=== PATIENT | male | born 1950 | race Caucasian/White ===

== ENCOUNTER → 2016-10-06 | Outpatient (CLI) | payer MEDICARE, OTHER ==
[~2016-10-06] MED LIST: /AMLO25TA PO; /MOXI40TA PO; ADV250INH INH; AMLO10TA2 PO; ASPI32ECTA PO; ASPI81TA85 PO; FISH1000 PO; FISH100035 PO; GING250C2 PO; LEVA12INH INH; LIPI10TA PO; LOPR50TA PO; METAPKT PO; METO-346 PO; MSM750CA PO; NYST10PW TOP; PRED1TAB32 PO; TYLE325T5 PO; [UNRECOGNIZED DRUG - OTHER]; [UNRECOGNIZED DRUG - OTHER] PO; [UNRECOGNIZED DRUG - OTHER] PO; [UNRECOGNIZED DRUG - OTHER] PO; [UNRECOGNIZED DRUG - OTHER] TOP; spiriva INH
[2016-10-06 13:06] LABS: BASO % 0.4 % (0.0-1.0); EOS # 0.1 K/mm3 (0.0-0.50); EOS % 1.2 % (0.0-3.0); LYMPH # 0.8 K/mm3 (1.5-4.5); LYMPH % 9.3 % (24.0-44.0); MEAN CORPUSCULAR HEMOGLOBIN 30.4 pg (27.0-33.0); MEAN CORPUSCULAR HGB CONC 33.6 g/dl (32.0-36.5); MEAN CORPUSCULAR VOLUME 90.4 fl (80.0-96.0); MONO # 0.6 K/mm3 (0.0-0.8); MONO % 6.7 % (0.0-5.0); NEUTROPHILS # 7.2 K/mm3 (1.8-7.7); NEUTROPHILS % 80.8 % (36.0-66.0); RED CELL DISTRIBUTION WIDTH 13.9 % (11.5-14.5); WHITE BLOOD COUNT 8.9 K/mm3 (4.0-10.0)
[2016-10-06 13:31] LABS: ALBUMIN 3.8 GM/DL (3.2-5.2); CALCIUM LEVEL 9.1 MG/DL (8.8-10.2); CREATININE FOR GFR 1.36 MG/DL (0.70-1.30); GLOMERULAR FILTRATION RATE 55.6 (>49); MAGNESIUM LEVEL 2.6 MG/DL (1.8-2.4); PHOSPHORUS LEVEL 2.8 MG/DL (2.5-4.9); POTASSIUM SERUM 4.1 MEQ/L (3.5-5.1)
== END ==
LOC: M LAB 12:13
PROVIDERS: ATTEND Internal Medicine Cardiovascular Disease
DX: R06.00 Dyspnea, unspecified (principal)

== ENCOUNTER → 2016-10-13 | Outpatient (REF) | payer MEDICARE ==
[2016-10-13 20:11] LABS: BASO # 0.2 K/mm3 (0.0-0.2); EOS # 0.1 K/mm3 (0.0-0.50); EOS % 1.3 % (0.0-3.0); LARGE UNSTAINED CELL # 0.1 K/mm3 (0.0-0.4); LARGE UNSTAINED CELL % 0.9 % (0.0-4.0); LYMPH # 1.1 K/mm3 (1.5-4.5); LYMPH % 11.7 % (24.0-44.0); MEAN CORPUSCULAR HEMOGLOBIN 28.9 pg (27.0-33.0); MEAN CORPUSCULAR VOLUME 90.3 fl (80.0-96.0); MONO # 0.5 K/mm3 (0.0-0.8); MONO % 5.2 % (0.0-5.0); NEUTROPHILS # 7.1 K/mm3 (1.8-7.7); NEUTROPHILS % 78.9 % (36.0-66.0); PLATELET COUNT, AUTOMATED 231 k/mm3 (150-450)
[2016-10-13 20:46] LABS: ERYTHROCYTE SEDIMENTATION RATE 3 mm/hr (0-20)
== END ==
LOC: M LAB REF 16:41
PROVIDERS: ATTEND Internal Medicine Medical Oncology
DX: Z01.812 Encounter for preprocedural laboratory examination (principal); D75.1 Secondary polycythemia; I50.32 Chronic diastolic (congestive) heart failure; R06.02 Shortness of breath

== ENCOUNTER → 2016-10-13 | Outpatient (CLI) | payer MEDICARE ==
[2016-10-13 13:32] LABS: ABG BASE EXCESS 1.8 (-2.0-2.0); ABG HCO3 26.8 MEQ/L (22.0-26.0); ABG PARTIAL PRESSURE CO2 42.6 mmHg (35.0-45.0); ABG PARTIAL PRESSURE O2 57.9 mmHg (75.0-100.0); ABG STANDARD HCO3 25.8 MEQ/L (22.0-26.0); ABG TOTAL CO2 28.1 MEQ/L (23.0-31.0); ABG pH (ARTERIAL) 7.416 UNITS (7.350-7.450)
[2016-10-13 19:25] LABS: CREATININE FOR GFR 1.51 MG/DL (0.70-1.30); GLOMERULAR FILTRATION RATE 49.3 (>49)
== END ==
LOC: M LAB 13:19
PROVIDERS: ATTEND Internal Medicine Cardiovascular Disease
DX: Z01.812 Encounter for preprocedural laboratory examination (principal); I50.32 Chronic diastolic (congestive) heart failure; R06.02 Shortness of breath

== ENCOUNTER → 2016-10-17 | Outpatient (CLI) | payer MEDICARE, OTHER ==
[~2016-10-17] MED LIST changes: +ISOVUE-370 76% 100ML VIAL (Q9967) As Ordered ONE
--- NOTE | 2016-10-17 13:04 | REP ---
CT of the chest with intravenous contrast: Comparisons are 04/28/2016 and 01/25/2015. The patient has mediastinal and bilateral hilar adenopathy. There are thyroid nodules in the left lobe of the thyroid gland appears enlarged. This is unchanged from the prior studies. Radionuclide thyroid scan and / or thyroid ultrasound might be considered. There are multiple enlarged mediastinal lymph nodes. one of the largest lymph nodes is in aorticopulmonic node today measuring 9 mm short axis. (16 mm of 04/28/2016, 11 mm on 01/25/2015. The other nodes demonstrate similar characteristics having enlarged from 01/25/2015 to 04/28/2016 and today decreased compared 05/10/2016. There are bilateral hilar nodes with similar size considerations. They have increased from 01/25/2015, 05/10/2016 and decreased from 05/10/2016 to 09/27/2016. On 05/10/2016. there were bilateral pleural effusions. These have resolved. There are no lung masses or nodules. There are no infiltrates or effusions. There are numerous bulla scattered throughout the lung silva bilaterally, unchanged, compatible with bullous emphysema. The thoracic aorta is unremarkable except for occasional calcified atheroma. Cardiac size is normal. There is no pericardial effusion. There are multiple eccentric filling defects in the right subclavian vein, the intravenous injection being in the right upper extremity. These may represent thrombi, possibly chronic. Upper abdomen: There is a 3.5 cm cyst posteriorly in the right lobe of the liver, unchanged. The visualized portions of the gallbladder, pancreas and spleen are unremarkable. There is no adrenal mass. The renal upper poles are unremarkable. Impression: Mediastinal and bilateral hilar adenopathy as described. Numerous thyroid multiple nodules. This is unchanged. There are filling defects, nonocclusive, in the right subclavian vein, the intravenous injection being into the right upper extremity. These may represent thrombi, possibly chronic. Signed by Sai Carpenter MD 10/17/2016 12:55 P
== END ==
LOC: M RAD 11:29
PROVIDERS: ATTEND Internal Medicine Pulmonary Disease
DX: R91.8 Other nonspecific abnormal finding of lung field (principal)
CPT/HCPCS: 71260; Q9967

== ENCOUNTER → 2016-10-21 | Outpatient (REF) | payer MEDICARE ==
[~2016-10-21] MED LIST changes: -ISOVUE-370 76% 100ML VIAL (Q9967) As Ordered ONE
== END ==
LOC: M LAB REF 12:49
PROVIDERS: ATTEND Internal Medicine Medical Oncology
DX: D75.1 Secondary polycythemia (principal)

== ENCOUNTER → 2016-12-12 | Outpatient (CLI) | payer MEDICARE, OTHER ==
[~2016-12-12] MED LIST changes: +ISOVUE-370 76% 100ML VIAL (Q9967) As Ordered ONE
--- NOTE | 2016-12-12 12:18 | REP ---
Clinical: Erythrocytosis. Renal mass. Technique: Axial contrast enhanced images from the lung bases to the pubic symphysis using 100 ml Isovue 370 intravenous contrast material with precontrast, arterial phase, and delayed phase images of the abdomen as well as coronal and sagittal re-formations. Findings: Lung bases demonstrate chronic bronchiectasis and mild to moderate emphysematous changes. Visualized portions of the heart and pericardium are normal. Liver is normal and demonstrates 3.8 cm cyst in the posterior segment right lobe. Spleen, pancreas, gallbladder, bilateral adrenal glands, and kidneys are normal. Specifically, there is no perinephric stranding, hydroureteronephrosis, nephrolithiasis, cystic or renal mass lesion. The enteric system is without obstruction or acute inflammatory process. Pelvis demonstrates normal bladder. The prostate gland is moderately enlarged measuring up to approximately 5.4 cm transverse diameter. No ascites. No free air. No intraperitoneal or retroperitoneal adenopathy. Age-related atherosclerotic changes of the aorta and branch vessels noted without aneurysm or dissection. Musculoskeletal structures demonstrate age-related changes without focal osseous abnormality. 2 cm fat containing periumbilical hernia noted. Impression: 1. Normal appearance of the kidneys and urinary tract system. 2. 3.8 cm simple hepatic cyst. 3. Moderately enlarged prostate gland. 4. 2 cm fat containing periumbilical hernia. Signed by Luis Daniel Beltre MD 12/12/2016 12:09 P
== END ==
LOC: M RAD 11:21
PROVIDERS: ATTEND Internal Medicine Medical Oncology
DX: D75.1 Secondary polycythemia (principal)
CPT/HCPCS: 74178; Q9967

== ENCOUNTER → 2017-07-23 | Outpatient (REF) | payer MEDICARE, OTHER ==
[~2017-07-23] MED LIST changes: +ASPI325T24 PO; -ASPI32ECTA PO; -ISOVUE-370 76% 100ML VIAL (Q9967) As Ordered ONE
[2017-07-23 19:39] LABS: BASO # 0.1 10^3/uL (0.0-0.2); BASO % 0.5 % (0.0-1.0); EOS # 0.1 10^3/uL (0.0-0.50); EOS % 1.4 % (0.0-3.0); IMMATURE GRANULOCYTE % 0.5 % (0-0); LYMPH # 1.1 10^3/uL (1.5-4.5); LYMPH % 10.7 % (24.0-44.0); MEAN CORPUSCULAR HEMOGLOBIN 29.1 pg (27.0-33.0); MEAN CORPUSCULAR HGB CONC 31.6 g/dl (32.0-36.5); MEAN CORPUSCULAR VOLUME 92.2 fl (80.0-96.0); MONO # 0.5 10^3/uL (0.0-0.8); MONO % 5.3 % (0.0-5.0); NEUTROPHILS # 8.4 10^3/uL (1.8-7.7); NEUTROPHILS % 81.6 % (36.0-66.0); PLATELET COUNT, AUTOMATED 252 10^3/uL (150-450); RED CELL DISTRIBUTION WIDTH 16.7 % (11.5-14.5); WHITE BLOOD COUNT 10.3 10^3/uL (4.0-10.0)
== END ==
LOC: M LABDRWCV 16:26
PROVIDERS: ATTEND Internal Medicine Medical Oncology
DX: D45 Polycythemia vera (principal)

== ENCOUNTER → 2017-08-24 | Outpatient (REF) | payer MEDICARE, OTHER ==
[2017-08-24 20:37] LABS: ALBUMIN 3.8 GM/DL (3.2-5.2); ALBUMIN/GLOBULIN RATIO 0.95 (1.00-1.93); BILIRUBIN,TOTAL 0.8 MG/DL (0.2-1.0); CREATININE FOR GFR 1.44 MG/DL (0.70-1.30); GLOMERULAR FILTRATION RATE 51.9 (>49); POTASSIUM SERUM 3.9 MEQ/L (3.5-5.1); TOTAL PROTEIN 7.8 GM/DL (6.4-8.2)
[2017-08-24 20:57] LABS: BASO # 0.1 10^3/uL (0.0-0.2); BASO % 0.6 % (0.0-1.0); EOS # 0.2 10^3/uL (0.0-0.50); EOS % 1.8 % (0.0-3.0); IMMATURE GRANULOCYTE % 0.3 % (0-0); LYMPH # 0.9 10^3/uL (1.5-4.5); MEAN CORPUSCULAR HEMOGLOBIN 29.1 pg (27.0-33.0); MEAN CORPUSCULAR HGB CONC 30.9 g/dl (32.0-36.5); MEAN CORPUSCULAR VOLUME 94.1 fl (80.0-96.0); MONO # 0.5 10^3/uL (0.0-0.8); NEUTROPHILS # 7.3 10^3/uL (1.8-7.7); NEUTROPHILS % 82.3 % (36.0-66.0); PLATELET COUNT, AUTOMATED 271 10^3/uL (150-450); RED CELL DISTRIBUTION WIDTH 15.1 % (11.5-14.5); WHITE BLOOD COUNT 8.9 10^3/uL (4.0-10.0)
== END ==
LOC: M SFHCCAPE 09:37
PROVIDERS: ATTEND Physician Assistant
DX: D75.1 Secondary polycythemia (principal); I10 Essential (primary) hypertension; E78.5 Hyperlipidemia, unspecified; E11.8 Type 2 diabetes mellitus with unspecified complications

== ENCOUNTER → 2017-09-07 | Outpatient (REF) | payer MEDICARE, OTHER ==
[2017-09-07 17:52] LABS: ALBUMIN 3.6 GM/DL (3.2-5.2); ALBUMIN/GLOBULIN RATIO 0.9 (1.00-1.93); BILIRUBIN,TOTAL 0.9 MG/DL (0.2-1.0); CALCIUM LEVEL 9.6 MG/DL (8.8-10.2); CREATININE FOR GFR 1.33 MG/DL (0.70-1.30); GLOMERULAR FILTRATION RATE 56.9 (>49); POTASSIUM SERUM 4.4 MEQ/L (3.5-5.1); TOTAL PROTEIN 7.6 GM/DL (6.4-8.2)
== END ==
LOC: M SFHCCAPE 10:33
PROVIDERS: ATTEND Physician Assistant
DX: R97.20 Elevated prostate specific antigen [PSA] (principal)

== ENCOUNTER 2017-12-10 14:42 | Inpatient (IN) | payer MEDICARE, OTHER ==
[2017-12-10] MEDS: IPRATROPIUM 0.5MG/ALBUTEROL 2.5MG INH SOL UD 3ML (DUONEB)(J7620) NEB ×3 (15:10→20:00)
[2017-12-10] MEDS: ALBUTEROL SULFATE 2.5 MG/0.5 ML INH NEB SOLN INH ×2 (15:10→17:13)
[2017-12-10] MEDS: methylPREDNISolone INJ 125 MG/2 ML VIAL (J2930) IV ×2 (15:12→22:53)
[2017-12-10 15:14] LABS: BASO % 0.3 % (0.0-1.0); EOS # 0.2 10^3/uL (0.0-0.50); EOS % 1.7 % (0.0-3.0); HEMATOCRIT 49.6 % (42.0-52.0); HEMOGLOBIN 15.4 g/dl (14.0-18.0); IMMATURE GRANULOCYTE % 0.5 % (0-3.0); LYMPH # 0.8 10^3/uL (1.5-4.5); MEAN CORPUSCULAR HEMOGLOBIN 28.7 pg (27.0-33.0); MEAN CORPUSCULAR VOLUME 92.5 fl (80.0-96.0); MONO # 0.7 10^3/uL (0.0-0.8); MONO % 7.1 % (0.0-5.0); NEUTROPHILS # 7.9 10^3/uL (1.8-7.7); NEUTROPHILS % 82.4 % (36.0-66.0); PLATELET COUNT, AUTOMATED 247 10^3/uL (150-450); RED BLOOD COUNT 5.36 10^6/uL (4.30-6.10); RED CELL DISTRIBUTION WIDTH 18.2 % (11.5-14.5); WHITE BLOOD COUNT 9.6 10^3/uL (4.0-10.0)
[2017-12-10 15:17] LABS: ABG BASE EXCESS 4.3 (-2.0-2.0); ABG HCO3 31.2 MEQ/L (22.0-26.0); ABG O2 SATURATION 90.9 % (95.0-99.0); ABG PARTIAL PRESSURE CO2 54.8 mmHg (35.0-45.0); ABG PARTIAL PRESSURE O2 65.7 mmHg (75.0-100.0); ABG STANDARD HCO3 28.2 MEQ/L (22.0-26.0); ABG TOTAL CO2 32.9 MEQ/L (23.0-31.0); ABG pH (ARTERIAL) 7.373 UNITS (7.350-7.450)
[2017-12-10 15:24] LABS: INR 1.19; PROTHROMBIN TIME 15.3 SECONDS (12.4-14.5)
[2017-12-10 15:27] LABS: D-DIMER QUANT 1027.8 ng/ml (<500)
[2017-12-10 15:41] LABS: ALBUMIN 3.3 GM/DL (3.2-5.2); ALBUMIN/GLOBULIN RATIO 0.97 (1.00-1.93); ALKALINE PHOSPHATASE 66 U/L (45-117); ALT/SGPT 49 U/L (12-78); ANION GAP 5 MEQ/L (8-16); AST/SGOT 38 U/L (7-37); BILIRUBIN,DIRECT 0.4 MG/DL (0.0-0.2); BILIRUBIN,TOTAL 1.1 MG/DL (0.2-1.0); BLOOD UREA NITROGEN 33 MG/DL (7-18); CALCIUM LEVEL 8.1 MG/DL (8.8-10.2); CARBON DIOXIDE LEVEL 32 MEQ/L (21-32); CHLORIDE LEVEL 103 MEQ/L (98-107); CPK CREATINE PHOSPHOKINASE 173 U/L (39-308); CREATININE FOR GFR 1.58 MG/DL (0.70-1.30); GLOMERULAR FILTRATION RATE 46.7 (>49); GLUCOSE, FASTING 93 MG/DL (70-100); POTASSIUM SERUM 4.2 MEQ/L (3.5-5.1); SODIUM LEVEL 140 MEQ/L (136-145); THYROXINE (T4) 8.4 UG/DL (4.5-12.0); TOTAL PROTEIN 6.7 GM/DL (6.4-8.2); TROPONIN I < 0.02 NG/ML (< 0.10)
[2017-12-10 15:47] LABS: CK-MB VALUE MASS 2.7 NG/ML (<3.6); MB/CK RELATIVE INDEX 1.56 (< OR =4); NT-PRO BNP 4914 PG/ML (<125)
[2017-12-10 15:49] LABS: INFLUENZA A AMPLIFICATION NEGATIVE (NEGATIVE); INFLUENZA B AMPLIFICATION NEGATIVE (NEGATIVE)
[2017-12-10 15:51] LABS: LACTIC ACID SEPSIS PROTOCOL 1.4 MMOL/L (0.4-2.0)
[2017-12-10] MEDS ORDERED: ISOVUE-370 76% 100ML VIAL (Q9967) As Ordered (16:02)
[2017-12-10] MEDS: FUROSEMIDE 100 MG/10 ML VIAL (J1940) IV (17:15)
[2017-12-10] MEDS ORDERED: ONDANSETRON 4MG/2ML VIAL (J2405) IV (18:00)
[2017-12-10 18:50] LABS: TROPONIN I 0.02 NG/ML (< 0.10)
[2017-12-10 19:05] LABS: ANION GAP 9 MEQ/L (8-16); BLOOD UREA NITROGEN 32 MG/DL (7-18); CALCIUM LEVEL 8.4 MG/DL (8.8-10.2); CARBON DIOXIDE LEVEL 29 MEQ/L (21-32); CHLORIDE LEVEL 102 MEQ/L (98-107); CREATININE FOR GFR 1.69 MG/DL (0.70-1.30); GLOMERULAR FILTRATION RATE 43.2 (>49); GLUCOSE, FASTING 126 MG/DL (70-100); POTASSIUM SERUM 4.2 MEQ/L (3.5-5.1); SODIUM LEVEL 140 MEQ/L (136-145)
[2017-12-10] MEDS: HEPARIN SOD (PORCINE) 5000 UNITS/ML VIAL SC (22:54)
[2017-12-11 00:25] LABS: TROPONIN I 0.02 NG/ML (< 0.10)
[2017-12-11] MEDS: FUROSEMIDE 100 MG/10 ML VIAL (J1940) IV ×4 (00:36→16:56)
[2017-12-11] MEDS: methylPREDNISolone INJ 125 MG/2 ML VIAL (J2930) IV ×4 (02:08→20:44)
[2017-12-11] MEDS: IPRATROPIUM 0.5MG/ALBUTEROL 2.5MG INH SOL UD 3ML (DUONEB)(J7620) NEB ×4 (02:24→19:33)
[2017-12-11] MEDS: HEPARIN SOD (PORCINE) 5000 UNITS/ML VIAL SC ×3 (05:16→21:53)
[2017-12-11 06:24] LABS: HEMATOCRIT 50.3 % (42.0-52.0); HEMOGLOBIN 15.6 g/dl (14.0-18.0); MEAN CORPUSCULAR HEMOGLOBIN 28.3 pg (27.0-33.0); MEAN CORPUSCULAR VOLUME 91.1 fl (80.0-96.0); PLATELET COUNT, AUTOMATED 235 10^3/uL (150-450); RED BLOOD COUNT 5.52 10^6/uL (4.30-6.10); RED CELL DISTRIBUTION WIDTH 18.1 % (11.5-14.5); WHITE BLOOD COUNT 5.9 10^3/uL (4.0-10.0)
[2017-12-11 06:48] LABS: ANION GAP 7 MEQ/L (8-16); BLOOD UREA NITROGEN 35 MG/DL (7-18); CALCIUM LEVEL 8.5 MG/DL (8.8-10.2); CARBON DIOXIDE LEVEL 34 MEQ/L (21-32); CHLORIDE LEVEL 99 MEQ/L (98-107); GLOMERULAR FILTRATION RATE 40.1 (>49); GLUCOSE, FASTING 151 MG/DL (70-100); NT-PRO BNP 3883 PG/ML (<125); POTASSIUM SERUM 4.1 MEQ/L (3.5-5.1); SODIUM LEVEL 140 MEQ/L (136-145); TROPONIN I < 0.02 NG/ML (< 0.10)
[2017-12-11] MEDS ORDERED: CHLORTHALIDONE 12.5MG PER 1/2 TABLET PO (09:00)
[2017-12-11] MEDS: SPIRONOLACTONE 12.5MG PER 1/2 TABLET PO (09:52)
[2017-12-11] MEDS: BISOPROLOL FUMARATE 5 MG TAB PO (09:52)
[2017-12-11 16:16] LABS: APPEARANCE, URINE CLEAR (CLEAR); BACTERIA, URINE AUTO NEGATIVE (NEGATIVE); BILIRUBIN, URINE AUTO NEGATIVE (NEGATIVE); BLOOD, URINE BLOOD NEGATIVE (NEGATIVE); COLOR, URINE YELLOW (YELLOW); GLUCOSE, URINE (UA) AUTO NEGATIVE (NEGATIVE); KETONE, URINE AUTO NEGATIVE (NEGATIVE); LEUKOCYTE ESTERASE, URINE AUTO TRACE (NEGATIVE); MUCUS, URINE SMALL (NEGATIVE); NITRITE, URINE AUTO NEGATIVE (NEGATIVE); PROTEIN, URINE AUTO NEGATIVE (NEGATIVE); RBC, URINE AUTO 3 /HPF (0-3); SPECIFIC GRAVITY URINE AUTO 1.012 (1.002-1.035); SQUAMOUS EPITHELIAL CELL UR AU 0 /HPF (0-6); UROBILINOGEN, URINE AUTO 0.2 mg/dL (0.0-2.0); WBC, URINE AUTO 3 /HPF (0-3)
[2017-12-11] MEDS: VANCOMYCIN HCL 1,000 MG, VIAL MATE ADAPTER 1 EACH in D5W 250 ML IV (16:56)
[2017-12-12] MEDS: FUROSEMIDE 100 MG/10 ML VIAL (J1940) IV ×2 (01:56→09:27)
[2017-12-12] MEDS: IPRATROPIUM 0.5MG/ALBUTEROL 2.5MG INH SOL UD 3ML (DUONEB)(J7620) NEB ×4 (02:13→19:40)
[2017-12-12] MEDS: methylPREDNISolone INJ 125 MG/2 ML VIAL (J2930) IV ×2 (03:20→09:28)
[2017-12-12 04:08] LABS: HEMATOCRIT 50.2 % (42.0-52.0); HEMOGLOBIN 15.4 g/dl (14.0-18.0); MEAN CORPUSCULAR HEMOGLOBIN 28.3 pg (27.0-33.0); MEAN CORPUSCULAR HGB CONC 30.7 g/dl (32.0-36.5); MEAN CORPUSCULAR VOLUME 92.3 fl (80.0-96.0); PLATELET COUNT, AUTOMATED 239 10^3/uL (150-450); RED BLOOD COUNT 5.44 10^6/uL (4.30-6.10); RED CELL DISTRIBUTION WIDTH 18.3 % (11.5-14.5); WHITE BLOOD COUNT 12.4 10^3/uL (4.0-10.0)
[2017-12-12 04:31] LABS: ANION GAP 5 MEQ/L (8-16); BLOOD UREA NITROGEN 50 MG/DL (7-18); CALCIUM LEVEL 8.4 MG/DL (8.8-10.2); CARBON DIOXIDE LEVEL 37 MEQ/L (21-32); CHLORIDE LEVEL 99 MEQ/L (98-107); CREATININE FOR GFR 1.68 MG/DL (0.70-1.30); GLOMERULAR FILTRATION RATE 43.5 (>49); GLUCOSE, FASTING 142 MG/DL (70-100); NT-PRO BNP 2033 PG/ML (<125); POTASSIUM SERUM 3.7 MEQ/L (3.5-5.1); SODIUM LEVEL 141 MEQ/L (136-145)
[2017-12-12] MEDS: VANCOMYCIN HCL 1,000 MG, VIAL MATE ADAPTER 1 EACH in D5W 250 ML IV (06:34)
[2017-12-12] MEDS: HEPARIN SOD (PORCINE) 5000 UNITS/ML VIAL SC (06:34)
[2017-12-12 08:32] LABS: ABG BASE EXCESS 9.7 (-2.0-2.0); ABG HCO3 36.9 MEQ/L (22.0-26.0); ABG PARTIAL PRESSURE O2 74.5 mmHg (75.0-100.0); ABG STANDARD HCO3 33.4 MEQ/L (22.0-26.0); ABG TOTAL CO2 38.6 MEQ/L (23.0-31.0); ABG pH (ARTERIAL) 7.421 UNITS (7.350-7.450)
[2017-12-12 09:12] LABS: C REACTIVE PROTEIN QUANTITATIV 0.85 MG/DL (0.00-0.30)
[2017-12-12] MEDS: SPIRONOLACTONE 12.5MG PER 1/2 TABLET PO (09:26)
[2017-12-12] MEDS: BISOPROLOL FUMARATE 5 MG TAB PO (09:27)
[2017-12-12] MEDS: TIOTROPIUM INHALER/CAPSULE (SPIRIVA) INH (09:31)
[2017-12-12] MEDS: ADVAIR HFA 230/21MCG INHALER INH ×2 (09:32→21:00)
[2017-12-12] MEDS: LevoFLOXacin IV 500 MG in APPROPRIATE DILUENT 1 EA IV (09:58)
[2017-12-12 13:44] LABS: PARTIAL THROMBOPLASTIN TIME 28.6 SECONDS (26.8-37.9)
[2017-12-12] MEDS: methylPREDNISolone INJ 40 MG/1 ML VIAL (J2920) IV ×2 (14:40→20:38)
[2017-12-12] MEDS: MULTIVITAMINS/MINERALS THERAP 1 TAB PO (14:40)
[2017-12-12] MEDS: DIGOXIN 0.25 MG TAB PO ×2 (14:41→20:38)
[2017-12-12] MEDS: HEPARIN SOD (PORCINE) 5000 UNITS/ML VIAL IV ×2 (14:52→20:38)
[2017-12-12] MEDS: HEPARIN DRIP 25,000 UNITS in APPROPRIATE DILUENT 1 EA IV ×2 (14:54→20:34)
[2017-12-12] MEDS: WARFARIN SOD 5 MG TAB PO (17:22)
[2017-12-12 20:04] LABS: PARTIAL THROMBOPLASTIN TIME 53.4 SECONDS (26.8-37.9)
[2017-12-13] MEDS: IPRATROPIUM 0.5MG/ALBUTEROL 2.5MG INH SOL UD 3ML (DUONEB)(J7620) NEB ×4 (02:04→18:32)
[2017-12-13 03:15] LABS: MEAN CORPUSCULAR HEMOGLOBIN 28.5 pg (27.0-33.0); MEAN CORPUSCULAR HGB CONC 31.4 g/dl (32.0-36.5); MEAN CORPUSCULAR VOLUME 90.9 fl (80.0-96.0); PLATELET COUNT, AUTOMATED 234 10^3/uL (150-450); RED BLOOD COUNT 5.61 10^6/uL (4.30-6.10); RED CELL DISTRIBUTION WIDTH 17.9 % (11.5-14.5); WHITE BLOOD COUNT 12.7 10^3/uL (4.0-10.0)
[2017-12-13 03:31] LABS: PARTIAL THROMBOPLASTIN TIME 76.3 SECONDS (26.8-37.9)
[2017-12-13 03:38] LABS: ANION GAP 6 MEQ/L (8-16); BLOOD UREA NITROGEN 55 MG/DL (7-18); CALCIUM LEVEL 8.3 MG/DL (8.8-10.2); CARBON DIOXIDE LEVEL 36 MEQ/L (21-32); CHLORIDE LEVEL 97 MEQ/L (98-107); CREATININE FOR GFR 1.47 MG/DL (0.70-1.30); GLOMERULAR FILTRATION RATE 50.7 (>49); GLUCOSE, FASTING 151 MG/DL (70-100); NT-PRO BNP 879 PG/ML (<125); POTASSIUM SERUM 3.8 MEQ/L (3.5-5.1); SODIUM LEVEL 139 MEQ/L (136-145)
[2017-12-13] MEDS: methylPREDNISolone INJ 40 MG/1 ML VIAL (J2920) IV ×4 (03:56→20:26)
[2017-12-13] MEDS: TIOTROPIUM INHALER/CAPSULE (SPIRIVA) INH (07:54)
[2017-12-13] MEDS: ADVAIR HFA 230/21MCG INHALER INH ×2 (07:54→18:32)
[2017-12-13] MEDS: MULTIVITAMINS/MINERALS THERAP 1 TAB PO (08:06)
[2017-12-13] MEDS: DIGOXIN 0.25 MG TAB PO (08:06)
[2017-12-13 09:23] LABS: PARTIAL THROMBOPLASTIN TIME 60.7 SECONDS (26.8-37.9)
[2017-12-13] MEDS ORDERED: LevoFLOXacin IV 250 MG in APPROPRIATE DILUENT 1 EA IV (10:00)
[2017-12-13] MEDS: HEPARIN SOD (PORCINE) 5000 UNITS/ML VIAL IV (10:05)
[2017-12-13] MEDS: PANTOPRAZOLE 40MG TAB (PROTONIX) PO (10:05)
[2017-12-13 10:34] LABS: ABG HCO3 37.1 MEQ/L (22.0-26.0); ABG PARTIAL PRESSURE CO2 57.9 mmHg (35.0-45.0); ABG PARTIAL PRESSURE O2 91.4 mmHg (75.0-100.0); ABG STANDARD HCO3 33.8 MEQ/L (22.0-26.0); ABG TOTAL CO2 38.8 MEQ/L (23.0-31.0); ABG pH (ARTERIAL) 7.424 UNITS (7.350-7.450)
[2017-12-13] MEDS: HEPARIN DRIP 25,000 UNITS in APPROPRIATE DILUENT 1 EA IV (10:50)
[2017-12-13 16:25] LABS: PARTIAL THROMBOPLASTIN TIME 92.6 SECONDS (26.8-37.9)
[2017-12-13] MEDS: WARFARIN SOD 5 MG TAB PO (17:37)
[2017-12-13 22:12] LABS: PARTIAL THROMBOPLASTIN TIME 80.5 SECONDS (26.8-37.9)
[2017-12-14] MEDS: HEPARIN DRIP 25,000 UNITS in APPROPRIATE DILUENT 1 EA IV ×2 (01:57→19:22)
[2017-12-14] MEDS: methylPREDNISolone INJ 40 MG/1 ML VIAL (J2920) IV ×4 (02:34→20:34)
[2017-12-14] MEDS: IPRATROPIUM 0.5MG/ALBUTEROL 2.5MG INH SOL UD 3ML (DUONEB)(J7620) NEB ×4 (02:45→20:00)
[2017-12-14 04:27] LABS: HEMATOCRIT 49.3 % (42.0-52.0); HEMOGLOBIN 15.3 g/dl (14.0-18.0); MEAN CORPUSCULAR HEMOGLOBIN 28.1 pg (27.0-33.0); MEAN CORPUSCULAR VOLUME 90.6 fl (80.0-96.0); PLATELET COUNT, AUTOMATED 203 10^3/uL (150-450); RED BLOOD COUNT 5.44 10^6/uL (4.30-6.10); RED CELL DISTRIBUTION WIDTH 17.1 % (11.5-14.5); WHITE BLOOD COUNT 9.7 10^3/uL (4.0-10.0)
[2017-12-14 04:38] LABS: PARTIAL THROMBOPLASTIN TIME 88.2 SECONDS (26.8-37.9)
[2017-12-14 04:39] LABS: INR 1.25
[2017-12-14 04:57] LABS: ANION GAP 2 MEQ/L (8-16); BLOOD UREA NITROGEN 45 MG/DL (7-18); CARBON DIOXIDE LEVEL 37 MEQ/L (21-32); CHLORIDE LEVEL 99 MEQ/L (98-107); CREATININE FOR GFR 1.34 MG/DL (0.70-1.30); DIGOXIN LEVEL 0.6 NG/ML (0.5-2.0); GLOMERULAR FILTRATION RATE 56.4 (>49); GLUCOSE, FASTING 155 MG/DL (70-100); POTASSIUM SERUM 3.8 MEQ/L (3.5-5.1); SODIUM LEVEL 138 MEQ/L (136-145)
[2017-12-14] MEDS: TIOTROPIUM INHALER/CAPSULE (SPIRIVA) INH (08:09)
[2017-12-14] MEDS: ADVAIR HFA 230/21MCG INHALER INH ×2 (08:09→20:31)
[2017-12-14] MEDS: MULTIVITAMINS/MINERALS THERAP 1 TAB PO (09:19)
[2017-12-14] MEDS: PANTOPRAZOLE 40MG TAB (PROTONIX) PO (09:20)
[2017-12-14] MEDS: DIGOXIN 0.25 MG TAB PO (09:20)
[2017-12-14] MEDS: WARFARIN SOD 5 MG TAB PO (16:55)
[2017-12-15] MEDS: IPRATROPIUM 0.5MG/ALBUTEROL 2.5MG INH SOL UD 3ML (DUONEB)(J7620) NEB ×4 (01:24→21:33)
[2017-12-15] MEDS: methylPREDNISolone INJ 40 MG/1 ML VIAL (J2920) IV ×4 (03:12→20:16)
[2017-12-15 04:42] LABS: HEMATOCRIT 50.3 % (42.0-52.0); HEMOGLOBIN 15.8 g/dl (14.0-18.0); MEAN CORPUSCULAR HGB CONC 31.4 g/dl (32.0-36.5); MEAN CORPUSCULAR VOLUME 89.2 fl (80.0-96.0); PLATELET COUNT, AUTOMATED 202 10^3/uL (150-450); RED BLOOD COUNT 5.64 10^6/uL (4.30-6.10); RED CELL DISTRIBUTION WIDTH 17.2 % (11.5-14.5); WHITE BLOOD COUNT 9.4 10^3/uL (4.0-10.0)
[2017-12-15 04:57] LABS: INR 1.22; PROTHROMBIN TIME 15.7 SECONDS (12.4-14.5)
[2017-12-15 04:58] LABS: PARTIAL THROMBOPLASTIN TIME 72.6 SECONDS (26.8-37.9)
[2017-12-15 05:17] LABS: ANION GAP 3 MEQ/L (8-16); BLOOD UREA NITROGEN 39 MG/DL (7-18); CALCIUM LEVEL 8.5 MG/DL (8.8-10.2); CARBON DIOXIDE LEVEL 35 MEQ/L (21-32); CHLORIDE LEVEL 101 MEQ/L (98-107); GLOMERULAR FILTRATION RATE > 60.0 (>49); GLUCOSE, FASTING 159 MG/DL (70-100); POTASSIUM SERUM 3.9 MEQ/L (3.5-5.1); SODIUM LEVEL 139 MEQ/L (136-145)
[2017-12-15] MEDS: ADVAIR HFA 230/21MCG INHALER INH ×2 (08:57→21:32)
[2017-12-15] MEDS: TIOTROPIUM INHALER/CAPSULE (SPIRIVA) INH (08:58)
[2017-12-15] MEDS: MULTIVITAMINS/MINERALS THERAP 1 TAB PO (09:01)
[2017-12-15] MEDS: PANTOPRAZOLE 40MG TAB (PROTONIX) PO (09:01)
[2017-12-15] MEDS: DIGOXIN 0.25 MG TAB PO (09:01)
[2017-12-15] MEDS: HEPARIN DRIP 25,000 UNITS in APPROPRIATE DILUENT 1 EA IV (13:39)
[2017-12-15] MEDS: WARFARIN SOD 5 MG TAB PO (17:11)
[2017-12-16] MEDS: IPRATROPIUM 0.5MG/ALBUTEROL 2.5MG INH SOL UD 3ML (DUONEB)(J7620) NEB ×4 (01:03→20:00)
[2017-12-16] MEDS: methylPREDNISolone INJ 40 MG/1 ML VIAL (J2920) IV ×4 (04:09→21:00)
[2017-12-16 04:42] LABS: HEMATOCRIT 50.5 % (42.0-52.0); HEMOGLOBIN 15.9 g/dl (14.0-18.0); MEAN CORPUSCULAR HEMOGLOBIN 28.3 pg (27.0-33.0); MEAN CORPUSCULAR HGB CONC 31.5 g/dl (32.0-36.5); MEAN CORPUSCULAR VOLUME 89.9 fl (80.0-96.0); PLATELET COUNT, AUTOMATED 188 10^3/uL (150-450); RED BLOOD COUNT 5.62 10^6/uL (4.30-6.10); RED CELL DISTRIBUTION WIDTH 17.4 % (11.5-14.5); WHITE BLOOD COUNT 9.2 10^3/uL (4.0-10.0)
[2017-12-16 04:52] LABS: PARTIAL THROMBOPLASTIN TIME 81.3 SECONDS (26.8-37.9)
[2017-12-16 04:53] LABS: ANION GAP 5 MEQ/L (8-16); BLOOD UREA NITROGEN 40 MG/DL (7-18); CALCIUM LEVEL 8.2 MG/DL (8.8-10.2); CARBON DIOXIDE LEVEL 33 MEQ/L (21-32); CHLORIDE LEVEL 101 MEQ/L (98-107); CREATININE FOR GFR 1.14 MG/DL (0.70-1.30); GLOMERULAR FILTRATION RATE > 60.0 (>49); GLUCOSE, FASTING 172 MG/DL (70-100); POTASSIUM SERUM 4.1 MEQ/L (3.5-5.1); SODIUM LEVEL 139 MEQ/L (136-145)
[2017-12-16 07:40] LABS: INR 1.75; PROTHROMBIN TIME 20.9 SECONDS (12.4-14.5)
[2017-12-16] MEDS: DIGOXIN 0.25 MG TAB PO (08:06)
[2017-12-16] MEDS: MULTIVITAMINS/MINERALS THERAP 1 TAB PO (08:06)
[2017-12-16] MEDS: PANTOPRAZOLE 40MG TAB (PROTONIX) PO (08:06)
[2017-12-16] MEDS: TIOTROPIUM INHALER/CAPSULE (SPIRIVA) INH (11:48)
[2017-12-16] MEDS: ADVAIR HFA 230/21MCG INHALER INH ×2 (11:48→22:53)
[2017-12-16] MEDS ORDERED: SLF 3 ML SYR IV (15:45)
[2017-12-16] MEDS: WARFARIN SOD 4 MG TAB PO (17:17)
[2017-12-16] MEDS: SLF 3 ML SYR IV (21:01)
[2017-12-17] MEDS: IPRATROPIUM 0.5MG/ALBUTEROL 2.5MG INH SOL UD 3ML (DUONEB)(J7620) NEB ×5 (00:21→20:00)
[2017-12-17] MEDS: methylPREDNISolone INJ 40 MG/1 ML VIAL (J2920) IV ×2 (02:34→08:56)
[2017-12-17] MEDS: SLF 3 ML SYR IV ×3 (02:35→22:00)
[2017-12-17 05:39] LABS: HEMATOCRIT 49.1 % (42.0-52.0); HEMOGLOBIN 15.5 g/dl (14.0-18.0); MEAN CORPUSCULAR HEMOGLOBIN 28.3 pg (27.0-33.0); MEAN CORPUSCULAR HGB CONC 31.6 g/dl (32.0-36.5); MEAN CORPUSCULAR VOLUME 89.8 fl (80.0-96.0); PLATELET COUNT, AUTOMATED 204 10^3/uL (150-450); RED BLOOD COUNT 5.47 10^6/uL (4.30-6.10); RED CELL DISTRIBUTION WIDTH 17.2 % (11.5-14.5); WHITE BLOOD COUNT 10.4 10^3/uL (4.0-10.0)
[2017-12-17 05:51] LABS: ANION GAP 4 MEQ/L (8-16); BLOOD UREA NITROGEN 39 MG/DL (7-18); CALCIUM LEVEL 8.2 MG/DL (8.8-10.2); CARBON DIOXIDE LEVEL 34 MEQ/L (21-32); CHLORIDE LEVEL 102 MEQ/L (98-107); GLOMERULAR FILTRATION RATE > 60.0 (>49); GLUCOSE, FASTING 163 MG/DL (70-100); INR 2.13; MAGNESIUM LEVEL 2.8 MG/DL (1.8-2.4); POTASSIUM SERUM 4.4 MEQ/L (3.5-5.1); PROTHROMBIN TIME 24.6 SECONDS (12.4-14.5); SODIUM LEVEL 140 MEQ/L (136-145)
[2017-12-17] MEDS: TIOTROPIUM INHALER/CAPSULE (SPIRIVA) INH (07:42)
[2017-12-17] MEDS: ADVAIR HFA 230/21MCG INHALER INH ×2 (07:42→21:11)
[2017-12-17] MEDS: DIGOXIN 0.25 MG TAB PO (08:56)
[2017-12-17] MEDS: PANTOPRAZOLE 40MG TAB (PROTONIX) PO (08:56)
[2017-12-17] MEDS: MULTIVITAMINS/MINERALS THERAP 1 TAB PO (08:56)
[2017-12-17] MEDS ORDERED: K-PHOS NEUTRAL 250MG TABLET (SOD.PHOSPHATE/POT.PHOSPHATE) PO (16:00)
[2017-12-17] MEDS: WARFARIN SOD 5 MG TAB PO (17:31)
[2017-12-18] MEDS: IPRATROPIUM 0.5MG/ALBUTEROL 2.5MG INH SOL UD 3ML (DUONEB)(J7620) NEB ×4 (00:55→20:00)
[2017-12-18 05:56] LABS: HEMATOCRIT 50.8 % (42.0-52.0); HEMOGLOBIN 16.1 g/dl (13.5-17.5); MEAN CORPUSCULAR HEMOGLOBIN 28.1 pg (27.0-33.0); MEAN CORPUSCULAR HGB CONC 31.7 g/dl (32.0-36.5); MEAN CORPUSCULAR VOLUME 88.7 fl (80.0-96.0); PLATELET COUNT, AUTOMATED 226 10^3/uL (150-450); RED BLOOD COUNT 5.73 10^6/uL (4.30-6.10); RED CELL DISTRIBUTION WIDTH 17.6 % (11.5-14.5); WHITE BLOOD COUNT 15.5 10^3/uL (4.0-10.0)
[2017-12-18 06:07] LABS: INR 2.31; PROTHROMBIN TIME 26.2 SECONDS (12.4-14.5)
[2017-12-18 06:16] LABS: ANION GAP 3 MEQ/L (8-16); BLOOD UREA NITROGEN 42 MG/DL (7-18); CARBON DIOXIDE LEVEL 35 MEQ/L (21-32); CHLORIDE LEVEL 103 MEQ/L (98-107); CREATININE FOR GFR 1.09 MG/DL (0.70-1.30); GLOMERULAR FILTRATION RATE > 60.0 (>49); GLUCOSE, FASTING 114 MG/DL (70-100); POTASSIUM SERUM 4.4 MEQ/L (3.5-5.1); SODIUM LEVEL 141 MEQ/L (136-145)
[2017-12-18] MEDS: SLF 3 ML SYR IV ×3 (07:04→21:49)
[2017-12-18 07:49] LABS: C REACTIVE PROTEIN QUANTITATIV < 0.30 MG/DL (0.00-0.30)
[2017-12-18 08:11] LABS: ERYTHROCYTE SEDIMENTATION RATE 1 mm/hr (0-20)
[2017-12-18] MEDS: MULTIVITAMINS/MINERALS THERAP 1 TAB PO (08:29)
[2017-12-18] MEDS: predniSONE 20 MG TAB PO (08:29)
[2017-12-18] MEDS: DIGOXIN 0.25 MG TAB PO (08:29)
[2017-12-18] MEDS: PANTOPRAZOLE 40MG TAB (PROTONIX) PO (08:29)
[2017-12-18] MEDS: TIOTROPIUM INHALER/CAPSULE (SPIRIVA) INH (09:15)
[2017-12-18] MEDS: ADVAIR HFA 230/21MCG INHALER INH ×2 (09:15→20:39)
[2017-12-18] MEDS: WARFARIN SOD 5 MG TAB PO (17:02)
[2017-12-19] MEDS: IPRATROPIUM 0.5MG/ALBUTEROL 2.5MG INH SOL UD 3ML (DUONEB)(J7620) NEB ×4 (02:10→20:00)
[2017-12-19 03:49] LABS: BASO # 0.1 10^3/uL (0.0-0.2); BASO % 0.3 % (0.0-1.0); EOS # 0.1 10^3/uL (0.0-0.50); EOS % 0.6 % (0.0-3.0); HEMATOCRIT 50.8 % (42.0-52.0); IMMATURE GRANULOCYTE % 3.4 % (0-3.0); LYMPH # 0.9 10^3/uL (1.5-4.5); MEAN CORPUSCULAR HGB CONC 31.5 g/dl (32.0-36.5); MEAN CORPUSCULAR VOLUME 88.8 fl (80.0-96.0); MONO # 1.2 10^3/uL (0.0-0.8); MONO % 8.7 % (0.0-5.0); NEUTROPHILS # 11.6 10^3/uL (1.8-7.7); PLATELET COUNT, AUTOMATED 215 10^3/uL (150-450); RED BLOOD COUNT 5.72 10^6/uL (4.30-6.10); RED CELL DISTRIBUTION WIDTH 18.3 % (11.5-14.5); WHITE BLOOD COUNT 14.3 10^3/uL (4.0-10.0)
[2017-12-19 04:00] LABS: INR 2.34; PROTHROMBIN TIME 26.5 SECONDS (12.4-14.5)
[2017-12-19 04:04] LABS: ANION GAP 5 MEQ/L (8-16); BLOOD UREA NITROGEN 45 MG/DL (7-18); CALCIUM LEVEL 7.8 MG/DL (8.8-10.2); CARBON DIOXIDE LEVEL 32 MEQ/L (21-32); CHLORIDE LEVEL 105 MEQ/L (98-107); CREATININE FOR GFR 1.02 MG/DL (0.70-1.30); GLOMERULAR FILTRATION RATE > 60.0 (>49); GLUCOSE, FASTING 107 MG/DL (70-100); MAGNESIUM LEVEL 2.6 MG/DL (1.8-2.4); POTASSIUM SERUM 3.8 MEQ/L (3.5-5.1); SODIUM LEVEL 142 MEQ/L (136-145)
[2017-12-19 04:42] LABS: CK-MB VALUE MASS 2.8 NG/ML (<3.6); CPK CREATINE PHOSPHOKINASE 149 U/L (39-308); MB/CK RELATIVE INDEX 1.87 (< OR =4); TROPONIN I 0.04 NG/ML (< 0.10)
[2017-12-19] MEDS: SLF 3 ML SYR IV ×3 (06:00→21:16)
[2017-12-19] MEDS: TIOTROPIUM INHALER/CAPSULE (SPIRIVA) INH (08:00)
[2017-12-19] MEDS: ADVAIR HFA 230/21MCG INHALER INH ×2 (08:01→21:03)
[2017-12-19] MEDS: PANTOPRAZOLE 40MG TAB (PROTONIX) PO (08:18)
[2017-12-19] MEDS: MULTIVITAMINS/MINERALS THERAP 1 TAB PO (08:18)
[2017-12-19] MEDS: predniSONE 20 MG TAB PO (08:18)
[2017-12-19] MEDS: SIMETHICONE 80 MG CHEW TAB PO ×3 (08:18→21:00)
[2017-12-19] MEDS: DIGOXIN 0.25 MG TAB PO (08:18)
[2017-12-19 10:57] LABS: CK-MB VALUE MASS 2.6 NG/ML (<3.6); CPK CREATINE PHOSPHOKINASE 184 U/L (39-308); MB/CK RELATIVE INDEX 1.41 (< OR =4); TROPONIN I 0.03 NG/ML (< 0.10)
[2017-12-19] MEDS: WARFARIN SOD 5 MG TAB PO (17:28)
[2017-12-20] MEDS: IPRATROPIUM 0.5MG/ALBUTEROL 2.5MG INH SOL UD 3ML (DUONEB)(J7620) NEB ×4 (01:55→20:00)
[2017-12-20 04:04] LABS: HEMATOCRIT 49.4 % (42.0-52.0); HEMOGLOBIN 15.6 g/dl (13.5-17.5); MEAN CORPUSCULAR HEMOGLOBIN 27.9 pg (27.0-33.0); MEAN CORPUSCULAR HGB CONC 31.6 g/dl (32.0-36.5); MEAN CORPUSCULAR VOLUME 88.2 fl (80.0-96.0); PLATELET COUNT, AUTOMATED 180 10^3/uL (150-450); RED CELL DISTRIBUTION WIDTH 17.3 % (11.5-14.5); WHITE BLOOD COUNT 13.4 10^3/uL (4.0-10.0)
[2017-12-20 04:16] LABS: INR 2.05; PROTHROMBIN TIME 23.9 SECONDS (12.4-14.5)
[2017-12-20 04:26] LABS: ANION GAP 3 MEQ/L (8-16); BLOOD UREA NITROGEN 34 MG/DL (7-18); CALCIUM LEVEL 7.9 MG/DL (8.8-10.2); CARBON DIOXIDE LEVEL 32 MEQ/L (21-32); CHLORIDE LEVEL 107 MEQ/L (98-107); CREATININE FOR GFR 1.02 MG/DL (0.70-1.30); GLOMERULAR FILTRATION RATE > 60.0 (>49); GLUCOSE, FASTING 113 MG/DL (70-100); MAGNESIUM LEVEL 2.7 MG/DL (1.8-2.4); POTASSIUM SERUM 3.9 MEQ/L (3.5-5.1); SODIUM LEVEL 142 MEQ/L (136-145)
[2017-12-20] MEDS: SLF 3 ML SYR IV ×3 (06:32→20:50)
[2017-12-20] MEDS: SIMETHICONE 80 MG CHEW TAB PO (08:04)
[2017-12-20] MEDS: DIGOXIN 0.25 MG TAB PO (08:06)
[2017-12-20] MEDS: predniSONE 20 MG TAB PO (08:06)
[2017-12-20] MEDS: MULTIVITAMINS/MINERALS THERAP 1 TAB PO (08:06)
[2017-12-20] MEDS: PANTOPRAZOLE 40MG TAB (PROTONIX) PO (08:06)
[2017-12-20] MEDS: TIOTROPIUM INHALER/CAPSULE (SPIRIVA) INH (08:15)
[2017-12-20] MEDS: ADVAIR HFA 230/21MCG INHALER INH ×2 (08:16→21:00)
[2017-12-20] MEDS ORDERED: SIMETHICONE 80 MG CHEW TAB PO (15:00)
[2017-12-20] MEDS: WARFARIN SOD 5 MG TAB PO (16:43)
[2017-12-20] MEDS: WARFARIN SOD 2.5 MG TAB PO (17:59)
[2017-12-21] MEDS: IPRATROPIUM 0.5MG/ALBUTEROL 2.5MG INH SOL UD 3ML (DUONEB)(J7620) NEB ×3 (00:51→14:00)
[2017-12-21 05:22] LABS: HEMOGLOBIN 15.3 g/dl (13.5-17.5); MEAN CORPUSCULAR HGB CONC 31.2 g/dl (32.0-36.5); MEAN CORPUSCULAR VOLUME 89.6 fl (80.0-96.0); PLATELET COUNT, AUTOMATED 187 10^3/uL (150-450); RED BLOOD COUNT 5.47 10^6/uL (4.30-6.10); RED CELL DISTRIBUTION WIDTH 17.5 % (11.5-14.5); WHITE BLOOD COUNT 13.2 10^3/uL (4.0-10.0)
[2017-12-21 05:35] LABS: PROTHROMBIN TIME 22.4 SECONDS (12.4-14.5)
[2017-12-21 05:45] LABS: ANION GAP 4 MEQ/L (8-16); BLOOD UREA NITROGEN 35 MG/DL (7-18); CALCIUM LEVEL 8.1 MG/DL (8.8-10.2); CARBON DIOXIDE LEVEL 32 MEQ/L (21-32); CHLORIDE LEVEL 107 MEQ/L (98-107); CREATININE FOR GFR 1.09 MG/DL (0.70-1.30); GLOMERULAR FILTRATION RATE > 60.0 (>49); GLUCOSE, FASTING 92 MG/DL (70-100); MAGNESIUM LEVEL 2.6 MG/DL (1.8-2.4); POTASSIUM SERUM 4.1 MEQ/L (3.5-5.1); SODIUM LEVEL 143 MEQ/L (136-145)
[2017-12-21] MEDS: SLF 3 ML SYR IV ×2 (05:51→13:31)
[2017-12-21 06:35] LABS: DIGOXIN LEVEL 0.8 NG/ML (0.5-2.0)
[2017-12-21] MEDS: TIOTROPIUM INHALER/CAPSULE (SPIRIVA) INH (08:35)
[2017-12-21] MEDS: ADVAIR HFA 230/21MCG INHALER INH (08:35)
[2017-12-21] MEDS: MULTIVITAMINS/MINERALS THERAP 1 TAB PO (08:44)
[2017-12-21] MEDS: PANTOPRAZOLE 40MG TAB (PROTONIX) PO (08:44)
[2017-12-21] MEDS: predniSONE 20 MG TAB PO (08:44)
[2017-12-21] MEDS: DIGOXIN 0.25 MG TAB PO (08:45)
[2017-12-21] MEDS: SODIUM CHLORIDE NASAL 0.65% SPRAY BTL (OCEAN) (13:35)
[2017-12-21] MEDS: WARFARIN SOD 7.5 MG TAB PO (16:21)
[2017-12-21] MEDS: TORSEMIDE 20 MG TAB PO (16:21)
== END 2017-12-21 19:38 | disposition home health service (06) | DRG 291 ==
LOC: M ICU 12-12 13:32 → M PCU 12-16 15:43 → M ED 14:42 → M ED INP 16:46 → M PCU 22:31
DX: I13.0 Hypertensive heart and chronic kidney disease with heart failure and stage 1 through stage 4 chronic kidney disease, or unspecified chronic kidney disease (principal); I50.33 Acute on chronic diastolic (congestive) heart failure; J96.21 Acute and chronic respiratory failure with hypoxia; N17.9 Acute kidney failure, unspecified; J43.9 Emphysema, unspecified; I48.91 Unspecified atrial fibrillation; I27.20 Pulmonary hypertension, unspecified; N18.3 Chronic kidney disease, stage 3 (moderate); J84.10 Pulmonary fibrosis, unspecified; D75.1 Secondary polycythemia; I27.81 Cor pulmonale (chronic); Z79.899 Other long term (current) drug therapy; Z88.0 Allergy status to penicillin; Z88.6 Allergy status to analgesic agent; Z87.891 Personal history of nicotine dependence; E66.01 Morbid (severe) obesity due to excess calories; I36.0 Nonrheumatic tricuspid (valve) stenosis

== ENCOUNTER → 2017-12-21 | Outpatient (CLI) | payer MEDICARE, OTHER | LOC: M SLEEP 20:26 | DX: R40.0 Somnolence (principal); I27.23 Pulmonary hypertension due to lung diseases and hypoxia; D75.1 Secondary polycythemia; G47.61 Periodic limb movement disorder | CPT/HCPCS: 95810 ==

== ENCOUNTER → 2017-12-31 | Outpatient (REF) | payer MEDICARE, OTHER ==
[2017-12-31 16:46] LABS: INR 3.32; PROTHROMBIN TIME 35.3 SECONDS (12.4-14.5)
== END ==
LOC: M SFHCCAPE 13:30
DX: Z51.81 Encounter for therapeutic drug level monitoring (principal); Z79.01 Long term (current) use of anticoagulants
CPT/HCPCS: 85610

== ENCOUNTER → 2018-01-04 | Outpatient (REF) | payer MEDICARE, OTHER ==
[2018-01-04 17:57] LABS: BASO % 0.3 % (0.0-1.0); EOS # 0.2 10^3/uL (0.0-0.50); EOS % 1.8 % (0.0-3.0); HEMATOCRIT 53.5 % (42.0-52.0); IMMATURE GRANULOCYTE % 0.6 % (0-3.0); LYMPH # 1.1 10^3/uL (1.5-4.5); MEAN CORPUSCULAR HEMOGLOBIN 27.8 pg (27.0-33.0); MEAN CORPUSCULAR HGB CONC 31.8 g/dl (32.0-36.5); MEAN CORPUSCULAR VOLUME 87.6 fl (80.0-96.0); MONO % 9.7 % (0.0-5.0); NEUTROPHILS # 7.5 10^3/uL (1.8-7.7); NEUTROPHILS % 76.6 % (36.0-66.0); PLATELET COUNT, AUTOMATED 241 10^3/uL (150-450); RED BLOOD COUNT 6.11 10^6/uL (4.30-6.10); RED CELL DISTRIBUTION WIDTH 17.5 % (11.5-14.5); WHITE BLOOD COUNT 9.8 10^3/uL (4.0-10.0)
[2018-01-04 18:08] LABS: INR 3.59; PROTHROMBIN TIME 37.6 SECONDS (12.4-14.5)
[2018-01-04 18:16] LABS: ALBUMIN 3.3 GM/DL (3.2-5.2); ALBUMIN/GLOBULIN RATIO 0.92 (1.00-1.93); ALKALINE PHOSPHATASE 79 U/L (45-117); ALT/SGPT 49 U/L (12-78); ANION GAP 11 MEQ/L (8-16); AST/SGOT 33 U/L (7-37); BILIRUBIN,TOTAL 0.9 MG/DL (0.2-1.0); BLOOD UREA NITROGEN 30 MG/DL (7-18); CALCIUM LEVEL 8.5 MG/DL (8.8-10.2); CARBON DIOXIDE LEVEL 28 MEQ/L (21-32); CHLORIDE LEVEL 101 MEQ/L (98-107); GLUCOSE, FASTING 114 MG/DL (70-100); POTASSIUM SERUM 3.4 MEQ/L (3.5-5.1); SODIUM LEVEL 140 MEQ/L (136-145); TOTAL PROTEIN 6.9 GM/DL (6.4-8.2)
== END ==
LOC: M SFHCCAPE 10:37
DX: I10 Essential (primary) hypertension (principal); R97.20 Elevated prostate specific antigen [PSA]; Z51.81 Encounter for therapeutic drug level monitoring; Z79.01 Long term (current) use of anticoagulants
CPT/HCPCS: 80053

== ENCOUNTER → 2018-01-11 | Outpatient (REF) | payer MEDICARE, OTHER ==
[2018-01-11 17:05] LABS: ALBUMIN 2.8 GM/DL (3.2-5.2); ANION GAP 10 MEQ/L (8-16); BLOOD UREA NITROGEN 16 MG/DL (7-18); CALCIUM LEVEL 8.4 MG/DL (8.8-10.2); CARBON DIOXIDE LEVEL 29 MEQ/L (21-32); CHLORIDE LEVEL 99 MEQ/L (98-107); CREATININE FOR GFR 1.62 MG/DL (0.70-1.30); GLOMERULAR FILTRATION RATE 45.3 (>49); GLUCOSE, FASTING 144 MG/DL (70-100); PHOSPHORUS LEVEL 2.5 MG/DL (2.5-4.9); POTASSIUM SERUM 3.3 MEQ/L (3.5-5.1); SODIUM LEVEL 138 MEQ/L (136-145)
== END ==
LOC: M LABDRWCV 16:23
DX: I50.32 Chronic diastolic (congestive) heart failure (principal)
CPT/HCPCS: 80069

== ENCOUNTER → 2018-01-11 | Outpatient (REF) | payer MEDICARE, OTHER ==
[2018-01-11 17:07] LABS: INR 3.38; PROTHROMBIN TIME 35.8 SECONDS (12.4-14.5)
== END ==
LOC: M SFHCCAPE 11:23
DX: I48.91 Unspecified atrial fibrillation (principal); Z51.81 Encounter for therapeutic drug level monitoring; Z79.01 Long term (current) use of anticoagulants
CPT/HCPCS: 85610

== ENCOUNTER 2018-01-12 14:22 | Inpatient (IN) | payer MEDICARE, OTHER ==
[2018-01-12] MEDS: ADVAIR HFA 230/21MCG INHALER INH (01:24)
[2018-01-12 15:26] LABS: BASO % 0.4 % (0.0-1.0); EOS # 0.1 10^3/uL (0.0-0.50); EOS % 1.5 % (0.0-3.0); HEMATOCRIT 47.2 % (42.0-52.0); HEMOGLOBIN 15.3 g/dl (13.5-17.5); IMMATURE GRANULOCYTE % 1.5 % (0-3.0); LYMPH # 1.2 10^3/uL (1.5-4.5); LYMPH % 12.1 % (24.0-44.0); MEAN CORPUSCULAR HEMOGLOBIN 27.5 pg (27.0-33.0); MEAN CORPUSCULAR HGB CONC 32.4 g/dl (32.0-36.5); MEAN CORPUSCULAR VOLUME 84.9 fl (80.0-96.0); MONO # 0.9 10^3/uL (0.0-0.8); MONO % 9.8 % (0.0-5.0); NEUTROPHILS # 7.2 10^3/uL (1.8-7.7); NEUTROPHILS % 74.7 % (36.0-66.0); PLATELET COUNT, AUTOMATED 264 10^3/uL (150-450); RED BLOOD COUNT 5.56 10^6/uL (4.30-6.10); WHITE BLOOD COUNT 9.6 10^3/uL (4.0-10.0)
[2018-01-12 15:36] LABS: ABG BASE EXCESS 4.2 (-2.0-2.0); ABG HCO3 26.9 MEQ/L (22.0-26.0); ABG O2 SATURATION 82.4 % (95.0-99.0); ABG PARTIAL PRESSURE CO2 34.7 mmHg (35.0-45.0); ABG STANDARD HCO3 27.8 MEQ/L (22.0-26.0); ABG pH (ARTERIAL) 7.508 UNITS (7.350-7.450)
[2018-01-12 15:39] LABS: ABG PARTIAL PRESSURE O2 46.1 mmHg (75.0-100.0)
[2018-01-12 15:44] LABS: INR 3.59; PROTHROMBIN TIME 37.6 SECONDS (12.4-14.5)
[2018-01-12 15:45] LABS: PARTIAL THROMBOPLASTIN TIME 78.1 SECONDS (26.8-37.9)
[2018-01-12] MEDS: methylPREDNISolone INJ 125 MG/2 ML VIAL (J2930) IV (15:48)
[2018-01-12 15:51] LABS: ANION GAP 8 MEQ/L (8-16); BLOOD UREA NITROGEN 18 MG/DL (7-18); CALCIUM LEVEL 8.8 MG/DL (8.8-10.2); CARBON DIOXIDE LEVEL 30 MEQ/L (21-32); CHLORIDE LEVEL 98 MEQ/L (98-107); CPK CREATINE PHOSPHOKINASE 157 U/L (39-308); CREATININE FOR GFR 1.65 MG/DL (0.70-1.30); GLOMERULAR FILTRATION RATE 44.4 (>49); GLUCOSE, FASTING 108 MG/DL (70-100); POTASSIUM SERUM 3.2 MEQ/L (3.5-5.1); SODIUM LEVEL 136 MEQ/L (136-145); TROPONIN I 0.05 NG/ML (< 0.10)
[2018-01-12 16:03] LABS: DIGOXIN LEVEL 1.5 NG/ML (0.5-2.0); MB/CK RELATIVE INDEX 1.27 (< OR =4); NT-PRO BNP 5978 PG/ML (<125)
[2018-01-12] MEDS: IPRATROPIUM 0.5MG/ALBUTEROL 2.5MG INH SOL UD 3ML (DUONEB)(J7620) NEB ×4 (17:11→18:10)
[2018-01-12] MEDS ORDERED: WARFARIN SOD 5 MG TAB PO (17:30)
[2018-01-12] MEDS ORDERED: WARFARIN SOD 3 MG TAB PO (17:45)
[2018-01-12] MEDS ORDERED: POTASSIUM CHLORIDE 10 MEQ SR TABLET PO (18:00)
[2018-01-12 19:32] LABS: CPK CREATINE PHOSPHOKINASE 150 U/L (39-308); TROPONIN I 0.04 NG/ML (< 0.10)
[2018-01-12 19:33] LABS: CK-MB VALUE MASS 2.1 NG/ML (<3.6)
[2018-01-12] MEDS: POTASSIUM CHLORIDE 10 MEQ SR TABLET PO (20:51)
[2018-01-12] MEDS: FUROSEMIDE 40 MG/4 ML VIAL (J1940) IV (20:55)
[2018-01-12] MEDS ORDERED: SALMETEROL DISKUS 50MCG INHALER (SEREVENT) INH (21:00)
[2018-01-13] MEDS: IPRATROPIUM 0.5MG/ALBUTEROL 2.5MG INH SOL UD 3ML (DUONEB)(J7620) NEB ×5 (00:06→22:39)
[2018-01-13] MEDS: POTASSIUM CHLORIDE 10 MEQ SR TABLET PO (00:39)
[2018-01-13] MEDS: FUROSEMIDE 40 MG/4 ML VIAL (J1940) IV ×3 (01:29→17:31)
[2018-01-13] MEDS: methylPREDNISolone INJ 125 MG/2 ML VIAL (J2930) IV ×2 (02:04→14:45)
[2018-01-13 02:28] LABS: BASO % 0.1 % (0.0-1.0); HEMATOCRIT 46.3 % (42.0-52.0); HEMOGLOBIN 15.2 g/dl (13.5-17.5); IMMATURE GRANULOCYTE % 1.2 % (0-3.0); LYMPH # 0.6 10^3/uL (1.5-4.5); LYMPH % 8.3 % (24.0-44.0); MEAN CORPUSCULAR HEMOGLOBIN 27.8 pg (27.0-33.0); MEAN CORPUSCULAR HGB CONC 32.8 g/dl (32.0-36.5); MEAN CORPUSCULAR VOLUME 84.8 fl (80.0-96.0); MONO # 0.1 10^3/uL (0.0-0.8); MONO % 1.2 % (0.0-5.0); NEUTROPHILS # 6.1 10^3/uL (1.8-7.7); NEUTROPHILS % 89.2 % (36.0-66.0); PLATELET COUNT, AUTOMATED 269 10^3/uL (150-450); RED BLOOD COUNT 5.46 10^6/uL (4.30-6.10); RED CELL DISTRIBUTION WIDTH 17.5 % (11.5-14.5); WHITE BLOOD COUNT 6.8 10^3/uL (4.0-10.0)
[2018-01-13 02:40] LABS: INR 3.44; PROTHROMBIN TIME 36.4 SECONDS (12.4-14.5)
[2018-01-13 02:45] LABS: ANION GAP 8 MEQ/L (8-16); BLOOD UREA NITROGEN 26 MG/DL (7-18); CALCIUM LEVEL 8.4 MG/DL (8.8-10.2); CARBON DIOXIDE LEVEL 30 MEQ/L (21-32); CHLORIDE LEVEL 99 MEQ/L (98-107); CREATININE FOR GFR 2.09 MG/DL (0.70-1.30); GLOMERULAR FILTRATION RATE 33.8 (>49); GLUCOSE, FASTING 260 MG/DL (70-100); POTASSIUM SERUM 3.7 MEQ/L (3.5-5.1); SODIUM LEVEL 137 MEQ/L (136-145)
[2018-01-13 02:47] LABS: CK-MB VALUE MASS 2.5 NG/ML (<3.6); CPK CREATINE PHOSPHOKINASE 126 U/L (39-308); MB/CK RELATIVE INDEX 1.98 (< OR =4); TROPONIN I 0.03 NG/ML (< 0.10)
[2018-01-13] MEDS: ADVAIR HFA 230/21MCG INHALER INH ×2 (07:36→21:33)
[2018-01-13] MEDS: TIOTROPIUM INHALER/CAPSULE (SPIRIVA) INH (07:37)
[2018-01-13] MEDS: DIGOXIN 0.25 MG TAB PO (08:37)
[2018-01-13] MEDS: PANTOPRAZOLE 40MG TAB (PROTONIX) PO (08:37)
[2018-01-13 10:30] LABS: CK-MB VALUE MASS 3.3 NG/ML (<3.6); CPK CREATINE PHOSPHOKINASE 131 U/L (39-308); MB/CK RELATIVE INDEX 2.51 (< OR =4); TROPONIN I 0.02 NG/ML (< 0.10)
[2018-01-13] MEDS ORDERED: SLF 3 ML SYR IV (11:30)
[2018-01-13] MEDS: SLF 3 ML SYR IV ×2 (14:00→22:00)
[2018-01-13] MEDS ORDERED: WARFARIN SOD 5 MG TAB PO (17:00)
[2018-01-14] MEDS: IPRATROPIUM 0.5MG/ALBUTEROL 2.5MG INH SOL UD 3ML (DUONEB)(J7620) NEB ×4 (00:34→20:00)
[2018-01-14] MEDS: methylPREDNISolone INJ 125 MG/2 ML VIAL (J2930) IV ×2 (03:58→17:55)
[2018-01-14 05:47] LABS: BASO % 0.1 % (0.0-1.0); HEMATOCRIT 44.2 % (42.0-52.0); HEMOGLOBIN 14.2 g/dl (13.5-17.5); IMMATURE GRANULOCYTE % 0.8 % (0-3.0); LYMPH # 0.6 10^3/uL (1.5-4.5); LYMPH % 4.3 % (24.0-44.0); MEAN CORPUSCULAR HEMOGLOBIN 27.7 pg (27.0-33.0); MEAN CORPUSCULAR HGB CONC 32.1 g/dl (32.0-36.5); MEAN CORPUSCULAR VOLUME 86.2 fl (80.0-96.0); MONO # 0.6 10^3/uL (0.0-0.8); MONO % 3.9 % (0.0-5.0); NEUTROPHILS # 12.8 10^3/uL (1.8-7.7); NEUTROPHILS % 90.9 % (36.0-66.0); PLATELET COUNT, AUTOMATED 273 10^3/uL (150-450); RED BLOOD COUNT 5.13 10^6/uL (4.30-6.10); RED CELL DISTRIBUTION WIDTH 17.5 % (11.5-14.5); WHITE BLOOD COUNT 14.1 10^3/uL (4.0-10.0)
[2018-01-14 05:57] LABS: INR 4.01; PROTHROMBIN TIME 41.1 SECONDS (12.4-14.5)
[2018-01-14] MEDS: SLF 3 ML SYR IV ×3 (06:00→21:31)
[2018-01-14 06:05] LABS: ESTIMATED AVERAGE GLUCOSE 148 MG/DL (60-110); HEMOGLOBIN A1c 6.8 %
[2018-01-14 06:10] LABS: ANION GAP 8 MEQ/L (8-16); BLOOD UREA NITROGEN 33 MG/DL (7-18); CALCIUM LEVEL 8.4 MG/DL (8.8-10.2); CARBON DIOXIDE LEVEL 31 MEQ/L (21-32); CHLORIDE LEVEL 103 MEQ/L (98-107); CREATININE FOR GFR 1.61 MG/DL (0.70-1.30); GLOMERULAR FILTRATION RATE 45.7 (>49); GLUCOSE, FASTING 159 MG/DL (70-100); POTASSIUM SERUM 3.7 MEQ/L (3.5-5.1); SODIUM LEVEL 142 MEQ/L (136-145)
[2018-01-14] MEDS: TIOTROPIUM INHALER/CAPSULE (SPIRIVA) INH (07:24)
[2018-01-14] MEDS: ADVAIR HFA 230/21MCG INHALER INH ×2 (07:24→20:20)
[2018-01-14 08:06] LABS: ALPHA 1 ANTITRYPSIN 234 mg/dL (90-200)
[2018-01-14] MEDS: FUROSEMIDE 40 MG TAB PO (08:56)
[2018-01-14] MEDS: PANTOPRAZOLE 40MG TAB (PROTONIX) PO (08:56)
[2018-01-14] MEDS: DIGOXIN 0.25 MG TAB PO (08:58)
[2018-01-14] MEDS: POTASSIUM CHLORIDE 10 MEQ SR TABLET PO (21:31)
[2018-01-14] MEDS: VERAPAMIL 40 MG TAB PO (21:31)
[2018-01-15] MEDS: IPRATROPIUM 0.5MG/ALBUTEROL 2.5MG INH SOL UD 3ML (DUONEB)(J7620) NEB ×4 (01:48→20:00)
[2018-01-15] MEDS: methylPREDNISolone INJ 125 MG/2 ML VIAL (J2930) IV ×2 (03:34→14:13)
[2018-01-15] MEDS: NYSTATIN 100,000 UNITS/GM TOPICAL PWD 15 GM TOP (03:34)
[2018-01-15] MEDS: SLF 3 ML SYR IV ×3 (03:35→22:00)
[2018-01-15 05:12] LABS: BASO % 0.2 % (0.0-1.0); HEMATOCRIT 44.9 % (42.0-52.0); HEMOGLOBIN 14.3 g/dl (13.5-17.5); IMMATURE GRANULOCYTE % 1.4 % (0-3.0); LYMPH # 0.6 10^3/uL (1.5-4.5); LYMPH % 4.7 % (24.0-44.0); MEAN CORPUSCULAR HGB CONC 31.8 g/dl (32.0-36.5); MEAN CORPUSCULAR VOLUME 87.9 fl (80.0-96.0); MONO # 0.4 10^3/uL (0.0-0.8); MONO % 2.9 % (0.0-5.0); NEUTROPHILS # 12.1 10^3/uL (1.8-7.7); NEUTROPHILS % 90.8 % (36.0-66.0); PLATELET COUNT, AUTOMATED 282 10^3/uL (150-450); RED BLOOD COUNT 5.11 10^6/uL (4.30-6.10); RED CELL DISTRIBUTION WIDTH 17.4 % (11.5-14.5); WHITE BLOOD COUNT 13.3 10^3/uL (4.0-10.0)
[2018-01-15 05:20] LABS: INR 3.37; PROTHROMBIN TIME 35.7 SECONDS (12.4-14.5)
[2018-01-15 05:22] LABS: ANION GAP 5 MEQ/L (8-16); BLOOD UREA NITROGEN 35 MG/DL (7-18); CALCIUM LEVEL 8.7 MG/DL (8.8-10.2); CARBON DIOXIDE LEVEL 32 MEQ/L (21-32); CHLORIDE LEVEL 104 MEQ/L (98-107); CREATININE FOR GFR 1.41 MG/DL (0.70-1.30); GLOMERULAR FILTRATION RATE 53.2 (>49); GLUCOSE, FASTING 172 MG/DL (70-100); POTASSIUM SERUM 4.3 MEQ/L (3.5-5.1); SODIUM LEVEL 141 MEQ/L (136-145)
[2018-01-15] MEDS: VERAPAMIL 40 MG TAB PO (06:32)
[2018-01-15] MEDS: TIOTROPIUM INHALER/CAPSULE (SPIRIVA) INH (07:49)
[2018-01-15] MEDS: ADVAIR HFA 230/21MCG INHALER INH ×2 (07:49→20:32)
[2018-01-15] MEDS: SPIRONOLACTONE 12.5MG PER 1/2 TABLET PO (09:22)
[2018-01-15] MEDS: PANTOPRAZOLE 40MG TAB (PROTONIX) PO (09:23)
[2018-01-15] MEDS: POTASSIUM CHLORIDE 10 MEQ SR TABLET PO ×4 (09:23→21:05)
[2018-01-15] MEDS: TORSEMIDE 20 MG TAB PO (09:23)
[2018-01-15] MEDS: VERAPAMIL 80 MG TAB PO ×2 (17:03→21:06)
[2018-01-16] MEDS: IPRATROPIUM 0.5MG/ALBUTEROL 2.5MG INH SOL UD 3ML (DUONEB)(J7620) NEB ×4 (01:59→20:00)
[2018-01-16] MEDS: methylPREDNISolone INJ 125 MG/2 ML VIAL (J2930) IV ×2 (03:06→14:32)
[2018-01-16 04:07] LABS: BASO % 0.2 % (0.0-1.0); HEMATOCRIT 43.8 % (42.0-52.0); HEMOGLOBIN 13.9 g/dl (13.5-17.5); IMMATURE GRANULOCYTE % 2.3 % (0-3.0); LYMPH # 0.6 10^3/uL (1.5-4.5); LYMPH % 4.6 % (24.0-44.0); MEAN CORPUSCULAR HEMOGLOBIN 28.1 pg (27.0-33.0); MEAN CORPUSCULAR HGB CONC 31.7 g/dl (32.0-36.5); MEAN CORPUSCULAR VOLUME 88.5 fl (80.0-96.0); MONO # 0.6 10^3/uL (0.0-0.8); MONO % 4.4 % (0.0-5.0); NEUTROPHILS # 11.3 10^3/uL (1.8-7.7); NEUTROPHILS % 88.5 % (36.0-66.0); PLATELET COUNT, AUTOMATED 258 10^3/uL (150-450); RED BLOOD COUNT 4.95 10^6/uL (4.30-6.10); RED CELL DISTRIBUTION WIDTH 17.3 % (11.5-14.5); WHITE BLOOD COUNT 12.8 10^3/uL (4.0-10.0)
[2018-01-16 04:17] LABS: INR 2.89; PROTHROMBIN TIME 31.5 SECONDS (12.4-14.5)
[2018-01-16 04:20] LABS: ANION GAP 4 MEQ/L (8-16); BLOOD UREA NITROGEN 38 MG/DL (7-18); CALCIUM LEVEL 8.6 MG/DL (8.8-10.2); CARBON DIOXIDE LEVEL 34 MEQ/L (21-32); CHLORIDE LEVEL 105 MEQ/L (98-107); CREATININE FOR GFR 1.35 MG/DL (0.70-1.30); GLUCOSE, FASTING 171 MG/DL (70-100); POTASSIUM SERUM 4.6 MEQ/L (3.5-5.1); SODIUM LEVEL 143 MEQ/L (136-145)
[2018-01-16] MEDS: SLF 3 ML SYR IV ×3 (06:00→22:00)
[2018-01-16] MEDS: ADVAIR HFA 230/21MCG INHALER INH ×2 (07:58→20:11)
[2018-01-16] MEDS: TIOTROPIUM INHALER/CAPSULE (SPIRIVA) INH (07:58)
[2018-01-16] MEDS: TORSEMIDE 20 MG TAB PO (08:05)
[2018-01-16] MEDS: SPIRONOLACTONE 12.5MG PER 1/2 TABLET PO (08:05)
[2018-01-16] MEDS: PANTOPRAZOLE 40MG TAB (PROTONIX) PO (08:06)
[2018-01-16] MEDS: VERAPAMIL 80 MG TAB PO ×3 (08:06→21:17)
[2018-01-16] MEDS: POTASSIUM CHLORIDE 10 MEQ SR TABLET PO (08:57)
[2018-01-17] MEDS: IPRATROPIUM 0.5MG/ALBUTEROL 2.5MG INH SOL UD 3ML (DUONEB)(J7620) NEB ×4 (02:07→19:31)
[2018-01-17] MEDS: methylPREDNISolone INJ 125 MG/2 ML VIAL (J2930) IV ×2 (03:00→15:30)
[2018-01-17] MEDS: SLF 3 ML SYR IV ×3 (04:03→22:20)
[2018-01-17 05:17] LABS: INR 2.37; PROTHROMBIN TIME 26.9 SECONDS (12.4-14.5)
[2018-01-17 05:23] LABS: BASO # 0.1 10^3/uL (0.0-0.2); BASO % 0.6 % (0.0-1.0); HEMATOCRIT 43.3 % (42.0-52.0); HEMOGLOBIN 13.7 g/dl (13.5-17.5); LYMPH # 0.5 10^3/uL (1.5-4.5); LYMPH % 3.7 % (24.0-44.0); MEAN CORPUSCULAR HGB CONC 31.6 g/dl (32.0-36.5); MEAN CORPUSCULAR VOLUME 88.4 fl (80.0-96.0); MONO # 0.5 10^3/uL (0.0-0.8); MONO % 3.7 % (0.0-5.0); NEUTROPHILS # 12.1 10^3/uL (1.8-7.7); PLATELET COUNT, AUTOMATED 255 10^3/uL (150-450); WHITE BLOOD COUNT 13.9 10^3/uL (4.0-10.0)
[2018-01-17 05:27] LABS: ANION GAP 4 MEQ/L (8-16); BLOOD UREA NITROGEN 37 MG/DL (7-18); CALCIUM LEVEL 8.5 MG/DL (8.8-10.2); CARBON DIOXIDE LEVEL 32 MEQ/L (21-32); CHLORIDE LEVEL 106 MEQ/L (98-107); CREATININE FOR GFR 1.38 MG/DL (0.70-1.30); GLOMERULAR FILTRATION RATE 54.5 (>49); GLUCOSE, FASTING 164 MG/DL (70-100); POTASSIUM SERUM 4.4 MEQ/L (3.5-5.1); SODIUM LEVEL 142 MEQ/L (136-145)
[2018-01-17] MEDS: TIOTROPIUM INHALER/CAPSULE (SPIRIVA) INH (07:27)
[2018-01-17] MEDS: ADVAIR HFA 230/21MCG INHALER INH ×2 (07:27→19:31)
[2018-01-17] MEDS: VERAPAMIL 80 MG TAB PO ×3 (08:01→22:19)
[2018-01-17] MEDS: TORSEMIDE 20 MG TAB PO (08:01)
[2018-01-17] MEDS: SPIRONOLACTONE 12.5MG PER 1/2 TABLET PO (08:01)
[2018-01-17] MEDS: PANTOPRAZOLE 40MG TAB (PROTONIX) PO (08:02)
[2018-01-18] MEDS: IPRATROPIUM 0.5MG/ALBUTEROL 2.5MG INH SOL UD 3ML (DUONEB)(J7620) NEB ×4 (01:54→20:00)
[2018-01-18] MEDS: methylPREDNISolone INJ 125 MG/2 ML VIAL (J2930) IV ×2 (02:24→15:16)
[2018-01-18] MEDS: SLF 3 ML SYR IV ×3 (05:11→22:00)
[2018-01-18 06:20] LABS: BASO # 0.1 10^3/uL (0.0-0.2); BASO % 0.4 % (0.0-1.0); HEMATOCRIT 45.3 % (42.0-52.0); HEMOGLOBIN 14.5 g/dl (13.5-17.5); LYMPH # 0.4 10^3/uL (1.5-4.5); LYMPH % 2.8 % (24.0-44.0); MEAN CORPUSCULAR HEMOGLOBIN 27.8 pg (27.0-33.0); MEAN CORPUSCULAR VOLUME 86.9 fl (80.0-96.0); MONO # 0.3 10^3/uL (0.0-0.8); MONO % 2.1 % (0.0-5.0); NEUTROPHILS # 13.2 10^3/uL (1.8-7.7); NEUTROPHILS % 89.7 % (36.0-66.0); PLATELET COUNT, AUTOMATED 289 10^3/uL (150-450); RED BLOOD COUNT 5.21 10^6/uL (4.30-6.10); WHITE BLOOD COUNT 14.7 10^3/uL (4.0-10.0)
[2018-01-18 06:34] LABS: ANION GAP 5 MEQ/L (8-16); BLOOD UREA NITROGEN 39 MG/DL (7-18); CALCIUM LEVEL 8.8 MG/DL (8.8-10.2); CARBON DIOXIDE LEVEL 33 MEQ/L (21-32); CHLORIDE LEVEL 103 MEQ/L (98-107); CREATININE FOR GFR 1.42 MG/DL (0.70-1.30); GLOMERULAR FILTRATION RATE 52.8 (>49); GLUCOSE, FASTING 180 MG/DL (70-100); POTASSIUM SERUM 4.2 MEQ/L (3.5-5.1); SODIUM LEVEL 141 MEQ/L (136-145)
[2018-01-18 06:59] LABS: INR 1.88; PROTHROMBIN TIME 22.2 SECONDS (12.4-14.5)
[2018-01-18] MEDS: TIOTROPIUM INHALER/CAPSULE (SPIRIVA) INH (07:24)
[2018-01-18] MEDS: ADVAIR HFA 230/21MCG INHALER INH ×2 (07:24→20:20)
[2018-01-18] MEDS: TORSEMIDE 20 MG TAB PO ×2 (09:00→17:01)
[2018-01-18] MEDS: SPIRONOLACTONE 12.5MG PER 1/2 TABLET PO (09:00)
[2018-01-18] MEDS: PANTOPRAZOLE 40MG TAB (PROTONIX) PO (09:00)
[2018-01-18] MEDS: VERAPAMIL 80 MG TAB PO (09:00)
[2018-01-18] MEDS: VERAPAMIL 120 MG SR TAB PO (17:02)
[2018-01-19] MEDS: IPRATROPIUM 0.5MG/ALBUTEROL 2.5MG INH SOL UD 3ML (DUONEB)(J7620) NEB ×4 (00:58→20:00)
[2018-01-19 05:21] LABS: HEMATOCRIT 45.6 % (42.0-52.0); MEAN CORPUSCULAR HEMOGLOBIN 28.4 pg (27.0-33.0); MEAN CORPUSCULAR HGB CONC 32.9 g/dl (32.0-36.5); MEAN CORPUSCULAR VOLUME 86.4 fl (80.0-96.0); PLATELET COUNT, AUTOMATED 274 10^3/uL (150-450); RED BLOOD COUNT 5.28 10^6/uL (4.30-6.10); RED CELL DISTRIBUTION WIDTH 16.8 % (11.5-14.5); WHITE BLOOD COUNT 14.8 10^3/uL (4.0-10.0)
[2018-01-19 05:22] LABS: ADD MANUAL DIFFER YES; DIFF SLIDE NUMBER 8; POS COUNT POS FLAG; POSITIVE MORPH POS FLAG
[2018-01-19] MEDS: SLF 3 ML SYR IV ×3 (05:23→21:34)
[2018-01-19 05:39] LABS: ANION GAP 8 MEQ/L (8-16); BLOOD UREA NITROGEN 45 MG/DL (7-18); CALCIUM LEVEL 8.3 MG/DL (8.8-10.2); CARBON DIOXIDE LEVEL 33 MEQ/L (21-32); CHLORIDE LEVEL 102 MEQ/L (98-107); CREATININE FOR GFR 1.48 MG/DL (0.70-1.30); GLOMERULAR FILTRATION RATE 50.3 (>49); GLUCOSE, FASTING 166 MG/DL (70-100); MAGNESIUM LEVEL 2.8 MG/DL (1.8-2.4); SODIUM LEVEL 143 MEQ/L (136-145)
[2018-01-19 05:41] LABS: INR 1.57; PROTHROMBIN TIME 19.2 SECONDS (12.4-14.5)
[2018-01-19 06:35] LABS: BANDS 2 % (< 11); LYMPHOCYTES 4 % (16-52); METAMYELOCYTES 1 % (0-0); MONOCYTES 1 % (0-8); MYELOCYTES 5 % (0-0); NEUTROPHILS 87 % (35-75)
[2018-01-19 06:36] LABS: PLATELET ESTIMATE NORMAL (NORMAL)
[2018-01-19] MEDS: ADVAIR HFA 230/21MCG INHALER INH ×2 (07:20→20:51)
[2018-01-19] MEDS: TIOTROPIUM INHALER/CAPSULE (SPIRIVA) INH (07:20)
[2018-01-19] MEDS: PANTOPRAZOLE 40MG TAB (PROTONIX) PO (08:40)
[2018-01-19] MEDS: VERAPAMIL 120 MG SR TAB PO (08:40)
[2018-01-19] MEDS: TORSEMIDE 20 MG TAB PO ×2 (08:40→18:15)
[2018-01-19] MEDS: SPIRONOLACTONE 25 MG TAB PO (08:40)
[2018-01-19] MEDS: APIXABAN 5 MG TAB (ELIQUIS) PO ×2 (11:55→21:34)
[2018-01-19] MEDS ORDERED: GLUCAGON FOR INJ 1 MG VIAL (J1610) SC (16:15)
[2018-01-19] MEDS ORDERED: DEXTROSE 50% 50 ML SYRINGE IV (16:15)
[2018-01-19] MEDS ORDERED: GLUCOSE 4 GM CHEW TABLET PO (16:15)
[2018-01-19] MEDS: HumaLOG INSULIN (NovoLOG) PER UNIT SC ×2 (17:30→21:00)
[2018-01-19 18:57] LABS: BEDSIDE GLUCOSE 169 MG/DL (80-115)
[2018-01-19 21:40] LABS: BEDSIDE GLUCOSE 125 MG/DL (80-115)
[2018-01-20] MEDS: IPRATROPIUM 0.5MG/ALBUTEROL 2.5MG INH SOL UD 3ML (DUONEB)(J7620) NEB ×4 (02:37→20:00)
[2018-01-20] MEDS: SLF 3 ML SYR IV ×3 (05:01→20:39)
[2018-01-20 05:47] LABS: HEMATOCRIT 48.1 % (42.0-52.0); HEMOGLOBIN 15.5 g/dl (13.5-17.5); MEAN CORPUSCULAR HEMOGLOBIN 28.1 pg (27.0-33.0); MEAN CORPUSCULAR HGB CONC 32.2 g/dl (32.0-36.5); MEAN CORPUSCULAR VOLUME 87.3 fl (80.0-96.0); PLATELET COUNT, AUTOMATED 219 10^3/uL (150-450); RED BLOOD COUNT 5.51 10^6/uL (4.30-6.10); RED CELL DISTRIBUTION WIDTH 17.1 % (11.5-14.5); WHITE BLOOD COUNT 13.7 10^3/uL (4.0-10.0)
[2018-01-20 06:00] LABS: ANION GAP 5 MEQ/L (8-16); BLOOD UREA NITROGEN 50 MG/DL (7-18); CALCIUM LEVEL 8.4 MG/DL (8.8-10.2); CARBON DIOXIDE LEVEL 34 MEQ/L (21-32); CHLORIDE LEVEL 98 MEQ/L (98-107); CREATININE FOR GFR 1.56 MG/DL (0.70-1.30); GLOMERULAR FILTRATION RATE 47.4 (>49); GLUCOSE, FASTING 120 MG/DL (70-100); MAGNESIUM LEVEL 2.8 MG/DL (1.8-2.4); POTASSIUM SERUM 3.8 MEQ/L (3.5-5.1); SODIUM LEVEL 137 MEQ/L (136-145)
[2018-01-20] MEDS: HumaLOG INSULIN (NovoLOG) PER UNIT SC (07:30)
[2018-01-20] MEDS: ADVAIR HFA 230/21MCG INHALER INH ×2 (07:55→21:23)
[2018-01-20] MEDS: TIOTROPIUM INHALER/CAPSULE (SPIRIVA) INH (07:55)
[2018-01-20] MEDS: PANTOPRAZOLE 40MG TAB (PROTONIX) PO (08:21)
[2018-01-20] MEDS: APIXABAN 5 MG TAB (ELIQUIS) PO ×2 (08:21→20:39)
[2018-01-20] MEDS: VERAPAMIL 120 MG SR TAB PO (08:21)
[2018-01-20] MEDS: METAMUCIL (PSYLLIUM) PACKET PO (16:13)
[2018-01-21] MEDS: IPRATROPIUM 0.5MG/ALBUTEROL 2.5MG INH SOL UD 3ML (DUONEB)(J7620) NEB ×4 (01:33→19:28)
[2018-01-21 05:10] LABS: HEMATOCRIT 48.3 % (42.0-52.0); HEMOGLOBIN 15.7 g/dl (13.5-17.5); MEAN CORPUSCULAR HEMOGLOBIN 28.1 pg (27.0-33.0); MEAN CORPUSCULAR HGB CONC 32.5 g/dl (32.0-36.5); MEAN CORPUSCULAR VOLUME 86.6 fl (80.0-96.0); PLATELET COUNT, AUTOMATED 213 10^3/uL (150-450); RED BLOOD COUNT 5.58 10^6/uL (4.30-6.10); RED CELL DISTRIBUTION WIDTH 16.8 % (11.5-14.5); WHITE BLOOD COUNT 11.7 10^3/uL (4.0-10.0)
[2018-01-21 05:19] LABS: ANION GAP 3 MEQ/L (8-16); BLOOD UREA NITROGEN 43 MG/DL (7-18); CALCIUM LEVEL 8.4 MG/DL (8.8-10.2); CARBON DIOXIDE LEVEL 37 MEQ/L (21-32); CHLORIDE LEVEL 98 MEQ/L (98-107); CREATININE FOR GFR 1.35 MG/DL (0.70-1.30); GLUCOSE, FASTING 109 MG/DL (70-100); POTASSIUM SERUM 3.6 MEQ/L (3.5-5.1); SODIUM LEVEL 138 MEQ/L (136-145)
[2018-01-21] MEDS: SLF 3 ML SYR IV ×3 (06:00→20:13)
[2018-01-21] MEDS: TIOTROPIUM INHALER/CAPSULE (SPIRIVA) INH (07:38)
[2018-01-21] MEDS: ADVAIR HFA 230/21MCG INHALER INH ×2 (07:39→20:23)
[2018-01-21] MEDS: FUROSEMIDE 40 MG/4 ML VIAL (J1940) IV ×2 (08:53→17:36)
[2018-01-21] MEDS: VERAPAMIL 120 MG SR TAB PO (08:55)
[2018-01-21] MEDS: APIXABAN 5 MG TAB (ELIQUIS) PO ×2 (08:55→20:13)
[2018-01-21] MEDS: PANTOPRAZOLE 40MG TAB (PROTONIX) PO (08:55)
[2018-01-21] MEDS ORDERED: TORSEMIDE 10 MG TABLET PO (09:00)
[2018-01-21] MEDS: BISACODYL 10 MG SUPP PR (12:00)
[2018-01-21] MEDS: SENOKOT S TAB PO ×2 (12:34→20:13)
[2018-01-21] MEDS: FLEET ENEMA PR (13:15)
[2018-01-22] MEDS: IPRATROPIUM 0.5MG/ALBUTEROL 2.5MG INH SOL UD 3ML (DUONEB)(J7620) NEB ×3 (01:24→13:37)
[2018-01-22 05:25] LABS: HEMATOCRIT 48.3 % (42.0-52.0); HEMOGLOBIN 15.6 g/dl (13.5-17.5); MEAN CORPUSCULAR HEMOGLOBIN 27.8 pg (27.0-33.0); MEAN CORPUSCULAR HGB CONC 32.3 g/dl (32.0-36.5); MEAN CORPUSCULAR VOLUME 86.1 fl (80.0-96.0); PLATELET COUNT, AUTOMATED 189 10^3/uL (150-450); RED BLOOD COUNT 5.61 10^6/uL (4.30-6.10); RED CELL DISTRIBUTION WIDTH 17.1 % (11.5-14.5); WHITE BLOOD COUNT 10.8 10^3/uL (4.0-10.0)
[2018-01-22 05:41] LABS: ANION GAP 6 MEQ/L (8-16); BLOOD UREA NITROGEN 38 MG/DL (7-18); CALCIUM LEVEL 8.1 MG/DL (8.8-10.2); CARBON DIOXIDE LEVEL 34 MEQ/L (21-32); CHLORIDE LEVEL 98 MEQ/L (98-107); CREATININE FOR GFR 1.37 MG/DL (0.70-1.30); GLUCOSE, FASTING 103 MG/DL (70-100); MAGNESIUM LEVEL 2.9 MG/DL (1.8-2.4); POTASSIUM SERUM 3.4 MEQ/L (3.5-5.1); SODIUM LEVEL 138 MEQ/L (136-145)
[2018-01-22] MEDS: SLF 3 ML SYR IV (06:05)
[2018-01-22] MEDS: TIOTROPIUM INHALER/CAPSULE (SPIRIVA) INH (08:05)
[2018-01-22] MEDS: ADVAIR HFA 230/21MCG INHALER INH (08:06)
[2018-01-22] MEDS: SENOKOT S TAB PO (09:00)
[2018-01-22] MEDS: FUROSEMIDE 40 MG/4 ML VIAL (J1940) IV (09:18)
[2018-01-22] MEDS: PANTOPRAZOLE 40MG TAB (PROTONIX) PO (09:19)
[2018-01-22] MEDS: VERAPAMIL 120 MG SR TAB PO (09:19)
[2018-01-22] MEDS: POTASSIUM CHLORIDE 10 MEQ SR TABLET PO (09:19)
[2018-01-22] MEDS: APIXABAN 5 MG TAB (ELIQUIS) PO (09:19)
== END 2018-01-22 14:30 | disposition home health service (06) | DRG 291 ==
LOC: M ED 14:22 → M ED INP 19:33 → M PCU 22:05
DX: I13.0 Hypertensive heart and chronic kidney disease with heart failure and stage 1 through stage 4 chronic kidney disease, or unspecified chronic kidney disease (principal); J96.21 Acute and chronic respiratory failure with hypoxia; I50.33 Acute on chronic diastolic (congestive) heart failure; I48.2 Chronic atrial fibrillation; Z51.81 Encounter for therapeutic drug level monitoring; Z79.01 Long term (current) use of anticoagulants; N18.3 Chronic kidney disease, stage 3 (moderate); E11.9 Type 2 diabetes mellitus without complications; J44.9 Chronic obstructive pulmonary disease, unspecified; N40.0 Benign prostatic hyperplasia without lower urinary tract symptoms; E04.9 Nontoxic goiter, unspecified; E78.5 Hyperlipidemia, unspecified; Z79.899 Other long term (current) drug therapy; Z88.0 Allergy status to penicillin; Z88.6 Allergy status to analgesic agent; E87.6 Hypokalemia; I27.81 Cor pulmonale (chronic); E66.9 Obesity, unspecified; J84.10 Pulmonary fibrosis, unspecified

== ENCOUNTER 2018-02-13 20:35 | Emergency (ER) | payer MEDICARE, OTHER | END 2018-02-13 22:01 | disposition home or self-care (01) | LOC: M ED 20:35 | DX: R04.0 Epistaxis (principal); I48.91 Unspecified atrial fibrillation; I10 Essential (primary) hypertension; J44.9 Chronic obstructive pulmonary disease, unspecified; Z87.448 Personal history of other diseases of urinary system; Z87.891 Personal history of nicotine dependence; Z88.8 Allergy status to other drugs, medicaments and biological substances; Z88.0 Allergy status to penicillin; Z79.01 Long term (current) use of anticoagulants; Z79.51 Long term (current) use of inhaled steroids; Z79.899 Other long term (current) drug therapy | CPT/HCPCS: 99283 ==

== ENCOUNTER → 2018-02-18 | Outpatient (REF) | payer MEDICARE, OTHER | LOC: M SMT 17:58 | DX: R97.20 Elevated prostate specific antigen [PSA] (principal); Z79.899 Other long term (current) drug therapy | CPT/HCPCS: 87086 ==

== ENCOUNTER → 2018-04-20 | Outpatient (REF) | payer MEDICARE, OTHER ==
[2018-04-20 16:41] LABS: BASO % 0.5 % (0.0-1.0); EOS # 0.3 10^3/uL (0.0-0.50); EOS % 3.5 % (0.0-3.0); HEMATOCRIT 54.5 % (42.0-52.0); HEMOGLOBIN 16.9 g/dl (13.5-17.5); IMMATURE GRANULOCYTE % 0.6 % (0-3.0); LYMPH # 1.5 10^3/uL (1.5-4.5); LYMPH % 18.6 % (24.0-44.0); MEAN CORPUSCULAR HEMOGLOBIN 28.5 pg (27.0-33.0); MEAN CORPUSCULAR VOLUME 91.8 fl (80.0-96.0); MONO # 0.6 10^3/uL (0.0-0.8); MONO % 7.8 % (0.0-5.0); NEUTROPHILS # 5.7 10^3/uL (1.8-7.7); PLATELET COUNT, AUTOMATED 259 10^3/uL (150-450); RED BLOOD COUNT 5.94 10^6/uL (4.30-6.10); RED CELL DISTRIBUTION WIDTH 16.8 % (11.5-14.5); WHITE BLOOD COUNT 8.2 10^3/uL (4.0-10.0)
[2018-04-20 16:42] LABS: ESTIMATED AVERAGE GLUCOSE 123 MG/DL (60-110); HEMOGLOBIN A1c 5.9 %
[2018-04-20 16:43] LABS: ANION GAP 10 MEQ/L (8-16); AST/SGOT 17 U/L (7-37); BLOOD UREA NITROGEN 22 MG/DL (7-18); CALCIUM LEVEL 8.9 MG/DL (8.8-10.2); CARBON DIOXIDE LEVEL 29 MEQ/L (21-32); CHLORIDE LEVEL 102 MEQ/L (98-107); CREATININE FOR GFR 1.54 MG/DL (0.70-1.30); GLOMERULAR FILTRATION RATE 48.1 (>49); GLUCOSE, FASTING 96 MG/DL (70-100); POTASSIUM SERUM 4.1 MEQ/L (3.5-5.1); SODIUM LEVEL 141 MEQ/L (136-145)
[2018-04-20 16:44] LABS: ALBUMIN 3.6 GM/DL (3.2-5.2); ALBUMIN/GLOBULIN RATIO 0.77 (1.00-1.93); ALKALINE PHOSPHATASE 74 U/L (45-117); ALT/SGPT 18 U/L (12-78); BILIRUBIN,TOTAL 0.7 MG/DL (0.2-1.0); CHOLESTEROL LEVEL 214 MG/DL (<200); CHOLESTEROL RISK RATIO 5.095 (<5); HDL CHOLESTEROL 42 MG/DL (>40); LDL CHOLESTEROL 144.4 MG/DL (<100); NON-HDL-C 172 MG/DL; THYROID STIMULATING HORMONE 0.467 uIU/ML (0.358-3.740); TOTAL PROTEIN 8.3 GM/DL (6.4-8.2); TRIGLYCERIDES LEVEL 138 MG/DL (<150)
[2018-04-20 17:15] LABS: MALB URINE SIEMENS 13.5 MG/L; MAU/CREAT RATIO 10.5 MCG/MG (0.0-30.0)
== END ==
LOC: M SFHCCAPE 09:36
DX: E11.8 Type 2 diabetes mellitus with unspecified complications (principal)
CPT/HCPCS: 84443

== ENCOUNTER → 2018-11-30 | Outpatient (REF) | payer MEDICARE, OTHER ==
[~2018-11-30] MED LIST changes: +ADVA230A INH; +ALBU83IN INH; -AMLO10TA2 PO; +AMLO10TA5 PO; -ASPI325T24 PO; +ASPI325T25 PO; +BISO5TAB5 PO; +CHLO125TA PO; +COUM7.5T PO; +DEMA20TA6 PO; +DIGO0.25 PO; +ELIQ5TAB PO; +FLAX100012 PO; +GARLCAP PO; +HAWT150C PO; +LISI-542 PO; +NYST1POW9 TOP; +PANT40TA3 PO; +POTA10CA32 OR; +PRED10TA2 PO; +SPIR-10 PO; +SPIR1CAP INH; +TIOT18INH INH; +TORS10TA3 PO; +VENTAER IN; +VERA24TASA PO; +WARF-21 PO; +WARF-23 PO; +WARF-60 PO
[2018-11-30 17:17] LABS: MALB URINE SIEMENS 11.2 MG/L; MAU/CREAT RATIO 7.5 MCG/MG (0.0-30.0)
[2018-11-30 17:25] LABS: BASO # 0.1 10^3/uL (0.0-0.2); BASO % 0.7 % (0.0-1.0); EOS # 0.3 10^3/uL (0.0-0.50); EOS % 3.1 % (0.0-3.0); HEMATOCRIT 54.9 % (42.0-52.0); HEMOGLOBIN 17.3 g/dl (13.5-17.5); LYMPH % 21.5 % (24.0-44.0); MEAN CORPUSCULAR HEMOGLOBIN 27.9 pg (27.0-33.0); MEAN CORPUSCULAR HGB CONC 31.5 g/dl (32.0-36.5); MEAN CORPUSCULAR VOLUME 88.5 fl (80.0-96.0); MONO # 0.8 10^3/uL (0.0-0.8); MONO % 8.7 % (0.0-5.0); NEUTROPHILS % 65.2 % (36.0-66.0); PLATELET COUNT, AUTOMATED 272 10^3/uL (150-450); WHITE BLOOD COUNT 9.2 10^3/uL (4.0-10.0)
[2018-11-30 17:27] LABS: ALBUMIN 3.8 GM/DL (3.2-5.2); BILIRUBIN,TOTAL 1.2 MG/DL (0.2-1.0); CALCIUM LEVEL 8.9 MG/DL (8.8-10.2); CHOLESTEROL RISK RATIO 5.068 (<5); CREATININE FOR GFR 1.52 MG/DL (0.70-1.30); GLOMERULAR FILTRATION RATE 48.6 (>49); POTASSIUM SERUM 4.1 MEQ/L (3.5-5.1); PROSTATIC SPECIFIC AG MONITOR 33.8 NG/ML (< 4.00); TOTAL PROTEIN 8.2 GM/DL (6.4-8.2)
[2018-11-30 17:45] LABS: HEMOGLOBIN A1c 6.2 %
== END ==
LOC: M SFHCCAPE 07:20
PROVIDERS: ATTEND Physician Assistant
DX: E11.8 Type 2 diabetes mellitus with unspecified complications (principal); R97.20 Elevated prostate specific antigen [PSA]

== ENCOUNTER → 2019-01-18 | Outpatient (CLI) | payer MEDICARE, OTHER ==
[~2019-01-18] MED LIST changes: -/AMLO25TA PO; -/MOXI40TA PO; +ASPI-255 PO; -ASPI325T25 PO; +AVEL1TAB2 PO; +CVS7.6LO MT; +DIGO0.12 PO; +INDO50CA11 PO; +KONS100P4 PO; -METAPKT PO; +NORV2TAB PO; +NYST-15 TOP; -NYST10PW TOP; -POTA10CA32 OR; +POTA10CA32 PO; +PRED20TA PO; +TORS20TA2 PO; +VENTAER INH; +VERA240C3 PO
--- NOTE | 2019-01-18 12:02 | REP ---
Right lower extremity Duplex Doppler venous ultrasound: Real time compression and duplex Doppler interrogation of the right lower extremity deep venous system is performed. The right common femoral, superficial femoral and popliteal veins are fully compressible with transducer pressure and demonstrate normal spontaneous and phasic flow, without evidence of deep venous thrombosis. Impression: No evidence of deep venous thrombosis of the right lower extremity femoral popliteal venous system. Electronically Signed by Sai Matta MD 01/18/2019 11:54 A
== END ==
LOC: M RAD 11:01
PROVIDERS: ATTEND Physician Assistant
DX: I83.891 Varicose veins of right lower extremity with other complications (principal); S80.11XA Contusion of right lower leg, initial encounter; X58.XXXA Exposure to other specified factors, initial encounter; Y92.9 Unspecified place or not applicable
CPT/HCPCS: 93971; G0463

== ENCOUNTER → 2019-01-19 | Outpatient (REF) | payer MEDICARE, OTHER ==
[2019-01-19 19:19] LABS: BASO % 0.2 % (0.0-1.0); EOS # 0.2 10^3/uL (0.0-0.50); EOS % 1.7 % (0.0-3.0); HEMATOCRIT 48.5 % (42.0-52.0); HEMOGLOBIN 15.2 g/dl (13.5-17.5); LYMPH # 1.2 10^3/uL (1.5-4.5); LYMPH % 9.8 % (24.0-44.0); MEAN CORPUSCULAR HEMOGLOBIN 27.7 pg (27.0-33.0); MEAN CORPUSCULAR HGB CONC 31.3 g/dl (32.0-36.5); MEAN CORPUSCULAR VOLUME 88.3 fl (80.0-96.0); MONO # 0.8 10^3/uL (0.0-0.8); MONO % 6.7 % (0.0-5.0); NEUTROPHILS # 9.8 10^3/uL (1.8-7.7); NEUTROPHILS % 80.6 % (36.0-66.0); PLATELET COUNT, AUTOMATED 208 10^3/uL (150-450); RED BLOOD COUNT 5.49 10^6/uL (4.30-6.10); WHITE BLOOD COUNT 12.1 10^3/uL (4.0-10.0)
[2019-01-19 19:30] LABS: BILIRUBIN,TOTAL 1.2 MG/DL (0.2-1.0); CALCIUM LEVEL 8.4 MG/DL (8.8-10.2); CREATININE FOR GFR 1.48 MG/DL (0.70-1.30); FREE T4 1.35 NG/DL (0.76-1.46); GLOMERULAR FILTRATION RATE 50.2 (>49); POTASSIUM SERUM 4.4 MEQ/L (3.5-5.1); THYROID STIMULATING HORMONE 0.349 uIU/ML (0.358-3.740); TOTAL PROTEIN 6.3 GM/DL (6.4-8.2)
== END ==
LOC: M SFHCCAPE 07:18
PROVIDERS: ATTEND Physician Assistant
DX: R94.6 Abnormal results of thyroid function studies (principal)

== ENCOUNTER 2019-01-28 18:36 | Emergency (ER) | payer MEDICARE, OTHER ==
[~2019-01-28] VITALS: Ht 180.3 cm; Wt 112.3 kg
[~2019-01-28 18:36] MED LIST changes: -CVS7.6LO MT; -INDO50CA11 PO; -TORS20TA2 PO; -VENTAER INH
[2019-01-28 19:06] LABS: BASO % 0.2 % (0.0-1.0); EOS # 0.4 10^3/uL (0.0-0.50); HEMATOCRIT 46.5 % (42.0-52.0); HEMOGLOBIN 14.8 g/dl (13.5-17.5); LYMPH # 1.2 10^3/uL (1.5-4.5); LYMPH % 13.8 % (24.0-44.0); MEAN CORPUSCULAR HEMOGLOBIN 28.4 pg (27.0-33.0); MEAN CORPUSCULAR HGB CONC 31.8 g/dl (32.0-36.5); MEAN CORPUSCULAR VOLUME 89.1 fl (80.0-96.0); MONO % 11.7 % (0.0-5.0); NEUTROPHILS # 5.9 10^3/uL (1.8-7.7); NEUTROPHILS % 68.6 % (36.0-66.0); PLATELET COUNT, AUTOMATED 277 10^3/uL (150-450); RED BLOOD COUNT 5.22 10^6/uL (4.30-6.10); WHITE BLOOD COUNT 8.6 10^3/uL (4.0-10.0)
[2019-01-28 19:25] LABS: INR 1.19; PROTHROMBIN TIME 15.3 SECONDS (12.1-14.4)
--- NOTE | 2019-01-28 19:28 | ECGEPIP ---
Stationary ECG Study [facility] - ED Test Date: 2019-01-28 Pat Name: SPENCER POLO Department: Room: - Gender: M Postpartum Rn: luis : 1950 Requested By: Audrey Barbosa Order Number: [id number] Reading MD: Sonido De Leon Measurements Intervals [place] Rate: 105 P: MA: 0 QRS: 58 QRSD: 88 T: 240 QT: 259 QTc: 343 Interpretive Statements ATRIAL FIBRILLATION WITH RAPID VENTRICULAR RESPONSE LOW QRS VOLTAGE IN PRECORDIAL LEADS NSTTW ABNORMALITIES SIMILAR TO 12/30/18 Electronically Signed On 01-28-2019 19:28:05 EDT by Sonido De Leon
[2019-01-28 19:38] LABS: ALBUMIN 3.2 GM/DL (3.2-5.2); ALT/SGPT 26 U/L (12-78); BILIRUBIN,DIRECT 0.3 MG/DL (0.0-0.2); BILIRUBIN,TOTAL 0.9 MG/DL (0.2-1.0); BLOOD UREA NITROGEN 23 MG/DL (7-18); CALCIUM LEVEL 8.2 MG/DL (8.8-10.2); CARBON DIOXIDE LEVEL 27 MEQ/L (21-32); CHLORIDE LEVEL 105 MEQ/L (98-107); CPK CREATINE PHOSPHOKINASE 55 U/L (39-308); CREATININE FOR GFR 1.35 MG/DL (0.70-1.30); GLOMERULAR FILTRATION RATE 55.8 (>49); GLUCOSE, FASTING 103 MG/DL (70-100); MB/CK RELATIVE INDEX 1.82 (< OR =4); NT-PRO BNP 1851 PG/ML (<125); POTASSIUM SERUM 4.1 MEQ/L (3.5-5.1); SODIUM LEVEL 139 MEQ/L (136-145); THYROID STIMULATING HORMONE 0.341 uIU/ML (0.358-3.740); TOTAL PROTEIN 6.8 GM/DL (6.4-8.2); TROPONIN I < 0.02 NG/ML (< 0.10)
[2019-01-28 19:44] LABS: VENOUS HCO3 26.2 MEQ/L (23.0-27.0); VENOUS PARTIAL PRESSURE CO2 52.7 mmHg (38.0-50.0); VENOUS PARTIAL PRESSURE O2 35.8 mmHg (30.0-50.0); VENOUS PH 7.314 UNITS (7.330-7.430); VENOUS STANDARD HCO3 22.7 MEQ/L; VENOUS TOTAL CO2 27.8 MEQ/L (24.0-28.0)
[2019-01-28] MEDS ORDERED: dexameTHASONE 20 MG/5 ML VIAL (J1100) IV ONE (19:45)
[2019-01-28] MEDS ORDERED: FUROSEMIDE 100 MG/10 ML VIAL (J1940) IV ONE (19:45)
[2019-01-28 20:00] VITALS: O2SAT 94
[2019-01-28] MEDS: IPRATROPIUM 0.5MG/ALBUTEROL 2.5MG INH SOL UD 3ML (DUONEB)(J7620) NEB SCH ×2 (20:07→20:29)
[2019-01-28] MEDS ORDERED: INDOMETHACIN 25 MG CAP PO ONE (21:45)
[2019-01-28] MEDS ORDERED: INDO50CA11 PO (22:29)
[2019-01-28] MEDS ORDERED: PRED20TA PO (22:29)
[2019-01-28 23:10] VITALS: BP 113/55
--- NOTE | 2019-01-28 23:21 | REP ---
Portable chest x-ray: Two views. History: Dyspnea and cough. Comparison chest x-ray: December 30, 2018. Findings: EKG monitoring electrodes overlie the chest. Oxygen delivery tubing is seen. Mild cardiomegaly is observed unchanged. Interstitial markings remain prominent in the bases bilaterally. This is consistent with diffuse mild interstitial fibrosis pattern. Pulmonary vasculature is cephalized. No focal infiltrate is seen. Impression: Interstitial fibrosis pattern. Mild cardiomegaly and cephalization. No evidence of pleural effusion or acute pulmonary edema. Electronically Signed by Logan Castillo MD 01/29/2019 09:50 A
== END 2019-01-28 23:11 | disposition home or self-care (01) ==
LOC: M ED 18:36
DX: J96.10 Chronic respiratory failure, unspecified whether with hypoxia or hypercapnia (principal); I50.9 Heart failure, unspecified; I11.0 Hypertensive heart disease with heart failure; M19.079 Primary osteoarthritis, unspecified ankle and foot; I48.91 Unspecified atrial fibrillation; J44.9 Chronic obstructive pulmonary disease, unspecified; E78.5 Hyperlipidemia, unspecified; K21.9 Gastro-esophageal reflux disease without esophagitis; Z79.01 Long term (current) use of anticoagulants; Z79.51 Long term (current) use of inhaled steroids; Z79.52 Long term (current) use of systemic steroids; Z79.899 Other long term (current) drug therapy; Z87.891 Personal history of nicotine dependence; Z88.0 Allergy status to penicillin; Z88.6 Allergy status to analgesic agent; Z99.81 Dependence on supplemental oxygen
CPT/HCPCS: 71045; 80048; 80076; 80162; 82550; 82553; 82803; 83605; 83880; 84443; 84484; 85025; 85610; 87040; 93005; 93041; 94640; 96374; 96375; 99285; J1100; J1940

== ENCOUNTER 2019-02-10 14:03 | Inpatient (IN) | payer MEDICARE, OTHER ==
[~2019-02-10] VITALS: Ht 180.3 cm; Wt 110.6 kg
[~2019-02-10 14:03] MED LIST changes: +INDO50CA11 PO
[2019-02-10 14:32] LABS: BASO # 0.1 10^3/uL (0.0-0.2); BASO % 0.4 % (0.0-1.0); EOS % 0.1 % (0.0-3.0); HEMOGLOBIN 14.8 g/dl (13.5-17.5); LYMPH % 4.9 % (24.0-44.0); MEAN CORPUSCULAR HEMOGLOBIN 28.2 pg (27.0-33.0); MEAN CORPUSCULAR HGB CONC 32.2 g/dl (32.0-36.5); MEAN CORPUSCULAR VOLUME 87.6 fl (80.0-96.0); MONO # 1.9 10^3/uL (0.0-0.8); MONO % 8.9 % (0.0-5.0); NEUTROPHILS # 17.8 10^3/uL (1.8-7.7); NEUTROPHILS % 83.7 % (36.0-66.0); PLATELET COUNT, AUTOMATED 222 10^3/uL (150-450); RED BLOOD COUNT 5.25 10^6/uL (4.30-6.10); WHITE BLOOD COUNT 21.3 10^3/uL (4.0-10.0)
[2019-02-10 14:36] LABS: ABG BASE EXCESS 0.5 (-2.0-2.0); ABG HCO3 23.6 MEQ/L (22.0-26.0); ABG O2 SATURATION 99.1 % (95.0-99.0); ABG PARTIAL PRESSURE CO2 33.8 mmHg (35.0-45.0); ABG PARTIAL PRESSURE O2 148.6 mmHg (75.0-100.0); ABG TOTAL CO2 24.6 MEQ/L (23.0-31.0); ABG pH (ARTERIAL) 7.462 UNITS (7.350-7.450)
--- NOTE | 2019-02-10 14:58 | REP ---
Clinical: Shortness of breath. Comparison: 01/28/2019. Findings: Mediastinum and cardiac silhouette are stable with mild cardiomegaly again suggested. Lung silva demonstrate diffuse chronic interstitial changes and fibrosis. No focal consolidation. No effusion. No pneumothorax. Skeletal structures stable. Impression: Chronic changes. No acute cardiopulmonary process identified. Electronically Signed by Luis Daniel Beltre MD 02/10/2019 02:50 P
[2019-02-10 15:03] LABS: ALBUMIN 2.7 GM/DL (3.2-5.2); CREATININE FOR GFR 1.56 MG/DL (0.70-1.30); GLOMERULAR FILTRATION RATE 47.2 (>49); POTASSIUM SERUM 3.9 MEQ/L (3.5-5.1)
[2019-02-10] MEDS ORDERED: TORS20TA2 PO (15:08)
[2019-02-10] MEDS ORDERED: VENTAER INH (15:08)
[2019-02-10] MEDS ORDERED: DIGO0.12 PO (15:08)
[2019-02-10] MEDS ORDERED: CVS7.6LO MT (15:08)
[2019-02-10 15:15] LABS: CK-MB VALUE MASS < 1.0 NG/ML (<3.6); CPK CREATINE PHOSPHOKINASE 56 U/L (39-308); DIGOXIN LEVEL 1.1 NG/ML (0.5-2.0); MB/CK RELATIVE INDEX 1.79 (< OR =4); TROPONIN I < 0.02 NG/ML (< 0.10)
[2019-02-10] MEDS ORDERED: IPRATROPIUM 0.5MG/ALBUTEROL 2.5MG INH SOL UD 3ML (DUONEB)(J7620) NEB PRN (16:30)
[2019-02-10] MEDS ORDERED: ACETAMINOPHEN TAB 650MG DOSE (2X325MG) PO PRN (16:30)
[2019-02-10] MEDS: IPRATROPIUM 0.5MG/ALBUTEROL 2.5MG INH SOL UD 3ML (DUONEB)(J7620) NEB SCH ×2 (17:00→20:00)
[2019-02-10 18:05] VITALS: BP 142/88
[2019-02-10] MEDS: TORSEMIDE 10 MG TABLET PO SCH (18:22)
[2019-02-10] MEDS: cefTRIAXone SOD 1 GM in D5W MINI-BAG PLUS 50 ML IV SCH (18:22)
[2019-02-10] MEDS: methylPREDNISolone INJ 40 MG/1 ML VIAL (J2920) IV SCH ×2 (18:22→23:56)
[2019-02-10 20:00] VITALS: BP 141/75
--- NOTE | 2019-02-10 20:49 | ECGEPIP ---
[facility] - ED Test Date: 2019-02-10 Pat Name: SPENCER POLO Department: Room: - Gender: Male [employer]: : 1950 Requested By: Audrey Barbosa Order Number: [id number] Reading MD: Audrey Barbosa Measurements Intervals [place] Rate: 120 P: CO: -1 QRS: 64 QRSD: 84 T: QT: 232 QTc: 328 Interpretive Statements ATRIAL FIBRILLATION WITH RAPID VENTRICULAR RESPONSE LOW QRS VOLTAGE IN PRECORDIAL LEADS ST DEVIATION AND MODERATE T-WAVE ABNORMALITY, CONSIDER ISCHEMIA INCREASED RATE 01/28/19 Electronically Signed on 02-10-2019 20:48:57 EDT by Audrey Barbosa
[2019-02-10] MEDS: ADVAIR HFA 230/21MCG INHALER INH SCH (21:13)
[2019-02-10] MEDS: APIXABAN 5 MG TAB (ELIQUIS) PO SCH (21:15)
[2019-02-10] MEDS: DOXYCYCLINE HYCLATE 100 MG TAB PO SCH (21:15)
[2019-02-10 23:59] VITALS: BP 116/72
[2019-02-11 04:00] VITALS: BP 123/80
[2019-02-11 05:45] LABS: HEMATOCRIT 45.7 % (42.0-52.0); HEMOGLOBIN 14.1 g/dl (13.5-17.5); MEAN CORPUSCULAR HEMOGLOBIN 27.8 pg (27.0-33.0); MEAN CORPUSCULAR HGB CONC 30.9 g/dl (32.0-36.5); MEAN CORPUSCULAR VOLUME 90.1 fl (80.0-96.0); PLATELET COUNT, AUTOMATED 183 10^3/uL (150-450); RED BLOOD COUNT 5.07 10^6/uL (4.30-6.10); WHITE BLOOD COUNT 8.6 10^3/uL (4.0-10.0)
[2019-02-11] MEDS: methylPREDNISolone INJ 40 MG/1 ML VIAL (J2920) IV SCH ×4 (05:47→23:30)
[2019-02-11 06:17] LABS: CALCIUM LEVEL 8.4 MG/DL (8.8-10.2); CREATININE FOR GFR 1.5 MG/DL (0.70-1.30); GLOMERULAR FILTRATION RATE 49.4 (>49); POTASSIUM SERUM 3.9 MEQ/L (3.5-5.1)
--- NOTE | 2019-02-11 07:29 | HPE ---
DATE OF ADMISSION: 02/10/2019 PRIMARY CARE PROVIDER: MYNOR Delatorre LIGHT BULB REPLACER: Dr. Han CUTTER GRINDER OPERATOR: Dr. Sexton ATTENDING PHYSICIAN: Dr. Young CHIEF COMPLAINT: Worsening shortness of breath. HISTORY OF PRESENT ILLNESS: The patient is a 68-year-old white male with history of chronic obstructive pulmonary disease (COPD) who presented to the hospital for evaluation of worsening shortness of breath. History is provided by himself as well as by review of the chart. He was a heavy smoker in the past but has quit a few years now. He has COPD. He was using 3-4 liters of oxygen during the day and up to 7-8 liters at night. He had multiple recent admissions for COPD exacerbation. The most recent one was back to 12/30/2018 and he was in the hospital for about 10 days and discharged home on 01/08/2019. He states after discharge from the hospital he was doing okay. However, in the last couple of days, he has worsening shortness of breath and he tried to increase his oxygen supplement which did not help him. Also yesterday, he stated he had some fever and chills but he did not check his temperature. Today, he really can not breathe so 911 was called[address] the way to the hospital, he was put on the continuous positive airway pressure (CPAP) machine in the ambulance. After he arrived in the emergency room (ER), he needed 100% nonrebreather to keep his oxygen saturation more than 90%. Otherwise, his workup in the ER was in his baseline. Medicine service was called for admission. REVIEW OF SYSTEMS: Positive fever and chills but no headache. No blurry vision. Positive for cough with phlegm. No hemoptysis. No chest pain. No abdominal pain. No nausea. No vomiting. No diarrhea. No tingling, numbness or weakness in the arms or lower extremities. All other systems reviewed and are negative. PAST MEDICAL HISTORY: 1. Chronic obstructive pulmonary disease (COPD), on 3-4 liters of oxygen during the day and 7-8 liters at night. He is followed with Dr. Sexton. 2. Secondary polycythemia. 3. Hypothyroidism. 4. Hypertension. 5. Dyslipidemia. 6. Chronic diastolic congestive heart failure (CHF). 7. Chronic kidney disease (CKD), stage III. 8. Chronic atrial fibrillation, on Eliquis. 9. Acid reflux. SURGICAL HISTORY: none SOCIAL HISTORY: He had an 80-pack tobacco use and quit a few years ago. No alcohol abuse. No illicit drug abuse. He is living at home. He is a DO NOT RESUSCITATE/DO NOT INTUBATE. FAMILY HISTORY: Both parents . No family history of chronic obstructive pulmonary disease (COPD) and diabetes or chronic disease. ALLERGIES: He is allergic to PENICILLIN and ASPIRIN. MEDICATIONS: Reviewed. PHYSICAL EXAMINATION: VITAL SIGNS: Temperature 99.6, heart rate is 117, respiratory rate 20, blood pressure 124/69, oxygen saturation is 85% on 15 liters 100% nonrebreather. GENERAL: He is alert and oriented times three. He is in acute moderate respiratory distress. HEENT: Atraumatic. Pupils are equal, round, and react to light. No jaundice. Extraocular muscles intact. Ears, nose and throat are normal. Mouth: Mucous not dry. NECK: No jugular venous distention (JVD). No bruits. LUNGS: Decreased breath sounds with rhonchi, minor wheezing. HEART: S1, S2, irregular, mild tachycardia. No murmur. ABDOMEN: Soft. Bowel sounds are positive. Nontender. EXTREMITIES: Lower extremities: No edema in bilateral lower extremities. SKIN: No rash. NEUROLOGIC: Nonfocal. PSYCHOLOGIC: No acute psychosis. DIAGNOSTIC LABORATORY DATA: Include the following: CBC and differential showed WBC 21.3, hemoglobin and hematocrit 14.8/46, platelets 222. Sodium is 137, potassium 3.9, chloride 102, anion gap 27, BUN 26, creatinine 1.3, BNP is 3928. IMPRESSION: 1. Acute on chronic respiratory failure with hypoxia. 2. Chronic obstructive pulmonary disease (COPD) exacerbation with possible pneumonia. 3. COPD exacerbation and possible pneumonia. 4. Hypertension. 5. Chronic atrial fibrillation. 6. Chronic diastolic congestive heart failure (CHF). PLAN: The patient will be admitted to the progressive care unit (PCU). We will treat him with IV Solu-Medrol, DuoNeb, and antibiotics including doxycycline and ceftriaxone. We will followup cultures. His other medical conditions are chronic and stable and we will continue with most home medications. He does not have a congestive heart failure (CHF) exacerbation. He is on Eliquis so he does not need any extra deep vein thrombosis (DVT) prophylaxis. [facility]
[2019-02-11] MEDS: ADVAIR HFA 230/21MCG INHALER INH SCH ×2 (07:33→20:01)
[2019-02-11] MEDS: IPRATROPIUM 0.5MG/ALBUTEROL 2.5MG INH SOL UD 3ML (DUONEB)(J7620) NEB SCH ×4 (07:34→20:00)
[2019-02-11 08:00] VITALS: BP 135/84
[2019-02-11] MEDS: DOXYCYCLINE HYCLATE 100 MG TAB PO SCH ×2 (08:54→20:05)
[2019-02-11] MEDS: PANTOPRAZOLE 40MG TAB (PROTONIX) PO SCH (08:54)
[2019-02-11] MEDS: DIGOXIN 0.125 MG TAB PO SCH (08:55)
[2019-02-11] MEDS: SPIRONOLACTONE 12.5MG PER 1/2 TABLET PO SCH (08:55)
[2019-02-11] MEDS: POTASSIUM CHLORIDE 10 MEQ SR TABLET PO SCH (08:55)
[2019-02-11] MEDS: APIXABAN 5 MG TAB (ELIQUIS) PO SCH ×2 (08:55→20:05)
[2019-02-11] MEDS: VERAPAMIL 120 MG SR TAB PO SCH (08:56)
[2019-02-11 12:00] VITALS: BP 140/78
--- NOTE | 2019-02-11 14:12 | IPNPDOC ---
Date Seen The patient was seen on 02/11/19. Progress Note Subjective 68 Y male, history of COPD presents with worsening sob feels better no events overnight Review of systems no fever no chills no KATZ +sob +cough no chest pain no abdominal pain PHYSICAL EXAMINATION: GENERAL: AA Ox3, in moderate respiratory distress respiratory distress.HEENT: Atraumatic. Pupils are equal, round, and react to light. No jaundice. Extraocular muscles intact. Ears, nose and throat are normal. Mouth: Mucous not dry. NECK: No jugular venous distention (JVD). No bruits. LUNGS: Decreased breath sounds with rhonchi, minor wheezing. HEART: S1, S2, irregular, mild tachycardia. No murmur. ABDOMEN: Soft. Bowel sounds are positive. Nontender. EXTREMITIES: Lower extremities: No edema in bilateral lower extremities. SKIN: No rash. NEUROLOGIC: Nonfocal. IMPRESSION and Plans: 1. Acute on chronic respiratory failure with hypoxia, he is using O2 @3-4 L at home, now on 10L will continue to wean 2. Chronic obstructive pulmonary disease (COPD) exacerbation with possible pneumonia. will continue IV abx, steroid, nebs and follow cultures 3. Hypertension, BP stable] 4. Chronic atrial fibrillation, rate control, on Eliquis 5. Chronic diastolic congestive heart failure (CHF), compensated 6. no extra for DVT prophylaxis VS, I&O, 24H, Fishbone Vital Signs/I&O Vital Signs Date Time Temp Pulse Resp B/P (MAP) Pulse Ox O2 Delivery O2 Flow Rate FiO2 02/11/19 12:00 97.3 101 22 140/78 (98) 93 10.0 02/10/19 17:48 Non-Rebreather I&O- Last 24 Hours up to 6 AM 02/11/19 05:59 Intake Total 150 ml Output Total 400 ml Balance -250 ml Laboratory Data 24H LABS Laboratory Tests 2 02/10/19 14:16: Immature Granulocyte % (Auto) 2.0, White Blood Count 21.3H, Red Blood Count 5.25, Hemoglobin 14.8, Hematocrit 46.0, Mean Corpuscular Volume 87.6, Mean Corpuscular Hemoglobin 28.2, Mean Corpuscular Hemoglobin Concent 32.2, Red Cell Distribution Width 17.3H, Platelet Count 222, Neutrophils (%) (Auto) 83.7H, Lymphocytes (%) (Auto) 4.9L, Monocytes (%) (Auto) 8.9H, Eosinophils (%) (Auto) 0.1, Basophils (%) (Auto) 0.4, Neutrophils # (Auto) 17.8H, Lymphocytes # (Auto) 1.0L, Monocytes # (Auto) 1.9H, Eosinophils # (Auto) 0.0, Basophils # (Auto) 0.1, Nucleated Red Blood Cells % (auto) 0.0, Lactic Acid Level 2.6*H 02/10/19 14:17: Anion Gap 8, Glomerular Filtration Rate 47.2L, Blood Urea Nitrogen 26H, Creatinine 1.56H, Sodium Level 137, Potassium Level 3.9, Chloride Level 102, Carbon Dioxide Level 27, Calcium Level 9.0, Aspartate Amino Transf (AST/SGOT) 25, Alanine Aminotransferase (ALT/SGPT) 32, Alkaline Phosphatase 63, Total Bilirubin 1.0, Total Protein 7.0, Albumin 2.7L, Total Creatine Kinase 56, Creatine Kinase MB < 1.0, Creatine Kinase MB Relative Index 1.79, Troponin I < 0.02, HE-Bpl-S-Type Natriuretic Peptide 3928H, Albumin/Globulin Ratio 0.63L, Digoxin Level 1.1 02/10/19 14:24: Blood Gas Bicarbonate Standard 25.0, Arterial Blood pH 7.462H, Arterial Blood Partial Pressure CO2 33.8L, Arterial Blood Partial Pressure O2 148.6H, Arterial Blood Total CO2 24.6, Arterial Blood HCO3 23.6, Arterial Blood Base Excess 0.5, Arterial Blood Oxygen Saturation 99.1H 02/10/19 18:32: Lactic Acid Followup at 4 Hours 1.7 02/11/19 05:14: Nucleated Red Blood Cells % (auto) 0.0, Anion Gap 6L, Glomerular Filtration Rate 49.4, Blood Urea Nitrogen 29H, Creatinine 1.50H, Sodium Level 138, Potassium Level 3.9, Chloride Level 106, Carbon Dioxide Level 26, Calcium Level 8.4L CBC/BMP Laboratory Tests 02/10/19 14:16 Red Blood Count 5.25, Mean Corpuscular Volume 87.6, Mean Corpuscular Hemoglobin 28.2, Mean Corpuscular Hemoglobin Concent 32.2, Red Cell Distribution Width 17.3 H, Neutrophils (%) (Auto) 83.7 H, Lymphocytes (%) (Auto) 4.9 L, Monocytes (%) (Auto) 8.9 H, Eosinophils (%) (Auto) 0.1, Basophils (%) (Auto) 0.4, Neutrophils # (Auto) 17.8 H, Lymphocytes # (Auto) 1.0 L, Monocytes # (Auto) 1.9 H, Eosinophils # (Auto) 0.0, Basophils # (Auto) 0.1 02/10/19 14:17 Calcium Level 9.0, Aspartate Amino Transf (AST/SGOT) 25, Alanine Aminotransferas e (ALT/SGPT) 32, Alkaline Phosphatase 63, Total Bilirubin 1.0, Total Protein 7.0, Albumin 2.7 L 02/11/19 05:14 Red Blood Count 5.07, Mean Corpuscular Volume 90.1, Mean Corpuscular Hemoglobin 27.8, Mean Corpuscular Hemoglobin Concent 30.9 L, Red Cell Distribution Width 17.3 H, Calcium Level 8.4 L Microbiology Microbiology 02/10/19 Blood Culture, Received Pending 02/10/19 Blood Culture, Received Pending 02/10/19 Respiratory Virus Panel (PCR) ([facility]) - Final, Complete ESCOBAR PUENTES MD February 11, 2019 14:12
[2019-02-11 16:00] VITALS: BP 142/80
[2019-02-11] MEDS: cefTRIAXone SOD 1 GM in D5W MINI-BAG PLUS 50 ML IV SCH (17:52)
[2019-02-11] MEDS: TORSEMIDE 10 MG TABLET PO SCH (17:52)
[2019-02-11 20:00] VITALS: BP 147/78
[2019-02-12] VITALS (8 sets, daily range): BP systolic 120–149; BP diastolic 71–76; O2SAT 90–98
[2019-02-12] MEDS: methylPREDNISolone INJ 40 MG/1 ML VIAL (J2920) IV SCH (05:42)
[2019-02-12] MEDS: ADVAIR HFA 230/21MCG INHALER INH SCH ×2 (07:57→21:31)
[2019-02-12] MEDS: IPRATROPIUM 0.5MG/ALBUTEROL 2.5MG INH SOL UD 3ML (DUONEB)(J7620) NEB SCH ×4 (08:00→20:00)
[2019-02-12] MEDS: PANTOPRAZOLE 40MG TAB (PROTONIX) PO SCH (08:45)
[2019-02-12] MEDS: SPIRONOLACTONE 12.5MG PER 1/2 TABLET PO SCH (08:45)
[2019-02-12] MEDS: VERAPAMIL 120 MG SR TAB PO SCH (08:45)
[2019-02-12] MEDS: POTASSIUM CHLORIDE 10 MEQ SR TABLET PO SCH (08:46)
[2019-02-12] MEDS: DIGOXIN 0.125 MG TAB PO SCH (08:46)
[2019-02-12] MEDS: DOXYCYCLINE HYCLATE 100 MG TAB PO SCH ×2 (08:46→20:28)
[2019-02-12] MEDS: APIXABAN 5 MG TAB (ELIQUIS) PO SCH ×2 (08:46→20:29)
--- NOTE | 2019-02-12 09:25 | IPNPDOC ---
Date Seen The patient was seen on 02/12/19. Progress Note Subjective 68 Y male, history of COPD presents with worsening sob doing much better, O2 down to 7 L now no events overnight Review of systems no fever no chills no KATZ +sob no chest pain no abdominal pain PHYSICAL EXAMINATION: GENERAL: AA Ox3, no in respiratory distress respiratory distress.HEENT: Atraumatic. Pupils are equal, round, and react to light. No jaundice. Extraocular muscles intact. Ears, nose and throat are normal. Mouth: Mucous not dry. NECK: No jugular venous distention (JVD). No bruits. LUNGS: Decreased breath sounds with rhonchi, minor wheezing. HEART: S1, S2, irregular, mild tachycardia. No murmur. ABDOMEN: Soft. Bowel sounds are positive. Nontender. EXTREMITIES: Lower extremities: No edema in bilateral lower extremities. SKIN: No rash. NEUROLOGIC: Nonfocal. IMPRESSION and Plans: 1. Acute on chronic respiratory failure with hypoxia, he is using O2 @3-4 L at home, now is down to 7L, will continue to wean 2. Chronic obstructive pulmonary disease (COPD) exacerbation with possible pneumonia. he is afebrile, leucocytosis resolved, no positive culture so far, will d/c IV ceftriaxone and continue oral doxy will d/c IV steroid and start Oral prednisone 3. Hypertension, BP stable] 4. Chronic atrial fibrillation, rate control, on Eliquis 5. Chronic diastolic congestive heart failure (CHF), compensated 6. Dispo: likely discharge home in 1-2 days VS, I&O, 24H, Fishbone Vital Signs/I&O Vital Signs Date Time Temp Pulse Resp B/P (MAP) Pulse Ox O2 Delivery O2 Flow Rate FiO2 02/12/19 08:46 89 02/12/19 08:45 126/75 02/12/19 08:00 97.0 20 92 10.0 02/12/19 07:59 Nasal Cannula I&O- Last 24 Hours up to 6 AM 02/12/19 06:00 Intake Total 1980 ml Output Total 1200 ml Balance 780 ml Laboratory Data Microbiology Microbiology 02/10/19 Blood Culture - Preliminary, Resulted No growth after 24 hours . All specim... 02/10/19 Blood Culture - Preliminary, Resulted No growth after 24 hours . All specim... 02/10/19 Respiratory Virus Panel (PCR) ([facility]) - Final, Complete POLISH,XIANJIN MD February 12, 2019 09:25
[2019-02-12] MEDS: TORSEMIDE 10 MG TABLET PO SCH (16:54)
[2019-02-13] VITALS (8 sets, daily range): BP systolic 106–141; BP diastolic 63–95; O2SAT 90
[2019-02-13] MEDS: IPRATROPIUM 0.5MG/ALBUTEROL 2.5MG INH SOL UD 3ML (DUONEB)(J7620) NEB SCH ×4 (08:00→21:49)
[2019-02-13] MEDS: ADVAIR HFA 230/21MCG INHALER INH SCH ×2 (08:02→21:50)
[2019-02-13] MEDS: APIXABAN 5 MG TAB (ELIQUIS) PO SCH ×2 (09:52→20:26)
[2019-02-13] MEDS: PANTOPRAZOLE 40MG TAB (PROTONIX) PO SCH (09:52)
[2019-02-13] MEDS: DIGOXIN 0.125 MG TAB PO SCH (09:53)
[2019-02-13] MEDS: DOXYCYCLINE HYCLATE 100 MG TAB PO SCH ×2 (09:53→20:26)
[2019-02-13] MEDS: POTASSIUM CHLORIDE 10 MEQ SR TABLET PO SCH (09:54)
[2019-02-13] MEDS: VERAPAMIL 120 MG SR TAB PO SCH (09:54)
[2019-02-13] MEDS: predniSONE 10 MG TAB PO SCH (09:54)
[2019-02-13] MEDS: SPIRONOLACTONE 12.5MG PER 1/2 TABLET PO SCH (09:54)
--- NOTE | 2019-02-13 10:58 | IPNPDOC ---
Date Seen The patient was seen on 02/13/19. Progress Note Subjective 68 Y male, history of COPD presents with worsening sob doing much better no events overnight Review of systems no fever no chills no KATZ no chest pain no abdominal pain PHYSICAL EXAMINATION: GENERAL: AA Ox3, no in respiratory distress respiratory distress.HEENT: Atraumatic. Pupils are equal, round, and react to light. No jaundice. Extraocular muscles intact. Ears, nose and throat are normal. Mouth: Mucous not dry. NECK: No jugular venous distention (JVD). No bruits. LUNGS: Decreased breath sounds with rhonchi, minor wheezing. HEART: S1, S2, irregular, mild tachycardia. No murmur. ABDOMEN: Soft. Bowel sounds are positive. Nontender. EXTREMITIES: Lower extremities: No edema in bilateral lower extremities. SKIN: No rash. NEUROLOGIC: Nonfocal. IMPRESSION and Plans: 1. Acute on chronic respiratory failure with hypoxia, he is using O2 @3-4 L at home, now is down to 7-8L, will continue to wean 2. Chronic obstructive pulmonary disease (COPD) exacerbation with possible pneumonia. he is afebrile, leucocytosis resolved, no positive culture so far, will continue oral prednisone/doxy and nebs 3. Hypertension, BP stable] 4. Chronic atrial fibrillation, rate control, on Eliquis 5. Chronic diastolic congestive heart failure (CHF), compensated 6. Dispo: january discharge home in tomorrow VS, I&O, 24H, Fishbone Vital Signs/I&O Vital Signs Date Time Temp Pulse Resp B/P (MAP) Pulse Ox O2 Delivery O2 Flow Rate FiO2 02/13/19 09:54 112 141/95 02/13/19 09:00 91 6.0 02/13/19 08:07 Nasal Cannula 02/13/19 08:00 97.5 22 I&O- Last 24 Hours up to 6 AM 02/13/19 06:00 Intake Total 2295 ml Output Total 875 ml Balance 1420 ml Laboratory Data Microbiology Microbiology 02/10/19 Blood Culture - Preliminary, Resulted No Growth after 48 hours. All Specime... 02/10/19 Blood Culture - Preliminary, Resulted No Growth after 48 hours. All Specime... 02/10/19 Respiratory Virus Panel (PCR) ([facility]) - Final, Complete ESCOBAR PUENTES MD February 13, 2019 10:58
[2019-02-13] MEDS: TORSEMIDE 10 MG TABLET PO SCH (17:04)
[2019-02-14 02:00] VITALS: BP 110/64
[2019-02-14 06:00] VITALS: BP 131/83
[2019-02-14 06:20] LABS: HEMOGLOBIN 14.8 g/dl (13.5-17.5); MEAN CORPUSCULAR HGB CONC 31.5 g/dl (32.0-36.5); MEAN CORPUSCULAR VOLUME 88.8 fl (80.0-96.0); PLATELET COUNT, AUTOMATED 259 10^3/uL (150-450); RED BLOOD COUNT 5.29 10^6/uL (4.30-6.10); WHITE BLOOD COUNT 14.8 10^3/uL (4.0-10.0)
[2019-02-14 06:54] LABS: CALCIUM LEVEL 8.8 MG/DL (8.8-10.2); CREATININE FOR GFR 1.48 MG/DL (0.70-1.30); GLOMERULAR FILTRATION RATE 50.2 (>49); POTASSIUM SERUM 4.7 MEQ/L (3.5-5.1)
[2019-02-14] MEDS: IPRATROPIUM 0.5MG/ALBUTEROL 2.5MG INH SOL UD 3ML (DUONEB)(J7620) NEB SCH (07:19)
[2019-02-14] MEDS: ADVAIR HFA 230/21MCG INHALER INH SCH (07:19)
[2019-02-14 08:19] VITALS: BP 120/78
[2019-02-14] MEDS: SPIRONOLACTONE 12.5MG PER 1/2 TABLET PO SCH (08:19)
[2019-02-14] MEDS: POTASSIUM CHLORIDE 10 MEQ SR TABLET PO SCH (08:19)
[2019-02-14] MEDS: predniSONE 10 MG TAB PO SCH (08:19)
[2019-02-14] MEDS: VERAPAMIL 120 MG SR TAB PO SCH (08:19)
[2019-02-14] MEDS: DIGOXIN 0.125 MG TAB PO SCH (08:21)
[2019-02-14] MEDS: DOXYCYCLINE HYCLATE 100 MG TAB PO SCH (08:22)
[2019-02-14] MEDS: APIXABAN 5 MG TAB (ELIQUIS) PO SCH (08:22)
[2019-02-14] MEDS: PANTOPRAZOLE 40MG TAB (PROTONIX) PO SCH (08:22)
[2019-02-14] MEDS ORDERED: DOXY100T PO (09:11)
[2019-02-14] MEDS ORDERED: SPIR-10 PO (09:11)
[2019-02-14] MEDS ORDERED: ELIQ5TAB PO (09:11)
[2019-02-14] MEDS ORDERED: PRED10TA2 PO (09:11)
[2019-02-14] MEDS ORDERED: POTA10CA32 PO (09:11)
[2019-02-14] MEDS ORDERED: VERA240C3 PO (09:11)
--- NOTE | 2019-02-14 09:13 | DS.PDOC ---
Discharge Summary General Date of Admission February 10, 2019 at 16:19 Date of Discharge February 14, 2019 Primary Care Physician: MARCELO TRUJILLO PA-C Attending Physician: ESCOBAR PUENTES MD Discharge Summary PROCEDURES PERFORMED DURING STAY: none ADMITTING DIAGNOSES: 1. acute on chronic respiratory failure with hypoxia 2. COPD exacerbation/Pneumonia DISCHARGE DIAGNOSES: 1. Acute on chronic respiratory failure on home O2 @3-4L NC 2. COPD exacerbation 3. Pneumonia 4. Afib on Eliquis 5. Chronic diastolic CHF COMPLICATIONS/CHIEF COMPLAINT: Copd With Acute Exacerbation. HISTORY OF PRESENT ILLNESS: The patient is a 68-year-old white male with history of chronic obstructive pulmonary disease (COPD) who presented to the hospital for evaluation of worsening shortness of breath. History is provided by himself as well as by review of the chart. He was a heavy smoker in the past but has quit a few years now. He has COPD. He was using 3-4 liters of oxygen during the day and up to 7-8 liters at night. He had multiple recent admissions for COPD exacerbation. The most recent one was back to 12/30/2018 and he was in the hospital for about 10 days and discharged home on 01/08/2019. He states after discharge from the hospital he was doing okay. However, in the last couple of days, he has worsening shortness of breath and he tried to increase his oxygen supplement which did not help him. Also yesterday, he stated he had some fever and chills but he did not check his temperature. Today, he really can not breathe, so 911 was called. On the way to the hospital, he was put on the continuous positive airway pressure (CPAP) machine in the ambulance. After he arrived in the emergency room (ER), he needed 100% nonrebreather to keep his oxygen saturation more than 90%. Otherwise, his workup in the ER was in his baseline. Medicine service was called for admission. HOSPITAL COURSE: He was admitted on 02/10/2019. In the ER, he need 100% non-rebreather mask to maintain his O2 sat . He was treated with IV steroid, IV abx and nebs; his O2 need was tapering down gradually and eventually coming down to his baseline at 4L NC. there is no positive cultures. He will be discharged home with oral doxycycline, tapering down prednisone and nebs. DISCHARGE MEDICATIONS: Please see below. ALLERGIES: Please see below. PHYSICAL EXAMINATION ON DISCHARGE: VITAL SIGNS: Please see below. GENERAL: AA Ox3, not in acute distress HEENT:Atraumatic NECK: No JVD CARDIOVASCULAR EXAMINATION: S1 S2 irregular not tachycardia RESPIRATORY EXAMINATION: diminished breath sound, no rales no wheezing ABDOMINAL EXAMINATION: soft, BS positive, non tender EXTREMITIES: no edema SKIN: no rash NEUROLOGICAL EXAMINATION: non focal PSYCHIATRIC EXAMINATION: normal mood LABORATORY DATA: Please see below. PROGNOSIS: fair ACTIVITY: as tolerated DIET: low salt diet DISPOSITION: home ITEMS TO FOLLOWUP ON ON OUTPATIENT: 1. PCP in 1-2 weeks DISCHARGE CONDITION: stable TIME SPENT ON DISCHARGE: Greater than 35 minutes. Vital Signs/I&Os Vital Signs Date Time Temp Pulse Resp B/P (MAP) Pulse Ox O2 Delivery O2 Flow Rate FiO2 02/14/19 08:21 135 02/14/19 08:19 120/78 02/14/19 07:29 90 5.0 02/14/19 06:00 97.5 20 02/13/19 08:07 Nasal Cannula I&O- Last 24 Hours up to 6 AM 02/14/19 06:00 Intake Total 900 ml Output Total 1275 ml Balance -375 ml Laboratory Data Labs 24H Laboratory Tests 2 02/14/19 05:57: Nucleated Red Blood Cells % (auto) 0.0, Anion Gap 6L, Glomerular Filtration Rate 50.2, Blood Urea Nitrogen 42H, Creatinine 1.48H, Sodium Level 142, Potassium Level 4.7, Chloride Level 106, Carbon Dioxide Level 30, Calcium Level 8.8 CBC/BMP Laboratory Tests 02/14/19 05:57 Red Blood Count 5.29, Mean Corpuscular Volume 88.8, Mean Corpuscular Hemoglobin 28.0, Mean Corpuscular Hemoglobin Concent 31.5 L, Red Cell Distribution Width 17.6 H, Calcium Level 8.8 Microbiology Microbiology 02/10/19 Blood Culture - Preliminary, Resulted No Growth after 72 hours. All specime... 02/10/19 Blood Culture - Preliminary, Resulted No Growth after 72 hours. All specime... 02/10/19 Respiratory Virus Panel (PCR) ([facility]) - Final, Complete Discharge Medications Scheduled Apixaban (Eliquis) 5 Mg Tablet, 5 MG PO BID Digoxin (Digoxin) 125 Mcg Tablet, 125 MCG PO DAILY, (Reported) Doxycycline Hyclate (Doxycycline Hyclate) 100 Mg Tablet, 100 MG PO BID Fluticasone Propion/Salmeterol (Advair Hfa 230-21 Mcg Inhaler) 12 Gm Hfa.aer.ad, 2 PUFF INH BID, (Reported) Pantoprazole Sodium (Pantoprazole Sodium) 40 Mg Tablet.dr, 40 MG PO DAILY, (Reported) Potassium Chloride (Potassium Chloride) 10 Meq Cap, 10 MEQ PO DAILY Prednisone (Prednisone) 10 Mg Tablet, 10 MG PO DAILY 30 mg daily for 3 days then 20 mg daily for 3 days then 10 mg for 5 days the stop Spironolactone (Spironolactone) 25 Mg Tablet, 12.5 MG PO DAILY Torsemide (Torsemide) 20 Mg Tablet, 10 MG PO QPM, (Reported) TAKES AT 1700 Verapamil HCl (Verapamil Sr) 240 Mg Cap24h.pel, 240 MG PO DAILY Scheduled PRN Albuterol Sulfate (Ventolin Hfa) 18 Gm Hfa.aer.ad, 2 PUFF INH Q4H PRN for SHORTNESS OF BREATH, (Reported) Menthol (Cough Drops) 7.6 Mg Lozenge, 7.6 MG MT Q4H PRN for COUGH, (Reported) Allergies Coded Allergies: aspirin (Verified Adverse Reaction, Intermediate, bleeding, 12/21/18) Penicillins (Verified Adverse Reaction, Mild, gi upset, 12/21/18) ESCOBAR PUENTES MD February 14, 2019 09:13
[2019-02-14 10:00] VITALS: BP 115/76
== END 2019-02-14 11:57 | disposition home or self-care (01) | DRG 193 ==
LOC: EDBD 14:03 → M ED 14:03 → M ED INP 16:19 → M PCU 18:07 → M MSPAV 02-13 12:28
PROVIDERS: ADMIT Hospitalist; ATTEND Hospitalist
DX: J18.9 Pneumonia, unspecified organism (principal); J96.21 Acute and chronic respiratory failure with hypoxia; J44.1 Chronic obstructive pulmonary disease with (acute) exacerbation; I50.32 Chronic diastolic (congestive) heart failure; I48.2 Chronic atrial fibrillation; Z79.01 Long term (current) use of anticoagulants; Z79.899 Other long term (current) drug therapy; Z88.0 Allergy status to penicillin; Z88.6 Allergy status to analgesic agent; E03.9 Hypothyroidism, unspecified; I11.0 Hypertensive heart disease with heart failure; K21.9 Gastro-esophageal reflux disease without esophagitis; E78.5 Hyperlipidemia, unspecified; D75.1 Secondary polycythemia; Z87.891 Personal history of nicotine dependence; Z66 Do not resuscitate

== ENCOUNTER 2019-02-28 16:30 | Inpatient (IN) | payer MEDICARE, OTHER ==
[~2019-02-28] VITALS: Ht 180.3 cm; Wt 112.4 kg
[~2019-02-28 16:30] MED LIST changes: +CVS7.6LO MT; +DOXY100T PO; +TORS20TA2 PO; +VENTAER INH
[2019-02-28] MEDS ORDERED: SPIR1CAP INH (16:52)
[2019-02-28] MEDS ORDERED: ADVA230A INH (16:52)
[2019-02-28] MEDS: IPRATROPIUM 0.5MG/ALBUTEROL 2.5MG INH SOL UD 3ML (DUONEB)(J7620) NEB PRN ×2 (18:10→18:22)
[2019-02-28 18:16] LABS: ABG BASE EXCESS 0.3 (-2.0-2.0); ABG HCO3 24.2 MEQ/L (22.0-26.0); ABG O2 SATURATION 93.6 % (95.0-99.0); ABG PARTIAL PRESSURE O2 69.3 mmHg (75.0-100.0); ABG STANDARD HCO3 24.6 MEQ/L (22.0-26.0); ABG TOTAL CO2 25.3 MEQ/L (23.0-31.0); ABG pH (ARTERIAL) 7.433 UNITS (7.350-7.450)
[2019-02-28 18:19] LABS: BASO % 0.3 % (0.0-1.0); EOS # 0.1 10^3/uL (0.0-0.50); EOS % 0.6 % (0.0-3.0); HEMATOCRIT 42.9 % (42.0-52.0); HEMOGLOBIN 13.9 g/dl (13.5-17.5); LYMPH # 0.5 10^3/uL (1.5-4.5); LYMPH % 4.2 % (24.0-44.0); MEAN CORPUSCULAR HEMOGLOBIN 28.3 pg (27.0-33.0); MEAN CORPUSCULAR HGB CONC 32.4 g/dl (32.0-36.5); MEAN CORPUSCULAR VOLUME 87.4 fl (80.0-96.0); MONO # 0.5 10^3/uL (0.0-0.8); MONO % 3.8 % (0.0-5.0); NEUTROPHILS # 11.4 10^3/uL (1.8-7.7); NEUTROPHILS % 89.1 % (36.0-66.0); PLATELET COUNT, AUTOMATED 176 10^3/uL (150-450); RED BLOOD COUNT 4.91 10^6/uL (4.30-6.10); WHITE BLOOD COUNT 12.7 10^3/uL (4.0-10.0)
[2019-02-28 18:34] LABS: INR 1.68; PROTHROMBIN TIME 20.1 SECONDS (12.1-14.4)
[2019-02-28 18:35] LABS: PARTIAL THROMBOPLASTIN TIME 44.3 SECONDS (25.4-37.6)
[2019-02-28 18:51] LABS: ALBUMIN 2.5 GM/DL (3.2-5.2); ALT/SGPT 25 U/L (12-78); BILIRUBIN,DIRECT 0.5 MG/DL (0.0-0.2); BILIRUBIN,TOTAL 1.2 MG/DL (0.2-1.0); BLOOD UREA NITROGEN 25 MG/DL (7-18); CALCIUM LEVEL 7.8 MG/DL (8.8-10.2); CARBON DIOXIDE LEVEL 25 MEQ/L (21-32); CHLORIDE LEVEL 105 MEQ/L (98-107); CK-MB VALUE MASS < 1.0 NG/ML (<3.6); CPK CREATINE PHOSPHOKINASE 38 U/L (39-308); FREE T4 1.14 NG/DL (0.76-1.46); GLOMERULAR FILTRATION RATE 45.9 (>49); GLUCOSE, FASTING 143 MG/DL (70-100); MB/CK RELATIVE INDEX 2.63 (< OR =4); POTASSIUM SERUM 4.2 MEQ/L (3.5-5.1); SODIUM LEVEL 139 MEQ/L (136-145); THYROID STIMULATING HORMONE 0.333 uIU/ML (0.358-3.740); TOTAL PROTEIN 5.9 GM/DL (6.4-8.2); TROPONIN I 0.06 NG/ML (< 0.10)
[2019-02-28] MEDS ORDERED: ISOVUE-370 76% 100ML VIAL (Q9967) As Ordered ONE (19:10)
--- NOTE | 2019-02-28 19:30 | REP ---
This x-ray: Two views: History: Chest pain. Comparison study: February 10, 2019. Findings: Interstitial markings are somewhat prominent diffusely unchanged from prior study. No acute infiltrate is seen. Pleural angles are sharp. The heart is not felt to be enlarged. Pulmonary vasculature is somewhat cephalized but unchanged. The aorta is calcific and tortuous. Impression: Chronic changes including mild bibasilar interstitial fibrosis and pulmonary vascular cephalization. No acute abnormality. Electronically Signed by Logan Castillo MD 02/28/2019 07:45 P
[2019-02-28 19:32] LABS: DIGOXIN LEVEL 1.2 NG/ML (0.5-2.0)
[2019-02-28] MEDS ORDERED: POTA10CA32 PO (22:04)
[2019-02-28] MEDS ORDERED: ELIQ5TAB PO (22:04)
[2019-02-28] MEDS ORDERED: TIOT18INH INH ×2 (22:04→22:05)
[2019-02-28] MEDS ORDERED: SPIR-10 PO (22:04)
[2019-02-28] MEDS ORDERED: VERA240C PO (22:05)
--- NOTE | 2019-02-28 23:09 | HPEPDOC ---
[facility] Medical History & Physical Date of Admission Mar 01, 2019 Date of Service: Mar 01, 2019 History and Physical CHIEF COMPLAINT: SOB HISTORY OF PRESENT ILLNESS: Patient is a 68-year-old male with past medical history of severe COPD on 4L home O2 daytime and 7-8L nighttime, HTN, Abib, Hypothyroidism, HFpEF, CKD III presented to ER with complains of worsening SOB for the past few days. He normally follows with Dr. Sexton. He denies any other complaints apart from SOB. Patient noted to be hypoxic in ER requiring NRB. ABG noted pO2 69 on facemask. He reports feeling slightly better now but still SOB. Otherwise no other complaints. PAST MEDICAL HISTORY: Refer to [facility] PAST SURGICAL HISTORY: None SOCIAL HISTORY: Former smoker. Denies alcohol or illicit drug use. FAMILY HISTORY: None he can recall ALLERGIES: Please see below. REVIEW OF SYSTEMS: 10 point review of system negative except as stated in HPI HOME MEDICATIONS: Please see below. PHYSICAL EXAMINATION: General: Lethargic, weak. Mild respiratory distress. Eyes: Normal sclera, EOMI, LARA HENT: Atraumatic, neck supple, moist mucous membranes Cardiovascular: Normal rate. No murmurs appreciated. Pulmonary: Decrease breath sounds with b/l diffuse wheezing. GI: Soft, nontender, nondistended Skin: Warm and dry Neuro: CN grossly intact. No focal deficits. Strengths equal b/l. Psych: oriented x 3 LABORATORY DATA: See below. IMAGING: CXR- Impression: Chronic changes including mild bibasilar interstitial fibrosis and pulmonary vascular cephalization. No acute abnormality. CT chest Angio- f/u report MICROBIOLOGY: Please see below. ASSESSMENT AND PLAN: 1. COPD exacerbation - No significant CO2 retention on ABG but hypoxic. - O2 support via NRB. Titrate to NC if able. - May need Pulm consult in AM. - c/w solumedrol. - Duonebs standing and PRN for SOB. Wheezing still noted but patient reports feeling better already. - CXR and CT scan noted. No evidence of PE. 2. Afib - c/w AC and home meds. - Hold CCB and any antihypertensive. Patient currently hypotensive. 3. Hypotension - No clear evidence of sepsis but has been flucutating around MAP of 65. - Obtain LA. If elevated, will draw blood cultures and may start on blood spectrum abx. - Low threshold to be aggressive. - Will admit to ICU. 4. HTN? - Hypotensive at this time. - Hold all pressure meds. - IVF if needed. 5. Hypothyroid - Resume home meds. DVT ppx: Eliquis and SCD Code status: DNR Vital Signs Vital Signs Date Time Temp Pulse Resp B/P (MAP) Pulse Ox O2 Delivery O2 Flow Rate FiO2 02/28/19 21:30 94 89 Venturi Mask 15.0 50 02/28/19 21:00 115/68 (84) 02/28/19 16:58 97.1 02/28/19 16:38 20 Laboratory Data Labs 24H Laboratory Tests 2 02/28/19 17:43: Immature Granulocyte % (Auto) 2.0, White Blood Count 12.7H, Red Blood Count 4.91, Hemoglobin 13.9, Hematocrit 42.9, Mean Corpuscular Volume 87.4, Mean Corpuscular Hemoglobin 28.3, Mean Corpuscular Hemoglobin Concent 32.4, Red Cell Distribution Width 17.9H, Platelet Count 176, Neutrophils (%) (Auto) 89.1H, Lymphocytes (%) (Auto) 4.2L, Monocytes (%) (Auto) 3.8, Eosinophils (%) (Auto) 0.6, Basophils (%) (Auto) 0.3, Neutrophils # (Auto) 11.4H, Lymphocytes # (Auto) 0.5L, Monocytes # (Auto) 0.5, Eosinophils # (Auto) 0.1, Basophils # (Auto) 0.0, Nucleated Red Blood Cells % (auto) 0.0, Prothrombin Time 20.1H, Prothromb Time International Ratio 1.68, Activated Partial Thromboplast Time 44.3H, Anion Gap 9, Glomerular Filtration Rate 45.9L, Calcium Level 7.8L, Aspartate Amino Transf (AST/SGOT) 18, Alanine Aminotransferase (ALT/SGPT) 25, Alkaline Phosphatase 59, Total Bilirubin 1.2H, Direct Bilirubin 0.5H, Total Creatine Kinase 38L, Creatine Kinase MB < 1.0, Creatine Kinase MB Relative Index 2.63, Troponin I 0.06, Total Protein 5.9L, Albumin 2.5L, Albumin/Globulin Ratio 0.74L, Thyroid Stimulating Hormone (TSH) 0.333L, Free Thyroxine 1.14, Digoxin Level 1.2 02/28/19 18:05: Blood Gas Bicarbonate Standard 24.6, Arterial Blood pH 7.433, Arterial Blood Partial Pressure CO2 37.0, Arterial Blood Partial Pressure O2 69.3L, Arterial Blood Total CO2 25.3, Arterial Blood HCO3 24.2, Arterial Blood Base Excess 0.3, Arterial Blood Oxygen Saturation 93.6L CBC/BMP Laboratory Tests 02/28/19 17:43 Red Blood Count 4.91, Mean Corpuscular Volume 87.4, Mean Corpuscular Hemoglobin 28.3, Mean Corpuscular Hemoglobin Concent 32.4, Red Cell Distribution Width 17.9 H, Neutrophils (%) (Auto) 89.1 H, Lymphocytes (%) (Auto) 4.2 L, Monocytes (%) (Auto) 3.8, Eosinophils (%) (Auto) 0.6, Basophils (%) (Auto) 0.3, Neutrophils # (Auto) 11.4 H, Lymphocytes # (Auto) 0.5 L, Monocytes # (Auto) 0.5, Eosinophils # (Auto) 0.1, Basophils # (Auto) 0.0 Home Medications Scheduled Apixaban (Eliquis) 5 Mg Tablet, 5 MG PO BID Digoxin (Digoxin) 125 Mcg Tablet, 125 MCG PO DAILY Fluticasone Propion/Salmeterol (Advair Hfa 230-21 Mcg Inhaler) 12 Gm Hfa.aer.ad, 2 PUFF INH BID Pantoprazole Sodium (Pantoprazole Sodium) 40 Mg Tablet.dr, 40 MG PO DAILY Potassium Chloride (Potassium Chloride) 10 Meq Capsule.er, 10 MEQ PO DAILY 1200 Spironolactone (Spironolactone) 25 Mg Tablet, 12.5 MG PO DAILY Tiotropium [place] Monohydrate (Spiriva) 18 Mcg Cap.w.dev, 1 INHALATION INH DAILY 1500 Torsemide (Torsemide) 20 Mg Tablet, 10 MG PO QPM TAKES AT 1700 Verapamil HCl (Verapamil ER) 240 Mg Cap24h.pel, 240 MG PO DAILY Allergies Coded Allergies: aspirin (Verified Adverse Reaction, Intermediate, bleeding, 12/21/18) Penicillins (Verified Adverse Reaction, Mild, gi upset, 12/21/18) A-FIB/CHADSVASC A-FIB History Current/History of A-Fib/PAF?: Yes Current PO Anticoag Therapy: Yes RANI GOMEZ MD Feb 28, 2019 23:09
[2019-03-01] VITALS (7 sets, daily range): BP systolic 90–142; BP diastolic 57–81
[2019-03-01] MEDS ORDERED: IPRATROPIUM 0.5MG/ALBUTEROL 2.5MG INH SOL UD 3ML (DUONEB)(J7620) NEB PRN (01:30)
[2019-03-01] MEDS ORDERED: ACETAMINOPHEN TAB 650MG DOSE (2X325MG) PO PRN (01:30)
[2019-03-01] MEDS ORDERED: methylPREDNISolone INJ 125 MG/2 ML VIAL (J2930) IV ONE (01:45)
[2019-03-01] MEDS: NYSTATIN OINTMENT 15 GM TOP SCH ×3 (04:30→20:56)
[2019-03-01 04:57] LABS: HEMATOCRIT 42.5 % (42.0-52.0); HEMOGLOBIN 13.6 g/dl (13.5-17.5); MEAN CORPUSCULAR HEMOGLOBIN 27.4 pg (27.0-33.0); MEAN CORPUSCULAR VOLUME 85.7 fl (80.0-96.0); PLATELET COUNT, AUTOMATED 185 10^3/uL (150-450); RED BLOOD COUNT 4.96 10^6/uL (4.30-6.10); WHITE BLOOD COUNT 8.3 10^3/uL (4.0-10.0)
[2019-03-01] MEDS: IPRATROPIUM 0.5MG/ALBUTEROL 2.5MG INH SOL UD 3ML (DUONEB)(J7620) NEB SCH ×4 (05:04→20:00)
[2019-03-01 05:22] LABS: CALCIUM LEVEL 8.5 MG/DL (8.8-10.2); CREATININE FOR GFR 1.68 MG/DL (0.70-1.30); GLOMERULAR FILTRATION RATE 43.3 (>49); POTASSIUM SERUM 4.2 MEQ/L (3.5-5.1)
--- NOTE | 2019-03-01 07:13 | REP ---
CT pulmonary angiogram: With IV contrast. History: Shortness of breath. Hypoxia. A Comparison studies: Comparison chest CT study January 12, [address] done without [address]. [address] CT pulmonary angiogram December 10, 2017. Contrast dose: 75 ML of Isovue [address] technique: Helical scanning is acquired and overlapping 1.5 mm and contiguous 3 mm axial images are reformatted. In addition, maximum intensity projection and multiplanar re-formation images are generated in sagittal and coronal imaging projections. CT pulmonary angiographic findings: There is good opacification of the pulmonary arterial tree. There is no CT evidence of pulmonary embolism. Thoracic aorta enhances homogeneously and is normal in course and caliber. There is atherosclerotic plaquing in the descending thoracic aorta. No pleural or pericardial effusion is seen. There is mild bilateral hilar and mediastinal lymphadenopathy again noted unchanged from the comparison CT study of December 10, 2017. Some nodular enlargement of the thyroid extends into the mediastinum as well also unchanged. There are extensive emphysematous changes bilaterally. Bullous disease affects the lower lobes predominantly. This pattern of pulmonary parenchymal changes unchanged from the prior CT study of December 10, 2017. Maximal intensity projection images show no filling defect or vessel cutoff. No significant pulmonary nodule is appreciated. No bony destructive lesion is seen. There is a 4.1 cm low density lesion in the right lobe of the liver consistent with a cyst. This is unchanged from the comparison CT study of December 10, 2017. There is a subcentimeter cyst in the left lobe of the liver also unchanged. No adrenal abnormality is observed. The visualized upper abdominal structures are otherwise unremarkable. Impression: No CT evidence of pulmonary embolism. Stable mediastinal lymphadenopathy. Radiographically stable COPD changes. Hepatic cysts again noted. Electronically Signed by Logan Castillo MD 03/01/2019 09:43 A
--- NOTE | 2019-03-01 08:04 | ECGEPIP ---
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
--- NOTE | 2019-03-01 08:14 | ECGEPIP ---
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
[2019-03-01] MEDS: PANTOPRAZOLE 40MG TAB (PROTONIX) PO SCH (08:45)
[2019-03-01] MEDS: APIXABAN 5 MG TAB (ELIQUIS) PO SCH ×2 (08:46→20:56)
[2019-03-01] MEDS: POTASSIUM CHLORIDE 10 MEQ SR TABLET PO SCH (08:46)
[2019-03-01] MEDS: methylPREDNISolone INJ 125 MG/2 ML VIAL (J2930) IV SCH ×2 (11:32→20:56)
[2019-03-01] MEDS: SPIRONOLACTONE 12.5MG PER 1/2 TABLET PO SCH (12:47)
[2019-03-01] MEDS: DIGOXIN 0.125 MG TAB PO SCH (12:47)
--- NOTE | 2019-03-01 12:50 | IPNPDOC ---
Date Seen The patient was seen on 03/01/19. Progress Note SUBJECTIVE: Patient reports feeling much better at this time, he is breathing more easily but not back to normal otherwise patient denies chest pain, nausea, vomiting, fevers, chills OBJECTIVE PHYSICAL EXAMINATION: VITAL SIGNS: Please see below. GENERAL: Pleasant sleeping peacefully on left side, easily awoken, awake alert oriented speaking in complete sentences no acute distress, no dyspnea HEENT: Moist mucous membranes no appreciable elevation and CVP CARDIOVASCULAR: S1 S2 regular no additional heart sounds appreciated mildly tachycardic. RESPIRATORY: Clear to auscultation bilaterally.Barrel chested, prolonged expiratory phase, no audible wheeze. ABDOMINAL: Bowel sounds present abdomen soft and nontender EXTREMITIES: No clubbing cyanosis , trace b/l edema NEUROLOGICAL: Spontaneously moves all 4 extremities cranial 2 through 12 grossly intact no gross focal deficits appreciated PSYCHOLOGICAL: Appropriate LABORATORY DATA, MICROBIOLOGY: Please see below. IMAGING STUDIES: CTA Chest: No CT evidence of pulmonary embolism. Stable mediastinal lymphadenopathy. Radiographically stable COPD changes. Hepatic cysts again noted. ASSESSMENT AND PLAN: This is a 68-year-old man with shortness of breath. PROBLEMS: 1. Acute on chronic hypoxic respiratory failure: Recurrent hospitalizations, this is his 3rd admit within the last 2 months related to same chief complaint. First visit was related to a documented rhinovirus infection, since then PNA. At this time he does not appear to be grossly septic, afebrile, stable BP, no leukocytosis today, feels improved. As such no antibiotics provided at this time. Patient at baseline 4L O2 while awake and 8L at night, presently on 10L while awake. Likely secondary to decompensated .COPD and possibly pulmonary hypertension. Patient with known history of cor pulmonale and pulm HTN secondary to long standing hypoxia. Continue with IV solumedrol, torsemide, duonebs, he ap pears to be improving with these measure. His symptoms worsened on the outpatient as he tapered off of his prednisone soon after discharge. Given his advanced disease I suspect he would benefit from daily 10mg PO Prednisone continuously after a taper this time and close follow up in the pulmonary cl inic. 2. Chronic kidney disease, stable. I will resume his home torsemide, monitor daily 3. Polycythemia. Controlled Hemoglobin is less than 18, no need for intervention at this time. 4. Goiter. This is being followed by endocrinology as an outpatient. 5. Atrial fibrillation. He is anticoagulated with Eliquis. rate controlled with digoxin and verapmil 7. Gastroesophageal reflux disease (GERD). Continue with pantoprazole. 8. Diastolic congestive heart failure: As outlined above. Continue to check daily weighs, input and output. Mild peripheral edema more likely related to cor pulmonale 9. Hypertension. Continue with verapamil torsemide and spironolactone. 10. Obesity, complicating care. DISPOSITION: Pending clinical improvement given his poor baseline respiratory status his prognosis is certainly guarded will order PTOT DVT prophylaxis: Eliquis VS, I&O, 24H, Fishbone Vital Signs/I&O Vital Signs Date Time Temp Pulse Resp B/P (MAP) Pulse Ox O2 Delivery O2 Flow Rate FiO2 03/01/19 09:00 89 90 9.0 03/01/19 08:00 96.8 22 112/78 (89) 03/01/19 02:50 50 03/01/19 02:30 Venturi Mask I&O- Last 24 Hours up to 6 AM 03/01/19 06:00 Intake Total 0 ml Output Total 200 ml Balance -200 ml Laboratory Data 24H LABS Laboratory Tests 2 02/28/19 17:43: Immature Granulocyte % (Auto) 2.0, White Blood Count 12.7H, Red Blood Count 4.91, Hemoglobin 13.9, Hematocrit 42.9, Mean Corpuscular Volume 87.4, Mean Corpuscular Hemoglobin 28.3, Mean Corpuscular Hemoglobin Concent 32.4, Red Cell Distribution Width 17.9H, Platelet Count 176, Neutrophils (%) (Auto) 89.1H, Lymphocytes (%) (Auto) 4.2L, Monocytes (%) (Auto) 3.8, Eosinophils (%) (Auto) 0.6, Basophils (%) (Auto) 0.3, Neutrophils # (Auto) 11.4H, Lymphocytes # (Auto) 0.5L, Monocytes # (Auto) 0.5, Eosinophils # (Auto) 0.1, Basophils # (Auto) 0.0, Nucleated Red Blood Cells % (auto) 0.0, Prothrombin Time 20.1H, Prothromb Time International Ratio 1.68, Activated Partial Thromboplast Time 44.3H, Anion Gap 9, Glomerular Filtration Rate 45.9L, Calcium Level 7.8L, Aspartate Amino Transf (AST/SGOT) 18, Alanine Aminotransferase (ALT/SGPT) 25, Alkaline Phosphatase 59, Total Bilirubin 1.2H, Direct Bilirubin 0.5H, Total Creatine Kinase 38L, Creatine Kinase MB < 1.0, Creatine Kinase MB Relative Index 2.63, Troponin I 0.06, Total Protein 5.9L, Albumin 2.5L, Albumin/Globulin Ratio 0.74L, Thyroid Stimulating Hormone (TSH) 0.333L, Free Thyroxine 1.14, Digoxin Level 1.2 02/28/19 18:05: Blood Gas Bicarbonate Standard 24.6, Arterial Blood pH 7.433, Arterial Blood Partial Pressure CO2 37.0, Arterial Blood Partial Pressure O2 69.3L, Arterial Blood Total CO2 25.3, Arterial Blood HCO3 24.2, Arterial Blood Base Excess 0.3, Arterial Blood Oxygen Saturation 93.6L 03/01/19 01:51: Lactic Acid Level 1.9 03/01/19 04:28: Nucleated Red Blood Cells % (auto) 0.0, Anion Gap 7L, Glomerular Filtration Rate 43.3L, Calcium Level 8.5L, Blood Urea Nitrogen 30H, Creatinine 1.68H, Sodium Level 141, Potassium Level 4.2, Chloride Level 106, Carbon Dioxide Level 28 CBC/BMP Laboratory Tests 02/28/19 17:43 Red Blood Count 4.91, Mean Corpuscular Volume 87.4, Mean Corpuscular Hemoglobin 28.3, Mean Corpuscular Hemoglobin Concent 32.4, Red Cell Distribution Width 17.9 H, Neutrophils (%) (Auto) 89.1 H, Lymphocytes (%) (Auto) 4.2 L, Monocytes (%) (Auto) 3.8, Eosinophils (%) (Auto) 0.6, Basophils (%) (Auto) 0.3, Neutrophils # (Auto) 11.4 H, Lymphocytes # (Auto) 0.5 L, Monocytes # (Auto) 0.5, Eosinophils # (Auto) 0.1, Basophils # (Auto) 0.0 03/01/19 04:28 Red Blood Count 4.96, Mean Corpuscular Volume 85.7, Mean Corpuscular Hemoglobin 27.4, Mean Corpuscular Hemoglobin Concent 32.0, Red Cell Distribution Width 17.6 H, Calcium Level 8.5 L RANDAL FERRARI MD Mar 01, 2019 12:50
[2019-03-01] MEDS: TIOTROPIUM INHALER/CAPSULE (SPIRIVA) INH SCH (13:22)
[2019-03-01] MEDS: ADVAIR HFA 230/21MCG INHALER INH SCH ×2 (13:23→19:29)
[2019-03-01] MEDS: VERAPAMIL 120 MG SR TAB PO SCH (16:13)
[2019-03-01] MEDS: TORSEMIDE 10 MG TABLET PO SCH (16:14)
[2019-03-02] VITALS (8 sets, daily range): BP systolic 110–127; BP diastolic 55–76
[2019-03-02] MEDS: IPRATROPIUM 0.5MG/ALBUTEROL 2.5MG INH SOL UD 3ML (DUONEB)(J7620) NEB SCH ×4 (02:07→20:00)
[2019-03-02] MEDS: methylPREDNISolone INJ 125 MG/2 ML VIAL (J2930) IV SCH ×3 (04:08→20:38)
[2019-03-02 04:54] LABS: HEMATOCRIT 39.1 % (42.0-52.0); HEMOGLOBIN 12.4 g/dl (13.5-17.5); MEAN CORPUSCULAR HEMOGLOBIN 27.7 pg (27.0-33.0); MEAN CORPUSCULAR HGB CONC 31.7 g/dl (32.0-36.5); MEAN CORPUSCULAR VOLUME 87.5 fl (80.0-96.0); PLATELET COUNT, AUTOMATED 194 10^3/uL (150-450); RED BLOOD COUNT 4.47 10^6/uL (4.30-6.10); WHITE BLOOD COUNT 15.2 10^3/uL (4.0-10.0)
[2019-03-02 05:15] LABS: CALCIUM LEVEL 8.9 MG/DL (8.8-10.2); CREATININE FOR GFR 1.5 MG/DL (0.70-1.30); GLOMERULAR FILTRATION RATE 49.4 (>49); POTASSIUM SERUM 4.1 MEQ/L (3.5-5.1)
[2019-03-02] MEDS: ADVAIR HFA 230/21MCG INHALER INH SCH ×2 (07:28→19:48)
[2019-03-02] MEDS: TIOTROPIUM INHALER/CAPSULE (SPIRIVA) INH SCH (07:28)
[2019-03-02] MEDS: PANTOPRAZOLE 40MG TAB (PROTONIX) PO SCH (09:11)
[2019-03-02] MEDS: APIXABAN 5 MG TAB (ELIQUIS) PO SCH ×2 (09:12→20:38)
[2019-03-02] MEDS: POTASSIUM CHLORIDE 10 MEQ SR TABLET PO SCH (09:12)
[2019-03-02] MEDS: DIGOXIN 0.125 MG TAB PO SCH (09:12)
[2019-03-02] MEDS: NYSTATIN OINTMENT 15 GM TOP SCH ×2 (09:13→21:00)
[2019-03-02] MEDS: SPIRONOLACTONE 12.5MG PER 1/2 TABLET PO SCH (09:14)
[2019-03-02] MEDS: VERAPAMIL 120 MG SR TAB PO SCH (09:15)
--- NOTE | 2019-03-02 12:08 | IPNPDOC ---
Date Seen The patient was seen on 03/02/19. Progress Note SUBJECTIVE: Patient reports feeling better at this time, he is breathing more easily but not back to normal, he was able to use the bathroom this AM and recovered quickly otherwise patient denies chest pain, nausea, vomiting, fevers, chills OBJECTIVE PHYSICAL EXAMINATION: VITAL SIGNS: Please see below. GENERAL: Pleasant man, sitting up in bed awake alert oriented speaking in complete sentences no acute distress, no dyspnea no excessive muscle use HEENT: Moist mucous membranes no appreciable elevation and CVP CARDIOVASCULAR: S1 S2 regular no additional heart sounds appreciated he is not tachycardic at the time of my exam RESPIRATORY: Clear to auscultation bilaterally.Barrel chested, prolonged expiratory phase, no audible wheeze. ABDOMINAL: Bowel sounds present abdomen soft and nontender, obese EXTREMITIES: No clubbing cyanosis , trace b/l edema improved from previous days exam NEUROLOGICAL: Spontaneously moves all 4 extremities cranial 2 through 12 grossly intact no gross focal deficits appreciated PSYCHOLOGICAL: Appropriate LABORATORY DATA, MICROBIOLOGY: Please see below. IMAGING STUDIES: CTA Chest: No CT evidence of pulmonary embolism. Stable mediastinal lymphadenopathy. Radiographically stable COPD changes. Hepatic cysts again noted. ASSESSMENT AND PLAN: This is a 68-year-old man with shortness of breath. PROBLEMS: 1. Acute on chronic hypoxic respiratory failure: Recurrent hospitalizations, this is his 3rd admit within the last 2 months related to same chief complaint. First visit was related to a documented rhinovirus infection, since then PNA. At this time he does not appear to be grossly septic, afebrile, stable BP, no leukocytosis today, feels improved. As such no antibiotics provided at this time. Patient at baseline 4-5L O2 while awake and 8L at night, presently on 10L while awake but improving clinically. Likely secondary to decompensated COPD and possibly pulmonary hypertension. Patient with known history of cor pulmonale and pulm HTN secondary to long standing hypoxia. Continue with IV solumedrol, torsemide, duonebs, he appears to be improving with these measures, . His symptoms worsened on the outpatient as he tapered off of his prednisone soon after discharge. Given his advanced disease I suspect he would benefit from daily 10mg PO Prednisone continuously after a taper this time and close follow up in the pulmonary clinic. 2. Chronic kidney disease, stable. I have resumed his home torsemide, monitor daily 3. Polycythemia. Controlled Hemoglobin is less than 18, no need for intervention at this time. 4. Goiter. This is being followed by endocrinology as an outpatient. 5. Atrial fibrillation. He is anticoagulated with Eliquis. rate controlled with digoxin and verapmil 7. Gastroesophageal reflux disease (GERD). Continue with pantoprazole. 8. Diastolic congestive heart failure: As outlined above. Continue to check daily weighs, input and output. Mild peripheral edema but improving more likely related to cor pulmonale 9. Hypertension. Continue with verapamil torsemide and spironolactone. 10. Obesity, complicating care. DISPOSITION: Pending clinical improvement given his poor baseline respiratory status his prognosis is certainly guarded will order PTOT DVT prophylaxis: Eliquis VS, I&O, 24H, Fishbone Vital Signs/I&O Vital Signs Date Time Temp Pulse Resp B/P (MAP) Pulse Ox O2 Delivery O2 Flow Rate FiO2 03/02/19 09:50 10.0 03/02/19 09:39 96.2 101 24 126/75 (92) 95 03/01/19 02:50 50 03/01/19 02:30 Venturi Mask I&O- Last 24 Hours up to 6 AM 03/02/19 06:00 Intake Total 2280 ml Output Total 1950 ml Balance 330 ml Laboratory Data 24H LABS Laboratory Tests 2 03/02/19 04:42: Nucleated Red Blood Cells % (auto) 0.0, Anion Gap 7L, Glomerular Filtration Rate 49.4, Blood Urea Nitrogen 35H, Creatinine 1.50H, Sodium Level 141, Potassium Level 4.1, Chloride Level 108H, Carbon Dioxide Level 26, Calcium Level 8.9 CBC/BMP Laboratory Tests 03/02/19 04:42 Red Blood Count 4.47, Mean Corpuscular Volume 87.5, Mean Corpuscular Hemoglobin 27.7, Mean Corpuscular Hemoglobin Concent 31.7 L, Red Cell Distribution Width 17.5 H, Calcium Level 8.9 RANDAL FERRARI MD Mar 02, 2019 12:08
[2019-03-02] MEDS: TORSEMIDE 10 MG TABLET PO SCH (16:07)
[2019-03-03 02:00] VITALS: BP 103/57
[2019-03-03] MEDS: IPRATROPIUM 0.5MG/ALBUTEROL 2.5MG INH SOL UD 3ML (DUONEB)(J7620) NEB SCH ×4 (02:00→20:00)
[2019-03-03] MEDS: methylPREDNISolone INJ 125 MG/2 ML VIAL (J2930) IV SCH ×3 (04:14→20:28)
[2019-03-03 06:00] VITALS: BP 128/73
[2019-03-03] MEDS: ADVAIR HFA 230/21MCG INHALER INH SCH ×2 (07:45→20:18)
[2019-03-03] MEDS: TIOTROPIUM INHALER/CAPSULE (SPIRIVA) INH SCH (07:45)
[2019-03-03] MEDS: POTASSIUM CHLORIDE 10 MEQ SR TABLET PO SCH (08:27)
[2019-03-03] MEDS: PANTOPRAZOLE 40MG TAB (PROTONIX) PO SCH (08:27)
[2019-03-03] MEDS: VERAPAMIL 120 MG SR TAB PO SCH (08:27)
[2019-03-03] MEDS: APIXABAN 5 MG TAB (ELIQUIS) PO SCH ×2 (08:27→20:28)
[2019-03-03] MEDS: SPIRONOLACTONE 12.5MG PER 1/2 TABLET PO SCH (08:27)
[2019-03-03] MEDS: DIGOXIN 0.125 MG TAB PO SCH (08:28)
[2019-03-03] MEDS: NYSTATIN OINTMENT 15 GM TOP SCH ×2 (08:28→20:28)
[2019-03-03 08:37] LABS: HEMATOCRIT 43.6 % (42.0-52.0); HEMOGLOBIN 13.6 g/dl (13.5-17.5); MEAN CORPUSCULAR HGB CONC 31.2 g/dl (32.0-36.5); MEAN CORPUSCULAR VOLUME 89.9 fl (80.0-96.0); PLATELET COUNT, AUTOMATED 214 10^3/uL (150-450); RED BLOOD COUNT 4.85 10^6/uL (4.30-6.10); WHITE BLOOD COUNT 15.7 10^3/uL (4.0-10.0)
[2019-03-03 08:56] LABS: CALCIUM LEVEL 9.1 MG/DL (8.8-10.2); CREATININE FOR GFR 1.49 MG/DL (0.70-1.30); GLOMERULAR FILTRATION RATE 49.8 (>49); POTASSIUM SERUM 4.3 MEQ/L (3.5-5.1)
[2019-03-03 10:00] VITALS: BP 116/64
[2019-03-03 14:00] VITALS: BP 113/62
--- NOTE | 2019-03-03 16:56 | IPNPDOC ---
Date Seen The patient was seen on 03/03/19. Progress Note SUBJECTIVE: Patient reports that he continues to feel little bit better each day and that his breathing is easier. He tells me that his oxygen saturation was in the high 90s last night while sleeping but drops down quickly with any speaking or moving. He is not back to his normal but certainly better from when he presented he states. otherwise patient denies chest pain, nausea, vomiting, fev ers, chills OBJECTIVE PHYSICAL EXAMINATION: VITAL SIGNS: Please see below. GENERAL: Pleasant man, sitting up in bed awake alert oriented speaking in complete sentences no acute distress, no dyspnea no accessory muscle use HEENT: Moist mucous membranes no appreciable elevation and CVP. CARDIOVASCULAR: S1 S2 regular no additional heart sounds appreciated he is not tachycardic RESPIRATORY: Clear to auscultation bilaterally.Barrel chested, prolonged expiratory phase, mild end expiratory wheeze ABDOMINAL: Bowel sounds present abdomen soft and nontender, obese EXTREMITIES: No clubbing cyanosis , trace b/l edema persists NEUROLOGICAL: Spontaneously moves all 4 extremities cranial 2 through 12 grossly intact no gross focal deficits appreciated PSYCHOLOGICAL: Appropriate LABORATORY DATA, MICROBIOLOGY: Please see below. IMAGING STUDIES: CTA Chest: No CT evidence of pulmonary embolism. Stable mediastinal lymphadenopathy. Radiographically stable COPD changes. Hepatic cysts again noted. ASSESSMENT AND PLAN: This is a 68-year-old man with shortness of breath. PROBLEMS: 1. Acute on chronic hypoxic respiratory failure: Recurrent hospitalizations, I suspect that he is had disease progression in his new baseline is worse than his previously known. I suspected benefit from long-standing daily steroid use. I will continue to monitor him additional day I suspect he may be plateauing we have reached his new baseline. He is likely undergoing a decompensation of COPD and possibly worsening of his pulmonary hypertension.Continue with IV solumedrol, torsemide, duonebs, he appears to be improving with these measures, . His symptoms worsened on the outpatient as he tapered off of his prednisone soon after discharge. Given his advanced disease I suspect he would benefit from daily 10mg PO Prednisone continuously after a taper this time and close follow up in the pulmonary clinic. 2. Chronic kidney disease, stable. I have resumed his home torsemide, monitor daily 3. Polycythemia. Controlled Hemoglobin is less than 18, no need for intervention at this time. 4. Goiter. This is being followed by endocrinology as an outpatient. 5. Atrial fibrillation. He is anticoagulated with Eliquis. rate controlled with digoxin and verapmil 7. Gastroesophageal reflux disease (GERD). Continue with pantoprazole. 8. Diastolic congestive heart failure: As outlined above. Continue to check daily weighs, input and output. Mild peripheral edema but stable and likely related to cor pulmonale 9. Hypertension. Continue with verapamil torsemide and spironolactone. 10. Obesity, complicating care. DISPOSITION: Pending clinical improvement given his poor baseline respiratory status his prognosis is certainly guarded will order PTOT DVT prophylaxis: Eliquis VS, I&O, 24H, Fishbone Vital Signs/I&O Vital Signs Date Time Temp Pulse Resp B/P (MAP) Pulse Ox O2 Delivery O2 Flow Rate FiO2 03/03/19 14:00 96.1 85 20 113/62 (79) 91 10.0 03/01/19 02:50 50 03/01/19 02:30 Venturi Mask I&O- Last 24 Hours up to 6 AM 03/03/19 06:00 Intake Total 1770 ml Output Total 1075 ml Balance 695 ml Laboratory Data 24H LABS Laboratory Tests 2 03/03/19 08:08: Nucleated Red Blood Cells % (auto) 0.1H, Anion Gap 8, Glomerular Filtration Rate 49.8, Blood Urea Nitrogen 32H, Creatinine 1.49H, Sodium Level 141, Potassium Level 4.3, Chloride Level 106, Carbon Dioxide Level 27, Calcium Level 9.1 CBC/BMP Laboratory Tests 03/03/19 08:08 Red Blood Count 4.85, Mean Corpuscular Volume 89.9, Mean Corpuscular Hemoglobin 28.0, Mean Corpuscular Hemoglobin Concent 31.2 L, Red Cell Distribution Width 17.9 H, Calcium Level 9.1 RANDAL FERRARI MD Mar 03, 2019 16:56
[2019-03-03] MEDS: TORSEMIDE 10 MG TABLET PO SCH (17:56)
[2019-03-03 18:00] VITALS: BP 130/79
[2019-03-04] VITALS (7 sets, daily range): BP systolic 107–148; BP diastolic 61–90
[2019-03-04] MEDS: IPRATROPIUM 0.5MG/ALBUTEROL 2.5MG INH SOL UD 3ML (DUONEB)(J7620) NEB SCH ×4 (01:52→19:51)
[2019-03-04] MEDS: methylPREDNISolone INJ 125 MG/2 ML VIAL (J2930) IV SCH ×3 (04:47→20:24)
[2019-03-04 06:03] LABS: HEMATOCRIT 42.2 % (42.0-52.0); HEMOGLOBIN 13.3 g/dl (13.5-17.5); MEAN CORPUSCULAR HEMOGLOBIN 28.2 pg (27.0-33.0); MEAN CORPUSCULAR HGB CONC 31.5 g/dl (32.0-36.5); MEAN CORPUSCULAR VOLUME 89.4 fl (80.0-96.0); PLATELET COUNT, AUTOMATED 214 10^3/uL (150-450); RED BLOOD COUNT 4.72 10^6/uL (4.30-6.10); WHITE BLOOD COUNT 12.1 10^3/uL (4.0-10.0)
[2019-03-04 06:30] LABS: CALCIUM LEVEL 8.9 MG/DL (8.8-10.2); CREATININE FOR GFR 1.53 MG/DL (0.70-1.30); GLOMERULAR FILTRATION RATE 48.3 (>49); POTASSIUM SERUM 4.4 MEQ/L (3.5-5.1)
[2019-03-04] MEDS: ADVAIR HFA 230/21MCG INHALER INH SCH ×2 (07:30→19:51)
[2019-03-04] MEDS: TIOTROPIUM INHALER/CAPSULE (SPIRIVA) INH SCH (07:33)
[2019-03-04] MEDS: PANTOPRAZOLE 40MG TAB (PROTONIX) PO SCH (08:30)
[2019-03-04] MEDS: POTASSIUM CHLORIDE 10 MEQ SR TABLET PO SCH (08:30)
[2019-03-04] MEDS: APIXABAN 5 MG TAB (ELIQUIS) PO SCH ×2 (08:30→20:24)
[2019-03-04] MEDS: VERAPAMIL 120 MG SR TAB PO SCH (08:30)
[2019-03-04] MEDS: NYSTATIN OINTMENT 15 GM TOP SCH ×2 (08:31→20:25)
[2019-03-04] MEDS: DIGOXIN 0.125 MG TAB PO SCH (08:31)
[2019-03-04] MEDS: SPIRONOLACTONE 12.5MG PER 1/2 TABLET PO SCH (09:48)
[2019-03-04] MEDS: SIMETHICONE 80 MG CHEW TAB PO PRN ×2 (09:52→16:26)
[2019-03-04] MEDS: TORSEMIDE 10 MG TABLET PO SCH (16:26)
--- NOTE | 2019-03-04 16:36 | IPNPDOC ---
Date Seen The patient was seen on 03/04/19. Progress Note SUBJECTIVE: Patient reports that he continues to feel little bit better each day. He is not back to his normal but certainly better from when he presented he states. otherwise patient denies chest pain, nausea, vomiting, fevers, chills OBJECTIVE PHYSICAL EXAMINATION: VITAL SIGNS: Please see below. GENERAL: Pleasant man, sitting up in bed awake alert oriented speaking in complete sentences no acute distress, no dyspnea no accessory muscle use HEENT: Moist mucous membranes no appreciable elevation in CVP. CARDIOVASCULAR: S1 S2 regular no additional heart sounds appreciated he is not tachycardic. RESPIRATORY: Clear to auscultation bilaterally.Barrel chested, prolonged expiratory phase. ABDOMINAL: Bowel sounds present abdomen soft and nontender, obese. EXTREMITIES: No clubbing cyanosis , trace b/l edema persists. NEUROLOGICAL: Spontaneously moves all 4 extremities cranial 2 through 12 grossly intact no gross focal deficits appreciated PSYCHOLOGICAL: Appropriate LABORATORY DATA, MICROBIOLOGY: Please see below. IMAGING STUDIES: CTA Chest: No CT evidence of pulmonary embolism. Stable mediastinal lymphadenopathy. Radiographically stable COPD changes. Hepatic cysts again noted. ASSESSMENT AND PLAN: This is a 68-year-old man with shortness of breath. PROBLEMS: 1. Acute on chronic hypoxic respiratory failure: Recurrent hospitalizations, I suspect that he is had disease progression in his new baseline is worse than his previously known. I suspected benefit from long-standing daily steroid use. Toda y he is approaching his baseline, he is unable to complete stairs without significant desaturations into the lengthy conversation with him as he still improving daily I suspect I can give him an additional 24 hours and will likely be safer disposition home then. He is certainly at high risk for readmission given his frequent hospitalizations for decompensation of his shortness of breath and chronic hypoxic respiratory failure. He is likely undergoing a decompensation of COPD and possibly worsening of his pulmonary hypertension.Continue with IV solumedrol, torsemide, duonebs, he appears to be i mproving with these measures. 2. Chronic kidney disease, stable. I have resumed his home torsemide, monitor daily 3. Polycythemia. Controlled Hemoglobin is less than 18, no need for intervention at this time. 4. Goiter. This is being followed by endocrinology as an outpatient. 5. Atrial fibrillation. He is anticoagulated with Eliquis. rate controlled with digoxin and verapmil 7. Gastroesophageal reflux disease (GERD). Continue with pantoprazole. 8. Diastolic congestive heart failure: As outlined above. Continue to check daily weighs, input and output. Mild peripheral edema but stable and likely related to cor pulmonale 9. Hypertension. Continue with verapamil torsemide and spironolactone. 10. Obesity, complicating care. DISPOSITION: Possibly home within the next 24-48 hours DVT prophylaxis: Eliquis VS, I&O, 24H, Fishbone Vital Signs/I&O Vital Signs Date Time Temp Pulse Resp B/P (MAP) Pulse Ox O2 Delivery O2 Flow Rate FiO2 03/04/19 15:58 5.0 03/04/19 14:00 97.3 95 21 137/75 (95) 88 03/01/19 02:50 50 03/01/19 02:30 Venturi Mask I&O- Last 24 Hours up to 6 AM 03/04/19 06:00 Intake Total 1220 ml Output Total 1700 ml Balance -480 ml Laboratory Data 24H LABS Laboratory Tests 2 03/04/19 05:21: Nucleated Red Blood Cells % (auto) 0.0, Anion Gap 8, Glomerular Filtration Rate 48.3L, Blood Urea Nitrogen 35H, Creatinine 1.53H, Sodium Level 142, Potassium Level 4.4, Chloride Level 105, Carbon Dioxide Level 29, Calcium Level 8.9 CBC/BMP Laboratory Tests 03/04/19 05:21 Red Blood Count 4.72, Mean Corpuscular Volume 89.4, Mean Corpuscular Hemoglobin 28.2, Mean Corpuscular Hemoglobin Concent 31.5 L, Red Cell Distribution Width 17.6 H, Calcium Level 8.9 RANDAL FERRARI MD Mar 04, 2019 16:36
[2019-03-05] MEDS: IPRATROPIUM 0.5MG/ALBUTEROL 2.5MG INH SOL UD 3ML (DUONEB)(J7620) NEB SCH ×3 (02:24→14:00)
[2019-03-05] MEDS: methylPREDNISolone INJ 125 MG/2 ML VIAL (J2930) IV SCH ×2 (04:05→11:30)
[2019-03-05 05:48] LABS: HEMATOCRIT 42.2 % (42.0-52.0); HEMOGLOBIN 13.4 g/dl (13.5-17.5); MEAN CORPUSCULAR HEMOGLOBIN 27.7 pg (27.0-33.0); MEAN CORPUSCULAR HGB CONC 31.8 g/dl (32.0-36.5); MEAN CORPUSCULAR VOLUME 87.4 fl (80.0-96.0); PLATELET COUNT, AUTOMATED 204 10^3/uL (150-450); RED BLOOD COUNT 4.83 10^6/uL (4.30-6.10); WHITE BLOOD COUNT 11.4 10^3/uL (4.0-10.0)
[2019-03-05 06:00] VITALS: BP 128/84
[2019-03-05 06:30] LABS: CALCIUM LEVEL 8.3 MG/DL (8.8-10.2); CREATININE FOR GFR 1.37 MG/DL (0.70-1.30); GLOMERULAR FILTRATION RATE 54.8 (>49)
[2019-03-05 06:31] LABS: POTASSIUM SERUM 4.5 MEQ/L (3.5-5.1)
[2019-03-05] MEDS: TIOTROPIUM INHALER/CAPSULE (SPIRIVA) INH SCH (07:38)
[2019-03-05] MEDS: ADVAIR HFA 230/21MCG INHALER INH SCH (07:38)
[2019-03-05] MEDS: APIXABAN 5 MG TAB (ELIQUIS) PO SCH (08:12)
[2019-03-05 08:13] VITALS: BP 104/72
[2019-03-05] MEDS: POTASSIUM CHLORIDE 10 MEQ SR TABLET PO SCH (08:13)
[2019-03-05] MEDS: DIGOXIN 0.125 MG TAB PO SCH (08:13)
[2019-03-05] MEDS: VERAPAMIL 120 MG SR TAB PO SCH (08:13)
[2019-03-05] MEDS: PANTOPRAZOLE 40MG TAB (PROTONIX) PO SCH (08:13)
[2019-03-05] MEDS: SPIRONOLACTONE 12.5MG PER 1/2 TABLET PO SCH (08:13)
[2019-03-05] MEDS: NYSTATIN OINTMENT 15 GM TOP SCH (08:15)
[2019-03-05 10:00] VITALS: BP 133/85
[2019-03-05] MEDS: SIMETHICONE 80 MG CHEW TAB PO PRN (11:31)
[2019-03-05] MEDS ORDERED: PRED10TA2 PO ×2 (13:31→15:28)
[2019-03-05 14:00] VITALS: BP 138/67
--- NOTE | 2019-03-05 16:28 | DS.PDOC ---
Discharge Summary General Date of Admission Mar 01, 2019 at 01:28 Date of Discharge 03/05/2019 Discharge Summary DISCHARGE DIAGNOSIS:Acute on chronic hypoxic respiratory failure SECONDARY DIAGNOSIS: 1. Chronic kidney disease 2. End-stage COPD 3.CK D 4. Polycythemia 5. Thyroid goiter 6. Atrial fibrillation 7. Gastroesophageal reflux disease 8. Diastolic congestive heart failure 9. Hypertension 10. Obesity PROCEDURES PERFORMED DURING STAY: None. CONSULTANTS: None HOSPITAL COURSE: Patient is a 68-year-old man who lives alone who has had repeated hospitalizations for shortness of breath initially he had a viral infection that subsequently developed pneumonia [facility] [place] representing. He does have significant COPD with significant chronic hypoxic respiratory failure where his baseline he uses approximately 5 L at rest 8 L with activity or sleeping. He follows with Dr. Sexton after his last most recent discharge he tells me that once his steroids were tapered off completely began to have worsening of his symptoms once again. He does not smoke any further. He did improve gradually and slowly with nebulizer treatments and IV Solu-Medrol. He has known pulmonary hypertension as well as diastolic congestive heart failure he did undergo an did undergo some gentle diuresis while hospitalized. At this time he is improved and approaching his baseline.. DISCHARGE MEDICATIONS: Please see below. ALLERGIES: Please see below. SUBJECTIVE: Patient patient tells me that he feels as good today as he has been in the last several months, he does not believe that any more time in the hospital will help him improve any further. He tells me he feels comfortable going home otherwise patient denies chest pain, shortness breath different from his baseline, nausea, vomiting, fevers, chills OBJECTIVE: PHYSICAL EXAMINATION: VITAL SIGNS: Please see below. GENERAL: Pleasant obese man who sits up in bed degree me he has entered the room awake alert oriented speaking in complete sentences no acute distress, no accessory muscle use HEENT: Moist mucous membranes no elevation and CVP CARDIOVASCULAR: S1 S2 regular no additional heart sounds appreciated. He is not tachycardic at the time of my exam RESPIRATORY: Barrel chested prolonged expiratory phase no appreciable wheeze at this time. ABDOMINAL: Bowel sounds present abdomen soft and nontender, obese EXTREMITIES: No clubbing, cyanosis, trace bilateral lower extremity edema NEUROLOGICAL: Spontaneously moves all 4 extremities cranial 2 through 12 grossly intact, no gross focal deficits appreciated PSYCHOLOGICAL: Appropriate IMAGING STUDIES: CTA Chest: No CT evidence of pulmonary embolism. Stable mediastinal lymph adenopathy. Radiographically stable COPD changes. Hepatic cysts again noted. ASSESSMENT AND PLAN: This is a 68-year-old man with acute on chronic hypoxic respiratory failure PROBLEMS: 1. Acute on chronic hypoxic respiratory failure: Recurrent hospitalizations, I suspect that he has had disease progression in this is his new baseline which is worse than his previously known. I have observed him for several days on appropriate treatment he has plateaued. At this time he is requesting discharge given his degree of baseline chronic hypoxic respiratory failure and demon strated history of recurrent hospitalizations I do suspect that he is certainly at risk for rehospitalization once again. I'll provide him with a prednisone taper and then daily prednisone in order to better control his symptoms. I have encouraged him to follow-up with Dr. Sexton who he sees in the pulmonary clinic as soon as possible as well as his PCP within 7 days. From a functional perspective he is cleared physical therapy and he tells me he feels as good as is he has in many months. I suspect this hospitalization was secondary to decompensation of COPD as his steroids were tapered off completely and he provides a history consistent with as much. 2. Chronic kidney disease, stable. He was continued on his home torsemide 3. Polycythemia. Controlled Hemoglobin is less than 18, no need for intervention at this time. 4. Goiter. This is being followed by endocrinology as an outpatient. 5. Atrial fibrillation. He is anticoagulated with Eliquis. rate controlled with digoxin and verapmil 7. Gastroesophageal reflux disease (GERD). Continue with pantoprazole. 8. Diastolic congestive heart failure: He did have some mild peripheral edema during this hospitalization and he was continued on his torsemide he did receive some additional gentle diuresis with minimal change in his status. I do not believe he had significant decompensation of his diastolic congestive heart failure but rather he has trace peripheral edema related to cor pulmonale secondary to pulmonary hypertension related to his underlying lung disease. I've advised him to continue continue to check daily weighs, and maintain a low- sodium fluid restricted diet as he had been instructed to in the past as well he tells me 9. Hypertension. Controlled Continue with verapamil torsemide and reed nolactone. 10. Obesity, complicating care. DISPOSITION: Home to self-care DVT prophylaxis: Eliquis DISCHARGE CONDITION: Improved and Stable. PROGNOSIS: Guarded FOLLOW UP: PCP 7 days, pulmonary clinic as soon as possible ACTIVITY: As prior to admission. DIET: As prior to admission TIME SPENT ON DISCHARGE: 50 minutes Vital Signs/I&Os Vital Signs Date Time Temp Pulse Resp B/P (MAP) Pulse Ox O2 Delivery O2 Flow Rate FiO2 03/05/19 14:00 97.6 116 19 138/67 (90) 90 5.0 03/01/19 02:50 50 03/01/19 02:30 Venturi Mask I&O- Last 24 Hours up to 6 AM 03/05/19 06:00 Intake Total 1930 ml Output Total 1500 ml Balance 430 ml Laboratory Data Labs 24H Laboratory Tests 2 03/05/19 05:24: Nucleated Red Blood Cells % (auto) 0.0, Anion Gap 5L, Glomerular Filtration Rate 54.8, Blood Urea Nitrogen 36H, Creatinine 1.37H, Sodium Level 140, Potassium Level 4.5, Chloride Level 106, Carbon Dioxide Level 29, Calcium Level 8.3L CBC/BMP Laboratory Tests 03/05/19 05:24 Red Blood Count 4.83, Mean Corpuscular Volume 87.4, Mean Corpuscular Hemoglobin 27.7, Mean Corpuscular Hemoglobin Concent 31.8 L, Red Cell Distribution Width 17.4 H, Calcium Level 8.3 L Discharge Medications Scheduled Apixaban (Eliquis) 5 Mg Tablet, 5 MG PO BID, (Reported) Digoxin (Digoxin) 125 Mcg Tablet, 125 MCG PO DAILY, (Reported) Fluticasone Propion/Salmeterol (Advair Hfa 230-21 Mcg Inhaler) 12 Gm Hfa.aer.ad, 2 PUFF INH BID, (Reported) Pantoprazole Sodium (Pantoprazole Sodium) 40 Mg Tablet.dr, 40 MG PO DAILY, (Reported) Potassium Chloride (Potassium Chloride) 10 Meq Capsule.er, 10 MEQ PO DAILY, (Reported) 1200 Prednisone (Prednisone) 10 Mg Tablet, 10 MG PO TAPER Take 4 tabs daily x 3 days, then 3 tabs daily x 3 days, then 2 tabs daily x 3 days, then 1 tab daily from then on Spironolactone (Spironolactone) 25 Mg Tablet, 12.5 MG PO DAILY, (Reported) Tiotropium [place] Monohydrate (Spiriva) 18 Mcg Cap.w.dev, 1 INHALATION INH DAILY, (Reported) 1500 Torsemide (Torsemide) 20 Mg Tablet, 10 MG PO QPM, (Reported) TAKES AT 1700 Verapamil HCl (Verapamil ER) 240 Mg Cap24h.pel, 240 MG PO DAILY, (Reported) Allergies Coded Allergies: aspirin (Verified Adverse Reaction, Intermediate, bleeding, 12/21/18) Penicillins (Verified Adverse Reaction, Mild, gi upset, 12/21/18) RANDAL FERRARI MD Mar 05, 2019 16:28
== END 2019-03-05 15:41 | disposition home or self-care (01) | DRG 189 ==
LOC: M ED 16:30 → EDBD 16:30 → M ED INP 03-01 01:28 → M ICU 03-01 02:45 → M MSPAV 03-02 09:24
PROVIDERS: ADMIT Student in an Organized Health Care Education/Training Program; ATTEND Internal Medicine
DX: J96.21 Acute and chronic respiratory failure with hypoxia (principal); J44.1 Chronic obstructive pulmonary disease with (acute) exacerbation; I50.32 Chronic diastolic (congestive) heart failure; I13.0 Hypertensive heart and chronic kidney disease with heart failure and stage 1 through stage 4 chronic kidney disease, or unspecified chronic kidney disease; I95.9 Hypotension, unspecified; I27.81 Cor pulmonale (chronic); D75.1 Secondary polycythemia; I48.91 Unspecified atrial fibrillation; E66.9 Obesity, unspecified; N18.9 Chronic kidney disease, unspecified; K21.9 Gastro-esophageal reflux disease without esophagitis; E04.1 Nontoxic single thyroid nodule; I27.20 Pulmonary hypertension, unspecified; Z79.899 Other long term (current) drug therapy; Z88.0 Allergy status to penicillin; Z88.6 Allergy status to analgesic agent; Z87.891 Personal history of nicotine dependence

== ENCOUNTER 2019-03-16 13:41 | Inpatient (IN) | payer MEDICARE, OTHER ==
[~2019-03-16] VITALS: Ht 180.3 cm; Wt 112.1 kg
[~2019-03-16 13:41] MED LIST changes: +VERA240C PO
[2019-03-16 14:41] LABS: BASO # 0.1 10^3/uL (0.0-0.2); BASO % 0.4 % (0.0-1.0); EOS % 0.1 % (0.0-3.0); HEMATOCRIT 44.8 % (42.0-52.0); HEMOGLOBIN 14.7 g/dl (13.5-17.5); LYMPH # 0.5 10^3/uL (1.5-4.5); MEAN CORPUSCULAR HEMOGLOBIN 28.9 pg (27.0-33.0); MEAN CORPUSCULAR HGB CONC 32.8 g/dl (32.0-36.5); MONO # 0.7 10^3/uL (0.0-0.8); MONO % 4.3 % (0.0-5.0); NEUTROPHILS # 14.6 10^3/uL (1.8-7.7); NEUTROPHILS % 89.6 % (36.0-66.0); PLATELET COUNT, AUTOMATED 170 10^3/uL (150-450); RED BLOOD COUNT 5.09 10^6/uL (4.30-6.10); WHITE BLOOD COUNT 16.2 10^3/uL (4.0-10.0)
[2019-03-16 14:53] LABS: ABG BASE EXCESS 3.4 (-2.0-2.0); ABG HCO3 26.9 MEQ/L (22.0-26.0); ABG O2 SATURATION 87.9 % (95.0-99.0); ABG PARTIAL PRESSURE CO2 37.1 mmHg (35.0-45.0); ABG STANDARD HCO3 27.3 MEQ/L (22.0-26.0); ABG pH (ARTERIAL) 7.478 UNITS (7.350-7.450)
[2019-03-16 15:08] LABS: ALBUMIN 2.9 GM/DL (3.2-5.2); ALT/SGPT 29 U/L (12-78); BILIRUBIN,DIRECT 0.3 MG/DL (0.0-0.2); BILIRUBIN,TOTAL 1.3 MG/DL (0.2-1.0); BLOOD UREA NITROGEN 26 MG/DL (7-18); CALCIUM LEVEL 8.6 MG/DL (8.8-10.2); CARBON DIOXIDE LEVEL 29 MEQ/L (21-32); CHLORIDE LEVEL 104 MEQ/L (98-107); CK-MB VALUE MASS < 1.0 NG/ML (<3.6); CPK CREATINE PHOSPHOKINASE 32 U/L (39-308); CREATININE FOR GFR 1.47 MG/DL (0.70-1.30); GLOMERULAR FILTRATION RATE 50.6 (>49); GLUCOSE, FASTING 124 MG/DL (70-100); MB/CK RELATIVE INDEX 3.12 (< OR =4); NT-PRO BNP 2000 PG/ML (<125); POTASSIUM SERUM 4.7 MEQ/L (3.5-5.1); SODIUM LEVEL 139 MEQ/L (136-145); THYROID STIMULATING HORMONE 0.372 uIU/ML (0.358-3.740); TOTAL PROTEIN 6.2 GM/DL (6.4-8.2); TROPONIN I < 0.02 NG/ML (< 0.10)
--- NOTE | 2019-03-16 15:29 | REP ---
PA and lateral chest: Comparison is 02/28/2019. There are no focal infiltrates. No pleural effusions. Cephalization of pulmonary vascular flow is again identified, unchanged. Cardiac size is upper normal, unchanged. The lanny, mediastinum, skeletal structures are remarkable. Impression: There is no interval change. Electronically Signed by Sai Carpenter MD 03/16/2019 03:20 P
[2019-03-16] MEDS ORDERED: IPRATROPIUM 0.5MG/ALBUTEROL 2.5MG INH SOL UD 3ML (DUONEB)(J7620) NEB ONE (15:45)
[2019-03-16] MEDS ORDERED: methylPREDNISolone INJ 125 MG/2 ML VIAL (J2930) IV ONE (15:45)
[2019-03-16] MEDS ORDERED: PRED10TA2 PO (15:55)
[2019-03-16 15:56] LABS: DIGOXIN LEVEL 1.3 NG/ML (0.5-2.0)
[2019-03-16] MEDS ORDERED: ISOVUE-370 76% 100ML VIAL (Q9967) As Ordered ONE (16:00)
--- NOTE | 2019-03-16 16:36 | REP ---
Clinical: Hypoxia. Technique: Axial contrast enhanced images from the thoracic inlet to the upper abdomen using pulmonary embolus protocol including multiplanar re-formations with 100 ml Isovue 370 intravenous contrast material. Comparison: 02/28/2019. Findings: Satisfactory enhancement of the pulmonary vasculature is achieved and no filling defects are identified to suggest pulmonary embolus. Advanced COPD/emphysematous changes noted throughout the bilateral lung silva with very minimal right basilar atelectasis. No effusion. No pneumothorax. Diffuse mediastinal and hilar adenopathy remains stable. Atherosclerotic changes to the thoracic aorta and coronary arteries noted without aortic aneurysm, dissection or cardiomegaly. No pericardial effusion. Musculoskeletal structures demonstrate degenerative changes without focal osseous abnormality. Limited upper abdomen demonstrates stable hepatic hypodensities and normal bilateral adrenal glands. Impression: 1. No evidence for pulmonary embolus. 2. Advanced COPD/emphysematous changes with trace right basilar atelectasis. 3. Stable mediastinal/hilar adenopathy. Electronically Signed by Luis Daniel Beltre MD 03/16/2019 04:27 P
[2019-03-16] MEDS ORDERED: MOM 30ML SUSPENSION UDC PO PRN (16:45)
[2019-03-16] MEDS ORDERED: ACETAMINOPHEN TAB 650MG DOSE (2X325MG) PO PRN (16:45)
[2019-03-16] MEDS ORDERED: PILL CUTTER 1 EACH XX PRN (17:15)
[2019-03-16] MEDS: TORSEMIDE 20 MG TAB PO SCH (18:01)
--- NOTE | 2019-03-16 18:26 | HPEPDOC ---
General Date of Admission Mar 16, 2019 at 16:44 Date of Service: Mar 16, 2019 Primary Care Physician: MARCELO TRUJILLO PA-C Attending Physician: IMMANUEL CHARLES MD Chief Complaint The patient is a 68-year-old male admitted with a reason for visit of COPD. Source: Patient, Family Exam Limitations: Clinical conditions Timing/Duration: Unsure Severity: Severe Associated Symptoms: Shortness of breath History of Present Illness This is 68 years old white male with frequent hospitalizations secondary to exacerbation of COPD presented again with increasing shortness of breath and the worsening COPD, was sent here by his pulmonary doctor, Dr. Sexton today. On interview, patient is on oxygen support and eating his dinner with the family at bedside, he seems in mild/moderate respiratory distress but no chest pain, no nausea, vomiting. No dysphagia syncope Home Medications Scheduled Apixaban (Eliquis) 5 Mg Tablet, 5 MG PO BID, (Reported) Digoxin (Digoxin) 125 Mcg Tablet, 125 MCG PO DAILY, (Reported) Fluticasone Propion/Salmeterol (Advair Hfa 230-21 Mcg Inhaler) 12 Gm Hfa.aer.ad, 2 PUFF INH BID, (Reported) Pantoprazole Sodium (Pantoprazole Sodium) 40 Mg Tablet.dr, 40 MG PO DAILY, (Reported) Potassium Chloride (Potassium Chloride) 10 Meq Capsule.er, 10 MEQ PO DAILY, (Reported) Prednisone (Prednisone) 10 Mg Tablet, 10 MG PO DAILY, (Reported) Spironolactone (Spironolactone) 25 Mg Tablet, 12.5 MG PO DAILY, (Reported) Tiotropium B[place] Monohydrate (Spiriva) 18 Mcg Cap.w.dev, 1 INHALATION INH DAILY, (Reported) Torsemide (Torsemide) 20 Mg Tablet, 10 MG PO QPM, (Reported) TAKES AT 1700 Verapamil HCl (Verapamil ER) 240 Mg Cap24h.pel, 240 MG PO DAILY, (Reported) Allergies Coded Allergies: aspirin (Verified Adverse Reaction, Intermediate, bleeding, 12/21/18) Penicillins (Verified Adverse Reaction, Mild, gi upset, 12/21/18) Past Medical History Medical History CK D, end-stage COPD, polycythemia, thyroid goiter, atrial fibrillation, GERD, diastolic congestive heart failure, obesity Surgical History None available Social History * Smoker: former Smoker, quit greater than 1 year A-FIB/CHADSVASC A-FIB History Current/History of A-Fib/PAF?: Yes Current PO Anticoag Therapy: Yes Review of Systems Constitutional: Denies: Chills, Fever, Malaise, Night Sweats, Weakness, Fatigue, Weight Loss, Lethargy, Other Eyes: Denies: Pain, Vision change, Conjunctivae inflammation, Eyelid inflammation, Redness, Other ENT: Denies: Head Aches, Ear Pain, Dysphagia, Sinus Congestion, Post Nasal Drip, Sore Throat, Epistaxis, Other Symptoms Skin: Denies: Rash, Lesions, Jaundice, Bruising, Itching, Dry, Breakdown, Nail Changes, Other Pulmonary: Reports: Dyspnea Cardiovascular: Denies: Chest Pain, Palpitations, Orthopnea, Paroxysmal Noc. Dyspnea, Edema, Lt Headedness, Other Symptoms Gastrointestinal: Denies: Nausea, Vomiting, Abdominal Pain, Diarrhea, Constipation, Melena, Hematochezia, Other Symptoms Genitourinary: Denies: Dysuria, Frequency, Incontinence, Hematuria, Retention, Other Symptoms Hematologic: Denies: Bruising, Bleeding Excessively, Petecchia, Purpura, Enlarged Lymph Nodes, Other Hematologic Endocrine: Denies: Polydipsia, Polyphagia, Polyuria, Heat Intolerance, Cold Intolerance, Other Endocrine Sx Musculoskeletal: Denies: Neck Pain, Back Pain, Shoulder Pain, Arm Pain, Hand Pain, Leg Pain, Foot Pain, Joint Pain, Muscle Pain, Spasms, Other Symptoms Neurological: Denies: Weakness, Numbness, Incoordination, Change in speech, Confusion, Seizures, Other Symptoms Psych: Denies: Mood Normal, Anxiety, Depression, Memory Issues, Thoughts of Self Harm, Anger, Thoughts of Harming Other, Other Psych Physical Examination General Exam: Positive: Alert, No Acute Distress ( ) Eye Exam: Positive: PERRLA, Conjunctiva & lids normal ENT Exam: Positive: Atraumatic Neck Exam: Positive: Supple, JVD Chest Exam: Positive: Diminished Heart Exam: Positive: Rate Normal, Normal S1, Normal S2 Abdomen Exam: Positive: Normal bowel sounds, Soft Extremity Exam: Positive: Edema (trace bilateral pedal edema), Normal pulses Skin Exam: Positive: Nl turgor and temperature Neuro Exam: Positive: Normal Speech, Cranial Nerves 3-12 NL Psych Exam: Positive: Mental status NL, Oriented x 3 Vital Signs Vital Signs Date Time Temp Pulse Resp B/P (MAP) Pulse Ox O2 Delivery O2 Flow Rate FiO2 03/16/19 18:01 96 30 121/63 (82) 90 Venturi Mask 15.0 40 03/16/19 13:55 98.4 Laboratory Data Labs 24H Laboratory Tests 2 03/16/19 14:04: Immature Granulocyte % (Auto) 2.6, White Blood Count 16.2H, Red Blood Count 5.09, Hemoglobin 14.7, Hematocrit 44.8, Mean Corpuscular Volume 88.0, Mean Corpuscular Hemoglobin 28.9, Mean Corpuscular Hemoglobin Concent 32.8, Red Cell Distribution Width 19.1H, Platelet Count 170, Neutrophils (%) (Auto) 89.6H, Lymphocytes (%) (Auto) 3.0L, Monocytes (%) (Auto) 4.3, Eosinophils (%) (Auto) 0.1, Basophils (%) (Auto) 0.4, Neutrophils # (Auto) 14.6H, Lymphocytes # (Auto) 0.5L, Monocytes # (Auto) 0.7, Eosinophils # (Auto) 0.0, Basophils # (Auto) 0.1, Nucleated Red Blood Cells % (auto) 0.1H, Anion Gap 6L, Glomerular Filtration Rate 50.6, Calcium Level 8.6L, Aspartate Amino Transf (AST/SGOT) 14, Alanine Aminotransferase (ALT/SGPT) 29, Alkaline Phosphatase 52, Total Bilirubin 1.3H, Direct Bilirubin 0.3H, Total Creatine Kinase 32L, Creatine Kinase MB < 1.0, Creatine Kinase MB Relative Index 3.12, Troponin I < 0.02, LM-Aci-T-Type Natriuretic Peptide 2000H, Total Protein 6.2L, Albumin 2.9L, Albumin/Globulin Ratio 0.88L, Thyroid Stimulating Hormone (TSH) 0.372, Digoxin Level 1.3 03/16/19 14:42: Blood Gas Bicarbonate Standard 27.3H, Arterial Blood pH 7.478H, Arterial Blood Partial Pressure CO2 37.1, Arterial Blood Partial Pressure O2 53.0L, Arterial Blood Total CO2 28.0, Arterial Blood HCO3 26.9H, Arterial Blood Base Excess 3.4H, Arterial Blood Oxygen Saturation 87.9L CBC/BMP Laboratory Tests 03/16/19 14:04 Red Blood Count 5.09, Mean Corpuscular Volume 88.0, Mean Corpuscular Hemoglobin 28.9, Mean Corpuscular Hemoglobin Concent 32.8, Red Cell Distribution Width 19.1 H, Neutrophils (%) (Auto) 89.6 H, Lymphocytes (%) (Auto) 3.0 L, Monocytes (%) (Auto) 4.3, Eosinophils (%) (Auto) 0.1, Basophils (%) (Auto) 0.4, Neutrophils # (Auto) 14.6 H, Lymphocytes # (Auto) 0.5 L, Monocytes # (Auto) 0.7, Eosinophils # (Auto) 0.0, Basophils # (Auto) 0.1 Problems (1) Acute respiratory failure with hypoxia Status: Acute Problem Text: Acute respiratory failure with hypoxia secondary to exacerbation of COPD Oxygen support. Change to nasal cannula and patient is tolerating very well clinically, is more stable Continue Solu-Medrol 40 mg IV every 8 hours Continue DuoNeb every 4 hours, will change to every 6 hours and no in a day or 2 Chest x-ray was reviewed, no infiltrate noted Continue all home meds Continue present care (2) COPD (chronic obstructive pulmonary disease) Status: Acute Problem Text: As above (3) Hypertension Status: Chronic Problem Text: Under control Continue home meds (4) Polycythemia Status: Chronic Problem Text: Stable (5) CKD (chronic kidney disease), stage III Status: Acute (6) PAM (obstructive sleep apnea) Status: Acute Plan / VTE VTE Prophylaxis Ordered?: Yes IMMANUEL CHARLES MD Mar 16, 2019 18:26
[2019-03-16] MEDS ORDERED: IPRATROPIUM 0.5MG/ALBUTEROL 2.5MG INH SOL UD 3ML (DUONEB)(J7620) NEB PRN (18:30)
[2019-03-16] MEDS: IPRATROPIUM 0.5MG/ALBUTEROL 2.5MG INH SOL UD 3ML (DUONEB)(J7620) NEB SCH (20:00)
[2019-03-16] MEDS: DOCUSATE SODIUM 100 MG CAP PO SCH ×2 (21:00→21:35)
[2019-03-16] MEDS: APIXABAN 5 MG TAB (ELIQUIS) PO SCH (21:35)
[2019-03-16] MEDS: ADVAIR HFA 230/21MCG INHALER INH SCH (21:35)
[2019-03-16 21:45] VITALS: BP 123/73
--- NOTE | 2019-03-16 21:45 | ECGEPIP ---
[facility] - ED Test Date: 2019-03-16 Pat Name: SPENCER POLO Department: Room: - Gender: Male [employer]: ALICIA : [id number] Requested By: BOUBACAR Vaughn Order Number: [id number] Reading MD: Audrey Barbosa Measurements Intervals Foley Rate: 101 P: NM: -1 QRS: 44 QRSD: 94 T: 55 QT: 263 QTc: 341 Interpretive Statements ATRIAL FIBRILLATION WITH RAPID VENTRICULAR RESPONSE LOW QRS VOLTAGE IN PRECORDIAL LEADS ST DEVIATION AND MODERATE T-WAVE ABNORMALITY, CONSIDER ISCHEMIA SIMILAR 02/28/19 Electronically Signed on 03-16-2019 21:44:52 EDT by Audrey Barbosa
[2019-03-16] MEDS: methylPREDNISolone INJ 125 MG/2 ML VIAL (J2930) IV SCH (23:23)
[2019-03-17] VITALS (24 sets, daily range): BP systolic 111–140; BP diastolic 59–89; O2SAT 83–95
[2019-03-17] MEDS: IPRATROPIUM 0.5MG/ALBUTEROL 2.5MG INH SOL UD 3ML (DUONEB)(J7620) NEB SCH ×7 (00:14→23:23)
[2019-03-17 06:20] LABS: HEMATOCRIT 43.8 % (42.0-52.0); HEMOGLOBIN 14.4 g/dl (13.5-17.5); MEAN CORPUSCULAR HEMOGLOBIN 29.1 pg (27.0-33.0); MEAN CORPUSCULAR HGB CONC 32.9 g/dl (32.0-36.5); MEAN CORPUSCULAR VOLUME 88.5 fl (80.0-96.0); PLATELET COUNT, AUTOMATED 159 10^3/uL (150-450); RED BLOOD COUNT 4.95 10^6/uL (4.30-6.10); WHITE BLOOD COUNT 8.6 10^3/uL (4.0-10.0)
[2019-03-17 06:46] LABS: ALBUMIN 2.7 GM/DL (3.2-5.2); BILIRUBIN,TOTAL 0.9 MG/DL (0.2-1.0); CREATININE FOR GFR 1.61 MG/DL (0.70-1.30); GLOMERULAR FILTRATION RATE 45.5 (>49); MAGNESIUM LEVEL 2.6 MG/DL (1.8-2.4); POTASSIUM SERUM 4.2 MEQ/L (3.5-5.1); TOTAL PROTEIN 6.7 GM/DL (6.4-8.2)
[2019-03-17] MEDS: TIOTROPIUM INHALER/CAPSULE (SPIRIVA) INH SCH (07:10)
[2019-03-17] MEDS: ADVAIR HFA 230/21MCG INHALER INH SCH ×2 (07:11→20:11)
[2019-03-17] MEDS: SPIRONOLACTONE 12.5MG PER 1/2 TABLET PO SCH (08:44)
[2019-03-17] MEDS: POTASSIUM CHLORIDE 10 MEQ SR TABLET PO SCH (08:44)
[2019-03-17] MEDS: APIXABAN 5 MG TAB (ELIQUIS) PO SCH ×2 (08:44→20:34)
[2019-03-17] MEDS: methylPREDNISolone INJ 125 MG/2 ML VIAL (J2930) IV SCH ×3 (08:44→23:26)
[2019-03-17] MEDS: PANTOPRAZOLE 40MG TAB (PROTONIX) PO SCH (08:45)
[2019-03-17] MEDS: DOCUSATE SODIUM 100 MG CAP PO SCH ×3 (08:45→20:35)
[2019-03-17] MEDS ORDERED: ENOXAPARIN 40 MG/0.4 ML SYRINGE (J1650) SC SCH (09:00)
[2019-03-17] MEDS: VERAPAMIL 120 MG SR TAB PO SCH (10:19)
--- NOTE | 2019-03-17 11:10 | IPNPDOC ---
Subjective Date Seen The patient was seen on 03/17/19. Subjective Chief Complaint/HPI Patient feels a lot better shortness of breath is progressively resolved, some short of breath but much improved compared to his during visit presentation General: Denies: ROS Unobtainable, Chills, Night Sweats, Fatigue, Malaise, Normal Appetite, Other Symptoms Constitutional: Denies: Chills, Fever, Malaise, Night Sweats, Weakness, Fatigue, Weight Loss, Lethargy, Other Eyes: Denies: Pain, Vision change, Conjunctivae inflammation, Eyelid inflammation, Redness, Other ENT: Denies: Head Aches, Ear Pain, Dysphagia, Sinus Congestion, Post Nasal Drip, Sore Throat, Epistaxis, Other Symptoms Skin: Denies: Rash, Lesions, Jaundice, Bruising, Itching, Dry, Breakdown, Nail Changes, Other Pulmonary: Reports: Dyspnea Cardiovascular: Denies: Chest Pain, Palpitations, Orthopnea, Paroxysmal Noc. Dyspnea, Edema, Lt Headedness, Other Symptoms Gastrointestinal: Denies: Nausea, Vomiting, Abdominal Pain, Diarrhea, Constipation, Melena, Hematochezia, Other Symptoms Genitourinary: Denies: Dysuria, Frequency, Incontinence, Hematuria, Retention, Other Symptoms Hematologic: Denies: Bruising, Bleeding Excessively, Petecchia, Purpura, Enlarged Lymph Nodes, Other Hematologic Endocrine: Denies: Polydipsia, Polyphagia, Polyuria, Heat Intolerance, Cold Intolerance, Other Endocrine Sx Musculoskeletal: Denies: Neck Pain, Back Pain, Shoulder Pain, Arm Pain, Hand Pain, Leg Pain, Foot Pain, Joint Pain, Muscle Pain, Spasms, Other Symptoms Neurological: Denies: Weakness, Numbness, Incoordination, Change in speech, Confusion, Seizures, Other Symptoms Psych: Denies: Mood Normal, Anxiety, Depression, Memory Issues, Thoughts of Self Harm, Anger, Thoughts of Harming Other, Other Psych Objective Physical Examination General Exam: Positive: Alert, No Acute Distress ( ) Eye Exam: Positive: PERRLA, Conjunctiva & lids normal ENT Exam: Positive: Atraumatic Neck Exam: Positive: Supple, JVD Chest Exam: Positive: Diminished Heart Exam: Positive: Rate Normal, Normal S1, Normal S2 Abdomen Exam: Positive: Normal bowel sounds, Soft Extremity Exam: Positive: Edema (trace bilateral pedal edema), Normal pulses Skin Exam: Positive: Nl turgor and temperature Neuro Exam: Positive: Normal Speech, Cranial Nerves 3-12 NL Psych Exam: Positive: Mental status NL, Oriented x 3 Assessment /Plan Problems (1) Acute respiratory failure with hypoxia Status: Acute Problem Text: Acute respiratory failure with hypoxia secondary to exacerbation of COPD O2 support by a non-rebreather mask tract. It did not nasal cannula if possible Start Solu-Medrol 40 mg IV every 8 hours DuoNeb every 4 hours Chest x-ray was reviewed, no infiltrate noted Continue all home meds Continue present care A.m. level work has been ordered (2) COPD (chronic obstructive pulmonary disease) Status: Acute Problem Text: As above (3) Hypertension Status: Chronic Problem Text: Under control Continue home meds (4) Polycythemia Status: Chronic Problem Text: Stable (5) CKD (chronic kidney disease), stage III Status: Acute (6) PAM (obstructive sleep apnea) Status: Acute Plan/VTE VTE Prophylaxis Ordered?: Yes VS, I&O, 24H, Fishbone Vital Signs/I&O Vital Signs Date Time Temp Pulse Resp B/P (MAP) Pulse Ox O2 Delivery O2 Flow Rate FiO2 03/17/19 10:19 90 114/60 03/17/19 08:00 98.7 19 95 15.0 03/17/19 07:01 Nasal Cannula 03/16/19 18:01 40 I&O- Last 24 Hours up to 6 AM 03/17/19 06:00 Intake Total 0 ml Output Total 300 ml Balance -300 ml Laboratory Data 24H LABS Laboratory Tests 2 03/16/19 14:04: Immature Granulocyte % (Auto) 2.6, White Blood Count 16.2H, Red Blood Count 5.09, Hemoglobin 14.7, Hematocrit 44.8, Mean Corpuscular Volume 88.0, Mean Corpuscular Hemoglobin 28.9, Mean Corpuscular Hemoglobin Concent 32.8, Red Cell Distribution Width 19.1H, Platelet Count 170, Neutrophils (%) (Auto) 89.6H, Lymphocytes (%) (Auto) 3.0L, Monocytes (%) (Auto) 4.3, Eosinophils (%) (Auto) 0.1, Basophils (%) (Auto) 0.4, Neutrophils # (Auto) 14.6H, Lymphocytes # (Auto) 0.5L, Monocytes # (Auto) 0.7, Eosinophils # (Auto) 0.0, Basophils # (Auto) 0.1, Nucleated Red Blood Cells % (auto) 0.1H, Anion Gap 6L, Glomerular Filtration Rate 50.6, Calcium Level 8.6L, Aspartate Amino Transf (AST/SGOT) 14, Alanine Aminotransferase (ALT/SGPT) 29, Alkaline Phosphatase 52, Total Bilirubin 1.3H, Direct Bilirubin 0.3H, Total Creatine Kinase 32L, Creatine Kinase MB < 1.0, Creatine Kinase MB Relative Index 3.12, Troponin I < 0.02, RH-Yrc-M-Type Natriuretic Peptide 2000H, Total Protein 6.2L, Albumin 2.9L, Albumin/Globulin Ratio 0.88L, Thyroid Stimulating Hormone (TSH) 0.372, Digoxin Level 1.3 03/16/19 14:42: Blood Gas Bicarbonate Standard 27.3H, Arterial Blood pH 7.478H, Arterial Blood Partial Pressure CO2 37.1, Arterial Blood Partial Pressure O2 53.0L, Arterial Blood Total CO2 28.0, Arterial Blood HCO3 26.9H, Arterial Blood Base Excess 3.4H, Arterial Blood Oxygen Saturation 87.9L 03/17/19 05:52: Nucleated Red Blood Cells % (auto) 0.0, Anion Gap 7L, Glomerular Filtration Rate 45.5L, Calcium Level 9.0, Aspartate Amino Transf (AST/SGOT) 10, Alanine Aminotransferase (ALT/SGPT) 24, Alkaline Phosphatase 51, Total Bilirubin 0.9, Total Protein 6.7, Albumin 2.7L, Albumin/Globulin Ratio 0.68L, Blood Urea Nitrogen 31H, Creatinine 1.61H, Sodium Level 139, Potassium Level 4.2, Chloride Level 103, Carbon Dioxide Level 29, Magnesium Level 2.6H CBC/BMP Laboratory Tests 03/16/19 14:04 Red Blood Count 5.09, Mean Corpuscular Volume 88.0, Mean Corpuscular Hemoglobin 28.9, Mean Corpuscular Hemoglobin Concent 32.8, Red Cell Distribution Width 19.1 H, Neutrophils (%) (Auto) 89.6 H, Lymphocytes (%) (Auto) 3.0 L, Monocytes (%) (Auto) 4.3, Eosinophils (%) (Auto) 0.1, Basophils (%) (Auto) 0.4, Neutrophils # (Auto) 14.6 H, Lymphocytes # (Auto) 0.5 L, Monocytes # (Auto) 0.7, Eosinophils # (Auto) 0.0, Basophils # (Auto) 0.1 03/17/19 05:52 Red Blood Count 4.95, Mean Corpuscular Volume 88.5, Mean Corpuscular Hemoglobin 29.1, Mean Corpuscular Hemoglobin Concent 32.9, Red Cell Distribution Width 19.0 H, Calcium Level 9.0, Aspartate Amino Transf (AST/SGOT) 10, Alanine Aminot ransferase (ALT/SGPT) 24, Alkaline Phosphatase 51, Total Bilirubin 0.9, Total Protein 6.7, Albumin 2.7 L IMMANUEL CHARLES MD Mar 17, 2019 11:10
[2019-03-17] MEDS: DIGOXIN 0.125 MG TAB PO SCH (12:42)
[2019-03-17] MEDS: MAALOX 30 ML SUSP *UDC PO PRN ×2 (12:45→18:07)
[2019-03-17] MEDS: TORSEMIDE 20 MG TAB PO SCH (16:39)
[2019-03-18] VITALS (21 sets, daily range): BP systolic 98–135; BP diastolic 58–73; O2SAT 86–94
[2019-03-18] MEDS: IPRATROPIUM 0.5MG/ALBUTEROL 2.5MG INH SOL UD 3ML (DUONEB)(J7620) NEB SCH ×4 (04:00→20:00)
[2019-03-18 06:00] LABS: BASO % 0.1 % (0.0-1.0); HEMATOCRIT 39.2 % (42.0-52.0); HEMOGLOBIN 12.6 g/dl (13.5-17.5); LYMPH # 0.3 10^3/uL (1.5-4.5); LYMPH % 1.9 % (24.0-44.0); MEAN CORPUSCULAR HEMOGLOBIN 27.9 pg (27.0-33.0); MEAN CORPUSCULAR HGB CONC 32.1 g/dl (32.0-36.5); MEAN CORPUSCULAR VOLUME 86.7 fl (80.0-96.0); MONO # 0.3 10^3/uL (0.0-0.8); MONO % 1.8 % (0.0-5.0); NEUTROPHILS # 15.5 10^3/uL (1.8-7.7); NEUTROPHILS % 95.3 % (36.0-66.0); PLATELET COUNT, AUTOMATED 167 10^3/uL (150-450); RED BLOOD COUNT 4.52 10^6/uL (4.30-6.10); WHITE BLOOD COUNT 16.3 10^3/uL (4.0-10.0)
[2019-03-18 06:28] LABS: ALBUMIN 2.5 GM/DL (3.2-5.2); BILIRUBIN,TOTAL 0.5 MG/DL (0.2-1.0); CALCIUM LEVEL 8.8 MG/DL (8.8-10.2); CREATININE FOR GFR 1.73 MG/DL (0.70-1.30); GLOMERULAR FILTRATION RATE 41.9 (>49); POTASSIUM SERUM 4.4 MEQ/L (3.5-5.1); TOTAL PROTEIN 6.2 GM/DL (6.4-8.2)
[2019-03-18] MEDS: ADVAIR HFA 230/21MCG INHALER INH SCH ×2 (07:50→20:19)
[2019-03-18] MEDS: TIOTROPIUM INHALER/CAPSULE (SPIRIVA) INH SCH (07:50)
[2019-03-18] MEDS: methylPREDNISolone INJ 125 MG/2 ML VIAL (J2930) IV SCH (08:33)
[2019-03-18] MEDS: APIXABAN 5 MG TAB (ELIQUIS) PO SCH ×2 (08:34→21:05)
[2019-03-18] MEDS: POTASSIUM CHLORIDE 10 MEQ SR TABLET PO SCH (08:34)
[2019-03-18] MEDS: PANTOPRAZOLE 40MG TAB (PROTONIX) PO SCH (08:34)
[2019-03-18] MEDS: VERAPAMIL 120 MG SR TAB PO SCH (08:35)
[2019-03-18] MEDS: DIGOXIN 0.125 MG TAB PO SCH (08:35)
[2019-03-18] MEDS: SPIRONOLACTONE 12.5MG PER 1/2 TABLET PO SCH (08:35)
[2019-03-18] MEDS: DOCUSATE SODIUM 100 MG CAP PO SCH ×2 (08:35→21:00)
[2019-03-18] MEDS: NYSTATIN 100,000 UNITS/GM TOPICAL PWD 15 GM TOP SCH ×2 (09:00→21:00)
[2019-03-18] MEDS: predniSONE 20 MG TAB PO SCH (09:00)
[2019-03-18] MEDS ORDERED: SLF 3 ML SYR IV PRN (11:15)
[2019-03-18] MEDS: MAALOX 30 ML SUSP *UDC PO PRN (11:29)
[2019-03-18] MEDS: SLF 3 ML SYR IV SCH ×2 (11:55→21:06)
--- NOTE | 2019-03-18 12:23 | IPNPDOC ---
Subjective Date Seen The patient was seen on 03/18/19. Subjective Chief Complaint/HPI Patient is much comfortable in no apparent distress on is on oxygen by nasal cannula General: Denies: ROS Unobtainable, Chills, Night Sweats, Fatigue, Malaise, Normal Appetite, Other Symptoms Constitutional: Denies: Chills, Fever, Malaise, Night Sweats, Weakness, Fatigue, Weight Loss, Lethargy, Other Eyes: Denies: Pain, Vision change, Conjunctivae inflammation, Eyelid inflamma tion, Redness, Other ENT: Denies: Head Aches, Ear Pain, Dysphagia, Sinus Congestion, Post Nasal Drip, Sore Throat, Epistaxis, Other Symptoms Skin: Denies: Rash, Lesions, Jaundice, Bruising, Itching, Dry, Breakdown, Nail Changes, Other Pulmonary: Denies: Dyspnea, Cough, Pleuritic Chest Pain, Other Symptoms Cardiovascular: Denies: Chest Pain, Palpitations, Orthopnea, Paroxysmal Noc. Dyspnea, Edema, Lt Headedness, Other Symptoms Gastrointestinal: Denies: Nausea, Vomiting, Abdominal Pain, Diarrhea, Constipation, Melena, Hematochezia, Other Symptoms Genitourinary: Denies: Dysuria, Frequency, Incontinence, Hematuria, Retention, Other Symptoms Neurological: Denies: Weakness, Numbness, Incoordination, Change in speech, Confusion, Seizures, Other Symptoms Psych: Denies: Mood Normal, Anxiety, Depression, Memory Issues, Thoughts of Self Harm, Anger, Thoughts of Harming Other, Other Psych Objective Physical Examination General Exam: Positive: Alert, No Acute Distress ( ) Eye Exam: Positive: PERRLA, Conjunctiva & lids normal ENT Exam: Positive: Atraumatic Neck Exam: Positive: Supple, JVD Chest Exam: Positive: Diminished (improved air exchange bilaterally) Heart Exam: Positive: Rate Normal, Normal S1, Normal S2 Abdomen Exam: Positive: Normal bowel sounds, Soft Extremity Exam: Positive: Edema (trace bilateral pedal edema), Normal pulses Skin Exam: Positive: Nl turgor and temperature Neuro Exam: Positive: Normal Speech, Cranial Nerves 3-12 NL Psych Exam: Positive: Mental status NL, Oriented x 3 Assessment /Plan Problems (1) Acute respiratory failure with hypoxia Status: Acute Problem Text: Acute respiratory failure with hypoxia secondary to exacerbation of COPD Oxygen support. Change to nasal cannula and patient is tolerating very well clinically, is more stable Discontinue Solu-Medrol. Start prednisone 40 mg by mouth daily Change DuoNeb every 6 hours Chest x-ray was reviewed, no infiltrate noted Continue all home meds Continue present care Possible discharge in a.m. (2) COPD (chronic obstructive pulmonary disease) Status: Acute Problem Text: As above (3) Hypertension Status: Chronic Problem Text: Under control Continue home meds (4) Polycythemia Status: Chronic Problem Text: Stable (5) CKD (chronic kidney disease), stage III Status: Acute (6) PAM (obstructive sleep apnea) Status: Acute Plan/VTE VTE Prophylaxis Ordered?: Yes VS, I&O, 24H, Fishbone Vital Signs/I&O Vital Signs Date Time Temp Pulse Resp B/P (MAP) Pulse Ox O2 Delivery O2 Flow Rate FiO2 03/18/19 12:00 93 Nasal Cannula 10.0 03/18/19 11:48 98.0 106 20 118/67 (84) 03/16/19 18:01 40 I&O- Last 24 Hours up to 6 AM 03/18/19 06:00 Intake Total 1320 ml Output Total 250 ml Balance 1070 ml Laboratory Data 24H LABS Laboratory Tests 2 03/18/19 05:47: Immature Granulocyte % (Auto) 0.9, White Blood Count 16.3H, Red Blood Count 4.52, Hemoglobin 12.6L, Hematocrit 39.2L, Mean Corpuscular Volume 86.7, Mean Corpuscular Hemoglobin 27.9, Mean Corpuscular Hemoglobin Concent 32.1, Red Cell Distribution Width 18.9H, Platelet Count 167, Neutrophils (%) (Auto) 95.3H, Lymphocytes (%) (Auto) 1.9L, Monocytes (%) (Auto) 1.8, Eosinophils (%) (Auto) 0.0, Basophils (%) (Auto) 0.1, Neutrophils # (Auto) 15.5H, Lymphocytes # (Auto) 0.3L, Monocytes # (Auto) 0.3, Eosinophils # (Auto) 0.0, Basophils # (Auto) 0.0, Nucleated Red Blood Cells % (auto) 0.0, Anion Gap 6L, Glomerular Filtration Rate 41.9L, Blood Urea Nitrogen 39H, Creatinine 1.73H, Sodium Level 138, Potassium Level 4.4, Chloride Level 102, Carbon Dioxide Level 30, Calcium Level 8.8, Aspartate Amino Transf (AST/SGOT) 10, Alanine Aminotransferase (ALT/SGPT) 24, Alkaline Phosphatase 43L, Total Bilirubin 0.5, Total Protein 6.2L, Albumin 2.5L, Albumin/Globulin Ratio 0.68L CBC/BMP Laboratory Tests 03/18/19 05:47 Red Blood Count 4.52, Mean Corpuscular Volume 86.7, Mean Corpuscular Hemoglobin 27.9, Mean Corpuscular Hemoglobin Concent 32.1, Red Cell Distribution Width 18.9 H, Neutrophils (%) (Auto) 95.3 H, Lymphocytes (%) (Auto) 1.9 L, Monocytes (%) (Auto) 1.8, Eosinophils (%) (Auto) 0.0, Basophils (%) (Auto) 0.1, Neutrophils # (Auto) 15.5 H, Lymphocytes # (Auto) 0.3 L, Monocytes # (Auto) 0.3, Eosinophils # (Auto) 0.0, Basophils # (Auto) 0.0, Calcium Level 8.8, Aspartate Amino Transf (AST/SGOT) 10, Alanine Aminotransferase (ALT/SGPT) 24, Alkaline Phosphatase 43 L, Total Bilirubin 0.5, Total Protein 6.2 L, Albumin 2.5 L IMMANUEL CHARLES MD Mar 18, 2019 12:23
[2019-03-18] MEDS: TORSEMIDE 20 MG TAB PO SCH (16:06)
[2019-03-19] VITALS (20 sets, daily range): BP systolic 93–138; BP diastolic 50–80; O2SAT 83–95
[2019-03-19] MEDS: IPRATROPIUM 0.5MG/ALBUTEROL 2.5MG INH SOL UD 3ML (DUONEB)(J7620) NEB SCH ×4 (01:13→20:00)
[2019-03-19 06:07] LABS: HEMOGLOBIN 13.5 g/dl (13.5-17.5); MEAN CORPUSCULAR HEMOGLOBIN 28.2 pg (27.0-33.0); MEAN CORPUSCULAR HGB CONC 31.4 g/dl (32.0-36.5); PLATELET COUNT, AUTOMATED 191 10^3/uL (150-450); RED BLOOD COUNT 4.78 10^6/uL (4.30-6.10); WHITE BLOOD COUNT 16.3 10^3/uL (4.0-10.0)
[2019-03-19 06:20] LABS: ALBUMIN 3.1 GM/DL (3.2-5.2); BILIRUBIN,TOTAL 0.5 MG/DL (0.2-1.0); CALCIUM LEVEL 8.8 MG/DL (8.8-10.2); CREATININE FOR GFR 1.61 MG/DL (0.70-1.30); GLOMERULAR FILTRATION RATE 45.5 (>49); POTASSIUM SERUM 4.3 MEQ/L (3.5-5.1); TOTAL PROTEIN 6.2 GM/DL (6.4-8.2)
[2019-03-19] MEDS: SLF 3 ML SYR IV SCH ×3 (06:39→21:38)
[2019-03-19] MEDS: TIOTROPIUM INHALER/CAPSULE (SPIRIVA) INH SCH (07:34)
[2019-03-19] MEDS: ADVAIR HFA 230/21MCG INHALER INH SCH ×2 (07:35→20:10)
[2019-03-19] MEDS: VERAPAMIL 120 MG SR TAB PO SCH (08:34)
[2019-03-19] MEDS: POTASSIUM CHLORIDE 10 MEQ SR TABLET PO SCH (08:35)
[2019-03-19] MEDS: PANTOPRAZOLE 40MG TAB (PROTONIX) PO SCH (08:35)
[2019-03-19] MEDS: DIGOXIN 0.125 MG TAB PO SCH (08:35)
[2019-03-19] MEDS: SPIRONOLACTONE 12.5MG PER 1/2 TABLET PO SCH (08:35)
[2019-03-19] MEDS: predniSONE 20 MG TAB PO SCH (08:36)
[2019-03-19] MEDS: DOCUSATE SODIUM 100 MG CAP PO SCH ×2 (08:36→21:00)
[2019-03-19] MEDS: APIXABAN 5 MG TAB (ELIQUIS) PO SCH ×2 (08:36→21:38)
[2019-03-19] MEDS: NYSTATIN 100,000 UNITS/GM TOPICAL PWD 15 GM TOP SCH ×2 (08:37→21:38)
[2019-03-19] MEDS ORDERED: PRED20TA PO (10:09)
--- NOTE | 2019-03-19 11:07 | IPNPDOC ---
Subjective Date Seen The patient was seen on 03/19/19. Subjective Chief Complaint/HPI Patient feels a lot better. No more respiratory distress, still on oxygen support Constitutional: Denies: Chills, Fever, Malaise, Night Sweats, Weakness, Fatigue, Weight Loss, Lethargy, Other Eyes: Denies: Pain, Vision change, Conjunctivae inflammation, Eyelid inflammation, Redness, Other ENT: Denies: Head Aches, Ear Pain, Dysphagia, Sinus Congestion, Post Nasal Drip, Sore Throat, Epistaxis, Other Symptoms Skin: Denies: Rash, Lesions, Jaundice, Bruising, Itching, Dry, Breakdown, Nail Changes, Other Pulmonary: Denies: Dyspnea, Cough, Pleuritic Chest Pain, Other Symptoms Cardiovascular: Denies: Chest Pain, Palpitations, Orthopnea, Paroxysmal Noc. Dyspnea, Edema, Lt Headedness, Other Symptoms Musculoskeletal: Denies: Neck Pain, Back Pain, Shoulder Pain, Arm Pain, Hand Pain, Leg Pain, Foot Pain, Joint Pain, Muscle Pain, Spasms, Other Symptoms Neurological: Denies: Weakness, Numbness, Incoordination, Change in speech, Confusion, Seizures, Other Symptoms Objective Physical Examination General Exam: Positive: Alert, No Acute Distress ( ) Eye Exam: Positive: PERRLA, Conjunctiva & lids normal ENT Exam: Positive: Atraumatic Neck Exam: Positive: Supple, JVD Chest Exam: Positive: Diminished (improved air exchange bilaterally) Heart Exam: Positive: Rate Normal, Normal S1, Normal S2 Abdomen Exam: Positive: Normal bowel sounds, Soft Extremity Exam: Positive: Edema (trace bilateral pedal edema), Normal pulses Skin Exam: Positive: Nl turgor and temperature Neuro Exam: Positive: Normal Speech, Cranial Nerves 3-12 NL Psych Exam: Positive: Mental status NL, Oriented x 3 Assessment /Plan Problems (1) Acute respiratory failure with hypoxia Status: Acute Problem Text: Acute respiratory failure with hypoxia secondary to exacerbation of COPD Still on nasal cannulae 10 L/h we'll slowly titrated titrate and bring it down to his home dosage of oxygen Discontinue Solu-Medrol. Start prednisone 40 mg by mouth daily Change DuoNeb every 6 hours Chest x-ray was reviewed, no infiltrate noted Continue all home meds Continue present care Possible discharge soon. Once he is weaned off high dose of the oxygen support (2) COPD (chronic obstructive pulmonary disease) Status: Acute Problem Text: As above (3) Hypertension Status: Chronic Problem Text: Under control Continue home meds (4) Polycythemia Status: Chronic Problem Text: Stable (5) CKD (chronic kidney disease), stage III Status: Acute (6) PAM (obstructive sleep apnea) Status: Acute Plan/VTE VTE Prophylaxis Ordered?: Yes VS, I&O, 24H, Fishbone Vital Signs/I&O Vital Signs Date Time Temp Pulse Resp B/P (MAP) Pulse Ox O2 Delivery O2 Flow Rate FiO2 03/19/19 10:00 91 Nasal Cannula 10.0 03/19/19 08:35 93 03/19/19 08:34 115/63 03/19/19 08:00 97.1 19 03/16/19 18:01 40 I&O- Last 24 Hours up to 6 AM 03/19/19 06:00 Intake Total 1380 ml Output Total 300 ml Balance 1080 ml Laboratory Data 24H LABS Laboratory Tests 2 03/19/19 05:09: Nucleated Red Blood Cells % (auto) 0.0, Anion Gap 9, Glomerular Filtration Rate 45.5L, Blood Urea Nitrogen 37H, Creatinine 1.61H, Sodium Level 140, Potassium Level 4.3, Chloride Level 102, Carbon Dioxide Level 29, Calcium Level 8.8, Aspartate Amino Transf (AST/SGOT) 12, Alanine Aminotransferase (ALT/SGPT) 28, Alkaline Phosphatase 48, Total Bilirubin 0.5, Total Protein 6.2L, Albumin 3.1#L, Albumin/Globulin Ratio 1.00 CBC/BMP Laboratory Tests 03/19/19 05:09 Red Blood Count 4.78, Mean Corpuscular Volume 90.0, Mean Corpuscular Hemoglobin 28.2, Mean Corpuscular Hemoglobin Concent 31.4 L, Red Cell Distribution Width 18.8 H, Calcium Level 8.8, Aspartate Amino Transf (AST/SGOT) 12, Alanine Am inotransferase (ALT/SGPT) 28, Alkaline Phosphatase 48, Total Bilirubin 0.5, Total Protein 6.2 L, Albumin 3.1 #L IMMANUEL CHARLES MD Mar 19, 2019 11:07
[2019-03-19] MEDS: MAALOX 30 ML SUSP *UDC PO PRN (11:46)
[2019-03-19] MEDS: TORSEMIDE 20 MG TAB PO SCH (16:46)
[2019-03-20] VITALS (12 sets, daily range): BP systolic 107–119; BP diastolic 57–69; O2SAT 87–95
[2019-03-20] MEDS: IPRATROPIUM 0.5MG/ALBUTEROL 2.5MG INH SOL UD 3ML (DUONEB)(J7620) NEB SCH ×2 (01:04→07:09)
[2019-03-20] MEDS: SLF 3 ML SYR IV SCH (06:44)
[2019-03-20] MEDS: TIOTROPIUM INHALER/CAPSULE (SPIRIVA) INH SCH (07:08)
[2019-03-20] MEDS: ADVAIR HFA 230/21MCG INHALER INH SCH (07:09)
[2019-03-20] MEDS: DIGOXIN 0.125 MG TAB PO SCH (08:57)
[2019-03-20] MEDS: APIXABAN 5 MG TAB (ELIQUIS) PO SCH (08:57)
[2019-03-20] MEDS: VERAPAMIL 120 MG SR TAB PO SCH (08:57)
[2019-03-20] MEDS: predniSONE 20 MG TAB PO SCH (08:57)
[2019-03-20] MEDS: POTASSIUM CHLORIDE 10 MEQ SR TABLET PO SCH (08:57)
[2019-03-20] MEDS: PANTOPRAZOLE 40MG TAB (PROTONIX) PO SCH (08:57)
[2019-03-20] MEDS: SPIRONOLACTONE 12.5MG PER 1/2 TABLET PO SCH (08:57)
[2019-03-20] MEDS: NYSTATIN 100,000 UNITS/GM TOPICAL PWD 15 GM TOP SCH (08:58)
[2019-03-20] MEDS: DOCUSATE SODIUM 100 MG CAP PO SCH (08:59)
--- NOTE | 2019-03-20 10:02 | DS.PDOC ---
Discharge Summary General Date of Admission Mar 18, 2019 at 13:34 Date of Discharge 03/20/19 Attending Physician: IMMANUEL CHARLES MD Discharge Summary PROCEDURES PERFORMED DURING STAY: None. ADMITTING DIAGNOSES: 1. Acute respiratory failure with hypoxia, Exacerbation of COPD. DISCHARGE DIAGNOSES: 1. Acute respiratory failure with hypoxia, Exacerbation of COPD, hypertension. COMPLICATIONS/CHIEF COMPLAINT: COPD. HISTORY OF PRESENT ILLNESS: This is 68 years old white male with frequent hospitalizations secondary to exacerbation of COPD presented again with increasing shortness of breath and the worsening COPD, was sent here by his pulmonary doctor, Dr. Sexton today. On interview, patient is on oxygen support and eating his dinner with the family at bedside, he seems in mild/moderate respiratory distress but no chest pain, no nausea, vomiting. No dysphagia syncope. HOSPITAL COURSE: [ Patient was admitted with acute respiratory failure with hypoxia secondary to exacerbation of COPD. Patient was being tapered off on his by mouth prednisone and currently was prednisone 10 mg by mouth daily Patient was sent from his senior benefits manager's office with the symptoms of increasing shortness of breath. . She was again started on IV Solu-Medrol, nebulizer treatment and Vapotherm a therapy Slowly patient responded to the above measures and the IV steroids and has been switched to by mouth prednisone 40 mg by mouth daily Patient is currently on oxygen 5 L nasal cannula during the day and 10 L nasal cannula during the night which is his home regimen , I will discharge patient on prednisone 40 mg by mouth daily until he sees and follows up with his nut sifter and this very slowly. He can be tapered off by the pulmonary as an outpatient. Patient will continue all his other home medications as prescribed by her PCP Patient was also continue his home oxygen at 5 L during the day and 10 L during night as prescribed by his nut sifter DISCHARGE MEDICATIONS: Please see below. ALLERGIES: Please see below. PHYSICAL EXAMINATION ON DISCHARGE: VITAL SIGNS: Please see below. GENERAL: Within normal limits HEENT: PERRLA, NECK: Supple CARDIOVASCULAR EXAMINATION: S1, S2, regular RESPIRATORY EXAMINATION: Clear to A&P but slightly diminished but good airflow bilaterally ABDOMINAL EXAMINATION: Benign EXTREMITIES: No clubbing, cyanosis, edema SKIN: Normal NEUROLOGICAL EXAMINATION: Normal PSYCHIATRIC EXAMINATION: Normal LABORATORY DATA: Please see below. IMAGING: Chest x-ray: Chronic changes noted PROGNOSIS: Good ACTIVITY: As tolerated. DIET: As tolerated DISCHARGE PLAN: Follow up with pulmonology in one week DISPOSITION: . Home DISCHARGE INSTRUCTIONS: 1. As above. ITEMS TO FOLLOWUP ON ON OUTPATIENT: 1. Follow PCP and nut sifter, Dr. Sexton in one week. DISCHARGE CONDITION: Stable. TIME SPENT ON DISCHARGE: 35 minutes. Vital Signs/I&Os Vital Signs Date Time Temp Pulse Resp B/P (MAP) Pulse Ox O2 Delivery O2 Flow Rate FiO2 03/20/19 08:57 80 03/20/19 08:57 112/57 03/20/19 08:00 96.6 22 90 5.0 03/20/19 05:00 Nasal Cannula 03/16/19 18:01 40 I&O- Last 24 Hours up to 6 AM 03/20/19 05:59 Intake Total 720 ml Output Total 800 ml Balance -80 ml Discharge Medications Scheduled Apixaban (Eliquis) 5 Mg Tablet, 5 MG PO BID, (Reported) Digoxin (Digoxin) 125 Mcg Tablet, 125 MCG PO DAILY, (Reported) Fluticasone Propion/Salmeterol (Advair Hfa 230-21 Mcg Inhaler) 12 Gm Hfa.aer.ad, 2 PUFF INH BID, (Reported) Pantoprazole Sodium (Pantoprazole Sodium) 40 Mg Tablet.dr, 40 MG PO DAILY, (Reported) Potassium Chloride (Potassium Chloride) 10 Meq Capsule.er, 10 MEQ PO DAILY, (Rep orted) Prednisone (Prednisone) 20 Mg Tablet, 40 MG PO DAILY Spironolactone (Spironolactone) 25 Mg Tablet, 12.5 MG PO DAILY, (Reported) Tiotropium [place] Monohydrate (Spiriva) 18 Mcg Cap.w.dev, 1 INHALATION INH DAILY, (Reported) Torsemide (Torsemide) 20 Mg Tablet, 10 MG PO QPM, (Reported) TAKES AT 1700 Verapamil HCl (Verapamil ER) 240 Mg Cap24h.pel, 240 MG PO DAILY, (Reported) Allergies Coded Allergies: aspirin (Verified Adverse Reaction, Intermediate, bleeding, 12/21/18) Penicillins (Verified Adverse Reaction, Mild, gi upset, 12/21/18) IMMANUEL CHARLES MD Mar 20, 2019 10:02
== END 2019-03-20 12:50 | disposition home or self-care (01) | DRG 189 ==
LOC: M ED 13:41 → EDBD 13:41 → M ED INP 16:44 → M PCU 21:45 → OBSVTOIN 03-18 13:34
PROVIDERS: ADMIT Internal Medicine; ATTEND Internal Medicine
DX: J96.01 Acute respiratory failure with hypoxia (principal); N39.0 Urinary tract infection, site not specified; J44.1 Chronic obstructive pulmonary disease with (acute) exacerbation; I50.32 Chronic diastolic (congestive) heart failure; I13.0 Hypertensive heart and chronic kidney disease with heart failure and stage 1 through stage 4 chronic kidney disease, or unspecified chronic kidney disease; Z79.899 Other long term (current) drug therapy; Z88.0 Allergy status to penicillin; Z88.6 Allergy status to analgesic agent; I48.91 Unspecified atrial fibrillation; K21.9 Gastro-esophageal reflux disease without esophagitis; E66.9 Obesity, unspecified; D75.1 Secondary polycythemia; E04.1 Nontoxic single thyroid nodule; Z87.891 Personal history of nicotine dependence; N18.3 Chronic kidney disease, stage 3 (moderate); G47.33 Obstructive sleep apnea (adult) (pediatric)

== ENCOUNTER 2019-04-10 20:43 | Inpatient (IN) | payer MEDICARE, OTHER ==
[~2019-04-10] VITALS: Ht 180.3 cm; Wt 114.6 kg
[2019-04-10] MEDS: TORSEMIDE 20 MG TAB PO SCH (18:00)
[2019-04-10] MEDS: ADVAIR HFA 230/21MCG INHALER INH SCH (20:00)
[2019-04-10] MEDS ORDERED: DIGOXIN INJ 0.5 MG/2 ML AMP (J1160) IV STA (21:08)
[2019-04-10] MEDS ORDERED: dexameTHASONE 20 MG/5 ML VIAL (J1100) IV ONE (21:15)
[2019-04-10] MEDS ORDERED: LevoFLOXacin IV 500 MG in APPROPRIATE DILUENT 1 EA IV ONE (21:45)
[2019-04-10] MEDS ORDERED: PRED20TA PO (22:15)
[2019-04-10 22:56] LABS: BASO % 0.3 % (0.0-1.0); EOS % 0.1 % (0.0-3.0); HEMATOCRIT 46.1 % (42.0-52.0); HEMOGLOBIN 14.7 g/dl (13.5-17.5); LYMPH # 0.8 10^3/uL (1.5-4.5); LYMPH % 6.7 % (24.0-44.0); MEAN CORPUSCULAR HEMOGLOBIN 29.3 pg (27.0-33.0); MEAN CORPUSCULAR HGB CONC 31.9 g/dl (32.0-36.5); MONO # 0.5 10^3/uL (0.0-0.8); MONO % 4.5 % (0.0-5.0); NEUTROPHILS # 9.7 10^3/uL (1.8-7.7); PLATELET COUNT, AUTOMATED 199 10^3/uL (150-450); RED BLOOD COUNT 5.01 10^6/uL (4.30-6.10); VENOUS BASE EXCESS 2.9 (-2.0-2.0); VENOUS HCO3 28.9 MEQ/L (23.0-27.0); VENOUS PARTIAL PRESSURE CO2 48.9 mmHg (38.0-50.0); VENOUS PARTIAL PRESSURE O2 38.3 mmHg (30.0-50.0); VENOUS PH 7.389 UNITS (7.330-7.430); VENOUS STANDARD HCO3 26.3 MEQ/L; VENOUS TOTAL CO2 30.4 MEQ/L (24.0-28.0); WHITE BLOOD COUNT 11.4 10^3/uL (4.0-10.0)
[2019-04-10 23:16] LABS: CALCIUM LEVEL 8.9 MG/DL (8.8-10.2); CREATININE FOR GFR 1.77 MG/DL (0.70-1.30); GLOMERULAR FILTRATION RATE 40.8 (>49); POTASSIUM SERUM 4.3 MEQ/L (3.5-5.1)
[2019-04-10] MEDS ORDERED: ACETAMINOPHEN TAB 650MG DOSE (2X325MG) PO PRN (23:30)
[2019-04-11 00:08] VITALS: O2SAT 92
--- NOTE | 2019-04-11 00:10 | HPEPDOC ---
General Date of Admission Apr 10, 2019 at 23:15 Date of Service: Apr 10, 2019 Attending Physician: IMMANUEL CHARLES MD Chief Complaint The patient is a 68-year-old male admitted with a reason for visit of COPD. History of Present Illness Mr. Ryan is a 68-year-old morbidly obese male, past medical history significant for COPD, end-stage, currently oxygen dependent 24 hours. 5-6 L in the daytime and 10 L at night, presenting to the emergency room on account of left elbow swelling and pain. He noticed elbow swelling and tenderness today. Patient states he was going to see his primary care physician for his elbow when he developed shortness of breath with exertion. He decided to defer its to the emergency room instead for an x-ray of his elbow. On assessment in the ED, patient was found to have right lower lobe infiltrate and he was started on antibiotic therapy. On further evaluation. Patient reports he has had some worsening of shortness of breath on and off for a while now. He denied any chills, fever, chest pain, weakness, abdominal discomfort, constipation or diarrhea. He has been on an extended prednisone taper started at discharge from his last hospitalization in February. Home Medications Scheduled Apixaban (Eliquis) 5 Mg Tablet, 5 MG PO BID, (Reported) Digoxin (Digoxin) 125 Mcg Tablet, 125 MCG PO DAILY, (Reported) Fluticasone Propion/Salmeterol (Advair Hfa 230-21 Mcg Inhaler) 12 Gm Hfa.aer.ad, 2 PUFF INH BID, (Reported) Pantoprazole Sodium (Pantoprazole Sodium) 40 Mg Tablet.dr, 40 MG PO DAILY, ( Reported) Potassium Chloride (Potassium Chloride) 10 Meq Capsule.er, 10 MEQ PO DAILY, (Reported) Prednisone (Prednisone) 20 Mg Tablet, 20 MG PO TAPER, (Reported) 20MG X 7 DAYS, 10MG X 7 DAYS, THEN STOP Spironolactone (Spironolactone) 25 Mg Tablet, 12.5 MG PO DAILY, (Reported) Tiotropium [place] Monohydrate (Spiriva) 18 Mcg Cap.w.dev, 1 CAP INH DAILY, (Reported) Torsemide (Torsemide) 20 Mg Tablet, 10 MG PO QPM, (Reported) TAKES AT 1700 Verapamil HCl (Verapamil ER) 240 Mg Cap24h.pel, 240 MG PO DAILY, (Reported) Allergies Coded Allergies: aspirin (Verified Adverse Reaction, Intermediate, bleeding, 12/21/18) Penicillins (Verified Adverse Reaction, Mild, gi upset, 12/21/18) Past Medical History Medical History Atrial fibrillation. Chronic diastolic heart failure In COPD, oxygen dependent. Morbid obesity Hypertension Benign prostate hypertrophy Polycythemia Surgical History Removal of all his teeth Family History Denies any family history Social History * Smoker: Denies Alcohol: Denies Drugs: denies A-FIB/CHADSVASC A-FIB History Current/History of A-Fib/PAF?: Yes Current PO Anticoag Therapy: Yes Review of Systems Other systems A pertinent 10 point review of systems is completed, negative except as stated in the history of presenting illness. Physical Examination Other physical findings GENERAL: Obese male in no acute distress SKIN : Warm, dry. Discoloration to extensor aspect of bilateral forearms HEENT: Atraumatic, normocephalic, PERRL CARDIOVASCULAR: Regular rate and rhythm, S1S2, no JVD, no edema, distal pulses not palpable RESP: Diminished, end expiratory wheezes, +accessory muscle use noted ABDOMEN: BS+ non distended non tender MS: Left elbow tophi, deformity NEURO: Alert and oriented x 3, CN2-12 grossly intact PSYCH: no anxiety or agitation, appropriate mood and affect. Vital Signs Vital Signs Date Time Temp Pulse Resp B/P (MAP) Pulse Ox O2 Delivery O2 Flow Rate FiO2 04/10/19 23:00 109/76 (87) 04/10/19 22:58 117 20 87 Nasal Cannula 6.0 04/10/19 20:55 97.4 Laboratory Data Labs 24H Laboratory Tests 2 04/10/19 22:48: Immature Granulocyte % (Auto) 3.4H, White Blood Count 11.4H, Red Blood Count 5.01, Hemoglobin 14.7, Hematocrit 46.1, Mean Corpuscular Volume 92.0, Mean Corpuscular Hemoglobin 29.3, Mean Corpuscular Hemoglobin Concent 31.9L, Red Cell Distribution Width 21.7H, Platelet Count 199, Neutrophils (%) (Auto) 85.0H, Lymphocytes (%) (Auto) 6.7L, Monocytes (%) (Auto) 4.5, Eosinophils (%) (Auto) 0.1, Basophils (%) (Auto) 0.3, Neutrophils # (Auto) 9.7H, Lymphocytes # (Auto) 0.8L, Monocytes # (Auto) 0.5, Eosinophils # (Auto) 0.0, Basophils # (Auto) 0.0, Nucleated Red Blood Cells % (auto) 0.7H, Blood Gas Bicarbonate Standard 26.3, Venous Blood pH 7.389, Venous Blood Partial Pressure CO2 48.9, Venous Blood Partial Pressure O2 38.3, Venous Blood Total Carbon Dioxide 30.4H, Venous Blood HCO3 28.9H, Venous Blood Oxygen Saturation 68.0, Venous Blood Base Excess 2.9H, Anion Gap 6L, Glomerular Filtration Rate 40.8L, Lactic Acid Level 1.6, Blood Urea Nitrogen 38H, Creatinine 1.77H, Sodium Level 142, Potassium Level 4.3, Chloride Level 106, Carbon Dioxide Level 30, Calcium Level 8.9 CBC/BMP Laboratory Tests 04/10/19 22:48 Red Blood Count 5.01, Mean Corpuscular Volume 92.0, Mean Corpuscular Hemoglobin 29.3, Mean Corpuscular Hemoglobin Concent 31.9 L, Red Cell Distribution Width 21.7 H, Neutrophils (%) (Auto) 85.0 H, Lymphocytes (%) (Auto) 6.7 L, Monocytes (%) (Auto) 4.5, Eosinophils (%) (Auto) 0.1, Basophils (%) (Auto) 0.3, Neutrophils # (Auto) 9.7 H, Lymphocytes # (Auto) 0.8 L, Monocytes # (Auto) 0.5, Eosinophils # (Auto) 0.0, Basophils # (Auto) 0.0, Calcium Level 8.9 Microbiology Microbiology 04/10/19 Blood Culture, Received Pending Assessment/Plan Acute exacerbation of COPD -Right lower lobe infiltrate on chest x-ray --Antibiotic coverage with Levaquin renal dosing -Scheduled bronchodilator therapy -Continue home bronchodilators -Continue on prednisone taper -Continue supplemental oxygen use with periodic monitoring to keep saturation greater than 90% Atrial fibrillation -Chronic, on anticoagulation therapy with Eliquis -Continue rate control with digoxin and verapamil Left elbow swelling and pain -Patient denies prior history of gout -Deformity, looks like gout tophi -X-ray of left elbow -Consult orthopedic team for input. If indicated DVT prophylaxis -Fully anticoagulated with Eliquis Plan / VTE VTE Prophylaxis Ordered?: Yes ASHWINI NUNEZ Apr 11, 2019 00:09
[2019-04-11] MEDS: IPRATROPIUM 0.5MG/ALBUTEROL 2.5MG INH SOL UD 3ML (DUONEB)(J7620) NEB SCH ×5 (01:02→20:00)
[2019-04-11 06:59] LABS: HEMATOCRIT 44.7 % (42.0-52.0); HEMOGLOBIN 14.1 g/dl (13.5-17.5); MEAN CORPUSCULAR HEMOGLOBIN 28.1 pg (27.0-33.0); MEAN CORPUSCULAR HGB CONC 31.5 g/dl (32.0-36.5); PLATELET COUNT, AUTOMATED 203 10^3/uL (150-450); RED BLOOD COUNT 5.02 10^6/uL (4.30-6.10); WHITE BLOOD COUNT 10.3 10^3/uL (4.0-10.0)
--- NOTE | 2019-04-11 07:03 | REP ---
Portable chest, 09:21 p.m., single AP view with the patient upright: Comparison is 03/16/2019. There is increased radiodensity in the lung bases bilaterally, atelectasis versus bibasilar infiltrates. There are no pleural effusions. Cardiac size is upper normal, unchanged. The lanny, mediastinum, skeletal structures are unchanged. Para Impression: Bibasilar densities, infiltrates versus atelectasis. Electronically Signed by Sai Carpenter MD 04/11/2019 06:54 A
[2019-04-11] MEDS: TIOTROPIUM INHALER/CAPSULE (SPIRIVA) INH SCH (07:10)
[2019-04-11] MEDS: ADVAIR HFA 230/21MCG INHALER INH SCH ×2 (07:10→20:21)
--- NOTE | 2019-04-11 07:11 | REP ---
Left elbow for views: There is soft tissue swelling of the posteriorly. Mineralization and joint spaces are normal. There is no fracture or dislocation. There is question of a small joint effusion. There are small spurs arising from the lateral humeral condyle. Olecranon spur. Impression: Soft tissue edema posteriorly. Probable small joint effusion. Small lateral humeral condyle spurs. Olecranon spur. Electronically Signed by Sai Carpenter MD 04/11/2019 07:02 A
[2019-04-11 07:25] LABS: ALBUMIN 2.9 GM/DL (3.2-5.2); BILIRUBIN,TOTAL 0.8 MG/DL (0.2-1.0); CALCIUM LEVEL 8.9 MG/DL (8.8-10.2); CREATININE FOR GFR 1.58 MG/DL (0.70-1.30); GLOMERULAR FILTRATION RATE 46.5 (>49); POTASSIUM SERUM 4.3 MEQ/L (3.5-5.1); TOTAL PROTEIN 6.9 GM/DL (6.4-8.2)
[2019-04-11] MEDS: PANTOPRAZOLE 40MG TAB (PROTONIX) PO SCH (08:54)
[2019-04-11] MEDS: DIGOXIN 0.125 MG TAB PO SCH (08:54)
[2019-04-11] MEDS: predniSONE 10 MG TAB PO SCH (08:54)
[2019-04-11] MEDS: VERAPAMIL 120 MG SR TAB PO SCH (08:54)
[2019-04-11] MEDS: POTASSIUM CHLORIDE 10 MEQ SR TABLET PO SCH (08:54)
[2019-04-11] MEDS: SPIRONOLACTONE 12.5MG PER 1/2 TABLET PO SCH (08:54)
[2019-04-11] MEDS: APIXABAN 5 MG TAB (ELIQUIS) PO SCH ×2 (08:54→20:48)
[2019-04-11 16:40] VITALS: BP 138/78
[2019-04-11] MEDS ORDERED: SLF 3 ML SYR IV PRN (17:00)
[2019-04-11] MEDS: TORSEMIDE 20 MG TAB PO SCH (17:27)
[2019-04-11] MEDS ORDERED: diltiaZEM 125 MG in NS 100 ML IV SCH (18:00)
[2019-04-11 20:00] VITALS: BP 136/76
[2019-04-11] MEDS: SLF 3 ML SYR IV SCH (20:49)
[2019-04-11 23:59] VITALS: BP 127/67
[2019-04-12 04:00] VITALS: BP_SYST 116; BP_SYST 118; BP_DIAS 63; BP_DIAS 71
[2019-04-12 05:05] LABS: BASO % 0.2 % (0.0-1.0); HEMATOCRIT 40.3 % (42.0-52.0); HEMOGLOBIN 12.7 g/dl (13.5-17.5); LYMPH # 0.5 10^3/uL (1.5-4.5); LYMPH % 4.6 % (24.0-44.0); MEAN CORPUSCULAR HEMOGLOBIN 29.1 pg (27.0-33.0); MEAN CORPUSCULAR HGB CONC 31.5 g/dl (32.0-36.5); MEAN CORPUSCULAR VOLUME 92.2 fl (80.0-96.0); MONO # 0.4 10^3/uL (0.0-0.8); MONO % 3.9 % (0.0-5.0); NEUTROPHILS # 9.4 10^3/uL (1.8-7.7); NEUTROPHILS % 89.6 % (36.0-66.0); PLATELET COUNT, AUTOMATED 196 10^3/uL (150-450); RED BLOOD COUNT 4.37 10^6/uL (4.30-6.10); WHITE BLOOD COUNT 10.5 10^3/uL (4.0-10.0)
[2019-04-12 05:25] LABS: CREATININE FOR GFR 1.58 MG/DL (0.70-1.30); GLOMERULAR FILTRATION RATE 46.5 (>49); POTASSIUM SERUM 4.3 MEQ/L (3.5-5.1)
[2019-04-12] MEDS: SLF 3 ML SYR IV SCH ×3 (05:32→21:31)
[2019-04-12] MEDS: ADVAIR HFA 230/21MCG INHALER INH SCH ×2 (07:31→19:22)
[2019-04-12] MEDS: TIOTROPIUM INHALER/CAPSULE (SPIRIVA) INH SCH (07:31)
[2019-04-12] MEDS: IPRATROPIUM 0.5MG/ALBUTEROL 2.5MG INH SOL UD 3ML (DUONEB)(J7620) NEB SCH ×4 (07:35→19:25)
[2019-04-12 08:00] VITALS: BP 104/57
[2019-04-12] MEDS: predniSONE 10 MG TAB PO SCH (08:22)
[2019-04-12] MEDS: APIXABAN 5 MG TAB (ELIQUIS) PO SCH (08:22)
[2019-04-12] MEDS: POTASSIUM CHLORIDE 10 MEQ SR TABLET PO SCH (08:22)
[2019-04-12] MEDS: SPIRONOLACTONE 12.5MG PER 1/2 TABLET PO SCH (08:22)
[2019-04-12] MEDS: DIGOXIN 0.125 MG TAB PO SCH (08:22)
[2019-04-12] MEDS: PANTOPRAZOLE 40MG TAB (PROTONIX) PO SCH (08:22)
[2019-04-12] MEDS ORDERED: LevoFLOXacin IV 750 MG in APPROPRIATE DILUENT 1 EA IV SCH (09:00)
[2019-04-12] MEDS: VERAPAMIL 120 MG SR TAB PO SCH (09:34)
[2019-04-12 12:00] VITALS: BP 111/67
[2019-04-12] MEDS ORDERED: MAALOX 30 ML SUSP *UDC PO PRN (13:00)
[2019-04-12 16:00] VITALS: BP 105/57
--- NOTE | 2019-04-12 16:23 | IPNPDOC ---
Subjective Date Seen The patient was seen on 04/12/19. at 305pm Subjective Chief Complaint/HPI left elbow pain and swelling Events since last encounter pt reports his left elbow pain has resolved and his ROM is intact his dyspnea is improving but not quite at baseline, he thinks the COPD exacerbation was triggered by the humidity Objective Physical Examination General Exam: Positive: Cooperative, No Acute Distress Eye Exam: Positive: EOMI ENT Exam: Positive: Mucous membr. moist/pink Chest Exam: Positive: Diminished, Other (occasional cough) Heart Exam: Positive: Rate Normal, Normal S1, Normal S2 Extremity Exam: Positive: Other (small hematoma at left elbow, w intact ROM at the joint) Skin Exam: Positive: Other skin issue (extensive brusing around left elbow, ) Neuro Exam: Positive: Normal Speech Psych Exam: Positive: Oriented x 3 Assessment /Plan Assessment Mr. Julian is a 68 yr old M w a PMH of COPD w chronic respiratory failure and dependence on O2, A.fib, Diastolic CHF, Morbid Obesity, Chronic, Hypertension, BPH and Polycythemia who is admitted for management of acute COPD. 1.Acute exacerbation of COPD 2/2 RLL PNA - improving Plan: c/w levaquin, duonebs, prednisone day #2, and O2 2.Chronic Atrial fibrillation Plan: c/w digoxin and verapamil / hold Eliquis bc of 2 unit drop in Hg 3. Left elbow Hematoma 2/2 fall -pt is on AC -Hg has dropped a bit -CAROL at elbow and he is afebrile Plan: hold Eliquis & f/u CBC in AM / ice packs 4.Chronic Diastolic CHF/ HTN Plan: c/w home meds 5.BPH Plan: c/w home meds DISOP: possibly home tomorow if Hg stable and dyspnea has resolved DVT Px SCDs Plan/VTE VTE Prophylaxis Ordered?: Yes VS, I&O, 24H, Fishbone Vital Signs/I&O Vital Signs Date Time Temp Pulse Resp B/P (MAP) Pulse Ox O2 Delivery O2 Flow Rate FiO2 04/12/19 12:00 6.0 04/12/19 12:00 96.8 99 18 111/67 (82) 91 04/11/19 15:46 High Flow Cannula I&O- Last 24 Hours up to 6 AM 04/12/19 06:00 Intake Total 600 ml Output Total 1080 ml Balance -480 ml Laboratory Data 24H LABS Laboratory Tests 2 04/12/19 04:45: Immature Granulocyte % (Auto) 1.7, White Blood Count 10.5H, Red Blood Count 4.37, Hemoglobin 12.7L, Hematocrit 40.3L, Mean Corpuscular Volume 92.2, Mean Corpuscular Hemoglobin 29.1, Mean Corpuscular Hemoglobin Concent 31.5L, Red Cell Distribution Width 21.3H, Platelet Count 196, Neutrophils (%) (Auto) 89.6H, Lymphocytes (%) (Auto) 4.6L, Monocytes (%) (Auto) 3.9, Eosinophils (%) (Auto) 0.0, Basophils (%) (Auto) 0.2, Neutrophils # (Auto) 9.4H, Lymphocytes # (Auto) 0.5L, Monocytes # (Auto) 0.4, Eosinophils # (Auto) 0.0, Basophils # (Auto) 0.0, Nucleated Red Blood Cells % (auto) 0.5H, Anion Gap 6L, Glomerular Filtration Rate 46.5L, Blood Urea Nitrogen 36H, Creatinine 1.58H, Sodium Level 142, Potassi um Level 4.3, Chloride Level 106, Carbon Dioxide Level 30, Calcium Level 9.0 CBC/BMP Laboratory Tests 04/12/19 04:45 Red Blood Count 4.37, Mean Corpuscular Volume 92.2, Mean Corpuscular Hemoglobin 29.1, Mean Corpuscular Hemoglobin Concent 31.5 L, Red Cell Distribution Width 21.3 H, Neutrophils (%) (Auto) 89.6 H, Lymphocytes (%) (Auto) 4.6 L, Monocytes (%) (Auto) 3.9, Eosinophils (%) (Auto) 0.0, Basophils (%) (Auto) 0.2, Neutrophils # (Auto) 9.4 H, Lymphocytes # (Auto) 0.5 L, Monocytes # (Auto) 0.4, Eosinophils # (Auto) 0.0, Basophils # (Auto) 0.0, Calcium Level 9.0 Microbiology Microbiology 04/10/19 Blood Culture - Preliminary, Resulted No growth after 24 hours . All specim... LYUBOV HOPKINS MD Apr 12, 2019 16:23
[2019-04-12] MEDS: TORSEMIDE 20 MG TAB PO SCH (17:23)
[2019-04-12] MEDS ORDERED: methylPREDNISolone INJ 40 MG/1 ML VIAL (J2920) IV ONE (18:00)
[2019-04-12 20:00] VITALS: BP 126/62
[2019-04-12 23:59] VITALS: BP 126/70
[2019-04-13 04:00] VITALS: BP 114/56
[2019-04-13] MEDS: SLF 3 ML SYR IV SCH ×2 (05:13→13:09)
[2019-04-13 05:49] LABS: BASO % 0.2 % (0.0-1.0); HEMATOCRIT 43.8 % (42.0-52.0); HEMOGLOBIN 13.8 g/dl (13.5-17.5); LYMPH # 0.3 10^3/uL (1.5-4.5); LYMPH % 2.7 % (24.0-44.0); MEAN CORPUSCULAR HEMOGLOBIN 28.9 pg (27.0-33.0); MEAN CORPUSCULAR HGB CONC 31.5 g/dl (32.0-36.5); MEAN CORPUSCULAR VOLUME 91.6 fl (80.0-96.0); MONO # 0.2 10^3/uL (0.0-0.8); MONO % 2.2 % (0.0-5.0); NEUTROPHILS # 10.2 10^3/uL (1.8-7.7); NEUTROPHILS % 93.5 % (36.0-66.0); PLATELET COUNT, AUTOMATED 227 10^3/uL (150-450); RED BLOOD COUNT 4.78 10^6/uL (4.30-6.10); WHITE BLOOD COUNT 10.9 10^3/uL (4.0-10.0)
[2019-04-13 06:07] LABS: CALCIUM LEVEL 9.8 MG/DL (8.8-10.2); CREATININE FOR GFR 1.84 MG/DL (0.70-1.30)
[2019-04-13] MEDS: TIOTROPIUM INHALER/CAPSULE (SPIRIVA) INH SCH (07:09)
[2019-04-13] MEDS: ADVAIR HFA 230/21MCG INHALER INH SCH (07:09)
[2019-04-13] MEDS: IPRATROPIUM 0.5MG/ALBUTEROL 2.5MG INH SOL UD 3ML (DUONEB)(J7620) NEB SCH ×2 (07:09→11:34)
[2019-04-13] MEDS ORDERED: LEVO750T13 PO (07:35)
--- NOTE | 2019-04-13 07:39 | DS.PDOC ---
Discharge Summary General Date of Admission Apr 11, 2019 at 09:23 Date of Discharge April 13 2019 Primary Care Physician: MARCELO TRUJILLO PA-C Attending Physician: LYUBOV HOPKINS MD Discharge Summary PROCEDURES PERFORMED DURING STAY: [None]. ADMITTING DIAGNOSES: 1. Acute COPD 2. Left elbow swelling and pain DISCHARGE DIAGNOSES: 1. Acute COPD, possibly due to pneumonia resolved. 2. Left elbow pain and swelling secondary to hematoma, resolving COMPLICATIONS/CHIEF COMPLAINT: COPD. HISTORY OF PRESENT ILLNESS: The patient initially presented on April 11 with comp laints of left elbow pain and swelling. He was on his way to see his primary care physician but decided to come to the ED to evaluate the elbow pain. On the way to the ED, he developed shortness of breath. HOSPITAL COURSE: He was admitted for management of acute COPD, possibly due to pneumonia and received antibiotics and steroids. The patient reported that the left elbow pain and swelling resolved. He denied fevers or chills and was able to move his elbow without pain. He was reexamined on April 13 at 6:50 AM and reported feeling back to baseline and ready to go home. He is afebrile and his WBC count had trended down DISCHARGE MEDICATIONS: Please see below. ALLERGIES: Please see below. PHYSICAL EXAMINATION ON DISCHARGE: VITAL SIGNS: Please see below. GENERAL well-nourished, well-developed, no apparent distress HEENT: Nasal cannula in place. Normocephalic, atraumatic NECK: Supple CARDIOVASCULAR EXAMINATION: Rate and rhythm. No murmurs, rubs or gallops RESPIRATORY EXAMINATION: Clear to auscultation bilaterally ABDOMINAL EXAMINATION: Soft and nontender EXTREMITIES range of motion intact 4 extremities , the left elbow does have a small hematoma, but there is no pain on palpation of the elbow and passive and active range of motion are intact SKIN: Bruising at the left elbow, the same as yesterday. NEUROLOGICAL EXAMINATION: CN II-3 grossly intact. Speech normal PSYCHIATRIC EXAMINATION alert and oriented 3, able to understand and follow commands LABORATORY DATA: Please see below. IMAGING: X-ray of the left elbow showed soft tissue edema posteriorly. Probable small joint effusion and small lateral humeral condyle spurs and olecranon spur. Chest x-ray showed bibasilar densities, infiltrates versus atelectasis PROGNOSIS: Fair ACTIVITY: [As tolerated]. DIET: Low-sodium DISCHARGE PLAN: The patient was sent home with a prescription for Levaquin for 2 more days, he already had a tapering dose of steroids, therefore, no additional steroids were ordered. He should follow-up with his PCP within the next week and his lock fitter for repeat PFTs and referral to pulmonary rehabilitation Continue with home oxygen of 5-6 L per day during daytime and 10 L at night DISPOSITION: . Home DISCHARGE INSTRUCTIONS: 1. See above ITEMS TO FOLLOWUP ON ON OUTPATIENT: 1. See above DISCHARGE CONDITION: [Stable]. TIME SPENT ON DISCHARGE: Greater than 15 minutes. Vital Signs/I&Os Vital Signs Date Time Temp Pulse Resp B/P (MAP) Pulse Ox O2 Delivery O2 Flow Rate FiO2 04/13/19 04:00 10.0 04/13/19 04:00 96.6 88 20 114/56 (75) 95 04/11/19 15:46 High Flow Cannula I&O- Last 24 Hours up to 6 AM 04/13/19 05:59 Intake Total 1920 ml Output Total 1475 ml Balance 445 ml Laboratory Data Labs 24H Laboratory Tests 2 04/13/19 05:27: Immature Granulocyte % (Auto) 1.4, White Blood Count 10.9H, Red Blood Count 4.78, Hemoglobin 13.8, Hematocrit 43.8, Mean Corpuscular Volume 91.6, Mean Corpuscular Hemoglobin 28.9, Mean Corpuscular Hemoglobin Concent 31.5L, Red Cell Distribution Width 21.8H, Platelet Count 227, Neutrophils (%) (Auto) 93.5H, Lymphocytes (%) (Auto) 2.7L, Monocytes (%) (Auto) 2.2, Eosinophils (%) (Auto) 0.0, Basophils (%) (Auto) 0.2, Neutrophils # (Auto) 10.2H, Lymphocytes # (Auto) 0.3L, Monocytes # (Auto) 0.2, Eosinophils # (Auto) 0.0, Basophils # (Auto) 0.0, Nucleated Red Blood Cells % (auto) 0.5H, Anion Gap 8, Glomerular Filtration Rate 39.0L, Blood Urea Nitrogen 39H, Creatinine 1.84H, Sodium Level 140, Potassium Level 5.0, Chloride Level 103, Carbon Dioxide Level 29, Calcium Level 9.8 CBC/BMP Laboratory Tests 04/13/19 05:27 Red Blood Count 4.78, Mean Corpuscular Volume 91.6, Mean Corpuscular Hemoglobin 28.9, Mean Corpuscular Hemoglobin Concent 31.5 L, Red Cell Distribution Width 21.8 H, Neutrophils (%) (Auto) 93.5 H, Lymphocytes (%) (Auto) 2.7 L, Monocytes (%) (Auto) 2.2, Eosinophils (%) (Auto) 0.0, Basophils (%) (Auto) 0.2, Neutrophils # (Auto) 10.2 H, Lymphocytes # (Auto) 0.3 L, Monocytes # (Auto) 0.2, Eosinophils # (Auto) 0.0, Basophils # (Auto) 0.0, Calcium Level 9.8 Microbiology Microbiology 04/10/19 Blood Culture - Preliminary, Resulted No Growth after 48 hours. All Specime... Discharge Medications Scheduled Apixaban (Eliquis) 5 Mg Tablet, 5 MG PO BID, (Reported) Digoxin (Digoxin) 125 Mcg Tablet, 125 MCG PO DAILY, (Reported) Fluticasone Propion/Salmeterol (Advair Hfa 230-21 Mcg Inhaler) 12 Gm Hfa.aer.ad, 2 PUFF INH BID, (Reported) Levofloxacin (Levofloxacin) 750 Mg Tablet, 750 MG PO DAILY for copd Pantoprazole Sodium (Pantoprazole Sodium) 40 Mg Tablet.dr, 40 MG PO DAILY, (Reported) Potassium Chloride (Potassium Chloride) 10 Meq Capsule.er, 10 MEQ PO DAILY, (Reported) Prednisone (Prednisone) 20 Mg Tablet, 20 MG PO TAPER, (Reported) 20MG X 7 DAYS, 10MG X 7 DAYS, THEN STOP Spironolactone (Spironolactone) 25 Mg Tablet, 12.5 MG PO DAILY, (Reported) Tiotropium [place] Monohydrate (Spiriva) 18 Mcg Cap.w.dev, 1 CAP INH DAILY, (Reported) Torsemide (Torsemide) 20 Mg Tablet, 10 MG PO QPM, (Reported) TAKES AT 1700 Verapamil HCl (Verapamil ER) 240 Mg Cap24h.pel, 240 MG PO DAILY, (Reported) Allergies Coded Allergies: aspirin (Verified Adverse Reaction, Intermediate, bleeding, 12/21/18) Penicillins (Verified Adverse Reaction, Mild, gi upset, 12/21/18) LYUBOV HOPKINS MD Apr 13, 2019 07:39
[2019-04-13 08:00] VITALS: BP 126/90
[2019-04-13] MEDS ORDERED: predniSONE 10 MG TAB PO SCH (09:00)
[2019-04-13 09:32] VITALS: BP 126/90
[2019-04-13] MEDS: VERAPAMIL 120 MG SR TAB PO SCH (09:32)
[2019-04-13] MEDS: SPIRONOLACTONE 12.5MG PER 1/2 TABLET PO SCH (09:33)
[2019-04-13] MEDS: POTASSIUM CHLORIDE 10 MEQ SR TABLET PO SCH (09:33)
[2019-04-13] MEDS: DIGOXIN 0.125 MG TAB PO SCH (09:33)
[2019-04-13] MEDS: PANTOPRAZOLE 40MG TAB (PROTONIX) PO SCH (09:33)
[2019-04-13 12:00] VITALS: BP 131/76
[2019-04-13] MEDS ORDERED: TIOT18INH INH (13:48)
[2019-04-13] MEDS ORDERED: ADVA230A INH (13:52)
== END 2019-04-13 15:12 | disposition home or self-care (01) | DRG 190 ==
LOC: M ED 20:43 → M ED INP 23:15 → OBSVTOIN 04-11 09:23 → M PCU 04-11 16:38
PROVIDERS: ADMIT Internal Medicine; ATTEND Internal Medicine
DX: J44.1 Chronic obstructive pulmonary disease with (acute) exacerbation (principal); J18.9 Pneumonia, unspecified organism; I50.32 Chronic diastolic (congestive) heart failure; J96.11 Chronic respiratory failure with hypoxia; Z79.899 Other long term (current) drug therapy; Z88.0 Allergy status to penicillin; Z88.6 Allergy status to analgesic agent; Z99.81 Dependence on supplemental oxygen; I48.2 Chronic atrial fibrillation; N40.0 Benign prostatic hyperplasia without lower urinary tract symptoms; S50.02XA Contusion of left elbow, initial encounter; W18.30XA Fall on same level, unspecified, initial encounter; E66.01 Morbid (severe) obesity due to excess calories; I11.0 Hypertensive heart disease with heart failure

== ENCOUNTER 2019-05-05 14:03 | Inpatient (IN) | payer MEDICARE, OTHER ==
[~2019-05-05] VITALS: Ht 180.3 cm; Wt 117.5 kg
[~2019-05-05 14:03] MED LIST changes: -INDO50CA11 PO; +INDO50CA91 PO; +LEVO750T13 PO
[2019-05-05] MEDS ORDERED: IPRATROPIUM 0.5MG/ALBUTEROL 2.5MG INH SOL UD 3ML (DUONEB)(J7620) NEB ONE (14:30)
[2019-05-05 14:36] LABS: HEMATOCRIT 43.9 % (42.0-52.0); RED BLOOD COUNT 4.67 10^6/uL (4.30-6.10); WHITE BLOOD COUNT 10.3 10^3/uL (4.0-10.0)
[2019-05-05 14:37] LABS: BASO # 0.1 10^3/uL (0.0-0.2); BASO % 0.5 % (0.0-1.0); EOS # 0.1 10^3/uL (0.0-0.50); EOS % 0.9 % (0.0-3.0); LYMPH # 0.9 10^3/uL (1.5-4.5); MEAN CORPUSCULAR HGB CONC 31.9 g/dl (32.0-36.5); MONO % 9.5 % (0.0-5.0); NEUTROPHILS % 77.8 % (36.0-66.0); PLATELET COUNT, AUTOMATED 236 10^3/uL (150-450)
[2019-05-05 15:09] LABS: ALT/SGPT 40 U/L (12-78); BILIRUBIN,DIRECT 0.3 MG/DL (0.0-0.2); BLOOD UREA NITROGEN 17 MG/DL (7-18); CALCIUM LEVEL 8.5 MG/DL (8.8-10.2); CARBON DIOXIDE LEVEL 26 MEQ/L (21-32); CHLORIDE LEVEL 105 MEQ/L (98-107); CPK CREATINE PHOSPHOKINASE 43 U/L (39-308); CREATININE FOR GFR 1.36 MG/DL (0.70-1.30); GLOMERULAR FILTRATION RATE 55.3 (>49); GLUCOSE, FASTING 109 MG/DL (70-100); MB/CK RELATIVE INDEX 2.33 (< OR =4); NT-PRO BNP 2370 PG/ML (<125); POTASSIUM SERUM 4.2 MEQ/L (3.5-5.1); SODIUM LEVEL 139 MEQ/L (136-145); THYROXINE (T4) 8.8 UG/DL (4.5-12.0); TOTAL PROTEIN 6.2 GM/DL (6.4-8.2); TROPONIN I < 0.02 NG/ML (< 0.10)
[2019-05-05] MEDS ORDERED: ISOVUE-370 76% 100ML VIAL (Q9967) As Ordered ONE (15:17)
[2019-05-05 15:34] LABS: DIGOXIN LEVEL 1.2 NG/ML (0.5-2.0)
--- NOTE | 2019-05-05 15:57 | REP ---
Portable chest x-ray: Single view. History: Dyspnea and cough. Comparison chest x-ray: April 10, 2019. Findings: Oxygen delivery tubing is seen. Increased interstitial markings are again noted in the bases which may be due to fibrosis. Borderline heart size unchanged. The aorta is tortuous. Pulmonary vasculature is somewhat cephalized. No acute infiltrate is seen. Impression: Bibasilar interstitial fibrosis pattern, borderline heart size. Pulmonary vascular cephalization. No definite acute infiltrate. Electronically Signed by Logan Castillo MD 05/05/2019 05:38 P
--- NOTE | 2019-05-05 16:25 | REP ---
REASON: Dyspnea and hypoxia. COMPARISON: Multiple, the latest 03/16/2019. CONTRAST: 100 mL [id number]. Prior exams showed no pulmonary embolus. Advanced COPD was seen with stable mediastinal and hilar lymph nodes. There is a tiny nodule in the right lobe of the thyroid gland unchanged and there are larger nodules in the left lobe also unchanged. There is mediastinal and hilar adenopathy which has increased. The increase in both the size and number of abnormal lymph nodes in both the mediastinum and pulmonary lanny. There are no pleural or pericardial effusions. There is excellent visualization of the pulmonary arterial vasculature. No focal filling defects have developed that would be considered consistent with pulmonary emboli. The thoracic aorta is unchanged and again seen to be within normal limits. The imaged upper abdomen and imaged osseous structures are also unchanged. Evaluation of the lung silva show marked emphysematous changes with parenchymal bulla and pleural blebs all unchanged. There are scattered asymmetric parenchymal densities all unchanged. IMPRESSION: 1. No prominent adenopathy in the mediastinum and pulmonary lanny. Etiology uncertain, correlate clinically with appropriate followup. 2. No evidence of a pulmonary embolus. 3. Marked but stable appearing emphysematous changes. Electronically Signed by Fam Mcadams DO 05/05/2019 05:59 P
[2019-05-05] MEDS ORDERED: methylPREDNISolone INJ 125 MG/2 ML VIAL (J2930) IV ONE (16:45)
[2019-05-05] MEDS: TORSEMIDE 10 MG TABLET PO SCH (17:00)
[2019-05-05] MEDS ORDERED: MAALOX 30 ML SUSP *UDC PO PRN (17:15)
[2019-05-05] MEDS ORDERED: ACETAMINOPHEN TAB 650MG DOSE (2X325MG) PO PRN (17:15)
[2019-05-05] MEDS ORDERED: MOM 30ML SUSPENSION UDC PO PRN (17:15)
[2019-05-05] MEDS ORDERED: ALBUTEROL SULFATE 2.5 MG/0.5 ML INH NEB SOLN NEB PRN (17:15)
--- NOTE | 2019-05-05 17:30 | HPEPDOC ---
General Date of Admission Date of Service: May 05, 2019 Primary Care Physician: MARCELO TRUJILLO PA-C Chief Complaint The patient is a 68-year-old male admitted with a reason for visit of SOB. Source: Patient Exam Limitations: Clinical conditions Timing/Duration: Unsure Severity: Moderate Associated Symptoms: Unobtainable, Other History of Present Illness 68 years old white female with past medical history of atrial fibrillation, chronic diastolic heart failure, COPD, oxygen dependent, morbid obesity, hypertension, benign prostate hypertrophy. Polycythemia vera presented in ER with chief complaints of increasing shortness of breath, patient is a frequent visitor and was recently admitted and discharged with the pneumonia. As per patient, he has shortness of breath from increased which is progressively increasing from unknown time. He has 5 L of nasal control at home with with a pulse ox of 68 on 5 L on arrival to ED. As per patient, he was recently weaned off prednisone and he was placed on oxygen nonrebreather in the ED and will be called in for admission. Home Medications Scheduled Apixaban (Eliquis) 5 Mg Tablet, 5 MG PO BID, (Reported) Digoxin (Digoxin) 125 Mcg Tablet, 125 MCG PO DAILY, (Reported) Fluticasone Propion/Salmeterol (Advair Hfa 230-21 Mcg Inhaler) 12 Gm Hfa.aer.ad, 2 PUFF INH BID, (Reported) Pantoprazole Sodium (Pantoprazole Sodium) 40 Mg Tablet.dr, 40 MG PO DAILY, (Reported) Potassium Chloride (Potassium Chloride) 10 Meq Capsule.er, 10 MEQ PO DAILY, (Reported) Spironolactone (Spironolactone) 25 Mg Tablet, 12.5 MG PO DAILY, (Reported) Tiotropium [place] Monohydrate (Spiriva) 18 Mcg Cap.w.dev, 1 CAP INH DAILY, (Reported) Torsemide (Torsemide) 20 Mg Tablet, 10 MG PO QPM, (Reported) TAKES AT 1700 Verapamil HCl (Verapamil ER) 240 Mg Cap24h.pel, 240 MG PO DAILY, (Reported) Allergies Coded Allergies: aspirin (Verified Adverse Reaction, Intermediate, bleeding, 12/21/18) Penicillins (Verified Adverse Reaction, Mild, gi upset, 12/21/18) Past Medical History Medical History Atrial fibrillation, chronic diastolic heart failure, COPD, oxygen dependency, morbid obesity, hypertension, BPH, polycythemia vera Surgical History Removal of all teeth Family History Significant Family History: No pertinent family hx Social History * Smoker: former Smoker, quit greater than 1 year Alcohol: Denies Drugs: denies A-FIB/CHADSVASC A-FIB History Current/History of A-Fib/PAF?: Yes Current PO Anticoag Therapy: Yes Review of Systems Constitutional: Denies: Chills, Fever, Malaise, Night Sweats, Weakness, Fatigue, Weight Loss, Lethargy, Other Eyes: Denies: Pain, Vision change, Conjunctivae inflammation, Eyelid inflammation, Redness, Other ENT: Denies: Head Aches, Ear Pain, Dysphagia, Sinus Congestion, Post Nasal Drip, Sore Throat, Epistaxis, Other Symptoms Skin: Denies: Rash, Lesions, Jaundice, Bruising, Itching, Dry, Breakdown, Nail Changes, Other Pulmonary: Reports: Dyspnea Cardiovascular: Denies: Chest Pain, Palpitations, Orthopnea, Paroxysmal Noc. Dyspnea, Edema, Lt Headedness, Other Symptoms Gastrointestinal: Denies: Nausea, Vomiting, Abdominal Pain, Diarrhea, Constipation, Melena, Hematochezia, Other Symptoms Genitourinary: Denies: Dysuria, Frequency, Incontinence, Hematuria, Retention, Other Symptoms Hematologic: Denies: Bruising, Bleeding Excessively, Petecchia, Purpura, Enlarged Lymph Nodes, Other Hematologic Endocrine: Denies: Polydipsia, Polyphagia, Polyuria, Heat Intolerance, Cold Intolerance, Other Endocrine Sx Musculoskeletal: Denies: Neck Pain, Back Pain, Shoulder Pain, Arm Pain, Hand Pain, Leg Pain, Foot Pain, Joint Pain, Muscle Pain, Spasms, Other Symptoms Neurological: Denies: Weakness, Numbness, Incoordination, Change in speech, Confusion, Seizures, Other Symptoms Psych: Denies: Mood Normal, Anxiety, Depression, Memory Issues, Thoughts of Self Harm, Anger, Thoughts of Harming Other, Other Psych Physical Examination General Exam: Positive: Alert Eye Exam: Positive: PERRLA, Conjunctiva & lids normal ENT Exam: Positive: Atraumatic, Mucous membr. moist/pink Chest Exam: Positive: Rhonchi (bilateral wheezing and rhonchi is unable), Wheezing Heart Exam: Positive: Rate Normal, Normal S1, Normal S2 Telemetry: Positive: Atrial fibrillation Abdomen Exam: Positive: Normal bowel sounds, Soft Extremity Exam: Positive: Normal pulses Skin Exam: Positive: Nl turgor and temperature Neuro Exam: Positive: Strength at 5/5 X4 ext, Sensation Intact Psych Exam: Positive: Mental status NL, Mood NL, Oriented x 3 Vital Signs Vital Signs Date Time Temp Pulse Resp B/P (MAP) Pulse Ox O2 Delivery O2 Flow Rate FiO2 05/05/19 15:36 99 109/66 (80) 88 Venturi Mask 50 05/05/19 14:27 5.0 05/05/19 14:09 24 Laboratory Data Labs 24H Laboratory Tests 2 05/05/19 14:23: Immature Granulocyte % (Auto) 2.3, White Blood Count 10.3H, Red Blood Count 4.67, Hemoglobin 14.0, Hematocrit 43.9, Mean Corpuscular Volume 94.0, Mean Corpuscular Hemoglobin 30.0, Mean Corpuscular Hemoglobin Concent 31.9L, Red Cell Distribution Width 21.7H, Platelet Count 236, Neutrophils (%) (Auto) 77.8H, Lymphocytes (%) (Auto) 9.0L, Monocytes (%) (Auto) 9.5H, Eosinophils (%) (Auto) 0.9, Basophils (%) (Auto) 0.5, Neutrophils # (Auto) 8.0H, Lymphocytes # (Auto) 0.9L, Monocytes # (Auto) 1.0H, Eosinophils # (Auto) 0.1, Basophils # (Auto) 0.1, Nucleated Red Blood Cells % (auto) 0.3H, Anion Gap 8, Glomerular Filtration Rate 55.3, Lactic Acid Level 2.4*H, Calcium Level 8.5L, Aspartate Amino Transf (AST/SGOT) 26, Alanine Aminotransferase (ALT/SGPT) 40, Alkaline Phosphatase 61, Total Bilirubin 1.0, Direct Bilirubin 0.3H, Total Creatine Kinase 43, Creatine Kinase MB 1.0, Creatine Kinase MB Relative Index 2.33, Troponin I < 0.02, FV-Zqa-D-Type Natriuretic Peptide 2370H, Total Protein 6.2L, Albumin 3.0L, Albumin/Globulin Ratio 0.94L, Thyroid Stimulating Hormone (TSH) 0.440, Thyroxine (T4) 8.8, Digoxin Level 1.2 05/05/19 14:29: POC pH (Misc Panel) 7.401, POC Base Excess (Misc Panel) -3.0L, POC Saturated Percent O2 (Misc) 80L, POC pO2 (Misc Panel) 44.0*L, POC pCO2 (Misc Panel) 35.8, POC HCO3 (Misc Panel) 22.2, POC Total CO2 (Misc Panel) 23.0 CBC/BMP Laboratory Tests 05/05/19 14:23 Red Blood Count 4.67, Mean Corpuscular Volume 94.0, Mean Corpuscular Hemoglobin 30.0, Mean Corpuscular Hemoglobin Concent 31.9 L, Red Cell Distribution Width 21.7 H, Neutrophils (%) (Auto) 77.8 H, Lymphocytes (%) (Auto) 9.0 L, Monocytes ( %) (Auto) 9.5 H, Eosinophils (%) (Auto) 0.9, Basophils (%) (Auto) 0.5, Neutrophils # (Auto) 8.0 H, Lymphocytes # (Auto) 0.9 L, Monocytes # (Auto) 1.0 H, Eosinophils # (Auto) 0.1, Basophils # (Auto) 0.1 Microbiology Microbiology 05/05/19 Blood Culture, Received Pending 05/05/19 Blood Culture, Received Pending Problems (1) COPD with acute exacerbation Status: Acute Problem Text: 68 years old white male with past medical history of chronic respiratory failure with hypoxia on home O2, presented again with similar symptoms of increasing shortness of breath. Patient was recently tapered off his prednisone, patient is being readmitted for similar symptoms of exacerbation of COPD, not responding to oxygen therapy and home medications. Admit to PCU Remote telemetry Saline lock DuoNeb every 6 hours Parental every hour when necessary Solu-Medrol 60 mg every 8 hours O2 support by 50% Ventimask right now, then slowly taper off to 5 L nasal cannula. As per his home oxygen requirement Pulmonary rehabilitation order has been placed in PT, OT eval Continue all home meds Due to prophylaxis with Lovenox , Will adjust his medication according to patient's clinical response (2) Chronic respiratory failure with hypoxia, on home O2 therapy Status: Chronic Problem Text: Continue oxygen support Respiratory therapy Monitor continuous pulse ox (3) CHF (congestive heart failure) Status: Chronic Problem Text: No evidence of acute CHF at the present time Continue home meds including digoxin (4) Chronic atrial fibrillation Status: Chronic Problem Text: Heart rate is still under control was slightly elevated on admission but with running between 90 and 100 on the cardiac monito Continue theeliquis and All other home meds (5) Hypertension Status: Chronic Problem Text: Under control Continue home meds (6) Polycythemia Status: Chronic Problem Text: Secondary to COPD Monitor H&H (7) Morbid obesity Status: Chronic Problem Text: Diet and exercise counseling done Plan / VTE VTE Prophylaxis Ordered?: Yes IMMANUEL CHARLES MD May 05, 2019 17:30
[2019-05-05 18:25] VITALS: BP 133/63
[2019-05-05] MEDS: methylPREDNISolone INJ 125 MG/2 ML VIAL (J2930) IV SCH (18:55)
[2019-05-05] MEDS: IPRATROPIUM 0.5MG/ALBUTEROL 2.5MG INH SOL UD 3ML (DUONEB)(J7620) NEB SCH (20:00)
[2019-05-05] MEDS: DOCUSATE SODIUM 100 MG CAP PO SCH (21:00)
[2019-05-05] MEDS: ADVAIR HFA 230/21MCG INHALER INH SCH (21:12)
[2019-05-05] MEDS: APIXABAN 5 MG TAB (ELIQUIS) PO SCH (21:23)
[2019-05-06] VITALS: BP 122/73
[2019-05-06] MEDS: IPRATROPIUM 0.5MG/ALBUTEROL 2.5MG INH SOL UD 3ML (DUONEB)(J7620) NEB SCH ×4 (00:44→20:00)
[2019-05-06] MEDS: methylPREDNISolone INJ 125 MG/2 ML VIAL (J2930) IV SCH ×3 (02:02→17:44)
[2019-05-06 04:00] VITALS: BP_SYST 125; BP_SYST 126; BP_DIAS 76; BP_DIAS 77
[2019-05-06 05:39] LABS: HEMATOCRIT 43.2 % (42.0-52.0); HEMOGLOBIN 13.7 g/dl (13.5-17.5); MEAN CORPUSCULAR HGB CONC 31.7 g/dl (32.0-36.5); MEAN CORPUSCULAR VOLUME 91.3 fl (80.0-96.0); PLATELET COUNT, AUTOMATED 255 10^3/uL (150-450); RED BLOOD COUNT 4.73 10^6/uL (4.30-6.10); WHITE BLOOD COUNT 6.4 10^3/uL (4.0-10.0)
[2019-05-06 06:01] LABS: BILIRUBIN,TOTAL 0.8 MG/DL (0.2-1.0); CALCIUM LEVEL 9.1 MG/DL (8.8-10.2); CREATININE FOR GFR 1.43 MG/DL (0.70-1.30); GLOMERULAR FILTRATION RATE 52.2 (>49); MAGNESIUM LEVEL 2.2 MG/DL (1.8-2.4); POTASSIUM SERUM 4.2 MEQ/L (3.5-5.1); TOTAL PROTEIN 7.1 GM/DL (6.4-8.2)
--- NOTE | 2019-05-06 06:11 | ECGEPIP ---
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
[2019-05-06] MEDS: TIOTROPIUM INHALER/CAPSULE (SPIRIVA) INH SCH (07:36)
[2019-05-06] MEDS: ADVAIR HFA 230/21MCG INHALER INH SCH ×2 (07:36→20:31)
[2019-05-06 08:00] VITALS: BP 140/80
[2019-05-06] MEDS ORDERED: SLF 3 ML SYR IV PRN (08:15)
[2019-05-06] MEDS: SPIRONOLACTONE 12.5MG PER 1/2 TABLET PO SCH (08:58)
[2019-05-06] MEDS: APIXABAN 5 MG TAB (ELIQUIS) PO SCH ×2 (08:58→20:10)
[2019-05-06] MEDS: DIGOXIN 0.125 MG TAB PO SCH (08:58)
[2019-05-06] MEDS: DOCUSATE SODIUM 100 MG CAP PO SCH ×2 (08:58→20:58)
[2019-05-06] MEDS: POTASSIUM CHLORIDE 10 MEQ SR TABLET PO SCH (08:58)
[2019-05-06] MEDS: PANTOPRAZOLE 40MG TAB (PROTONIX) PO SCH (08:58)
[2019-05-06] MEDS: SLF 3 ML SYR IV SCH ×2 (08:59→21:02)
[2019-05-06] MEDS ORDERED: ENOXAPARIN 40 MG/0.4 ML SYRINGE (J1650) SC SCH (09:00)
--- NOTE | 2019-05-06 10:33 | IPNPDOC ---
Subjective Date Seen The patient was seen on 05/06/19. Subjective Chief Complaint/HPI Patient is feeling much better, improved air exchange in no apparent distress General: Denies: ROS Unobtainable, Chills, Night Sweats, Fatigue, Malaise, Normal Appetite, Other Symptoms Constitutional: Denies: Chills, Fever, Malaise, Night Sweats, Weakness, Fatigue, Weight Loss, Lethargy, Other Eyes: Denies: Pain, Vision change, Conjunctivae inflammation, Eyelid inflammation, Redness, Other ENT: Denies: Head Aches, Ear Pain, Dysphagia, Sinus Congestion, Post Nasal Drip, Sore Throat, Epistaxis, Other Symptoms Skin: Denies: Rash, Lesions, Jaundice, Bruising, Itching, Dry, Breakdown, Nail Changes, Other Pulmonary: Reports: Dyspnea Cardiovascular: Denies: Chest Pain, Palpitations, Orthopnea, Paroxysmal Noc. Dyspnea, Edema, Lt Headedness, Other Symptoms Gastrointestinal: Denies: Nausea, Vomiting, Abdominal Pain, Diarrhea, Constipation, Melena, Hematochezia, Other Symptoms Musculoskeletal: Denies: Neck Pain, Back Pain, Shoulder Pain, Arm Pain, Hand Pain, Leg Pain, Foot Pain, Joint Pain, Muscle Pain, Spasms, Other Symptoms Neurological: Denies: Weakness, Numbness, Incoordination, Change in speech, Confusion, Seizures, Other Symptoms Psych: Denies: Mood Normal, Anxiety, Depression, Memory Issues, Thoughts of Self Harm, Anger, Thoughts of Harming Other, Other Psych Objective Physical Examination General Exam: Positive: Alert Eye Exam: Positive: PERRLA, Conjunctiva & lids normal ENT Exam: Positive: Atraumatic, Mucous membr. moist/pink Chest Exam: Positive: Rhonchi (bilateral wheezing and rhonchi is unable), Wheezing Heart Exam: Positive: Rate Normal, Normal S1, Normal S2 Telemetry: Positive: Atrial fibrillation Abdomen Exam: Positive: Normal bowel sounds, Soft Extremity Exam: Positive: Normal pulses Skin Exam: Positive: Nl turgor and temperature Neuro Exam: Positive: Strength at 5/5 X4 ext, Sensation Intact Psych Exam: Positive: Mental status NL, Mood NL, Oriented x 3 Assessment /Plan Problems (1) COPD with acute exacerbation Status: Acute Problem Text: 68 years old white male with past medical history of chronic respiratory failure with hypoxia on home O2, presented again with similar symptoms of increasing shortness of breath. Patient was recently tapered off his prednisone, patient is being readmitted for similar symptoms of exacerbation of COPD, not responding to oxygen therapy and home medications. Patient is improving very well Off Ventimask on oxygen by nasal cannula now Continue IV steroids DuoNeb every 6 hours and Proventil every hour when necessary Out of bed as tolerated (2) Chronic respiratory failure with hypoxia, on home O2 therapy Status: Chronic Problem Text: Continue oxygen support Respiratory therapy Monitor continuous pulse ox (3) CHF (congestive heart failure) Status: Chronic Problem Text: No evidence of acute CHF at the present time Continue home meds including digoxin (4) Chronic atrial fibrillation Status: Chronic Problem Text: Heart rate is still under control was slightly elevated on admission but with running between 90 and 100 on the cardiac monito Continue theeliquis and All other home meds (5) Hypertension Status: Chronic Problem Text: Under control Continue home meds (6) Polycythemia Status: Chronic Problem Text: Secondary to COPD Monitor H&H (7) Morbid obesity Status: Chronic Problem Text: Diet and exercise counseling done Plan/VTE VTE Prophylaxis Ordered?: Yes VS, I&O, 24H, [facility] Vital Signs/I&O Vital Signs Date Time Temp Pulse Resp B/P (MAP) Pulse Ox O2 Delivery O2 Flow Rate FiO2 05/06/19 08:58 100 05/06/19 08:00 97.1 20 140/80 (100) 82 6.0 05/06/19 04:00 50 05/06/19 00:44 Venturi Mask I&O- Last 24 Hours up to 6 AM 05/06/19 06:00 Intake Total 420 ml Output Total 750 ml Balance -330 ml Laboratory Data 24H LABS Laboratory Tests 2 05/05/19 14:23: Immature Granulocyte % (Auto) 2.3, White Blood Count 10.3H, Red Blood Count 4.67, Hemoglobin 14.0, Hematocrit 43.9, Mean Corpuscular Volume 94.0, Mean Corpuscular Hemoglobin 30.0, Mean Corpuscular Hemoglobin Concent 31.9L, Red Cell Distribution Width 21.7H, Platelet Count 236, Neutrophils (%) (Auto) 77.8H, Lymphocytes (%) (Auto) 9.0L, Monocytes (%) (Auto) 9.5H, Eosinophils (%) (Auto) 0.9, Basophils (%) (Auto) 0.5, Neutrophils # (Auto) 8.0H, Lymphocytes # (Auto) 0.9L, Monocytes # (Auto) 1.0H, Eosinophils # (Auto) 0.1, Basophils # (Auto) 0.1, Nucleated Red Blood Cells % (auto) 0.3H, Anion Gap 8, Glomerular Filtration Rate 55.3, Lactic Acid Level 2.4*H, Calcium Level 8.5L, Aspartate Amino Transf (AST/SGOT) 26, Alanine Aminotransferase (ALT/SGPT) 40, Alkaline Phosphatase 61, Total Bilirubin 1.0, Direct Bilirubin 0.3H, Total Creatine Kinase 43, Creatine Kinase MB 1.0, Creatine Kinase MB Relative Index 2.33, Troponin I < 0.02, OB-Uae-J-Type Natriuretic Peptide 2370H, Total Protein 6.2L, Albumin 3.0L, Albumin/Globulin Ratio 0.94L, Thyroid Stimulating Hormone (TSH) 0.440, Thyroxine (T4) 8.8, Digoxin Level 1.2 05/05/19 14:29: POC pH (Misc Panel) 7.401, POC Base Excess (Misc Panel) -3.0L, POC Saturated Percent O2 (Misc) 80L, POC pO2 (Misc Panel) 44.0*L, POC pCO2 (Misc Panel) 35.8, POC HCO3 (Misc Panel) 22.2, POC Total CO2 (Misc Panel) 23.0 05/05/19 19:07: Lactic Acid Followup at 4 Hours 1.3 05/06/19 05:20: Nucleated Red Blood Cells % (auto) 0.0, Anion Gap 9, Glomerular Filtration Rate 52.2, Lactic Acid Level 1.7, Calcium Level 9.1, Aspartate Amino Transf (AST/SGOT) 17, Alanine Aminotransferase (ALT/SGPT) 35, Alkaline Phosphatase 62, Total Bilirubin 0.8, Total Protein 7.1, Albumin 3.0L, Albumin/Globulin Ratio 0.73L, Blood Urea Nitrogen 17, Creatinine 1.43H, Sodium Level 140, Potassium [place] 4.2, Chloride Level 106, Carbon Dioxide Level 25, Magnesium Level 2.2 CBC/BMP Laboratory Tests 05/05/19 14:23 Red Blood Count 4.67, Mean Corpuscular Volume 94.0, Mean Corpuscular Hemoglobin 30.0, Mean Corpuscular Hemoglobin Concent 31.9 L, Red Cell Distribution Width 21.7 H, Neutrophils (%) (Auto) 77.8 H, Lymphocytes (%) (Auto) 9.0 L, Monocytes (%) (Auto) 9.5 H, Eosinophils (%) (Auto) 0.9, Basophils (%) (Auto) 0.5, Neutrophils # (Auto) 8.0 H, Lymphocytes # (Auto) 0.9 L, Monocytes # (Auto) 1.0 H, Eosinophils # (Auto) 0.1, Basophils # (Auto) 0.1 05/06/19 05:20 Red Blood Count 4.73, Mean Corpuscular Volume 91.3, Mean Corpuscular Hemoglobin 29.0, Mean Corpuscular Hemoglobin Concent 31.7 L, Red Cell Distribution Width 21.3 H, Calcium Level 9.1, Aspartate Amino Transf (AST/SGOT) 17, Alanine Aminotransferase (ALT/SGPT) 35, Alkaline Phosphatase 62, Total Bilirubin 0.8, Total Protein 7.1, Albumin 3.0 L Microbiology Microbiology 05/05/19 Blood Culture, Received Pending 05/05/19 Blood Culture, Received Pending IMMANUEL CHARLES MD May 06, 2019 10:32
[2019-05-06] MEDS ORDERED: METO25TA4 PO (10:37)
[2019-05-06] MEDS: VERAPAMIL 120 MG SR TAB PO SCH (10:38)
[2019-05-06 16:00] VITALS: BP 133/79
[2019-05-06] MEDS: TORSEMIDE 10 MG TABLET PO SCH (16:22)
[2019-05-06 20:00] VITALS: BP 138/82
[2019-05-06] MEDS ORDERED: CALCIUM CARBONATE 500 MG CHEW U/D PO ONE (21:00)
[2019-05-07] VITALS: BP 120/62
[2019-05-07] MEDS: methylPREDNISolone INJ 125 MG/2 ML VIAL (J2930) IV SCH ×3 (01:29→17:13)
[2019-05-07] MEDS: IPRATROPIUM 0.5MG/ALBUTEROL 2.5MG INH SOL UD 3ML (DUONEB)(J7620) NEB SCH ×4 (02:28→19:40)
[2019-05-07 04:00] VITALS: BP 124/64
[2019-05-07] MEDS: SLF 3 ML SYR IV SCH ×3 (06:11→20:51)
[2019-05-07 08:00] VITALS: BP 130/78
[2019-05-07] MEDS: ADVAIR HFA 230/21MCG INHALER INH SCH ×2 (08:52→19:40)
[2019-05-07] MEDS: TIOTROPIUM INHALER/CAPSULE (SPIRIVA) INH SCH (08:52)
[2019-05-07] MEDS: DOCUSATE SODIUM 100 MG CAP PO SCH ×2 (09:00→20:51)
[2019-05-07] MEDS: SPIRONOLACTONE 12.5MG PER 1/2 TABLET PO SCH (09:08)
[2019-05-07] MEDS: PANTOPRAZOLE 40MG TAB (PROTONIX) PO SCH (09:09)
[2019-05-07] MEDS: POTASSIUM CHLORIDE 10 MEQ SR TABLET PO SCH (09:09)
[2019-05-07] MEDS: APIXABAN 5 MG TAB (ELIQUIS) PO SCH ×2 (09:09→20:51)
[2019-05-07] MEDS: VERAPAMIL 120 MG SR TAB PO SCH (09:10)
[2019-05-07] MEDS: DIGOXIN 0.125 MG TAB PO SCH (09:10)
[2019-05-07 11:07] VITALS: BP 119/69
--- NOTE | 2019-05-07 11:39 | IPNPDOC ---
Subjective Date Seen The patient was seen on 05/07/19. Subjective Chief Complaint/HPI Patient is doing much better. Improved respiratory status General: Denies: ROS Unobtainable, Chills, Night Sweats, Fatigue, Malaise, Normal Appetite, Other Symptoms Constitutional: Denies: Chills, Fever, Malaise, Night Sweats, Weakness, Fatigue, Weight Loss, Lethargy, Other Eyes: Denies: Pain, Vision change, Conjunctivae inflammation, Eyelid inflammation, Redness, Other ENT: Denies: Head Aches, Ear Pain, Dysphagia, Sinus Congestion, Post Nasal Drip, Sore Throat, Epistaxis, Other Symptoms Skin: Denies: Rash, Lesions, Jaundice, Bruising, Itching, Dry, Breakdown, Nail Changes, Other Pulmonary: Reports: Dyspnea Cardiovascular: Denies: Chest Pain, Palpitations, Orthopnea, Paroxysmal Noc. Dyspnea, Edema, Lt Headedness, Other Symptoms Gastrointestinal: Denies: Nausea, Vomiting, Abdominal Pain, Diarrhea, Constipation, Melena, Hematochezia, Other Symptoms Genitourinary: Denies: Dysuria, Frequency, Incontinence, Hematuria, Retention, Other Symptoms Hematologic: Denies: Bruising, Bleeding Excessively, Petecchia, Purpura, Enlarged Lymph Nodes, Other Hematologic Endocrine: Denies: Polydipsia, Polyphagia, Polyuria, Heat Intolerance, Cold Intolerance, Other Endocrine Sx Musculoskeletal: Denies: Neck Pain, Back Pain, Shoulder Pain, Arm Pain, Hand Pain, Leg Pain, Foot Pain, Joint Pain, Muscle Pain, Spasms, Other Symptoms Neurological: Denies: Weakness, Numbness, Incoordination, Change in speech, Confusion, Seizures, Other Symptoms Psych: Denies: Mood Normal, Anxiety, Depression, Memory Issues, Thoughts of Self Harm, Anger, Thoughts of Harming Other, Other Psych Objective Physical Examination General Exam: Positive: Alert Eye Exam: Positive: PERRLA, Conjunctiva & lids normal ENT Exam: Positive: Atraumatic, Mucous membr. moist/pink Chest Exam: Positive: Rhonchi, Wheezing Heart Exam: Positive: Rate Normal, Normal S1, Normal S2 Telemetry: Positive: Atrial fibrillation Abdomen Exam: Positive: Normal bowel sounds, Soft Extremity Exam: Positive: Normal pulses Skin Exam: Positive: Nl turgor and temperature Neuro Exam: Positive: Strength at 5/5 X4 ext, Sensation Intact Psych Exam: Positive: Mental status NL, Mood NL, Oriented x 3 Assessment /Plan Problems (1) COPD with acute exacerbation Status: Acute Problem Text: 68 years old white male with past medical history of chronic respiratory failure with hypoxia on home O2, presented again with similar symptoms of increasing shortness of breath. Patient was recently tapered off his prednisone, patient is being readmitted for similar symptoms of exacerbation of COPD, not responding to oxygen therapy and home medications. Patient is improving very well Off Ventimask on oxygen by nasal cannula now Continue IV steroids DuoNeb every 6 hours and Proventil every hour when necessary Out of bed as tolerated Patient, he responded to above therapy very well and will continue the same (2) Chronic respiratory failure with hypoxia, on home O2 therapy Status: Chronic Problem Text: Continue oxygen support Respiratory therapy Monitor continuous pulse ox (3) CHF (congestive heart failure) Status: Chronic Problem Text: No evidence of acute CHF at the present time Continue home meds including digoxin (4) Chronic atrial fibrillation Status: Chronic Problem Text: Heart rate is still under control was slightly elevated on admission but with running between 90 and 100 on the cardiac monito Continue theeliquis and All other home meds (5) Hypertension Status: Chronic Problem Text: Under control Continue home meds (6) Polycythemia Status: Chronic Problem Text: Secondary to COPD Monitor H&H (7) Morbid obesity Status: Chronic Problem Text: Diet and exercise counseling done Plan/VTE VTE Prophylaxis Ordered?: Yes VS, I&O, 24H, [facility] Vital Signs/I&O Vital Signs Date Time Temp Pulse Resp B/P (MAP) Pulse Ox O2 Delivery O2 Flow Rate FiO2 05/07/19 11:07 97.3 113 20 119/69 (86) 86 8.0 05/07/19 04:00 50 05/07/19 02:29 Nasal Cannula l I&O- Last 24 Hours up to 6 AM 05/07/19 06:00 Intake Total 1110 ml Output Total 1900 ml Balance -790 ml Laboratory Data Microbiology Microbiology 05/05/19 Blood Culture - Preliminary, Resulted No growth after 24 hours . All specim... 05/05/19 Blood Culture - Preliminary, Resulted No growth after 24 hours . All specim... IMMANUEL CHARLES MD May 07, 2019 11:39
[2019-05-07 14:28] VITALS: BP 119/65
[2019-05-07] MEDS: TORSEMIDE 10 MG TABLET PO SCH (17:13)
[2019-05-07] MEDS ORDERED: CALCIUM CARBONATE 500 MG CHEW U/D PO ONE (18:30)
[2019-05-07 22:00] VITALS: BP 114/65
[2019-05-08] MEDS: IPRATROPIUM 0.5MG/ALBUTEROL 2.5MG INH SOL UD 3ML (DUONEB)(J7620) NEB SCH ×4 (00:29→20:00)
[2019-05-08] MEDS ORDERED: CALCIUM CARBONATE 500 MG CHEW U/D PO PRN (00:30)
[2019-05-08] MEDS: methylPREDNISolone INJ 125 MG/2 ML VIAL (J2930) IV SCH ×3 (00:45→17:55)
[2019-05-08 06:00] VITALS: BP 118/62
[2019-05-08] MEDS: SLF 3 ML SYR IV SCH ×3 (06:31→20:44)
[2019-05-08] MEDS: ADVAIR HFA 230/21MCG INHALER INH SCH ×2 (08:15→19:52)
[2019-05-08] MEDS: TIOTROPIUM INHALER/CAPSULE (SPIRIVA) INH SCH (08:15)
[2019-05-08] MEDS ORDERED: LACTULOSE 20 GM/30 ML SYRUP UD PO ONE (09:30)
[2019-05-08] MEDS: POTASSIUM CHLORIDE 10 MEQ SR TABLET PO SCH (10:20)
[2019-05-08] MEDS: SPIRONOLACTONE 12.5MG PER 1/2 TABLET PO SCH (10:20)
[2019-05-08] MEDS: DOCUSATE SODIUM 100 MG CAP PO SCH ×2 (10:20→20:44)
[2019-05-08] MEDS: APIXABAN 5 MG TAB (ELIQUIS) PO SCH ×2 (10:21→20:44)
[2019-05-08] MEDS: PANTOPRAZOLE 40MG TAB (PROTONIX) PO SCH (10:21)
[2019-05-08] MEDS: DIGOXIN 0.125 MG TAB PO SCH (10:21)
[2019-05-08] MEDS: VERAPAMIL 120 MG SR TAB PO SCH (10:23)
--- NOTE | 2019-05-08 10:55 | IPNPDOC ---
Subjective Date Seen The patient was seen on 05/08/19. Subjective Chief Complaint/HPI Patient is improving very well. Offers no new complaints at the present time except constipation General: Denies: ROS Unobtainable, Chills, Night Sweats, Fatigue, Malaise, Normal Appetite, Other Symptoms Constitutional: Denies: Chills, Fever, Malaise, Night Sweats, Weakness, Fatigue, Weight Loss, Lethargy, Other Eyes: Denies: Pain, Vision change, Conjunctivae inflammation, Eyelid inflammation, Redness, Other ENT: Denies: Head Aches, Ear Pain, Dysphagia, Sinus Congestion, Post Nasal Drip, Sore Throat, Epistaxis, Other Symptoms Skin: Denies: Rash, Lesions, Jaundice, Bruising, Itching, Dry, Breakdown, Nail Changes, Other Pulmonary: Denies: Dyspnea, Cough, Pleuritic Chest Pain, Other Symptoms Cardiovascular: Denies: Chest Pain, Palpitations, Orthopnea, Paroxysmal Noc. Dyspnea, Edema, Lt Headedness, Other Symptoms Gastrointestinal: Reports: Constipation Genitourinary: Denies: Dysuria, Frequency, Incontinence, Hematuria, Retention, Other Symptoms Endocrine: Denies: Polydipsia, Polyphagia, Polyuria, Heat Intolerance, Cold In tolerance, Other Endocrine Sx Musculoskeletal: Denies: Neck Pain, Back Pain, Shoulder Pain, Arm Pain, Hand Pain, Leg Pain, Foot Pain, Joint Pain, Muscle Pain, Spasms, Other Symptoms Neurological: Denies: Weakness, Numbness, Incoordination, Change in speech, Confusion, Seizures, Other Symptoms Objective Physical Examination General Exam: Positive: Alert Eye Exam: Positive: PERRLA, Conjunctiva & lids normal ENT Exam: Positive: Atraumatic, Mucous membr. moist/pink Chest Exam: Positive: Rhonchi, Wheezing Heart Exam: Positive: Rate Normal, Normal S1, Normal S2 Telemetry: Positive: Atrial fibrillation Abdomen Exam: Positive: Normal bowel sounds, Soft Extremity Exam: Positive: Normal pulses Skin Exam: Positive: Nl turgor and temperature Neuro Exam: Positive: Strength at 5/5 X4 ext, Sensation Intact Psych Exam: Positive: Mental status NL, Mood NL, Oriented x 3 Assessment /Plan Problems (1) COPD with acute exacerbation Status: Acute Problem Text: 68 years old white male with past medical history of chronic respiratory failure with hypoxia on home O2, presented again with similar symptoms of increasing shortness of breath. Patient was recently tapered off his prednisone, patient is being readmitted for similar symptoms of exacerbation of COPD, not responding to oxygen therapy and home medications. Patient is improving very well Off Ventimask on oxygen by nasal cannula now Continue IV steroids DuoNeb every 6 hours and Proventil every hour when necessary Out of bed as tolerated Patient is doing very well from his pulmonary status Continue present medications Closely monitor patient's improvement (2) Chronic respiratory failure with hypoxia, on home O2 therapy Status: Chronic Problem Text: Continue oxygen support Respiratory therapy Monitor continuous pulse ox (3) CHF (congestive heart failure) Status: Chronic Problem Text: No evidence of acute CHF at the present time Continue home meds including digoxin (4) Chronic atrial fibrillation Status: Chronic Problem Text: Heart rate is still under control was slightly elevated on admission but with running between 90 and 100 on the cardiac monito Continue theeliquis and All other home meds (5) Hypertension Status: Chronic Problem Text: Under control Continue home meds (6) Polycythemia Status: Chronic Problem Text: Secondary to COPD Monitor H&H (7) Morbid obesity Status: Chronic Problem Text: Diet and exercise counseling done (8) Constipation Status: Acute Problem Text: Bowel regimen , Lactulose 30 mL by mouth 1 dose today Plan/VTE VTE Prophylaxis Ordered?: Yes VS, I&O, 24H, Fishbone Vital Signs/I&O Vital Signs Date Time Temp Pulse Resp B/P (MAP) Pulse Ox O2 Delivery O2 Flow Rate FiO2 05/08/19 10:23 88 120/68 05/08/19 06:00 97.7 20 91 10.0 05/08/19 00:29 Nasal Cannula 05/07/19 04:00 50 I&O- Last 24 Hours up to 6 AM 05/08/19 06:00 Intake Total 1800 ml Balance 1800 ml Laboratory Data Microbiology Microbiology 05/05/19 Blood Culture - Preliminary, Resulted No Growth after 48 hours. All Specime... 05/05/19 Blood Culture - Preliminary, Resulted No Growth after 48 hours. All Specime... IMMANUEL CHARLES MD May 08, 2019 10:55
[2019-05-08] MEDS: MIRALAX *UNIT DOSE* 17GM PACKET PO SCH ×2 (14:45→20:44)
[2019-05-08 14:56] VITALS: BP 116/65
[2019-05-08] MEDS: TORSEMIDE 10 MG TABLET PO SCH (17:55)
[2019-05-08 22:00] VITALS: BP 135/67
[2019-05-09] MEDS: IPRATROPIUM 0.5MG/ALBUTEROL 2.5MG INH SOL UD 3ML (DUONEB)(J7620) NEB SCH ×4 (00:07→19:55)
[2019-05-09] MEDS: methylPREDNISolone INJ 125 MG/2 ML VIAL (J2930) IV SCH ×3 (02:58→17:47)
[2019-05-09] MEDS: SLF 3 ML SYR IV SCH ×3 (05:01→21:14)
[2019-05-09 06:00] VITALS: BP 132/68
[2019-05-09] MEDS: TIOTROPIUM INHALER/CAPSULE (SPIRIVA) INH SCH (08:31)
[2019-05-09] MEDS: ADVAIR HFA 230/21MCG INHALER INH SCH ×2 (08:31→19:54)
[2019-05-09] MEDS: POTASSIUM CHLORIDE 10 MEQ SR TABLET PO SCH (09:49)
[2019-05-09] MEDS: DOCUSATE SODIUM 100 MG CAP PO SCH ×2 (09:49→21:14)
[2019-05-09] MEDS: DIGOXIN 0.125 MG TAB PO SCH (09:49)
[2019-05-09] MEDS: PANTOPRAZOLE 40MG TAB (PROTONIX) PO SCH (09:49)
[2019-05-09] MEDS: APIXABAN 5 MG TAB (ELIQUIS) PO SCH ×2 (09:49→21:14)
[2019-05-09] MEDS: SPIRONOLACTONE 12.5MG PER 1/2 TABLET PO SCH (09:50)
[2019-05-09] MEDS: VERAPAMIL 120 MG SR TAB PO SCH (09:50)
[2019-05-09] MEDS: MIRALAX *UNIT DOSE* 17GM PACKET PO SCH ×2 (09:51→21:14)
--- NOTE | 2019-05-09 11:15 | IPNPDOC ---
Subjective Date Seen The patient was seen on 05/09/19. Subjective Chief Complaint/HPI Feeling much better but still not at the baseline General: Denies: ROS Unobtainable, Chills, Night Sweats, Fatigue, Malaise, Normal Appetite, Other Symptoms Constitutional: Denies: Chills, Fever, Malaise, Night Sweats, Weakness, Fatigue, Weight Loss, Lethargy, Other Eyes: Denies: Pain, Vision change, Conjunctivae inflammation, Eyelid inflammation, Redness, Other ENT: Denies: Head Aches, Ear Pain, Dysphagia, Sinus Congestion, Post Nasal Drip, Sore Throat, Epistaxis, Other Symptoms Skin: Denies: Rash, Lesions, Jaundice, Bruising, Itching, Dry, Breakdown, Nail Changes, Other Pulmonary: Reports: Dyspnea Cardiovascular: Denies: Chest Pain, Palpitations, Orthopnea, Paroxysmal Noc. Dyspnea, Edema, Lt Headedness, Other Symptoms Gastrointestinal: Denies: Nausea, Vomiting, Abdominal Pain, Diarrhea, Constipation, Melena, Hematochezia, Other Symptoms Genitourinary: Denies: Dysuria, Frequency, Incontinence, Hematuria, Retention, Other Symptoms Neurological: Denies: Weakness, Numbness, Incoordination, Change in speech, Confusion, Seizures, Other Symptoms Objective Physical Examination General Exam: Positive: Alert Eye Exam: Positive: PERRLA, Conjunctiva & lids normal ENT Exam: Positive: Atraumatic, Mucous membr. moist/pink Chest Exam: Positive: Rhonchi, Wheezing Heart Exam: Positive: Rate Normal, Normal S1, Normal S2 Telemetry: Positive: Atrial fibrillation Abdomen Exam: Positive: Normal bowel sounds, Soft Extremity Exam: Positive: Normal pulses Skin Exam: Positive: Nl turgor and temperature Neuro Exam: Positive: Strength at 5/5 X4 ext, Sensation Intact Psych Exam: Positive: Mental status NL, Mood NL, Oriented x 3 Assessment /Plan Problems (1) COPD with acute exacerbation Status: Acute Problem Text: 68 years old white male with past medical history of chronic respiratory failure with hypoxia on home O2, presented again with similar symptoms of increasing shortness of breath. Patient was recently tapered off his prednisone, patient is being readmitted for similar symptoms of exacerbation of COPD, not responding to oxygen therapy and home medications. Patient is improving very well Off Ventimask on oxygen by nasal cannula now Continue IV steroids DuoNeb every 6 hours and Proventil every hour when necessary Out of bed as tolerated Patient's pulmonary status is improving Continue present medications Possible Discharge in a.m. (2) Chronic respiratory failure with hypoxia, on home O2 therapy Status: Chronic Problem Text: Continue oxygen support Respiratory therapy Monitor continuous pulse ox (3) CHF (congestive heart failure) Status: Chronic Problem Text: No evidence of acute CHF at the present time Continue home meds including digoxin (4) Chronic atrial fibrillation Status: Chronic Problem Text: Heart rate is still under control was slightly elevated on admission but with running between 90 and 100 on the cardiac monito Continue theeliquis and All other home meds (5) Hypertension Status: Chronic Problem Text: Under control Continue home meds (6) Polycythemia Status: Chronic Problem Text: Secondary to COPD Monitor H&H (7) Morbid obesity Status: Chronic Problem Text: Diet and exercise counseling done (8) Constipation Status: Acute Problem Text: Bowel regimen , Lactulose 30 mL by mouth 1 dose today Plan/VTE VTE Prophylaxis Ordered?: Yes VS, I&O, 24H, Fishbone Vital Signs/I&O Vital Signs Date Time Temp Pulse Resp B/P (MAP) Pulse Ox O2 Delivery O2 Flow Rate FiO2 05/09/19 09:50 109 135/67 05/09/19 06:00 97.8 18 97 10.0 05/09/19 00:08 Nasal Cannula 05/07/19 04:00 50 I&O- Last 24 Hours up to 6 AM 05/09/19 06:00 Intake Total 1670 ml Balance 1670 ml Laboratory Data Microbiology Microbiology 05/05/19 Blood Culture - Preliminary, Resulted No Growth after 72 hours. All specime... 05/05/19 Blood Culture - Preliminary, Resulted No Growth after 72 hours. All specime... IMMANUEL CHARLES MD May 09, 2019 11:15
[2019-05-09 14:00] VITALS: BP 123/71
[2019-05-09] MEDS: TORSEMIDE 10 MG TABLET PO SCH (17:46)
[2019-05-09 21:27] VITALS: BP 114/69
[2019-05-10] MEDS: methylPREDNISolone INJ 125 MG/2 ML VIAL (J2930) IV SCH (02:32)
[2019-05-10] MEDS: IPRATROPIUM 0.5MG/ALBUTEROL 2.5MG INH SOL UD 3ML (DUONEB)(J7620) NEB SCH ×4 (03:02→20:00)
[2019-05-10] MEDS: SLF 3 ML SYR IV SCH ×3 (05:39→22:00)
[2019-05-10 05:58] VITALS: BP 118/69
[2019-05-10] MEDS: ADVAIR HFA 230/21MCG INHALER INH SCH ×2 (07:15→20:13)
[2019-05-10] MEDS: TIOTROPIUM INHALER/CAPSULE (SPIRIVA) INH SCH (07:15)
[2019-05-10] MEDS: MIRALAX *UNIT DOSE* 17GM PACKET PO SCH ×2 (09:06→21:00)
[2019-05-10] MEDS: DOCUSATE SODIUM 100 MG CAP PO SCH ×2 (09:06→21:43)
[2019-05-10] MEDS: predniSONE 10 MG TAB PO SCH (09:06)
[2019-05-10] MEDS: VERAPAMIL 120 MG SR TAB PO SCH (09:06)
[2019-05-10] MEDS: SPIRONOLACTONE 12.5MG PER 1/2 TABLET PO SCH (09:06)
[2019-05-10] MEDS: DIGOXIN 0.125 MG TAB PO SCH (09:07)
[2019-05-10] MEDS: POTASSIUM CHLORIDE 10 MEQ SR TABLET PO SCH (09:07)
[2019-05-10] MEDS: APIXABAN 5 MG TAB (ELIQUIS) PO SCH ×2 (09:07→21:43)
[2019-05-10] MEDS: PANTOPRAZOLE 40MG TAB (PROTONIX) PO SCH (09:07)
--- NOTE | 2019-05-10 10:54 | IPNPDOC ---
Subjective Date Seen The patient was seen on 05/10/19. Subjective Chief Complaint/HPI Patient feeling much better but still his oxygen requirement is 10 L, patient is still constipated General: Denies: ROS Unobtainable, Chills, Night Sweats, Fatigue, Malaise, Normal Appetite, Other Symptoms Constitutional: Denies: Chills, Fever, Malaise, Night Sweats, Weakness, Fatigue, Weight Loss, Lethargy, Other Eyes: Denies: Pain, Vision change, Conjunctivae inflammation, Eyelid inflammation, Redness, Other ENT: Denies: Head Aches, Ear Pain, Dysphagia, Sinus Congestion, Post Nasal Drip, Sore Throat, Epistaxis, Other Symptoms Skin: Denies: Rash, Lesions, Jaundice, Bruising, Itching, Dry, Breakdown, Nail Changes, Other Pulmonary: Denies: Dyspnea, Cough, Pleuritic Chest Pain, Other Symptoms Cardiovascular: Denies: Chest Pain, Palpitations, Orthopnea, Paroxysmal Noc. Dyspnea, Edema, Lt Headedness, Other Symptoms Gastrointestinal: Denies: Nausea, Vomiting, Abdominal Pain, Diarrhea, Constipation, Melena, Hematochezia, Other Symptoms Musculoskeletal: Denies: Neck Pain, Back Pain, Shoulder Pain, Arm Pain, Hand Pain, Leg Pain, Foot Pain, Joint Pain, Muscle Pain, Spasms, Other Symptoms Neurological: Denies: Weakness, Numbness, Incoordination, Change in speech, Confusion, Seizures, Other Symptoms Objective Physical Examination General Exam: Positive: Alert Eye Exam: Positive: PERRLA, Conjunctiva & lids normal ENT Exam: Positive: Atraumatic, Mucous membr. moist/pink Chest Exam: Positive: Rhonchi, Wheezing Heart Exam: Positive: Rate Normal, Normal S1, Normal S2 Telemetry: Positive: Atrial fibrillation Abdomen Exam: Positive: Normal bowel sounds, Soft Extremity Exam: Positive: Normal pulses Skin Exam: Positive: Nl turgor and temperature Neuro Exam: Positive: Strength at 5/5 X4 ext, Sensation Intact Psych Exam: Positive: Mental status NL, Mood NL, Oriented x 3 Assessment /Plan Problems (1) COPD with acute exacerbation Status: Acute Problem Text: 68 years old white male with past medical history of chronic respiratory failure with hypoxia on home O2, presented again with similar symptoms of increasing shortness of breath. Patient was recently tapered off his prednisone, patient is being readmitted for similar symptoms of exacerbation of COPD, not responding to oxygen therapy and home medications. Patient is improving very well Off Ventimask on oxygen by nasal cannula now Start by mouth prednisone and slowly taper it off DuoNeb every 6 hours and Proventil every hour when necessary Patient's pulmonary status is improving Continue present medications Patient's oxygen requirement is still 10 L. We'll slowly taper down to 5 L at his home rate, she can't tolerate 5 L, then he can be discharged home (2) Chronic respiratory failure with hypoxia, on home O2 therapy Status: Chronic Problem Text: Continue oxygen support Respiratory therapy Monitor continuous pulse ox (3) CHF (congestive heart failure) Status: Chronic Problem Text: No evidence of acute CHF at the present time Continue home meds including digoxin (4) Chronic atrial fibrillation Status: Chronic Problem Text: Heart rate is still under control was slightly elevated on admission but with running between 90 and 100 on the cardiac monito Continue theeliquis and All other home meds (5) Hypertension Status: Chronic Problem Text: Under control Continue home meds (6) Polycythemia Status: Chronic Problem Text: Secondary to COPD Monitor H&H (7) Morbid obesity Status: Chronic Problem Text: Diet and exercise counseling done (8) Constipation Status: Acute Problem Text: Bowel regimen , Lactulose 30 mL by mouth 1 dose today Plan/VTE VTE Prophylaxis Ordered?: Yes VS, I&O, 24H, Fishbone Vital Signs/I&O Vital Signs Date Time Temp Pulse Resp B/P (MAP) Pulse Ox O2 Delivery O2 Flow Rate FiO2 05/10/19 09:07 94 05/10/19 09:06 118/69 05/10/19 08:45 8.0 05/10/19 05:58 98.1 18 94 05/09/19 19:55 Nasal Cannula 05/07/19 04:00 50 I&O- Last 24 Hours up to 6 AM 05/10/19 06:00 Intake Total 2140 ml Output Total 0 ml Balance 2140 ml Laboratory Data Microbiology Microbiology 05/05/19 Blood Culture - Preliminary, Resulted No Growth after 72 hours. All specime... 05/05/19 Blood Culture - Preliminary, Resulted No Growth after 72 hours. All specime... IMMANUEL CHARLES MD May 10, 2019 10:54
[2019-05-10] MEDS: TORSEMIDE 10 MG TABLET PO SCH (17:19)
[2019-05-10 20:44] VITALS: BP 130/80
[2019-05-11] MEDS: IPRATROPIUM 0.5MG/ALBUTEROL 2.5MG INH SOL UD 3ML (DUONEB)(J7620) NEB SCH ×4 (01:54→21:06)
[2019-05-11] MEDS: SLF 3 ML SYR IV SCH ×2 (05:53→14:00)
[2019-05-11 05:56] VITALS: BP 117/67
[2019-05-11] MEDS: TIOTROPIUM INHALER/CAPSULE (SPIRIVA) INH SCH (07:32)
[2019-05-11] MEDS: ADVAIR HFA 230/21MCG INHALER INH SCH ×2 (07:33→21:06)
[2019-05-11] MEDS: predniSONE 10 MG TAB PO SCH (08:29)
[2019-05-11] MEDS: DIGOXIN 0.125 MG TAB PO SCH (08:30)
[2019-05-11] MEDS: DOCUSATE SODIUM 100 MG CAP PO SCH ×2 (08:31→21:43)
[2019-05-11] MEDS: SPIRONOLACTONE 12.5MG PER 1/2 TABLET PO SCH (08:31)
[2019-05-11] MEDS: VERAPAMIL 120 MG SR TAB PO SCH (08:31)
[2019-05-11] MEDS: APIXABAN 5 MG TAB (ELIQUIS) PO SCH ×2 (08:31→21:43)
[2019-05-11] MEDS: POTASSIUM CHLORIDE 10 MEQ SR TABLET PO SCH (08:31)
[2019-05-11] MEDS: PANTOPRAZOLE 40MG TAB (PROTONIX) PO SCH (08:31)
[2019-05-11] MEDS: MIRALAX *UNIT DOSE* 17GM PACKET PO SCH ×2 (08:48→21:43)
--- NOTE | 2019-05-11 12:17 | IPNPDOC ---
Subjective Date Seen The patient was seen on 05/11/19. Subjective Chief Complaint/HPI Patient is feeling much better, still using telemetry and liters of oxygen to keep his pulse ox more than 88% General: Denies: ROS Unobtainable, Chills, Night Sweats, Fatigue, Malaise, Normal Appetite, Other Symptoms Constitutional: Denies: Chills, Fever, Malaise, Night Sweats, Weakness, Fatigue, Weight Loss, Lethargy, Other Eyes: Denies: Pain, Vision change, Conjunctivae inflammation, Eyelid inflammation, Redness, Other ENT: Denies: Head Aches, Ear Pain, Dysphagia, Sinus Congestion, Post Nasal Drip, Sore Throat, Epistaxis, Other Symptoms Skin: Denies: Rash, Lesions, Jaundice, Bruising, Itching, Dry, Breakdown, Nail Changes, Other Pulmonary: Denies: Dyspnea, Cough, Pleuritic Chest Pain, Other Symptoms Cardiovascular: Denies: Chest Pain, Palpitations, Orthopnea, Paroxysmal Noc. Dyspnea, Edema, Lt Headedness, Other Symptoms Gastrointestinal: Denies: Nausea, Vomiting, Abdominal Pain, Diarrhea, Constipation, Melena, Hematochezia, Other Symptoms Musculoskeletal: Denies: Neck Pain, Back Pain, Shoulder Pain, Arm Pain, Hand Pain, Leg Pain, Foot Pain, Joint Pain, Muscle Pain, Spasms, Other Symptoms Neurological: Denies: Weakness, Numbness, Incoordination, Change in speech, Confusion, Seizures, Other Symptoms Objective Physical Examination General Exam: Positive: Alert Eye Exam: Positive: PERRLA, Conjunctiva & lids normal ENT Exam: Positive: Atraumatic, Mucous membr. moist/pink Chest Exam: Positive: Rhonchi, Wheezing Heart Exam: Positive: Rate Normal, Normal S1, Normal S2 Telemetry: Positive: Atrial fibrillation Abdomen Exam: Positive: Normal bowel sounds, Soft Extremity Exam: Positive: Normal pulses Skin Exam: Positive: Nl turgor and temperature Neuro Exam: Positive: Strength at 5/5 X4 ext, Sensation Intact Psych Exam: Positive: Mental status NL, Mood NL, Oriented x 3 Assessment /Plan Problems (1) COPD with acute exacerbation Status: Acute Problem Text: 68 years old white male with past medical history of chronic respiratory failure with hypoxia on home O2, presented again with similar symptoms of increasing shortness of breath. Patient was recently tapered off his prednisone, patient is being readmitted for similar symptoms of exacerbation of COPD, not responding to oxygen therapy and home medications. Off Ventimask on oxygen by nasal cannula now Start by mouth prednisone and slowly taper it off DuoNeb every 6 hours and Proventil every hour when necessary Patient's pulmonary status is improving He is still using 10 L of nasal cannula to keep his pulse ox more than 88% We'll slowly try to taper it to his baseline of home oxygen requirement, which is 5 L nasal cannula We will discharge patient once he is at the baseline. Home requirement of his oxygen (2) Chronic respiratory failure with hypoxia, on home O2 therapy Status: Chronic Problem Text: Continue oxygen support Respiratory therapy Monitor continuous pulse ox (3) CHF (congestive heart failure) Status: Chronic Problem Text: No evidence of acute CHF at the present time Continue home meds including digoxin (4) Chronic atrial fibrillation Status: Chronic Problem Text: Heart rate is still under control was slightly elevated on admission but with running between 90 and 100 on the cardiac monito Continue theeliquis and All other home meds (5) Hypertension Status: Chronic Problem Text: Under control Continue home meds (6) Polycythemia Status: Chronic Problem Text: Secondary to COPD Monitor H&H (7) Morbid obesity Status: Chronic Problem Text: Diet and exercise counseling done (8) Constipation Status: Acute Problem Text: Bowel regimen , Lactulose 30 mL by mouth 1 dose today Plan/VTE VTE Prophylaxis Ordered?: Yes VS, I&O, 24H, Fishbone Vital Signs/I&O Vital Signs Date Time Temp Pulse Resp B/P (MAP) Pulse Ox O2 Delivery O2 Flow Rate FiO2 05/11/19 09:00 10.0 05/11/19 08:31 105 116/67 05/11/19 05:56 98.4 18 95 05/09/19 19:55 Nasal Cannula 05/07/19 04:00 50 I&O- Last 24 Hours up to 6 AM 05/11/19 06:00 Intake Total 820 ml Output Total 0 ml Balance 820 ml Laboratory Data Microbiology Microbiology 05/05/19 Blood Culture - Final, Complete NO GROWTH AFTER 5 DAYS 05/05/19 Blood Culture - Final, Complete NO GROWTH AFTER 5 DAYS IMMANUEL CHARLES MD May 11, 2019 12:17
[2019-05-11] MEDS: TORSEMIDE 10 MG TABLET PO SCH (17:23)
[2019-05-11 22:00] VITALS: BP 118/73
[2019-05-12] MEDS: IPRATROPIUM 0.5MG/ALBUTEROL 2.5MG INH SOL UD 3ML (DUONEB)(J7620) NEB SCH ×3 (01:39→12:51)
[2019-05-12 06:00] VITALS: BP 120/76
[2019-05-12] MEDS: ADVAIR HFA 230/21MCG INHALER INH SCH (07:13)
[2019-05-12] MEDS: TIOTROPIUM INHALER/CAPSULE (SPIRIVA) INH SCH (07:13)
[2019-05-12 07:20] VITALS: O2SAT 90
[2019-05-12] MEDS: MIRALAX *UNIT DOSE* 17GM PACKET PO SCH (08:17)
[2019-05-12 08:18] VITALS: BP 120/76
[2019-05-12] MEDS: SPIRONOLACTONE 12.5MG PER 1/2 TABLET PO SCH (08:18)
[2019-05-12] MEDS: PANTOPRAZOLE 40MG TAB (PROTONIX) PO SCH (08:18)
[2019-05-12] MEDS: VERAPAMIL 120 MG SR TAB PO SCH (08:18)
[2019-05-12] MEDS: APIXABAN 5 MG TAB (ELIQUIS) PO SCH (08:18)
[2019-05-12] MEDS: DOCUSATE SODIUM 100 MG CAP PO SCH (08:18)
[2019-05-12] MEDS: POTASSIUM CHLORIDE 10 MEQ SR TABLET PO SCH (08:19)
[2019-05-12] MEDS: predniSONE 10 MG TAB PO SCH (08:19)
[2019-05-12] MEDS: DIGOXIN 0.125 MG TAB PO SCH (08:19)
[2019-05-12] MEDS ORDERED: PRED20TA PO (11:05)
--- NOTE | 2019-05-12 11:22 | DS.PDOC ---
Discharge Summary General Date of Admission May 05, 2019 at 17:15 Date of Discharge 05/12/19 Attending Physician: IMMANUEL CHARLES MD Discharge Summary PROCEDURES PERFORMED DURING STAY: None. ADMITTING DIAGNOSES: 1. Exacerbation of COPD, chronic respiratory failure with hypoxia. DISCHARGE DIAGNOSES: 1. [Exacerbation of COPD, chronic respiratory failure with hypoxia COMPLICATIONS/CHIEF COMPLAINT: Copd W/Exacerbation. HISTORY OF PRESENT ILLNESS: 68 years old white male with past medical history of atrial fibrillation, chronic diastolic heart failure, COPD, oxygen dependent, morbid obesity, hypertension, benign prostate hypertrophy. Polycythemia vera presented in ER with chief complaints of increasing shortness of breath, patient is a frequent visitor and was recently admitted and discharged with the pneumonia. As per patient, he has shortness of breath from increased which is progressively increasing from unknown time. He has 5 L of nasal control at home with with a pulse ox of 68 on 5 L on arrival to ED. As per patient, he was recently weaned off prednisone and he was placed on oxygen nonrebreather in the ED and will be called in for admission.. HOSPITAL COURSE: 68 years old, obese, white male who is frequently admitted to this hospital has the past medical history of oxygen dependent chronic respiratory failure with hypoxia and frequent exacerbation of COPD. Patient was recently discharged home and once his steroids were tapered increase increasing shortness of breath and and upcoming back to the emergency room for admission. He takes few days for patient to get back to his basic baseline. Patient required frequent nebulizer treatments, IV steroids, which was later on switched to by mouth steroids including prednisone starting at 30 mg by mouth daily and frequent adjustment for his oxygen requirement. He is on 5 L of nasal cannula at home, but his requirement continued to be 10 L in the hospital which was slowly decreased to 6 L at this time. Patient can be discharged home on home oxygen of 5-6 L as depending on his pulse ox, which has to be more than 88%. Patient will continue taking prednisone 20 mg by mouth daily. Please see his Dr. Sexton. His accounts receivable collector for follow-up visit. Patient will continue taking all his other home medications as well. DISCHARGE MEDICATIONS: Please see below. ALLERGIES: Please see below. PHYSICAL EXAMINATION ON DISCHARGE: VITAL SIGNS: Please see below. GENERAL: Normal HEENT: PERRLA NECK: Supple CARDIOVASCULAR EXAMINATION: S1, S2, regular RESPIRATORY EXAMINATION: Decreased breath sounds but no rales, rhonchi, wheezing ABDOMINAL EXAMINATION: Benign EXTREMITIES: No clubbing, cyanosis, edema SKIN: Normal NEUROLOGICAL EXAMINATION: . No focal motor or sensory deficit PSYCHIATRIC EXAMINATION: Normal LABORATORY DATA: Please see below. IMAGING: PROGNOSIS: Fair ACTIVITY: As tolerated. DIET: As tolerated DISCHARGE PLAN: Follow with Dr. Sexton in one week DISPOSITION: . Home DISCHARGE INSTRUCTIONS: 1. As per discharge instructions. ITEMS TO FOLLOWUP ON ON OUTPATIENT: 1. Follow-up with the accounts receivable collector in 1 week. DISCHARGE CONDITION: Stable. TIME SPENT ON DISCHARGE: 45 minutes. Vital Signs/I&Os Vital Signs Date Time Temp Pulse Resp B/P (MAP) Pulse Ox O2 Delivery O2 Flow Rate FiO2 05/12/19 08:19 120 05/12/19 08:18 120/76 05/12/19 07:20 90 5.0 05/12/19 07:20 Nasal Cannula 05/12/19 06:00 97.9 18 05/07/19 04:00 50 I&O- Last 24 Hours up to 6 AM 05/12/19 06:00 Intake Total 1200 ml Balance 1200 ml Microbiology Microbiology 05/05/19 Blood Culture - Final, Complete NO GROWTH AFTER 5 DAYS 05/05/19 Blood Culture - Final, Complete NO GROWTH AFTER 5 DAYS Discharge Medications Scheduled Apixaban (Eliquis) 5 Mg Tablet, 5 MG PO BID, (Reported) Digoxin (Digoxin) 125 Mcg Tablet, 125 MCG PO DAILY, (Reported) Fluticasone Propion/Salmeterol (Advair Hfa 230-21 Mcg Inhaler) 12 Gm Hfa.aer.ad, 2 PUFF INH BID, (Reported) Pantoprazole Sodium (Pantoprazole Sodium) 40 Mg Tablet.dr, 40 MG PO DAILY, (Reported) Potassium Chloride (Potassium Chloride) 10 Meq Capsule.er, 10 MEQ PO DAILY, (Reported) Prednisone (Prednisone) 20 Mg Tablet, 1 TAB PO DAILY Spironolactone (Spironolactone) 25 Mg Tablet, 12.5 MG PO DAILY, (Reported) Tiotropium Alpine Monohydrate (Spiriva) 18 Mcg Cap.w.dev, 1 CAP INH DAILY, (Reported) Torsemide (Torsemide) 20 Mg Tablet, 10 MG PO QPM, (Reported) TAKES AT 1700 Verapamil HCl (Verapamil ER) 240 Mg Cap24h.pel, 240 MG PO DAILY, (Reported) Allergies Coded Allergies: aspirin (Verified Adverse Reaction, Intermediate, bleeding, 12/21/18) Penicillins (Verified Adverse Reaction, Mild, gi upset, 12/21/18) IMMANUEL CHARLES MD May 12, 2019 11:22
== END 2019-05-12 14:40 | disposition home or self-care (01) | DRG 191 ==
LOC: EDBD 14:03 → M ED 14:03 → M ED INP 17:15 → M PCU 18:24 → M MS5PR 05-07 10:53
PROVIDERS: ADMIT Internal Medicine; ATTEND Internal Medicine
DX: J44.1 Chronic obstructive pulmonary disease with (acute) exacerbation (principal); J96.11 Chronic respiratory failure with hypoxia; I50.32 Chronic diastolic (congestive) heart failure; Z99.81 Dependence on supplemental oxygen; I48.2 Chronic atrial fibrillation; D45 Polycythemia vera; E66.01 Morbid (severe) obesity due to excess calories; I11.0 Hypertensive heart disease with heart failure; K59.00 Constipation, unspecified; N40.0 Benign prostatic hyperplasia without lower urinary tract symptoms; Z79.01 Long term (current) use of anticoagulants; Z79.899 Other long term (current) drug therapy; Z88.0 Allergy status to penicillin; Z88.6 Allergy status to analgesic agent; Z87.891 Personal history of nicotine dependence; Z68.36 Body mass index [BMI] 36.0-36.9, adult

== ENCOUNTER → 2019-07-25 | Outpatient (REF) | payer MEDICARE, OTHER ==
[~2019-07-25] MED LIST changes: -BISO5TAB5 PO; +BISO5TAB9 PO; +METO25TA4 PO
[2019-07-25 17:40] LABS: ALBUMIN 3.3 GM/DL (3.2-5.2); BILIRUBIN,TOTAL 1.1 MG/DL (0.2-1.0); CALCIUM LEVEL 8.8 MG/DL (8.8-10.2); CHOLESTEROL RISK RATIO 5.25 (<5); CREATININE FOR GFR 1.73 MG/DL (0.70-1.30); GLOMERULAR FILTRATION RATE 41.8 (>42); POTASSIUM SERUM 5.1 MEQ/L (3.5-5.1); THYROID STIMULATING HORMONE 1.3 uIU/ML (0.358-3.740); TOTAL PROTEIN 7.6 GM/DL (6.4-8.2)
[2019-07-25 17:48] LABS: BASO # 0.1 10^3/uL (0.0-0.2); BASO % 0.5 % (0.0-1.0); EOS # 0.2 10^3/uL (0.0-0.5); EOS % 1.4 % (0.0-3.0); HEMATOCRIT 51.6 % (42.0-52.0); HEMOGLOBIN 15.6 g/dl (13.5-17.5); LYMPH # 1.6 10^3/uL (1.5-5.0); LYMPH % 14.4 % (24.0-44.0); MEAN CORPUSCULAR HEMOGLOBIN 28.2 pg (27.0-33.0); MEAN CORPUSCULAR HGB CONC 30.2 g/dl (32.0-36.5); MEAN CORPUSCULAR VOLUME 93.1 fl (80.0-96.0); MONO # 0.9 10^3/uL (0.0-0.8); MONO % 8.6 % (0.0-5.0); NEUTROPHILS # 8.1 10^3/uL (1.5-8.5); NEUTROPHILS % 74.3 % (36.0-66.0); PLATELET COUNT, AUTOMATED 383 10^3/uL (150-450); RED BLOOD COUNT 5.54 10^6/uL (4.30-6.10); WHITE BLOOD COUNT 10.9 10^3/uL (4.0-10.0)
[2019-07-25 18:12] LABS: HEMOGLOBIN A1c 6.9 %
== END ==
LOC: M SFHCCAPE 07:46
PROVIDERS: ATTEND Physician Assistant
DX: E11.8 Type 2 diabetes mellitus with unspecified complications (principal)

== ENCOUNTER → 2019-11-08 | Outpatient (REF) | payer MEDICARE, OTHER ==
[~2019-11-08] MED LIST changes: +BISO5TAB14 PO; -BISO5TAB9 PO; -DIGO0.12 PO; +DIGO0.123 PO; -DIGO0.25 PO; +DIGO0.253 PO; +PRED10PA2 PO
[2019-11-08 17:12] LABS: BASO # 0.1 10^3/uL (0.0-0.2); BASO % 0.5 % (0.0-1.0); EOS # 0.1 10^3/uL (0.0-0.5); EOS % 1.1 % (0.0-3.0); HEMATOCRIT 55.7 % (42.0-52.0); HEMOGLOBIN 16.3 g/dl (13.5-17.5); LYMPH # 1.8 10^3/uL (1.5-5.0); LYMPH % 13.9 % (24.0-44.0); MEAN CORPUSCULAR HGB CONC 29.3 g/dl (32.0-36.5); MEAN CORPUSCULAR VOLUME 85.3 fl (80.0-96.0); MONO # 1.1 10^3/uL (0.0-0.8); MONO % 8.7 % (0.0-5.0); NEUTROPHILS # 9.6 10^3/uL (1.5-8.5); NEUTROPHILS % 74.7 % (36.0-66.0); PLATELET COUNT, AUTOMATED 345 10^3/uL (150-450); RED BLOOD COUNT 6.53 10^6/uL (4.30-6.10); WHITE BLOOD COUNT 12.8 10^3/uL (4.0-10.0)
[2019-11-08 17:16] LABS: ALBUMIN 3.7 GM/DL (3.2-5.2); CALCIUM LEVEL 9.3 MG/DL (8.8-10.2); CHOLESTEROL RISK RATIO 4.75 (<5); CREATININE FOR GFR 1.75 MG/DL (0.70-1.30); FREE T4 1.08 NG/DL (0.76-1.46); GLOMERULAR FILTRATION RATE 41.2 (>42); PROSTATIC SPECIFIC AG MONITOR 54.8 NG/ML (< 4.00); THYROID STIMULATING HORMONE 1.77 uIU/ML (0.358-3.740); TOTAL PROTEIN 7.7 GM/DL (6.4-8.2)
[2019-11-08 17:39] LABS: HEMOGLOBIN A1c 7.2 %
== END ==
LOC: M SFHCCAPE 08:28
PROVIDERS: ATTEND Physician Assistant
DX: E11.8 Type 2 diabetes mellitus with unspecified complications (principal); R94.6 Abnormal results of thyroid function studies; R97.20 Elevated prostate specific antigen [PSA]

== ENCOUNTER → 2019-11-09 | Outpatient (REF) | payer MEDICARE, OTHER ==
[2019-11-10 17:07] LABS: MAU/CREAT RATIO 45.3 MCG/MG (0.0-30.0)
== END ==
LOC: M SFHCCAPE 14:47
PROVIDERS: ATTEND Physician Assistant
DX: E11.8 Type 2 diabetes mellitus with unspecified complications (principal)

== ENCOUNTER → 2020-04-17 | Outpatient (REF) | payer MEDICARE, OTHER ==
[~2020-04-17] MED LIST changes: -AMLO10TA5 PO; +AMLO1TAB25 PO; +BUME1TAB3 PO; -COUM7.5T PO; +COUM7.5T6 PO; +LEVO250T12 PO; +LEVO500T3 PO; +PANT40TA29 PO; -PANT40TA3 PO; +[UNRECOGNIZED DRUG - SUPPLY]
== END ==
LOC: M SMT 12:32
PROVIDERS: ATTEND Nurse Practitioner Family
DX: N39.0 Urinary tract infection, site not specified (principal)

== ENCOUNTER 2020-05-22 12:26 | Inpatient (IN) | payer MEDICARE, OTHER ==
[~2020-05-22] VITALS: Ht 180.3 cm; Wt 98.0 kg
[~2020-05-22 12:26] MED LIST changes: -BUME1TAB3 PO; -LEVO250T12 PO; -LEVO500T3 PO; -[UNRECOGNIZED DRUG - SUPPLY]
[2020-05-22] MEDS ORDERED: methylPREDNISolone 40MG 1ML VIAL IV ONE (13:15)
[2020-05-22] MEDS ORDERED: methylPREDNISolone 125MG 2ML VIAL IV ONE (13:15)
[2020-05-22] MEDS ORDERED: IPRATROPIUM 0.5MG/ALBUTEROL 2.5MG INH SOL UD 3ML (DUONEB) NEB ONE (13:15)
[2020-05-22] MEDS ORDERED: ALBUTEROL SULFATE 2.5 MG/0.5 ML INH NEB SOLN INH ONE (13:15)
[2020-05-22 13:59] LABS: BASO # 0.1 10^3/uL (0.0-0.2); BASO % 0.4 % (0.0-1.0); EOS % 0.3 % (0.0-3.0); HEMATOCRIT 48.4 % (42.0-52.0); HEMOGLOBIN 14.7 g/dl (13.5-17.5); LYMPH # 0.4 10^3/uL (1.5-5.0); LYMPH % 3.5 % (24.0-44.0); MEAN CORPUSCULAR HGB CONC 30.4 g/dl (32.0-36.5); MONO # 0.6 10^3/uL (0.0-0.8); MONO % 5.7 % (0.0-5.0); NEUTROPHILS # 9.9 10^3/uL (1.5-8.5); NEUTROPHILS % 87.7 % (36.0-66.0); PLATELET COUNT, AUTOMATED 248 10^3/uL (150-450); RED BLOOD COUNT 6.13 10^6/uL (4.30-6.10); WHITE BLOOD COUNT 11.3 10^3/uL (4.0-10.0)
[2020-05-22 14:12] LABS: INR 2.44; PROTHROMBIN TIME 27.1 SECONDS (11.8-14.0)
[2020-05-22 14:38] LABS: ALT/SGPT 23 U/L (12-78); BLOOD UREA NITROGEN 38 MG/DL (7-18); CALCIUM LEVEL 8.7 MG/DL (8.8-10.2); CARBON DIOXIDE LEVEL 22 MEQ/L (21-32); CHLORIDE LEVEL 105 MEQ/L (98-107); CREATININE FOR GFR 1.61 MG/DL (0.70-1.30); GLOMERULAR FILTRATION RATE 45.4 (>42); GLUCOSE, FASTING 127 MG/DL (70-100); POTASSIUM SERUM 4.7 MEQ/L (3.5-5.1); SODIUM LEVEL 138 MEQ/L (136-145)
[2020-05-22 14:39] LABS: ALBUMIN 2.9 GM/DL (3.2-5.2); BILIRUBIN,DIRECT 0.8 MG/DL (0.0-0.2); BILIRUBIN,TOTAL 1.5 MG/DL (0.2-1.0); CK-MB VALUE MASS 1.2 NG/ML (<3.6); CPK CREATINE PHOSPHOKINASE 38 U/L (39-308); MB/CK RELATIVE INDEX 3.16 (< OR =4); TOTAL PROTEIN 6.5 GM/DL (6.4-8.2); TROPONIN I < 0.02 NG/ML (< 0.10)
[2020-05-22] MEDS ORDERED: LevoFLOXacin IV 750 MG in IV 1 EA IV ONE (15:00)
[2020-05-22 16:02] LABS: DIGOXIN LEVEL 1.8 NG/ML (0.5-2.0)
[2020-05-22] MEDS ORDERED: PRED10TA2 PO (16:30)
[2020-05-22] MEDS ORDERED: CLINDAMYCIN 150MG CAPSULE PO SCH (18:00)
[2020-05-22] MEDS ORDERED: FUROSEMIDE 100MG/10ML VIAL (J1940) IV ONE (20:30)
[2020-05-22] MEDS: ADVAIR HFA 230/21MCG INHALER INH SCH (20:45)
[2020-05-22 21:56] VITALS: BP 132/69
[2020-05-22] MEDS ORDERED: SLF 3 ML SYR IV PRN (23:00)
[2020-05-22] MEDS: BUMETANIDE 1 MG/4 ML INJ (S0171) IV SCH (23:08)
[2020-05-23] VITALS (7 sets, daily range): BP systolic 111–132; BP diastolic 62–84; O2SAT 90
[2020-05-23] MEDS: CLINDAMYCIN 150MG CAPSULE PO SCH ×5 (00:09→23:54)
[2020-05-23] MEDS: SLF 3 ML SYR IV SCH ×3 (06:07→20:57)
[2020-05-23] MEDS: TIOTROPIUM INHALER/CAPSULE (SPIRIVA) INH SCH (07:32)
[2020-05-23] MEDS: ADVAIR HFA 230/21MCG INHALER INH SCH ×2 (07:32→19:53)
[2020-05-23] MEDS: DIGOXIN 0.125 MG TAB PO SCH (08:11)
[2020-05-23] MEDS: POTASSIUM CHLORIDE 10 MEQ SR TABLET PO SCH (08:13)
[2020-05-23] MEDS: VERAPAMIL 120 MG SR TAB PO SCH (08:13)
[2020-05-23] MEDS: SPIRONOLACTONE 12.5MG PER 1/2 TABLET PO SCH (08:13)
[2020-05-23] MEDS: PANTOPRAZOLE 40MG TAB (PROTONIX) PO SCH (08:13)
[2020-05-23] MEDS: BUMETANIDE 1 MG/4 ML INJ (S0171) IV SCH (11:38)
--- NOTE | 2020-05-23 15:56 | HPEPDOC ---
General Date of Admission May 22, 2020 at 15:12 Date of Service: May 22, 2020 Chief Complaint The patient is a 69-year-old male admitted with a reason for visit of Acute And Chronic Respiratory Failure. Source: Patient Exam Limitations: No limitations Timing/Duration: Momentarily Severity: Moderate Associated Symptoms: Denies Symptoms History of Present Illness Patient is a 69-year-old male with past medical history of a fib, CHF, COPD, a sudden onset of shortness of breath that started earlier that day. Patient Reported and Symptom resolution after treatment ED. He denies any cough or increased urine production from baseline. He denies fevers or chills. Reports being on 5 L of oxygen at home. He was always prescribe CPAP in the past but was told he no longer needs the device. additionally, presented with right leg wound. patient notes this to be present for months. he first doniced it after hitting his leg against his home oxygen tank. he noted he was diagnosed with a hematoma but since diagnosis, the sizeof the hematoma stayed the same with slight increase in size over the course of a few months. no pain or drainage Home Medications Scheduled Apixaban (Eliquis) 5 Mg Tablet, 5 MG PO BID, (Reported) Digoxin (Digoxin) 125 Mcg Tablet, 125 MCG PO DAILY, (Reported) Fluticasone Propion/Salmeterol (Advair Hfa 230-21 Mcg Inhaler) 12 Gm Hfa.aer.ad, 2 PUFF INH BID, (Reported) Pantoprazole Sodium (Pantoprazole Sodium) 40 Mg Tablet.dr, 40 MG PO DAILY, (Reported) Potassium Chloride (Potassium Chloride) 10 Meq Capsule.er, 10 MEQ PO DAILY, (Reported) Prednisone (Prednisone) 10 Mg Tablet, 10 MG PO DAILY, (Reported) Spironolactone (Spironolactone) 25 Mg Tablet, 12.5 MG PO DAILY, (Reported) Tiotropium [place] Monohydrate (Spiriva) 18 Mcg Cap.w.dev, 18 MCG INH DAILY, (Reported) Torsemide (Torsemide) 10 Mg Tablet, 10 MG PO QPM, (Reported) TAKES AT 1700 Verapamil HCl (Verapamil ER) 240 Mg Cap24h.pel, 240 MG PO DAILY, (Reported) Allergies Coded Allergies: aspirin (Verified Adverse Reaction, Intermediate, bleeding, 12/21/18) Penicillins (Verified Adverse Reaction, Mild, gi upset, 12/21/18) Past Medical History Medical History a.fib, HTN, CHF, COPD, on 5L at home Surgical History no recent Family History Significant Family History: Noncontributory Social History * Smoker: former Smoker Alcohol: occationally Drugs: denies A-FIB/CHADSVASC A-FIB History Current/History of A-Fib/PAF?: Yes Current PO Anticoag Therapy: Yes Review of Systems Constitutional: Denies: Chills, Fever, Night Sweats Eyes: Denies: Pain, Vision change ENT: Denies: Head Aches, Ear Pain, Dysphagia Skin: Reports: Lesions; Denies: Rash, Breakdown Pulmonary: Reports: Dyspnea; Denies: Cough Cardiovascular: Denies: Chest Pain, Palpitations, Orthopnea, Paroxysmal Noc. Dyspnea, Lt Headedness Gastrointestinal: Denies: Nausea, Vomiting, Abdominal Pain, Diarrhea Genitourinary: Denies: Dysuria, Frequency, Incontinence, Retention Hematologic: Denies: Bruising, Bleeding Excessively Musculoskeletal: Denies: Neck Pain, Back Pain, Joint Pain, Muscle Pain, Spasms Neurological: Denies: Weakness, Numbness, Change in speech, Confusion Psych: Reports: Mood Normal; Denies: Depression, Memory Issues Physical Examination General Exam: Positive: Alert, No Acute Distress Eye Exam: Positive: PERRLA, Conjunctiva & lids normal, EOMI; Negative: Sclera icteric ENT Exam: Positive: Atraumatic, Mucous membr. moist/pink, Pharynx Normal Neck Exam: Positive: Supple; Negative: JVD, thyromegaly Chest Exam: Positive: Rales, Diminished Heart Exam: Positive: Rate Normal, Regular Rhythm, Normal S1, Normal S2; Negative: Murmurs, Rubs Telemetry: Positive: No significant arrhythmia Abdomen Exam: Positive: Normal bowel sounds, Soft; Negative: Tenderness, Hepatospenomegaly Extremity Exam: Positive: Normal pulses; Negative: Clubbing, Cyanosis, Edema Skin Exam: Positive: Nl turgor and temperature, Lesion (right lower leg hematoma - 4cm); Negative: Breakdown Neuro Exam: Positive: Normal Gait, Normal Speech, Cranial Nerves 3-12 NL, Reflexes 2+ Psych Exam: Positive: Mental status NL, Mood NL, Oriented x 3 Vital Signs Vital Signs Date Time Temp Pulse Resp B/P (MAP) Pulse Ox O2 Delivery O2 Flow Rate FiO2 9/1/20 19:06 98.2 75 20 164/81 (108) 99 Room Air 05/22/20 17:49 15.0 40 Laboratory Data Labs 24H Laboratory Tests 2 05/22/20 13:30: Immature Granulocyte % (Auto) 2.4, Neutrophils (%) (Auto) 87.7H, Lymphocytes (%) (Auto) 3.5L, Monocytes (%) (Auto) 5.7H, Eosinophils (%) (Auto) 0.3, Basophils (%) (Auto) 0.4, Neutrophils # (Auto) 9.9H, Lymphocytes # (Auto) 0.4L, Monocytes # (Auto) 0.6, Eosinophils # (Auto) 0.0, Basophils # (Auto) 0.1, Nucleated Red Blood Cells % (auto) 0.2H, Prothrombin Time 27.1H, Prothromb Time International Ratio 2.44, Anion Gap 11, Glomerular Filtration Rate 45.4, Lactic Acid Level 2.1*H, Calcium Level 8.7L, Total Bilirubin 1.5H, Direct Bilirubin 0.8H, Aspartate Amino Transf (AST/SGOT) 15, Alanine Aminotransferase (ALT/SGPT) 23, Alkaline Phosphatase 121H, Total Creatine Kinase 38L, Creatine Kinase MB 1.2, Creatine Kinase MB Relative Index 3.16, Troponin I < 0.02, [id number]-[id number]-Type Natriuretic Peptide 5465H, Total Protein 6.5, Albumin 2.9L, Albumin/Globulin Ratio 0.8, Digoxin Level 1.8 05/22/20 17:51: Lactic Acid Followup at 4 Hours 1.6 CBC/BMP Laboratory Tests 05/22/20 13:30 Microbiology Microbiology 05/22/20 Blood Culture, Received Pending Assessment/Plan 1. Acute on chronic hypoxic respiratory failure -requiring additional o2 support -clinical course consistent with CHF exacerpation more so -will give bumex 1mg and hold home oral turosemide -echo ordered 2. right leg wound: -no improvement over a course of months, greater than 2cm. -surgery consulted for 1&d -will give clindamycin 3. hx of COPD -continue home inhalers 4. hx of afib -continue verapamil, will hold eliquis for possible i&d Plan / VTE VTE Prophylaxis Ordered?: Yes SHVIANI KNIGHT DO May 22, 2020 19:51
[2020-05-23] MEDS ORDERED: methylPREDNISolone 40MG 1ML VIAL IV ONE (19:00)
--- NOTE | 2020-05-23 19:01 | IPNPDOC ---
Text Note Date of Service The patient was seen on 05/23/20. NOTE SUBJECTIVE: continues to have difficulty breathing - improved since yesterday but not back to baseline OBJECTIVE: FOCUSED EXAMINATION: HEENT: normocephalic LUNGS: poor air entry; no audible wheezes HEART: regular rate on auscultation; ABDOMEN: soft; non-tender EXTREMITIES: grossly normal SKIN/NAILS: intact MUSCULOSKELETAL: right leg in dressing VITAL SIGNS: Please see below. ASSESSMENT and PLAN: 1. Acute on chronic hypoxic respiratory failure -requiring additional o2 support -continue bumex 1mg; reviwed i&0 - net negative -will add solumedrol 40mg for combined COPD and CHF exacerbation -keep patient on CPAP at night if available; start at 7 - respiratory ok to increase per patient's requirement 2. right leg wound: -s/p i&d -on clindamycin PO; continue for now 3. hx of COPD -continue home inhalers -will start solumedrol 40mg IV daily 4. hx of afib -continue verapamil, eliquis resumed VS,Fishbone, I+O VS, Fishbone, I+O Vital Signs Date Time Temp Pulse Resp B/P (MAP) Pulse Ox O2 Delivery O2 Flow Rate FiO2 05/23/20 16:00 15.0 05/23/20 16:00 97.2 62 20 118/62 (80) 91 High Flow Cannula 05/22/20 17:49 40 I&O- Last 24 Hours up to 6 AM 05/23/20 06:00 Intake Total 100 ml Output Total 1175 ml Balance -1075 ml SHIVANI KNIGHT DO May 23, 2020 19:01
[2020-05-23] MEDS: APIXABAN 5 MG TAB (ELIQUIS) PO SCH (20:57)
[2020-05-24] VITALS (7 sets, daily range): BP systolic 107–129; BP diastolic 61–80; O2SAT 93
[2020-05-24 05:32] LABS: BASO % 0.2 % (0.0-1.0); HEMATOCRIT 44.5 % (42.0-52.0); HEMOGLOBIN 13.5 g/dl (13.5-17.5); LYMPH # 0.3 10^3/uL (1.5-5.0); LYMPH % 2.3 % (24.0-44.0); MEAN CORPUSCULAR HEMOGLOBIN 23.8 pg (27.0-33.0); MEAN CORPUSCULAR HGB CONC 30.3 g/dl (32.0-36.5); MEAN CORPUSCULAR VOLUME 78.5 fl (80.0-96.0); MONO # 0.3 10^3/uL (0.0-0.8); MONO % 2.2 % (0.0-5.0); NEUTROPHILS # 10.5 10^3/uL (1.5-8.5); NEUTROPHILS % 94.3 % (36.0-66.0); PLATELET COUNT, AUTOMATED 257 10^3/uL (150-450); RED BLOOD COUNT 5.67 10^6/uL (4.30-6.10); WHITE BLOOD COUNT 11.1 10^3/uL (4.0-10.0)
[2020-05-24] MEDS: CLINDAMYCIN 150MG CAPSULE PO SCH ×4 (05:50→23:53)
[2020-05-24] MEDS: SLF 3 ML SYR IV SCH ×3 (05:50→20:29)
[2020-05-24 05:59] LABS: CALCIUM LEVEL 9.1 MG/DL (8.8-10.2); CREATININE FOR GFR 1.84 MG/DL (0.70-1.30); GLOMERULAR FILTRATION RATE 38.9 (>42); POTASSIUM SERUM 4.1 MEQ/L (3.5-5.1)
[2020-05-24] MEDS: TIOTROPIUM INHALER/CAPSULE (SPIRIVA) INH SCH (07:38)
[2020-05-24] MEDS: ADVAIR HFA 230/21MCG INHALER INH SCH ×2 (07:38→19:19)
[2020-05-24] MEDS ORDERED: IPRATROPIUM 0.5MG/ALBUTEROL 2.5MG INH SOL UD 3ML (DUONEB) NEB ONE (08:00)
[2020-05-24] MEDS ORDERED: IPRATROPIUM 0.5MG/ALBUTEROL 2.5MG INH SOL UD 3ML (DUONEB) NEB PRN (08:00)
[2020-05-24] MEDS: IPRATROPIUM 0.5MG/ALBUTEROL 2.5MG INH SOL UD 3ML (DUONEB) NEB SCH ×3 (08:00→19:19)
[2020-05-24] MEDS: BUMETANIDE 1 MG/4 ML INJ (S0171) IV SCH ×3 (09:27→20:29)
[2020-05-24] MEDS: PANTOPRAZOLE 40MG TAB (PROTONIX) PO SCH (09:27)
[2020-05-24] MEDS: SPIRONOLACTONE 12.5MG PER 1/2 TABLET PO SCH (09:27)
[2020-05-24] MEDS: APIXABAN 5 MG TAB (ELIQUIS) PO SCH ×2 (09:29→20:28)
[2020-05-24] MEDS: DIGOXIN 0.125 MG TAB PO SCH (09:29)
[2020-05-24] MEDS: POTASSIUM CHLORIDE 10 MEQ SR TABLET PO SCH (09:30)
[2020-05-24] MEDS: VERAPAMIL 120 MG SR TAB PO SCH (09:39)
[2020-05-24] MEDS ORDERED: LIDOCAINE W/EPINEPHRINE 1% 20ML VIAL SC ONE (09:45)
[2020-05-24] MEDS: methylPREDNISolone 40MG 1ML VIAL IV SCH (18:19)
--- NOTE | 2020-05-24 23:56 | IPNPDOC ---
Text Note Date of Service The patient was seen on 05/24/20. NOTE SUBJECTIVE: continues to have difficulty breathing - improved since yesterday but not back to baseline OBJECTIVE: FOCUSED EXAMINATION: HEENT: normocephalic LUNGS: poor air entry; no audible wheezes HEART: regular rate on auscultation; ABDOMEN: soft; non-tender EXTREMITIES: grossly normal SKIN/NAILS: intact MUSCULOSKELETAL: right leg in dressing VITAL SIGNS: Please see below. ASSESSMENT and PLAN: 1. Acute on chronic hypoxic respiratory failure -continuing t6o require 15L (home requirement 5L) -increased bumex to 1mg BID 2. right leg wound: -s/p i&d 3. hx of COPD -continue home inhalers -on solumedrol 40mg IV daily DUONEBS ordered 4. hx of afib -continue verapamil, eliquis resumed VS,Fishbone, I+O VS, Fishbone, I+O Laboratory Tests 05/24/20 05:07 Vital Signs Date Time Temp Pulse Resp B/P (MAP) Pulse Ox O2 Delivery O2 Flow Rate FiO2 05/24/20 20:37 15.0 05/24/20 20:00 97.0 89 16 108/61 (77) 92 High Flow Cannula 05/22/20 17:49 40 I&O- Last 24 Hours up to 6 AM 05/24/20 06:00 Intake Total 120 ml Output Total 1575 ml Balance -1455 ml SHIVANI KNIGHT DO May 24, 2020 23:56
[2020-05-25] VITALS (16 sets, daily range): BP systolic 96–136; BP diastolic 58–86; O2SAT 79–99
[2020-05-25] MEDS: IPRATROPIUM 0.5MG/ALBUTEROL 2.5MG INH SOL UD 3ML (DUONEB) NEB SCH ×4 (01:38→19:31)
[2020-05-25 04:50] LABS: BASO % 0.1 % (0.0-1.0); HEMATOCRIT 47.3 % (42.0-52.0); HEMOGLOBIN 14.2 g/dl (13.5-17.5); LYMPH # 0.2 10^3/uL (1.5-5.0); LYMPH % 1.4 % (24.0-44.0); MEAN CORPUSCULAR HEMOGLOBIN 23.6 pg (27.0-33.0); MEAN CORPUSCULAR VOLUME 78.7 fl (80.0-96.0); MONO # 0.3 10^3/uL (0.0-0.8); MONO % 2.7 % (0.0-5.0); NEUTROPHILS # 10.1 10^3/uL (1.5-8.5); NEUTROPHILS % 94.7 % (36.0-66.0); PLATELET COUNT, AUTOMATED 263 10^3/uL (150-450); RED BLOOD COUNT 6.01 10^6/uL (4.30-6.10); WHITE BLOOD COUNT 10.7 10^3/uL (4.0-10.0)
[2020-05-25 05:09] LABS: CREATININE FOR GFR 1.75 MG/DL (0.70-1.30); GLOMERULAR FILTRATION RATE 41.2 (>42); POTASSIUM SERUM 3.9 MEQ/L (3.5-5.1)
[2020-05-25] MEDS: CLINDAMYCIN 150MG CAPSULE PO SCH (06:07)
[2020-05-25] MEDS: SLF 3 ML SYR IV SCH ×3 (06:08→20:07)
[2020-05-25] MEDS: TIOTROPIUM INHALER/CAPSULE (SPIRIVA) INH SCH (06:58)
[2020-05-25] MEDS: ADVAIR HFA 230/21MCG INHALER INH SCH ×2 (06:59→19:32)
[2020-05-25] MEDS: DIGOXIN 0.125 MG TAB PO SCH (08:42)
[2020-05-25] MEDS: VERAPAMIL 120 MG SR TAB PO SCH (08:42)
[2020-05-25] MEDS: POTASSIUM CHLORIDE 10 MEQ SR TABLET PO SCH (08:43)
[2020-05-25] MEDS: PANTOPRAZOLE 40MG TAB (PROTONIX) PO SCH (08:43)
[2020-05-25] MEDS: SPIRONOLACTONE 12.5MG PER 1/2 TABLET PO SCH (08:43)
[2020-05-25] MEDS: APIXABAN 5 MG TAB (ELIQUIS) PO SCH ×2 (08:43→20:07)
[2020-05-25] MEDS: BUMETANIDE 1 MG/4 ML INJ (S0171) IV SCH ×2 (08:44→20:07)
--- NOTE | 2020-05-25 10:09 | REPVR ---
PROCEDURE INFORMATION: Exam: XR Chest, 2 Views Exam date and time: 05/25/2020 9:52 AM Age: 69 years old Clinical indication: Shortness of breath; Additional info: Persistant SOB TECHNIQUE: Imaging protocol: XR of the chest Views: 2 views. COMPARISON: CR PORTABLE CHEST X-RAY 05/22/2020 1:01 PM FINDINGS: Lungs: Emphysematous change, interstitial prominence, and basilar airspace disease. Pleural space: No significant pleural effusion. Heart/Mediastinum: Borderline cardiomegaly. Bones/joints: Degenerative change . IMPRESSION: Emphysematous change, interstitial prominence, and basilar airspace disease. Electronically signed by: Dexter Frederick On 05/25/2020 10:08:45 AM
[2020-05-25] MEDS: cefTRIAXone SOD 1GM VIAL (J0696 PER 250MG) IM SCH (10:38)
--- NOTE | 2020-05-25 11:21 | POST-OPPD ---
Postoperative Procedure Note Date Of Procedure: May 24, 2020 PREOPERATIVE DIAGNOSIS: right leg abscess POSTOPERATIVE DIAGNOSIS: same FINDINGS: necrotic tissue and purulent fluid 4x 3 cm subcutaneous abscess PROCEDURE: incision and drainage of subcutaneous abscess SURGEON: Parisa CASING IN LINE SETTER: ANESTHESIA: 1% lidocaine with epinephrine SPECIMENS: cultures previously sent ESTIMATED BLOOD LOSS: 10 mL dictation no. [id number] NISHA GREY MD May 25, 2020 11:20
--- NOTE | 2020-05-25 14:46 | IPNPDOC ---
Text Note Date of Service The patient was seen on 05/25/20. NOTE SUBJECTIVE: continues to have difficulty breathing - improved since yesterday but not back to baseline OBJECTIVE: FOCUSED EXAMINATION: HEENT: normocephalic LUNGS: poor air entry; no audible wheezes HEART: regular rate on auscultation; ABDOMEN: soft; non-tender EXTREMITIES: grossly normal SKIN/NAILS: intact MUSCULOSKELETAL: right leg in dressing VITAL SIGNS: Please see below. ASSESSMENT and PLAN: 1. Acute on chronic hypoxic respiratory failure -on 10L this AM (15L yesterday). goal is to wean to 5L -continue bumex 1mgBID -continue solumedrol -[place] add rocephin and azithromycin to optimize COPD exacerbation 2. right leg wound: -s/p i&d 3. hx of COPD -continue home inhalers -on solumedrol and azithromycin for COPD exacerbation 4. hx of afib -continue verapamil, eliquis resumed disposition: discharge [id number] if o2 requireent continues to trend down to home 5L VS,Fishbone, I+O VS, Fishbone, I+O Laboratory Tests 05/25/20 04:06 Vital Signs Date Time Temp Pulse Resp B/P (MAP) Pulse Ox O2 Delivery O2 Flow Rate FiO2 05/25/20 12:00 96.8 82 16 134/82 (99) 89 High Flow Cannula 10.0 05/22/20 17:49 40 l I&O- Last 24 Hours up to 6 AM 05/25/20 06:00 Intake Total 120 ml Output Total 3000 ml Balance -2880 ml SHIVANI KNIGHT DO May 25, 2020 14:46
[2020-05-25] MEDS: AZITHROMYCIN 250MG TABLET PO SCH (17:49)
[2020-05-25] MEDS: methylPREDNISolone 40MG 1ML VIAL IV SCH (17:50)
[2020-05-26] VITALS: BP 128/80; O2SAT 92
[2020-05-26] MEDS: IPRATROPIUM 0.5MG/ALBUTEROL 2.5MG INH SOL UD 3ML (DUONEB) NEB SCH ×4 (02:00→20:00)
[2020-05-26 04:00] VITALS: BP 120/73; O2SAT 87
[2020-05-26 04:23] LABS: BASO % 0.2 % (0.0-1.0); HEMATOCRIT 48.2 % (42.0-52.0); HEMOGLOBIN 14.4 g/dl (13.5-17.5); LYMPH # 0.2 10^3/uL (1.5-5.0); LYMPH % 1.8 % (24.0-44.0); MEAN CORPUSCULAR HEMOGLOBIN 23.5 pg (27.0-33.0); MEAN CORPUSCULAR HGB CONC 29.9 g/dl (32.0-36.5); MEAN CORPUSCULAR VOLUME 78.5 fl (80.0-96.0); MONO # 0.3 10^3/uL (0.0-0.8); MONO % 2.6 % (0.0-5.0); NEUTROPHILS # 9.6 10^3/uL (1.5-8.5); NEUTROPHILS % 93.9 % (36.0-66.0); PLATELET COUNT, AUTOMATED 261 10^3/uL (150-450); RED BLOOD COUNT 6.14 10^6/uL (4.30-6.10); WHITE BLOOD COUNT 10.2 10^3/uL (4.0-10.0)
[2020-05-26 04:39] LABS: CALCIUM LEVEL 9.3 MG/DL (8.8-10.2); CREATININE FOR GFR 1.5 MG/DL (0.70-1.30); GLOMERULAR FILTRATION RATE 49.3 (>42); POTASSIUM SERUM 4.3 MEQ/L (3.5-5.1)
[2020-05-26] MEDS: SLF 3 ML SYR IV SCH ×3 (05:13→20:08)
[2020-05-26] MEDS: ADVAIR HFA 230/21MCG INHALER INH SCH ×2 (07:23→20:03)
[2020-05-26] MEDS: TIOTROPIUM INHALER/CAPSULE (SPIRIVA) INH SCH (07:24)
[2020-05-26 08:00] VITALS: BP 122/83; O2SAT 88
[2020-05-26] MEDS: BUMETANIDE 1 MG/4 ML INJ (S0171) IV SCH ×2 (08:03→20:07)
[2020-05-26] MEDS: POTASSIUM CHLORIDE 10 MEQ SR TABLET PO SCH (08:04)
[2020-05-26] MEDS: PANTOPRAZOLE 40MG TAB (PROTONIX) PO SCH (08:04)
[2020-05-26] MEDS: SPIRONOLACTONE 12.5MG PER 1/2 TABLET PO SCH (08:04)
[2020-05-26] MEDS: DIGOXIN 0.125 MG TAB PO SCH (08:04)
[2020-05-26] MEDS: VERAPAMIL 120 MG SR TAB PO SCH (08:04)
[2020-05-26] MEDS: APIXABAN 5 MG TAB (ELIQUIS) PO SCH ×2 (08:05→20:07)
[2020-05-26] MEDS: AZITHROMYCIN 250MG TABLET PO SCH (08:05)
[2020-05-26] MEDS: cefTRIAXone SOD 1GM VIAL (J0696 PER 250MG) IM SCH (10:12)
[2020-05-26 12:00] VITALS: BP 136/90; O2SAT 90
[2020-05-26 16:00] VITALS: BP 128/79; O2SAT 92
[2020-05-26] MEDS ORDERED: FLEET ENEMA PR PRN (17:15)
[2020-05-26] MEDS: MIRALAX *UNIT DOSE* 17GM PACKET PO SCH (17:53)
[2020-05-26] MEDS: methylPREDNISolone 40MG 1ML VIAL IV SCH (17:53)
[2020-05-26 20:00] VITALS: BP 114/71; O2SAT 87
[2020-05-26] MEDS: DOCUSATE SODIUM 100 MG CAP PO SCH ×2 (20:07→20:09)
[2020-05-27] VITALS (7 sets, daily range): BP systolic 13–135; BP diastolic 65–91; O2SAT 89–94
[2020-05-27] MEDS: IPRATROPIUM 0.5MG/ALBUTEROL 2.5MG INH SOL UD 3ML (DUONEB) NEB SCH ×4 (01:29→19:14)
[2020-05-27 03:58] LABS: BASO % 0.2 % (0.0-1.0); HEMATOCRIT 50.1 % (42.0-52.0); LYMPH # 0.3 10^3/uL (1.5-5.0); LYMPH % 2.4 % (24.0-44.0); MEAN CORPUSCULAR HEMOGLOBIN 23.7 pg (27.0-33.0); MEAN CORPUSCULAR HGB CONC 29.9 g/dl (32.0-36.5); MONO # 0.3 10^3/uL (0.0-0.8); MONO % 2.9 % (0.0-5.0); NEUTROPHILS # 9.8 10^3/uL (1.5-8.5); NEUTROPHILS % 92.9 % (36.0-66.0); PLATELET COUNT, AUTOMATED 263 10^3/uL (150-450); RED BLOOD COUNT 6.34 10^6/uL (4.30-6.10); WHITE BLOOD COUNT 10.5 10^3/uL (4.0-10.0)
[2020-05-27] MEDS: SLF 3 ML SYR IV SCH ×3 (06:00→20:24)
[2020-05-27] MEDS: TIOTROPIUM INHALER/CAPSULE (SPIRIVA) INH SCH (07:30)
[2020-05-27] MEDS: ADVAIR HFA 230/21MCG INHALER INH SCH ×2 (07:31→19:14)
[2020-05-27] MEDS: BUMETANIDE 1 MG/4 ML INJ (S0171) IV SCH (08:33)
[2020-05-27] MEDS: DIGOXIN 0.125 MG TAB PO SCH (08:34)
[2020-05-27] MEDS: AZITHROMYCIN 250MG TABLET PO SCH (08:34)
[2020-05-27] MEDS: SPIRONOLACTONE 12.5MG PER 1/2 TABLET PO SCH (08:34)
[2020-05-27] MEDS: POTASSIUM CHLORIDE 10 MEQ SR TABLET PO SCH (08:34)
[2020-05-27] MEDS: APIXABAN 5 MG TAB (ELIQUIS) PO SCH ×2 (08:34→20:23)
[2020-05-27] MEDS: DOCUSATE SODIUM 100 MG CAP PO SCH ×3 (08:34→20:23)
[2020-05-27] MEDS: PANTOPRAZOLE 40MG TAB (PROTONIX) PO SCH (08:34)
[2020-05-27] MEDS: VERAPAMIL 120 MG SR TAB PO SCH (08:35)
[2020-05-27] MEDS: MIRALAX *UNIT DOSE* 17GM PACKET PO SCH (08:35)
[2020-05-27] MEDS ORDERED: cefTRIAXone SOD 1 GM in D5W MINI-BAG PLUS 50 ML IV SCH (09:00)
[2020-05-27] MEDS: predniSONE 20 MG TAB PO SCH (11:13)
[2020-05-27] MEDS ORDERED: [UNRECOGNIZED DRUG - SUPPLY] (12:40)
--- NOTE | 2020-05-27 15:01 | IPNPDOC ---
Text Note Date of Service The patient was seen on 05/27/20. NOTE SUBJECTIVE: notes subjective improvement but continues to need 10-12L 02 OBJECTIVE: FOCUSED EXAMINATION: HEENT: normocephalic LUNGS: poor air entry; no audible wheezes HEART: regular rate on auscultation; ABDOMEN: soft; non-tender EXTREMITIES: grossly normal SKIN/NAILS: intact MUSCULOSKELETAL: right leg in dressing VITAL SIGNS: Please see below. ASSESSMENT and PLAN: 1. Acute on chronic hypoxic respiratory failure -on 10L this AM -continue Bumex 1mg BID, converted to PO -competed ceftriaxone and azithro treatment for COPD exacerbation -switched PO prednisone 2. right leg wound: -s/p i&d; reviwed finalized cultures - sensitive to rocephin, completed abx treatment course. 3. hx of COPD -continue home inhalers 4. hx of afib -continue verapamil, eliquis resumed disposition: depending on home 02 arrangement VS,Fishbone, I+O VS, Fishbone, I+O Laboratory Tests 05/27/20 03:35 Vital Signs Date Time Temp Pulse Resp B/P (MAP) Pulse Ox O2 Delivery O2 Flow Rate FiO2 05/27/20 12:00 91 High Flow Cannula 12.0 05/27/20 12:00 97.1 87 18 129/80 (96) 05/22/20 17:49 40 I&O- Last 24 Hours up to 6 AM 05/27/20 06:00 Intake Total 720 ml Output Total 3325 ml Balance -2605 ml SHIVANI KNIGHT DO May 27, 2020 15:01
[2020-05-27] MEDS: BUMETANIDE 1 MG TAB PO SCH (20:24)
[2020-05-28] VITALS (11 sets, daily range): BP systolic 107–137; BP diastolic 60–89; O2SAT 60–93
[2020-05-28] MEDS: IPRATROPIUM 0.5MG/ALBUTEROL 2.5MG INH SOL UD 3ML (DUONEB) NEB SCH ×4 (02:00→19:38)
[2020-05-28 04:57] LABS: CALCIUM LEVEL 9.2 MG/DL (8.8-10.2); CREATININE FOR GFR 1.56 MG/DL (0.70-1.30); GLOMERULAR FILTRATION RATE 47.1 (>42); PHOSPHORUS LEVEL 3.8 MG/DL (2.5-4.9); POTASSIUM SERUM 4.8 MEQ/L (3.5-5.1)
[2020-05-28] MEDS: SLF 3 ML SYR IV SCH ×3 (06:04→21:33)
--- NOTE | 2020-05-28 08:07 | REPVR ---
PROCEDURE INFORMATION: Exam: XR Chest, 2 Views Exam date and time: 05/28/2020 6:00 AM Age: 69 years old Clinical indication: Other: Pulmonary edema; Additional info: Pulm edema? TECHNIQUE: Imaging protocol: XR of the chest Views: 2 views. COMPARISON: CR Chest, 2 view PA, Lat 05/25/2020 9:38 AM FINDINGS: Lungs: Patchy aeration and lucency with hyperexpansion and chronic interstitial changes. Stable mild basilar opacities. Chest is stable. Pleural space: No visible pleural effusion. No pneumothorax. Heart/Mediastinum: Cardiac silhouette is stable. Bones/joints: No acute findings. IMPRESSION: Stable chest with stable basilar airspace opacities. Electronically signed by: Claribel Wilson On 05/28/2020 08:06:27 AM
[2020-05-28] MEDS: TIOTROPIUM INHALER/CAPSULE (SPIRIVA) INH SCH (08:10)
[2020-05-28] MEDS: ADVAIR HFA 230/21MCG INHALER INH SCH ×2 (08:11→19:38)
[2020-05-28] MEDS: DOCUSATE SODIUM 100 MG CAP PO SCH ×2 (09:00→20:27)
[2020-05-28] MEDS: MIRALAX *UNIT DOSE* 17GM PACKET PO SCH (09:28)
[2020-05-28] MEDS: predniSONE 20 MG TAB PO SCH (09:28)
[2020-05-28] MEDS: PANTOPRAZOLE 40MG TAB (PROTONIX) PO SCH (09:28)
[2020-05-28] MEDS: APIXABAN 5 MG TAB (ELIQUIS) PO SCH ×2 (09:28→20:24)
[2020-05-28] MEDS: VERAPAMIL 120 MG SR TAB PO SCH (09:29)
[2020-05-28] MEDS: SPIRONOLACTONE 12.5MG PER 1/2 TABLET PO SCH (09:30)
[2020-05-28] MEDS: BUMETANIDE 1 MG TAB PO SCH ×2 (09:30→20:25)
[2020-05-28] MEDS: POTASSIUM CHLORIDE 10 MEQ SR TABLET PO SCH (09:30)
[2020-05-28] MEDS: DIGOXIN 0.125 MG TAB PO SCH (09:30)
--- NOTE | 2020-05-28 11:10 | ECHO ---
DATE OF PROCEDURE: 05/22/2020 Age: 69 Gender: Male Height: 71.5 Weight: 232 pounds REFERRING PHYSICIAN: Dr. Cristal Frias INDICATION: Heart failure, unspecified. MEASUREMENTS: 2D Measurements: Left atrium 3.6 cm Interventricular septum 1.44 cm Posterior wall 1.0 cm Left ventricle diastole 4.5 cm Right ventricle 5.8 cm Inferior vena cava 3.0 cm with marked reduction in respiratory variation Doppler Measurements: No aortic stenosis No aortic regurgitation Aortic valve velocity 98.6 cm/s LVOT velocity 64.6 cm/s No aortic stenosis No aortic regurgitation No mitral stenosis No mitral regurgitation Severe tricuspid regurgitation Estimated right ventricle systolic pressure of at least 104 mmHg Estimated right atrial pressure of at least 20 mmHg No pulmonic regurgitation DESCRIPTION: Rhythm was atrial fibrillation with left bundle branch block type morphology. Image quality was fair. No pericardial effusion. This was a 2D, M- mode, color flow Doppler, and pulsed wave Doppler examination including mitral annular tissue Doppler. CONCLUSIONS: 1. Very severe elevation of estimated right ventricle systolic pressure (at least 104 mmHg). Moderately dilated right ventricle with right ventricle hypertrophy. Normal right ventricle systolic function. Severe right atrial dilatation. Severe tricuspid regurgitation with structurally normal appearing tricuspid leaflets. Systolic flow reversal in the hepatic veins consistent with severe tricuspid regurgitation. 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 Suggestive of central venous pressure of at least 20 mmHg. Flattened of the interventricular septum in both diastole and systole in keeping with both volume and pressure overload of the right ventricle. Severe right atrial dilatation. 2. Mild hypertrophy of the interventricular septum. Normal left ventricle regional LV wall motion and wall thickening. Normal LV systolic function. LVEF 70% to 75% by visual estimate. 3. Mild mitral annular calcification. No mitral regurgitation. 4. Mild aortic valve sclerosis of a 3-cuspid aortic valve. No aortic stenosis or regurgitation. 5. No pericardial effusion. MTDD
--- NOTE | 2020-05-28 13:13 | IPNPDOC ---
Text Note Date of Service The patient was seen on 05/28/20. NOTE SUBJECTIVE: notes subjective improvement but continues to need 10-12L 02 OBJECTIVE: FOCUSED EXAMINATION: HEENT: normocephalic LUNGS: Scattered adventitious sounds, but no overt wheezing or crackles. Bases sound clear HEART: regular rate on auscultation; ABDOMEN: soft; non-tender EXTREMITIES: grossly normal, right leg dressing clean. SKIN/NAILS: intact VITAL SIGNS: Please see below. ASSESSMENT and PLAN: 1. Acute on chronic hypoxic respiratory failure -Continues to require at least 10L this AM, 12 overnight -Bumex 1mg BID, converted to PO. Appears to be euvolemic at this time. -competed ceftriaxone and azithro treatment for COPD exacerbation -switched PO prednisone - Pulmonology has been consulted as well. Perhaps we will be able to get him a high flow concentrator to assist with home O2 needs. 2. right leg wound: -s/p i&d and completed abx treatment course. Will need to follow-up outpatient with PCP. 3. hx of COPD -continue home inhalers 4. hx of afib -continue verapamil, eliquis 5. Stage III CKD baseline of approx 1.5-1.7 for the past 1 year. He is now at baseline. disposition: Home when O2 can be arranged for him appropriately. VS,Jocelyn, I+O VS, Jocelyn, I+O Laboratory Tests 05/28/20 04:12 Vital Signs Date Time Temp Pulse Resp B/P (MAP) Pulse Ox O2 Delivery O2 Flow Rate FiO2 05/28/20 12:00 97.2 84 18 125/82 (96) 91 High Flow Cannula 12.0 05/22/20 17:49 40 I&O- Last 24 Hours up to 6 AM 05/28/20 06:00 Intake Total 1990 ml Output Total 2400 ml Balance -410 ml ANASTACIO FRIEND DO May 28, 2020 13:13
[2020-05-29] VITALS (8 sets, daily range): BP systolic 102–130; BP diastolic 57–90; O2SAT 88–93
[2020-05-29] MEDS: IPRATROPIUM 0.5MG/ALBUTEROL 2.5MG INH SOL UD 3ML (DUONEB) NEB SCH ×5 (01:54→20:00)
[2020-05-29] MEDS: SLF 3 ML SYR IV SCH ×3 (05:52→21:25)
[2020-05-29] MEDS: DOCUSATE SODIUM 100 MG CAP PO SCH ×2 (09:00→21:00)
[2020-05-29] MEDS: POTASSIUM CHLORIDE 10 MEQ SR TABLET PO SCH (09:35)
[2020-05-29] MEDS: SPIRONOLACTONE 12.5MG PER 1/2 TABLET PO SCH (09:35)
[2020-05-29] MEDS: VERAPAMIL 120 MG SR TAB PO SCH (09:35)
[2020-05-29] MEDS: APIXABAN 5 MG TAB (ELIQUIS) PO SCH ×2 (09:35→21:25)
[2020-05-29] MEDS: DIGOXIN 0.125 MG TAB PO SCH (09:35)
[2020-05-29] MEDS: predniSONE 20 MG TAB PO SCH (09:35)
[2020-05-29] MEDS: TIOTROPIUM INHALER/CAPSULE (SPIRIVA) INH SCH (09:35)
[2020-05-29] MEDS: MIRALAX *UNIT DOSE* 17GM PACKET PO SCH (09:35)
[2020-05-29] MEDS: ADVAIR HFA 230/21MCG INHALER INH SCH ×2 (09:35→20:03)
[2020-05-29] MEDS: PANTOPRAZOLE 40MG TAB (PROTONIX) PO SCH (09:35)
[2020-05-29] MEDS: BUMETANIDE 1 MG TAB PO SCH ×2 (09:35→21:25)
--- NOTE | 2020-05-29 10:23 | IPNPDOC ---
Text Note Date of Service The patient was seen on 05/29/20. NOTE Subjective: Patient is a 69 year old male with a PMhx of A. fib (on Eliquis), CHF, COPD / Chronic hypoxia (5L O2), CKD3, GERD who presented to the ER with shortness of breath who was admitted to the hospitalist service for CHF exacerbation. Patient was seen and examined at the bedside. Currently reports that he feels better. Still is on high amounts of oxygen, denies any CP, palpitations, cough. Has worked with PT and has cleared. Denies any N/V, abdominal pain, C/D. Objective: Vitals (See below) General: Sitting up in bed, appears comfortable, AAOx3 HEENT: NC, AT CVS: +S1S2 Lungs: Fair air entry b/l, mild crackles appreciated at bases, no rhonchi / wheezing Abdomen: Soft, ND, NT, +BSx4 Extremities: No edema noted, - Calf tenderness Skin: Right LE with dressing in place Assessment and plan: Acute on chronic hypoxic respiratory failure - likely 2/2 right sided heart failure / pulmonary HTN - Currently patient reports clinical improvement; deneis any CP, palpitations, cough - Still is on high amounts of oxygen; tapered down to 8L - Appears euvolemic; however continues to have adequate diureses - c/w Bumetanide - s/p ceftriaxone and azithro treatment for COPD exacerbation - c/w prednisone; s/p Solumedrol - Pulmonology on consultation - Plans for outpatient high efficiency concentrator Right leg wound - s/p incision and drainage - s/p antibiotic treatment course Chronic COPD - c/w home inhaled therapy as ordered A. fib - c/w rate / rhythm control with Verapamil and Diltiazem - c/w full anticoagulation with Eliquis CKD3 - Cr baseline of approx 1.5-1.7 - Currently at baseline GERD - c/w Protonix DVT prophylaxis - c/w full anticoagulation with Eliquis Disposition: - Cleared PT for DC home - Continuing diuresis - Anticipate DC within 24-48 hours VS,Fishbone, I+O VS, Fishbone, I+O Vital Signs Date Time Temp Pulse Resp B/P (MAP) Pulse Ox O2 Delivery O2 Flow Rate FiO2 05/29/20 08:00 8.0 05/29/20 08:00 96.7 68 18 102/69 (80) 89 High Flow Cannula I&O- Last 24 Hours up to 6 AM 05/29/20 05:59 Intake Total 2280 ml Output Total 1900 ml Balance 380 ml HUSSEIN JONES MD May 29, 2020 10:23
--- NOTE | 2020-05-29 11:45 | CR ---
PULMONARY CONSULTATION DATE OF CONSULTATION: 05/27/2020 REASON FOR CONSULTATION: HISTORY OF PRESENT ILLNESS: The patient is a 69-year-old male with advanced lung disease, seen for persistent hypoxemia. He has a past pulmonary history of chronic obstructive pulmonary disease (approximately 70 pack year cigarette smoking; quit 2000). He has mild to moderate pulmonary hypertension (RV systolic pressure 66), abnormal hilar and mediastinal adenopathy has been noted in the past as stable, and he has advanced emphysema. He also has a past medical history of hypertension, diastolic heart failure and atrial fibrillation. He was admitted on May 22 with increasing respiratory symptoms. His BNP was 5,000 and he has been diuresed for approximately 10 liters and continues to require supplemental oxygen at a flow rate that is in access of that which he was using prior to admission. At bedside, the patient feels he is improved from a symptom control standpoint, but continues to experience dyspnea with minimal activity in the room. PHYSICAL EXAMINATION: His temperature is 97, pulse rate 79 and irregular, blood pressure 132/78 and respiratory rate 18 and rested. Oxygen saturation is 91% on 10 liters of oxygen via nasal cannula. HEENT: He is awake, alert and oriented. Affect and mood seem appropriate. Nutrition and hygiene are good. Oral and nasal mucosa are pink. There is no stridor of the trachea. Jugular veins are difficult to appreciate, but do not appear to be distended. There is a question of hepatojugular reflux however. Heart: Heart sounds are irregularly irregular. His breath sounds are diminished globally, expiratory phase is prolonged. There is no overt wheezing. There is some dullness on percussion of the right base. No tactile fremitus. Abdomen: Soft, obese with intact bowel sounds. Extremities: Right lower extremity is dressed with a small spot of blood. There is a trace of edema. Peripheral pulses are easily palpable. Nails show no clubbing. DIAGNOSTIC STUDIES: I have reviewed chest imaging and remotely performed CT scan. I also reviewed his office record; most recent visit within March. Follow- up visit is planned for June or July timeframe. LABORATORY DATA: Electrolytes: Sodium 137, potassium 4.3, chloride 100, CO2 31, BUN 50, creatinine 1.5, glucose 157. White count 10.5, hemoglobin 15, hematocrit 50, platelet count 263,000. Differential white cell count shows 92.9% neutrophils. His coagulation studies on admission showed PT of 27.1, INR 2.44. IMPRESSION: 1. Hypoxemia multifactorial. 2. Pulmonary edema. 3. Emphysema. 4. Chronic obstructive pulmonary disease moderate to severe (FEV1 55% of predicted in September of 2019). 5. Steroid dependency. RECOMMENDATIONS: 1. I would continue with diuresis to dry weight. 2. Recheck a chest x-ray. 3. I would continue bronchodilator therapy and wean from I.V. to oral steroids. 4. Reconditioning; patient may need high flow oxygen and high efficiency concentrator to accomplish this. I agree completely with an advanced rehab placement to improve his ability to function on an outpatient basis. Thank you for allowing me to consult in the care of this patient. If there are any questions, please do not hesitate to contact me. JOLIE
[2020-05-30] VITALS: BP 131/90; O2SAT 88
[2020-05-30] MEDS: IPRATROPIUM 0.5MG/ALBUTEROL 2.5MG INH SOL UD 3ML (DUONEB) NEB SCH ×4 (01:08→20:00)
[2020-05-30 04:00] VITALS: BP 127/92; O2SAT 92
[2020-05-30] MEDS: SLF 3 ML SYR IV SCH ×3 (05:18→20:05)
[2020-05-30] MEDS: ADVAIR HFA 230/21MCG INHALER INH SCH ×2 (07:35→20:32)
[2020-05-30] MEDS: TIOTROPIUM INHALER/CAPSULE (SPIRIVA) INH SCH (07:35)
[2020-05-30 07:53] VITALS: BP 120/80
[2020-05-30 08:26] LABS: HEMATOCRIT 56.3 % (42.0-52.0); HEMOGLOBIN 16.8 g/dl (13.5-17.5); MEAN CORPUSCULAR HEMOGLOBIN 23.5 pg (27.0-33.0); MEAN CORPUSCULAR HGB CONC 29.8 g/dl (32.0-36.5); MEAN CORPUSCULAR VOLUME 78.7 fl (80.0-96.0); PLATELET COUNT, AUTOMATED 306 10^3/uL (150-450); RED BLOOD COUNT 7.15 10^6/uL (4.30-6.10); WHITE BLOOD COUNT 13.3 10^3/uL (4.0-10.0)
[2020-05-30] MEDS: POTASSIUM CHLORIDE 10 MEQ SR TABLET PO SCH (08:47)
[2020-05-30] MEDS: PANTOPRAZOLE 40MG TAB (PROTONIX) PO SCH (08:47)
[2020-05-30] MEDS: VERAPAMIL 120 MG SR TAB PO SCH (08:48)
[2020-05-30] MEDS: BUMETANIDE 1 MG TAB PO SCH (08:48)
[2020-05-30] MEDS: predniSONE 20 MG TAB PO SCH (08:48)
[2020-05-30] MEDS: SPIRONOLACTONE 12.5MG PER 1/2 TABLET PO SCH (08:48)
[2020-05-30] MEDS: MIRALAX *UNIT DOSE* 17GM PACKET PO SCH (08:49)
[2020-05-30] MEDS: DIGOXIN 0.125 MG TAB PO SCH (08:49)
[2020-05-30] MEDS: APIXABAN 5 MG TAB (ELIQUIS) PO SCH ×2 (08:49→20:01)
[2020-05-30 08:51] LABS: CREATININE FOR GFR 1.75 MG/DL (0.70-1.30); GLOMERULAR FILTRATION RATE 41.2 (>42); MAGNESIUM LEVEL 2.9 MG/DL (1.8-2.4); POTASSIUM SERUM 4.3 MEQ/L (3.5-5.1)
[2020-05-30] MEDS: DOCUSATE SODIUM 100 MG CAP PO SCH ×2 (09:00→20:05)
[2020-05-30 09:37] LABS: LYMPHOCYTES 4 % (16-44); METAMYELOCYTES 2 % (0-0); MONOCYTES 9 % (0-5); NEUTROPHILS 84 % (28-66); PLATELET ESTIMATE NORMAL (NORMAL)
[2020-05-30 09:38] LABS: ANISOCYTOSIS 3+
[2020-05-30 09:39] LABS: MICROCYTOSIS 1+; OVALOCYTES 1+
[2020-05-30] MEDS ORDERED: LEVO500T3 PO (09:58)
[2020-05-30] MEDS ORDERED: BUME1TAB3 PO (09:58)
[2020-05-30] MEDS ORDERED: LEVO250T12 PO (10:02)
[2020-05-30] MEDS ORDERED: LevoFLOXacin 500 MG TABLET PO ONE (10:30)
[2020-05-30 11:31] VITALS: BP 124/76
--- NOTE | 2020-05-30 14:29 | IPNPDOC ---
Text Note Date of Service The patient was seen on 05/30/20. NOTE Subjective: Patient is a 69 year old male with a PMhx of A. fib (on Eliquis), CHF, COPD / Chronic hypoxia (5L O2), CKD3, GERD who presented to the ER with shortness of breath who was admitted to the hospitalist service for CHF exacerbation. Patient was seen and examined at the bedside. Denies any problems overnight. Denies any CP, SOB or palpitations. Denies any N/V, abdominal pain, C/D. Objective: Vitals (See below) General: Laying in bed, NAD, and remains comfortable, AAOx3 HEENT: NC, AT CVS: +S1S2 Lungs: Fair air entry b/l, no rhonchi / wheezing / crackles noted Abdomen: Soft, non-distended, non-tender Extremities: LE are without edema, - Calf tenderness Skin: RLE with dressing in place; wound evaluated; appears clean without erythema / warmth / pus Assessment and plan: Acute on chronic hypoxic respiratory failure - likely 2/2 right sided heart failure / pulmonary HTN - Remains asymptomatic without any CP, palpitations, cough - Still is on high amounts of oxygen; tapered down to 8L - Remains euvolemic - c/w Bumetanide; reduced dose - s/p ceftriaxone and azithro treatment for COPD exacerbation - c/w prednisone; s/p Solumedrol - Pulmonology on consultation - Plans for outpatient high efficiency concentrator; discussed with Lola watson; will be available tomorrow Right leg wound - s/p incision and drainage on 05/28 - Wound culture (05/23): Serratia Marcescens - Will get MRI leg - Will c/w Levofloxacin based on wound cultures; adjusted for renal function Chronic COPD - c/w home inhaled therapy as ordered A. fib - c/w rate / rhythm control with Verapamil and Diltiazem - c/w full anticoagulation with Eliquis CKD3 - Cr baseline of approx 1.5-1.7 - Currently at baseline GERD - c/w Protonix DVT prophylaxis - c/w full anticoagulation with Eliquis Disposition: - Cleared PT for DC home - c/w current diuresis - Anticipate DC tomorrow VS,Fishbone, I+O VS, Fishbone, I+O Laboratory Tests 05/30/20 07:57 Vital Signs Date Time Temp Pulse Resp B/P (MAP) Pulse Ox O2 Delivery O2 Flow Rate FiO2 05/30/20 11:31 96.9 98 18 124/76 (92) 89 High Flow Cannula 8.0 I&O- Last 24 Hours up to 6 AM 05/30/20 06:00 Intake Total 750 ml Output Total 2600 ml Balance -1850 ml HUSSEIN JONES MD May 30, 2020 14:29
[2020-05-30 20:00] VITALS: BP 107/63
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
[2020-05-31] MEDS: IPRATROPIUM 0.5MG/ALBUTEROL 2.5MG INH SOL UD 3ML (DUONEB) NEB SCH ×2 (01:01→07:17)
[2020-05-31 04:00] VITALS: BP 135/78
[2020-05-31] MEDS: SLF 3 ML SYR IV SCH ×2 (04:16→14:00)
[2020-05-31] MEDS ORDERED: LevoFLOXacin 250 MG TABLET PO SCH (06:00)
[2020-05-31 06:42] LABS: HEMATOCRIT 51.9 % (42.0-52.0); HEMOGLOBIN 15.7 g/dl (13.5-17.5); MEAN CORPUSCULAR HEMOGLOBIN 23.8 pg (27.0-33.0); MEAN CORPUSCULAR HGB CONC 30.3 g/dl (32.0-36.5); MEAN CORPUSCULAR VOLUME 78.5 fl (80.0-96.0); PLATELET COUNT, AUTOMATED 264 10^3/uL (150-450); RED BLOOD COUNT 6.61 10^6/uL (4.30-6.10); WHITE BLOOD COUNT 13.8 10^3/uL (4.0-10.0)
[2020-05-31] MEDS: ADVAIR HFA 230/21MCG INHALER INH SCH (07:14)
[2020-05-31] MEDS: TIOTROPIUM INHALER/CAPSULE (SPIRIVA) INH SCH (07:14)
[2020-05-31 07:18] LABS: CALCIUM LEVEL 8.8 MG/DL (8.8-10.2); CREATININE FOR GFR 1.7 MG/DL (0.70-1.30); GLOMERULAR FILTRATION RATE 42.6 (>42); MAGNESIUM LEVEL 2.8 MG/DL (1.8-2.4); POTASSIUM SERUM 4.2 MEQ/L (3.5-5.1)
[2020-05-31 07:20] LABS: BASOPHILS 1 % (0-1); LYMPHOCYTES 4 % (16-44); MONOCYTES 7 % (0-5); NEUTROPHILS 88 % (28-66)
[2020-05-31 07:21] LABS: ANISOCYTOSIS 1+; MICROCYTOSIS 1+; PLATELET ESTIMATE NORMAL (NORMAL)
[2020-05-31 08:00] VITALS: BP 119/70
[2020-05-31] MEDS: DOCUSATE SODIUM 100 MG CAP PO SCH ×2 (09:00→09:49)
[2020-05-31] MEDS ORDERED: BUMETANIDE 1 MG TAB PO SCH (09:00)
[2020-05-31 09:32] LABS: C REACTIVE PROTEIN QUANTITATIV 0.51 MG/DL (0.00-0.30)
[2020-05-31 09:33] LABS: C REACTIVE PROTEIN QUANTITATIV 0.52 MG/DL (0.00-0.30)
[2020-05-31 09:33] LABS: C REACTIVE PROTEIN QUANTITATIV 0.4 MG/DL (0.00-0.30)
[2020-05-31] MEDS: POTASSIUM CHLORIDE 10 MEQ SR TABLET PO SCH (09:48)
[2020-05-31] MEDS: predniSONE 20 MG TAB PO SCH (09:48)
[2020-05-31] MEDS: MIRALAX *UNIT DOSE* 17GM PACKET PO SCH (09:48)
[2020-05-31] MEDS: PANTOPRAZOLE 40MG TAB (PROTONIX) PO SCH (09:48)
[2020-05-31] MEDS: APIXABAN 5 MG TAB (ELIQUIS) PO SCH (09:48)
[2020-05-31] MEDS: DIGOXIN 0.125 MG TAB PO SCH (09:49)
[2020-05-31 09:58] VITALS: BP 116/74
[2020-05-31] MEDS: VERAPAMIL 120 MG SR TAB PO SCH (09:58)
[2020-05-31] MEDS: SPIRONOLACTONE 12.5MG PER 1/2 TABLET PO SCH (09:59)
[2020-05-31] MEDS ORDERED: LEVO250T12 PO (11:00)
[2020-05-31] MEDS ORDERED: BUME1TAB3 PO (11:00)
--- NOTE | 2020-05-31 12:05 | ECGEPIP ---
[facility] - ED Test Date: 2020-05-22 Pat Name: SPENCER POLO Department: Room: Gender: Male Bank Accountant: MARIA LUZ : 1950 Requested By: Charlie Luciano Order Number: [id number] Reading MD: Audrey Barbosa Measurements Intervals [place] Rate: 93 P: SC: 0 QRS: 90 QRSD: 79 T: 39 QT: 270 QTc: 336 Interpretive Statements ATRIAL FIBRILLATION NONSPECIFIC ST & T-WAVE ABNORMALITY ABNORMAL RHYTHM ECG SEE SCANNED DOWNTIME REPORT
--- NOTE | 2020-05-31 14:51 | DS.PDOC ---
Discharge Summary General Date of Admission May 22, 2020 at 15:12 Date of Discharge 05/31/2020 Discharge Summary PROCEDURES PERFORMED DURING STAY: [None]. ADMITTING DIAGNOSES / DISCHARGE DIAGNOSES: Acute on chronic hypoxic respiratory failure - likely 2/2 right sided heart failure / pulmonary HTN Right leg wound Chronic COPD A. fib CKD3 GERD DVT prophylaxis COMPLICATIONS/CHIEF COMPLAINT: Acute And Chronic Respiratory Failure. HISTORY OF PRESENT ILLNESS: Patient is a 69 year old male with a PMhx of A. fib (on Eliquis), CHF, COPD / Chronic hypoxia (5L O2), CKD3, GERD who presented to the ER with shortness of breath who was admitted to the hospitalist service for CHF exacerbation. HOSPITAL COURSE: Acute on chronic hypoxic respiratory failure - likely 2/2 right sided heart failure / pulmonary HTN - Remains asymptomatic without any CP, palpitations, cough - Still is on high amounts of oxygen; tapered down to 8L - Remains euvolemic - s/p ceftriaxone and azithro treatment for COPD exacerbation - c/w prednisone; s/p Solumedrol - Pulmonology on consultation - Will have high efficiency concentrator by Lola watson on discharge - c/w adjust dose of Bumetanide on discharge - Follow up with Nephrology and Pulmonology within 7 days Right leg wound - Leg is without any surrounding erythema / warmth / tenderness - Remains afebrile / Hemodynamically stable - Wound culture (05/23): Serratia Marcescens - Mild leukocytosis; however no elevation of CRP - MRI leg (05/30): - 1. Small fluid collection with lenticular shaped tracking along the periosteum in the anteromedial distal tibial diaphysis with surrounding subcutaneous soft tissue edema, most likely a small subperiosteal hematoma. This could alternatively represent a hematoma tracking down to the periosteum not truly subperiosteal. However, if periosteal reaction develops over time at this location, it could be more suggestive of subperiosteal hematoma. 2. Edema along the interosseous membrane due to treating the tibia and fibula at approximately the same level which may reflect a sprain injury. No acute fracture. 3. Curvilinear signal in the medullary space of the distal tibial metadiaphysis, most likely artifact from a prominent vessel, less likely bone infarct. Chondroid lesion such as an enchondroma is considered unlikely given the lack of a radiographic correlate and the curvilinear rather than masslike appearance. No aggressive features. 4. Edema in the tibialis posterior muscle as well as the proximal anterolateral calf musculature, likely low-grade muscle strain. - s/p incision and drainage on 05/28 - c/w Levofloxacin based on wound cultures; - Discussed with general surgery; will continue with antibiotics on discharge and have follow up within 7 days Chronic COPD - c/w home inhaled therapy as ordered A. fib - c/w rate / rhythm control with Verapamil and Diltiazem - c/w full anticoagulation with Eliquis CKD3 - Cr baseline of approx 1.5-1.7 - Currently at baseline GERD - c/w Protonix DVT prophylaxis - c/w full anticoagulation with Eliquis DISCHARGE MEDICATIONS: Please see below. ALLERGIES: Please see below. PHYSICAL EXAMINATION ON DISCHARGE: Vitals (See below) General: Laying in bed, NAD, and remains comfortable, AAOx3 HEENT: NC, AT CVS: +S1S2 Lungs: Fair air entry b/l, no rhonchi / wheezing / crackles noted Abdomen: Soft, non-distended, non-tender Extremities: LE are without edema, - Calf tenderness Skin: RLE with dressing in place; again is without erythema / warmth / pus LABORATORY DATA: Please see below. ACTIVITY: [As tolerated]. DISCHARGE PLAN: Please follow up with PCP, Dr. Mccauley (Surgery) and Pulmonology (Dr. Pan) within 7 days Remain compliant with treatment plan and medications Return to the ER if you experience any problems DISPOSITION: Home with services DISCHARGE CONDITION: [Stable]. TIME SPENT ON DISCHARGE: 35 minutes. Vital Signs/I&Os Vital Signs Date Time Temp Pulse Resp B/P (MAP) Pulse Ox O2 Delivery O2 Flow Rate FiO2 05/31/20 09:58 80 116/74 05/31/20 08:00 96.8 18 92 High Flow Cannula 8.0 I&O- Last 24 Hours up to 6 AM 05/31/20 06:00 Intake Total 1500 ml Output Total 1600 ml Balance -100 ml Laboratory Data Labs 24H Laboratory Tests 2 05/31/20 06:13: Immature Granulocyte % (Auto) , Neutrophils (%) (Auto) , Nucleated Red Blood Cells % (auto) 0.0, Neutrophils 88H, Lymphocytes (Manual) 4L, Monocytes (Manual) 7H, Basophils (Manual) 1, Anisocytosis 1+, Microcytosis 1+, Platelet Estimate NORMAL, Anion Gap 6L, Glomerular Filtration Rate 42.6, Calcium Level 8.8, Magnesium Level 2.8H, C-Reactive Protein, Quantitative 0.40H CBC/BMP Laboratory Tests 05/31/20 06:13 Microbiology Microbiology 05/23/20 Wound Culture - Final, Complete Serratia Marcescens 05/22/20 Blood Culture - Final, Complete NO GROWTH AFTER 5 DAYS Discharge Medications Scheduled Apixaban (Eliquis) 5 Mg Tablet, 5 MG PO BID, (Reported) Bumetanide (Bumetanide) 1 Mg Tablet, 1 MG PO BID take as prescribed Digoxin (Digoxin) 125 Mcg Tablet, 125 MCG PO DAILY, (Reported) Fluticasone Propion/Salmeterol (Advair Hfa 230-21 Mcg Inhaler) 12 Gm Hfa.aer.ad, 2 PUFF INH BID, (Reported) Levofloxacin (Levofloxacin) 250 Mg Tablet, 250 MG PO DAILY take as prescribed Pantoprazole Sodium (Pantoprazole Sodium) 40 Mg Tablet.dr, 40 MG PO DAILY, (Reported) Potassium Chloride (Potassium Chloride) 10 Meq Capsule.er, 10 MEQ PO DAILY, (Reported) Prednisone (Prednisone) 10 Mg Tablet, 10 MG PO DAILY, (Reported) Spironolactone (Spironolactone) 25 Mg Tablet, 12.5 MG PO DAILY, (Reported) Tiotropium [place] Monohydrate (Spiriva) 18 Mcg Cap.w.dev, 18 MCG INH DAILY, (Reported) Verapamil HCl (Verapamil ER) 240 Mg Cap24h.pel, 240 MG PO DAILY, (Reported) Allergies Coded Allergies: aspirin (Verified Adverse Reaction, Intermediate, bleeding, 12/21/18) Penicillins (Verified Adverse Reaction, Mild, gi upset, 12/21/18) HUSSEIN JONES MD May 31, 2020 14:51
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
--- NOTE | 2020-06-06 12:13 | REP ---
PORTABLE CHEST X-RAY: CLINICAL: Cough and dyspnea. COMPARISON: 07/28/19 FINDINGS: Stable cardiomyopathy and diffuse chronic interstitial change is again noted. Superimposed basilar air space disease cannot be excluded. No discrete focal consolidation or effusion. No pneumothorax. Skeletal structures are intact. IMPRESSION: Stable cardiomegaly and chronic interstitial changes. Cannot exclude superimposed subtle atelectasis. MTDD
--- NOTE | 2020-06-06 12:15 | REP ---
RIGHT TIBIA/FIBULA SERIES: CLINICAL: Swelling, rule out osteomyelitis. TECHNIQUE: AP and lateral views of the right tibia/fibula. FINDINGS: No acute fracture or dislocation. No periosteal reaction. Surrounding soft tissues are unremarkable. No subcutaneous emphysema or foreign body. IMPRESSION: Normal right tibia/fibula radiographs. MTDD
== END 2020-05-31 14:37 | disposition home health service (06) | DRG 291 ==
LOC: EDBD 12:26 → M ED 12:26 → M ED INP 15:12 → ENRESERV 17:09 → M PCU 21:54
PROVIDERS: ADMIT Internal Medicine; ATTEND Internal Medicine
PROC: 0JDN3ZZ Extraction of Right Lower Leg Subcutaneous Tissue and Fascia, Percutaneous Approach (ICD-10-PCS; principal; 2020-05-24)
DX: I13.0 Hypertensive heart and chronic kidney disease with heart failure and stage 1 through stage 4 chronic kidney disease, or unspecified chronic kidney disease (principal); I50.33 Acute on chronic diastolic (congestive) heart failure; J96.21 Acute and chronic respiratory failure with hypoxia; I48.20 Chronic atrial fibrillation, unspecified; N18.3 Chronic kidney disease, stage 3 (moderate); S80.11XA Contusion of right lower leg, initial encounter; K21.9 Gastro-esophageal reflux disease without esophagitis; I27.20 Pulmonary hypertension, unspecified; J44.9 Chronic obstructive pulmonary disease, unspecified; Z79.01 Long term (current) use of anticoagulants; Z91.19 Patient's noncompliance with other medical treatment and regimen; Z88.0 Allergy status to penicillin; Z88.6 Allergy status to analgesic agent; W22.09XA Striking against other stationary object, initial encounter

== ENCOUNTER 2020-07-12 00:13 | Emergency (ER) | payer MEDICARE, OTHER ==
[~2020-07-12 00:13] MED LIST changes: +BUME1TAB3 PO; +LEVO250T12 PO; +LEVO500T3 PO; +[UNRECOGNIZED DRUG - SUPPLY]
[2020-07-12] MEDS ORDERED: CALCIUM CHLORIDE 10% 1 GM/10 ML SYR ONE (00:14)
[2020-07-12] MEDS ORDERED: EPINEPHrine 1MG/10ML SYRINGE 1.5IN ONE (00:14)
[2020-07-12] MEDS ORDERED: SODIUM BICARBONATE 8.4% INJ 50 ML SYRINGE ONE (00:14)
== END 2020-07-12 04:16 | disposition expired ==
LOC: M ED 00:13
DX: I46.9 Cardiac arrest, cause unspecified (principal); I11.0 Hypertensive heart disease with heart failure; I48.91 Unspecified atrial fibrillation; J44.9 Chronic obstructive pulmonary disease, unspecified; K21.9 Gastro-esophageal reflux disease without esophagitis; Z88.0 Allergy status to penicillin